=== PATIENT | male | born 1955 | race Two or more races ===

== ENCOUNTER → 2021-01-24 09:43 | Outpatient (BNVA) | payer MEDICARE, SELFPAY | PROVIDERS: PCP Internal Medicine; Visit Provider Internal Medicine Cardiovascular Disease | DX: I77.89 Other specified disorders of arteries and arterioles (principal); R42 Dizziness and giddiness; I10 Essential (primary) hypertension | CPT/HCPCS: 99212 ==

== ENCOUNTER → 2021-05-18 08:20 | Outpatient (REF) | payer MEDICARE, SELFPAY ==
--- NOTE | 2021-05-18 08:23 | CA_ITS ---
Transthoracic Echocardiogram Patient (Last, First, Middle): Mick Vela J Gender: Male Date of : 1955 Age: 65 Procedure Date: 05/18/2021 Procedure Type: Transthoracic Echocardiogram Location: OP Height: 193.04 cm Weight: 124.74 kg BSA: 2.54 m2 Heart Rate: bpm BP: 146 / 96 mmHg [employer] Telephone Clerk: YENNIFER Referring MD: Timmy Crabtree MD Sales Forecast Analyst: Timmy Crabtree MD Symptoms: R42 - Dizziness and giddiness Study Quality: Fair ECG Rhythm: Sinus Conclusions: - 1. Normal LV systolic function with impaired relaxation filling pattern 2. Mildly dilated left atrium 3. Normal cardiac valvular Doppler with mild calcified aortic valve changes 4. Mildly dilated ascending aorta at 4.1 cm 5. Normal RV systolic pressure 6. No pericardial effusion Findings Left Ventricle Normal left ventricular size, thickness, and systolic function. The visually estimated ejection fraction is between 60-65%. Spectral Doppler is indicative of an impaired relaxation filling pattern. E/E prime ratio is between 8 and 15 consistent with indeterminate filling pressures. Right Ventricle Normal right ventricular cavity size and systolic function. Atria The left atrium is mildly dilated. There is no evidence of interatrial shunt. The right atrium is normal in size. Aortic Valve There are fibrocalcifications on the aortic valve wall. There is no aortic valve stenosis. There is no aortic valve regurgitation. Mitral Valve Normal mitral valve structure and function. There is trace mitral valve regurgitation. There is no mitral valve stenosis. Pulmonic Valve The pulmonic valve was not well visualized. Tricuspid Valve Likely normal tricuspid valve structure and function. There is trace tricuspid valve regurgitation. The right ventricular systolic pressure is normal. The right ventricular systolic pressure is 22 mmHg. Normal right atrial pressure. There is no evidence of pulmonary hypertension. Great Vessels The pulmonary artery was not well visualized. There is mild dilatation of the ascending aorta measuring 4.10 cm. Venous The inferior vena cava is normal in size and collapses greater than 50% with inspiration. Pericardium/Pleural There is no evidence of pericardial effusion. Prior Study Comparison No significant change compared to prior study dated: 04/19/2020. Measurements 2D Linear Measurements IVSd: 1.02 0.6-0.9/0.6-1.0 cm LVIDd: 5.30 3.9-5.3/4.2-5.9 cm LVIDd Index: 2.09 2.4-3.2/2.2-3.1 cm/m2 LVIDs: 3.21 2.0-3.6 cm LVPWd: 1.03 0.7-1.1 cm Ao Root: 3.70 2.1-3.5 cm LA Diam: 4.60 2.7-3.8/3.0-4.0 cm LAIDs Index: 1.81 1.5-2.3 cm/m2 LV Mass: 258.12 67-162/88-224 g LV Mass Index: 101.62 43-95/49-115 g/m2 LVOT Diam: 2.00 3.0+(-)1.3 cm 2D Systolic Function EF 4C: 69.20 >55% EF 2C: 71.50 >55% EF BiP: 69.90 >55% Mitral Valve MV Pk E: 0.57 MV PK A: 0.53 MV Decel Time: 200.00 E/A: 1.10 E'Lateral: 10.80 E'Medial: 5.11 E/E' Med: 11.20 E/E' Lat: 5.30 PHT: 58.00 MVA PHT: 3.79 Decel [place]: 2.85 Aortic Valve AoV Pk Luis: 1.13 AoV Pk Grad: 5.00 LVOT LVOT Pk Luis: 1.08 LVOT Mn Luis: 0.74 LVOT VTI: 0.24 LVOT Pk Grad: 5.00 LVOT Mn Grad: 2.00 LVOT Diam: 2.00 LVOT Area: 3.14 Diastolic Function MV Pk E: 0.57 MV Pk A: 0.53 E/A: 1.10 E'Medial: 5.11 E/E' Med: 11.20 E' Laterial: 10.80 E/E' Lat: 5.30 Right Ventricle TAPSE (mm): 2.04 Tricuspid Valve TR Pk Luis: 2.17 TR Pk Grad: 19.00 RA Press: 3.00 RVSP: 22.00 Great Vessels Aorta Ao Root-2D: 3.70 2.0-3.7 cm Ao Asc: 4.10 2.1-3.4 cm Updated in Other Vendor System with Status of Final Timmy Crabtree MD electronically signed on 05/19/2021 3:32:06 PM with status of Final
== END ==
LOC: HO.CARD 08:20
PROVIDERS: PCP Internal Medicine; Visit Provider Internal Medicine
DX: R42 Dizziness and giddiness (principal)
CPT/HCPCS: 93306

== ENCOUNTER → 2021-06-15 08:22 | Outpatient (BNVA) | payer MEDICARE, SELFPAY | PROVIDERS: PCP Internal Medicine; Visit Provider Internal Medicine Cardiovascular Disease | DX: I77.89 Other specified disorders of arteries and arterioles (principal); I10 Essential (primary) hypertension | CPT/HCPCS: 99212 ==

== ENCOUNTER 2022-05-25 08:47 | Outpatient (REF) | payer MEDICARE, SELFPAY ==
--- NOTE | ~2022-05-25 | XR_ITS ---
EXAMINATION: XR CHEST CLINICAL INFORMATION: Acute respiratory infection COMPARISON: None TECHNIQUE: 2 views of the chest were obtained. FINDINGS: No significant abnormality is noted involving the heart, lungs, mediastinum, bony thorax or soft tissues. XR/XR chest 2V IMPRESSION: Unremarkable chest examination.
== END 2022-05-25 08:48 | disposition home or self-care (01) ==
LOC: HO.HMGCX 08:47
PROVIDERS: PCP Internal Medicine; Visit Provider Internal Medicine
DX: Z20.822 Contact with and (suspected) exposure to COVID-19 (principal); J06.9 Acute upper respiratory infection, unspecified
CPT/HCPCS: 71046

== ENCOUNTER → 2022-06-05 08:22 | Outpatient (REF) | payer MEDICARE, SELFPAY ==
--- NOTE | 2022-06-05 08:24 | CA_ITS ---
Transthoracic Echocardiogram Patient (Last, First, Middle): Mick Vela J Gender: Male Date of : 1955 Age: 66 Procedure Date: 06/05/2022 Procedure Type: Transthoracic Echocardiogram Location: OP Height: 190.5 cm Weight: 124.74 kg BSA: 2.51 m2 Heart Rate: bpm BP: 145 / 98 mmHg Autom[employer] Title Clerk: RENEE Referring MD: Timmy Crabtree MD Symptoms: I77.89 - Other specified disorders of arteries and arteri... Study Quality: Fair ECG Rhythm: Sinus Conclusions: - The left ventricular systolic function is normal. The calculated ejection fraction is 60% by biplane method. - There is mildly decreased right ventricular systolic function. - There is mild calcification of the aortic valve. - There is mild dilatation of the sinuses of Valsalva measuring 4.32 cm and mild dilatation of the ascending aorta measuring 4.10 cm. Findings Left Ventricle Normal left ventricular cavity size. The left ventricular systolic function is normal. The calculated ejection fraction is 60% by biplane method. There is no evidence of regional wall motion abnormalities. Diastolic function is normal for age. There is mild septal and mild basal asymmetric hypertrophy. Right Ventricle Normal right ventricular cavity size. There is mildly decreased right ventricular systolic function. (TAPSE 1.55cm). Atria Both atria are normal in size. Aortic Valve There is a normal trileaflet aortic valve. There is mild calcification of the aortic valve. There is no aortic valve stenosis. There is no aortic valve regurgitation. Mitral Valve There is mild anterior mitral leaflet thickening. There is no mitral valve regurgitation. There is no mitral valve stenosis. Pulmonic Valve The pulmonic valve is likely normal. Tricuspid Valve There is trace tricuspid valve regurgitation. There is no evidence of pulmonary hypertension. Great Vessels There is mild dilatation of the sinuses of Valsalva measuring 4.32 cm and mild dilatation of the ascending aorta measuring 4.10 cm. Venous The inferior vena cava is normal in size and collapses greater than 50% with inspiration. Pericardium/Pleural There is no evidence of pericardial effusion. Prior Study Comparison Changes noted compared to prior study dated: 05/18/2021. See comment on right ventricle. Measurements 2D Linear Measurements IVSd: 1.11 0.6-0.9/0.6-1.0 cm LVIDd: 3.96 3.9-5.3/4.2-5.9 cm LVIDd Index: 1.58 2.4-3.2/2.2-3.1 cm/m2 LVIDs: 2.49 2.0-3.6 cm LVPWd: 1.06 0.7-1.1 cm LA Diam: 4.10 2.7-3.8/3.0-4.0 cm LAIDs Index: 1.63 1.5-2.3 cm/m2 LV Mass: 174.98 67-162/88-224 g LV Mass Index: 69.71 43-95/49-115 g/m2 LVOT Diam: 2.00 3.0+(-)1.3 cm 2D Systolic Function EF 4C: 59.80 >55% EF 2C: 61.20 >55% EF BiP: 60.30 >55% Mitral Valve MV Pk E: 0.51 MV PK A: 0.79 MV Decel Time: 401.00 E/A: 0.60 E'Lateral: 7.51 E'Medial: 4.57 E/E' Med: 11.20 E/E' Lat: 6.80 PHT: 117.00 MVA PHT: 1.88 Decel [place]: 1.27 Aortic Valve AoV Pk Luis: 1.15 AoV Mn Luis: 0.80 AoV VTI: 0.27 AoV Pk Grad: 5.00 Aov Mn Grad: 3.00 ZENON Cont.VTI: 3.29 LVOT LVOT Pk Luis: 1.14 LVOT Mn Luis: 0.76 LVOT VTI: 0.28 LVOT Pk Grad: 5.00 LVOT Mn Grad: 3.00 LVOT Diam: 2.00 LVOT Area: 3.14 Diastolic Function MV Pk E: 0.51 MV Pk A: 0.79 E/A: 0.60 E'Medial: 4.57 E/E' Med: 11.20 E' Laterial: 7.51 E/E' Lat: 6.80 Right Ventricle TAPSE (mm): 15.50 TVS' Luis: 6.74 Tricuspid Valve RA Press: 3.00 Great Vessels Aorta Sinus of Valsalva: 4.32 2.0-3.[address] [place]: 3.17 1.7-3.4 cm Ao Asc: 4.10 2.1-3.4 cm Updated in Other Vendor System with Status of Final Aki Humphreys MD electronically signed on 06/05/2022 12:27:10 PM with status of Final
== END ==
LOC: HO.CARD 08:22
PROVIDERS: PCP Internal Medicine; Visit Provider Internal Medicine Cardiovascular Disease
DX: I77.89 Other specified disorders of arteries and arterioles (principal)
CPT/HCPCS: 93306

== ENCOUNTER → 2022-06-14 08:22 | Outpatient (BNVA) | payer MEDICARE, SELFPAY | PROVIDERS: PCP Internal Medicine; Referring Provider Internal Medicine; Visit Provider Internal Medicine Cardiovascular Disease | DX: I25.10 Atherosclerotic heart disease of native coronary artery without angina pectoris (principal); I77.89 Other specified disorders of arteries and arterioles; E78.5 Hyperlipidemia, unspecified | CPT/HCPCS: 36415; 80061; 86141; 93005; 99212 ==

== ENCOUNTER 2022-06-14 09:00 | Outpatient (REF) | payer MEDICARE, SELFPAY ==
[2022-06-14 10:46] LABS: Cholesterol 159 mg/dL; HDL Cholesterol 37 mg/dL; LDL Cholesterol Calculated 105 mg/dl; Triglycerides 89 mg/dL
[2022-06-16 14:21] LABS: CRP High Sensitivity 2.3 mg/L
== END 2022-06-14 09:01 | disposition home or self-care (01) ==
LOC: HO.LAB 09:00
PROVIDERS: PCP Internal Medicine; Visit Provider Internal Medicine Cardiovascular Disease
DX: Z13.89 Encounter for screening for other disorder (principal)
CPT/HCPCS: 36415; 80061; 86141

== ENCOUNTER 2022-07-18 09:21 | Outpatient (REF) | payer MEDICARE, SELFPAY ==
--- NOTE | ~2022-07-18 | XR_ITS ---
EXAMINATION: XR CHEST CLINICAL INFORMATION: Chest pain. COMPARISON: Chest radiographs dated 05/25/2022. TECHNIQUE: 2 views of the chest were obtained. FINDINGS: No significant abnormality is noted involving the heart, lungs, mediastinum, bony thorax or soft tissues. XR/XR chest 2V IMPRESSION: No acute cardiopulmonary process.
[2022-07-18 12:50] LABS: Influenza A PCR NEGATIVE (Negative); Influenza B PCR NEGATIVE (Negative); Resp Syncy Virus RNA Qual PCR NEGATIVE (Negative); SARS COV2 PCR INHOUSE POSITIVE (Negative)
== END 2022-07-18 09:22 | disposition home or self-care (01) ==
LOC: HO.XRAY 09:21
PROVIDERS: PCP Internal Medicine; Visit Provider Family Medicine
DX: R09.89 Other specified symptoms and signs involving the circulatory and respiratory systems (principal); R09.02 Hypoxemia; Z20.822 Contact with and (suspected) exposure to COVID-19
CPT/HCPCS: 0241U; 71046

== ENCOUNTER 2022-09-18 06:58 | Outpatient (REF) | payer MEDICARE, SELFPAY ==
[2022-09-18 07:53] LABS: Cholesterol 128 mg/dL; HDL Cholesterol 35 mg/dL; LDL Cholesterol Calculated 73 mg/dl; Triglycerides 103 mg/dL
== END 2022-09-18 06:59 | disposition home or self-care (01) ==
LOC: HO.LAB 06:58
PROVIDERS: PCP Internal Medicine; Visit Provider Internal Medicine Cardiovascular Disease
DX: I11.9 Hypertensive heart disease without heart failure (principal); I77.89 Other specified disorders of arteries and arterioles
CPT/HCPCS: 36415; 80061; 86141

== ENCOUNTER → 2022-10-03 14:47 | Outpatient (BNVA) | payer MEDICARE, SELFPAY | PROVIDERS: PCP Internal Medicine; Referring Provider Internal Medicine; Visit Provider Internal Medicine Cardiovascular Disease | DX: Z13.89 Encounter for screening for other disorder (principal) ==

== ENCOUNTER 2023-04-15 08:13 | Outpatient (REF) | payer MEDICARE, SELFPAY ==
[2023-04-15 08:22] LABS: MANUAL DIFF FLAG NO
[2023-04-15 08:58] LABS: Basophils Percent Auto 0.6 % (0-2); Eosinophils Absolute Auto 0.2 X10*3/uL (0.0-0.4); Eosinophils Percent Auto 2.9 % (0-4); Hematocrit 50.9 % (42.0-52.0); Hemoglobin 16.6 g/dl (14.0-18.0); Imm Gran Abs Auto 0.03 X10*3/uL (0.00-0.03); Imm Gran Pct Auto 0.5 % (0.0-0.4); Lymphocytes Absolute Auto 1.9 X10*3/uL (1.2-4.9); Mean Corpuscular HGB Conc 32.6 g/dl (31.0-36.0); Mean Corpuscular Hemoglobin 29.5 pg (27.0-33.0); Mean Corpuscular Volume 90.4 fL (80.0-98.0); Mean Platelet Volume 12.7 fL (9.4-12.4); Monocytes Absolute Auto 0.6 X10*3/uL (0.1-1.2); Monocytes Percent Auto 8.5 % (2-11); Neutrophils Absolute Auto 3.8 x10*3/uL (2.0-8.3); Neutrophils Percent Auto 58.5 % (45-73); Red Blood Count 5.63 X10*6/uL (4.60-5.80); Red Cell Distribution Width 12.6 % (11.0-16.0); White Blood Count 6.6 X10*3/uL (4.8-10.8)
[2023-04-15 09:23] LABS: B Type Natriuretic Peptide 136 pg/mL (<100)
[2023-04-15 09:29] LABS: Anion Gap 15 (12-20); Blood Urea Nitrogen 19 mg/dL (9-16); Calcium 9.5 mg/dL (8.4-10.2); Carbon Dioxide 21 mmol/L (22-29); Chloride 108 mmol/L (96-108); Estimated Glomerular Filt Rate > 60; Glucose Random 103 mg/dL (60-115); Potassium 4.1 mmol/L (3.3-5.1); Sodium 140 mmol/L (135-145)
[2023-04-15 09:39] LABS: Platelet Count 4 X10*3/uL (160-400)
[2023-04-15 09:49] LABS: Thyroid Stimulating Hormone 2.74 uIU/mL (0.32-4.0)
== END 2023-04-15 08:14 | disposition home or self-care (01) ==
LOC: HO.LAB 08:13
PROVIDERS: PCP Internal Medicine; Visit Provider Nurse Practitioner
DX: Z13.89 Encounter for screening for other disorder (principal)
CPT/HCPCS: 36415; 80048; 83880; 84443; 85025

== ENCOUNTER 2023-04-15 09:53 | Outpatient (AMB) | payer MEDICARE, SELFPAY ==
--- NOTE | 2023-04-15 09:56 | MHC.OFFVIS ---
Intake Vital Signs 04/15/23 09:57 Height 6 ft 3 in Weight 253 lb 8.505 oz BMI 31.7 BP 120/80 Blood Pressure Location Lt brachial Position Sitting Pulse 87 Intake Visit Reasons: A-fib Intake Note: Follow-up new afib Manager Decision Support Required: No Allergies amoxicillin Allergy (Unknown, Verified 07/18/22 08:50) GI upset penicillin V Allergy (Unknown, Verified 07/18/22 08:50) GI HPI HPI Comments History of Present Illness Details Mick comes for an urgent follow-up visit. Over the weekend he was having respiratory symptoms and he went to an urgent care. There he was noted to have irregular pulse an EKG confirm presence of atrial fibrillation. He was started on antibiotics. He has no new symptoms. Denies any symptoms of palpitations. Denies any symptoms of shortness of breath, fatigue. No orthopnea, PND. Today as a part of initiation for oral anticoagulation therapy and follow-up we did a CBC. This shows a platelet count of 4000 which is critically low. He has not noticed any spontaneous bruising. No other overt bleeding. [facility] Medical History Enlarged thoracic aorta HTN (hypertension) Hypertensive heart disease Family History Father No problems noted. Mother CVD (cardiovascular disease) Review of Systems Const Denies chills, Denies fatigue, Denies fever(s), Denies frequent falls, Denies weakness, Denies weight gain and Denies weight loss ENT Denies dizziness Card Denies chest pain, Denies leg edema, Denies lightheadedness, Denies palpitations, Denies dyspnea, Denies dyspnea on exertion, Denies orthopnea and Denies other (loss of consciousness) Resp Denies cough, Denies dyspnea and Denies dyspnea on exertion GI Denies hematochezia and Denies change in stool character Musc Denies abnormal gait, Denies muscle weakness, Denies numbness, Denies radiating pain into limb and Denies tingling Neuro Denies abnormal gait, Denies dizziness, Denies frequent falls, Denies numbness, Denies tingling and Denies weakness Endo Denies fatigue and Denies palpitations Physical Exam Vital Signs: Last Vital Signs Pulse 87 04/15/23 09:57 BP 120/80 04/15/23 09:57 BMI result Body Mass Index 31.7 Const General: cooperative, comfortable, no acute distress, alert, awake and well groomed Nutritional Appearance: obese Orientation/consciousness: patient oriented x3 Limitations: no limitations Neck Neck: Yes trachea midline, Yes supple and Yes no JVD Resp Effort & Inspection: normal respiratory effort Auscultation: clear to auscultation bilaterally Cardio Jugular venous distension: no JVD Palpation: normal PMI Rhythm: abnormal rhythm irregularly irregular Heart sounds: S1 normal heart sound present and S2 normal heart sound present GI Auscultation: normal bowel sounds Skin General skin exam: no rashes or lesions noted Neuro General: patient oriented x3 and no focal motor deficits Extrem General: Yes no clubbing, cyanosis or edema Psych Appearance: grossly normal Office Procedures EKG Details: EKG shows atrial fibrillation with controlled ventricular response with minimal voltage criteria for LVH [id number], Complete Assessment & Plan Assessment & Plan (1) Thrombocytopenia: Code(s): D69.6 - Thrombocytopenia, unspecified Plan: Critical thrombocytopenia noted as the routine blood work before initiation of oral anticoagulation therapy. Patient has no recent bleeding complications. Discussed case with Dr. Angela over the phone, advised patient to go to the emergency room for further work and treatment given critical thrombocytopenia and high risk for spontaneous hemorrhage. Discussed with the patient. He understands and agrees. ED triage was called and patient is being taken down to the ED. discontinue aspirin therapy. (2) Atrial fibrillation: Code(s): I48.91 - Unspecified atrial fibrillation Plan: Atrial fibrillation, new onset. Patient having no symptoms or signs of cardiac decompensation. Unknown duration of atrial fibrillation. Patient currently has control rate. No signs or symptoms of heart failure. Given his critical thrombocytopenia, will not start oral anticoagulation therapy till his platelet counts are about 100,000. (3) HTN (hypertension): Code(s): I10 - Essential (primary) hypertension Plan: Hypertension which is currently well optimized continue current therapy importance of good blood pressure control was discussed. Target goal blood pressure less than 130/84. Will follow with him in near future. Coding Level of Care Code Est Pt Level 4 (04536) Diagnoses Thrombocytopenia D69.6 Atrial fibrillation I48.91 HTN (hypertension) I10 CPT Codes EKG - CPT: 56278-[id number], Complete ([id number])
[2023-04-15 09:57] VITALS: BP 120/80; PULSE 87; BMI 31.7
== END 2023-04-15 10:32 | disposition home or self-care (01) ==
PROVIDERS: PCP Internal Medicine; Visit Provider Internal Medicine Cardiovascular Disease
DX: D69.6 Thrombocytopenia, unspecified (principal); I48.91 Unspecified atrial fibrillation; I10 Essential (primary) hypertension
CPT/HCPCS: 93010; 99214

== ENCOUNTER 2023-04-15 10:24 | Inpatient (IN) | payer MEDICARE, SELFPAY ==
[2023-04-15 10:34] VITALS: BP 126/94; PULSE 90; RESP 17; TEMP 35.6; O2SAT 95; BMI 31.9
--- NOTE | 2023-04-15 10:43 | ECG_ITS ---
Test Reason : ABNORMAL LAB/AFIB Blood Pressure : / mmHG Vent. Rate : 086 BPM Atrial Rate : 000 BPM P-R Int : 000 ms QRS Dur : 076 ms QT Int : 378 ms P-R-T Axes : 000 -28 000 degrees QTc Int : 452 ms Atrial fibrillation Possible Anterior infarct (cited on or before 11-JUL-2009) Abnormal ECG When compared with ECG of 11-JUL-2009 11:54, Atrial fibrillation has replaced Sinus rhythm Nonspecific T wave abnormality no longer evident in Anterolateral leads Referred By: Generic ED Physician Electronically Signed By:PARVEEN WILLARD
--- NOTE | 2023-04-15 11:11 | ED.GENADULT ---
HPI - General Adult General Chief complaint: Arrhythmia/Palpitations Stated complaint: Abnormal labs Time Seen by Provider: 04/15/23 10:51 Source: patient Mode of arrival: ambulatory Limitations: no limitations History of Present Illness HPI narrative: 67 y/o M with PMHx of HTN and HLD presents with referral for low platelet count. Patient went to walk in clinic for sinus pressure 2 days ago where they discovered new onset a-fib. Patient referred to Cyber Security Administrator, Dr. Crabtree, who luis labs this am and found platelet count to be 4,000. Patient has no chest pain, palpitations, abdominal pain, SOB, N/V/D, fevers or chills. Patient has noticed some unusual bruising to the lower abdomen and 2th L toe. Patient started taking Augmentin 2 days ago for sinus infection. complaint: abnormal labs Onset (ago): hour(s) Associated symptoms: denies other symptoms Treatments prior to arrival: none Related Data Home Medications Medication Instructions Recorded Confirmed fexofenadine 180 mg tablet 180 mg PO DAILY 04/16/22 04/15/23 (Ananya Allergy) amoxicillin 875 mg-potassium 1 tab PO BID 04/15/23 04/15/23 clavulanate 125 mg tablet omeprazole 20 mg capsule,delayed 20 mg PO DAILY 04/15/23 04/15/23 release Previous Rx's Medication Instructions Recorded albuterol sulfate 90 mcg/actuation 2 puff inhalation Q4-6H PRN 07/18/22 aerosol inhaler (ProAir HFA) shortness of breath or wheezing 30 days #8.5 grams atorvastatin 40 mg tablet 40 mg PO DAILY #90 tabs 10/24/22 lisinopril 5 mg tablet 5 mg PO BID 90 days #180 tabs 10/24/22 amlodipine 2.5 mg tablet 2.5 mg PO DAILY 30 days #90 tabs 11/21/22 Allergies Allergy/AdvReac Type Severity Reaction Status Date / Time amoxicillin Allergy Unknown GI upset Verified 07/18/22 08:50 penicillin V Allergy Unknown GI Verified 07/18/22 08:50 Review of Systems Review of Systems: Yes all other systems are reviewed and are negative [facility] Past Medical History Medical History Enlarged thoracic aorta HTN (hypertension) Hypertensive heart disease Family History Family History Father No problems noted. Mother CVD (cardiovascular disease) Social History Social History Advance Directives: No Advance Directives Information Provided: No Physical Exam ED Vital Signs: Vital Signs - 24 hr 04/15/23 10:34 04/15/23 12:31 Temperature 96.0 F L 98.1 F Pulse Rate 90 76 Respiratory Rate 17 19 Blood Pressure 126/94 H 121/82 Pulse Oximetry 95 95 Oxygen Delivery Method Room Air Room Air BMI result Body Mass Index 31.9 Appearance: Alert. Oriented X3. No acute distress. Head: normocephalic, atraumatic. Eyes: Pupils equal, round and reactive to light. ENT: Pharynx normal. No tonsillar swelling or exudate. Neck: Normal inspection. Neck supple. CVS: Irregularly irregular, regular rate, Pulses normal. Respiratory: No respiratory distress. Breath sounds normal. Abdomen: Soft and nontender. +BS x4 Skin: Skin warm and dry. Normal skin color. Normal skin turgor. No rashes. Moderately sized ecchymosis to LLQ, approximately 8cm x 4cm. Small ecchymosis to R 2nd toe, approximately 1cm x 1cm Extremities: No lower extremity edema. No joint swelling. Neuro/psych: Oriented X 3. No motor deficit. No sensory deficit. CN II-XII intact. Normal speech and cognition. Course Consultations Consultation #1: Dr. Angela - irrigation flume layer Medications Administered Discontinued Medications Generic Name Dose Route Start Last Admin Trade Name Kikoq PRN Reason Stop Dose Admin Dexamethasone Sodium Phosphate 40 mg 04/15/23 12:04 04/15/23 12:18 Dexamethasone Sod Phosphate 10 Mg/Ml Vial IVPUSH 04/15/23 12:05 40 mg ONCE ONE Administration Medical Decision Making Medical Decision Making MDM Narrative: 67 y/o M with PMHx of HTN and HLD presents with referral for low platelet count. Patient reports no symptoms, except for some unusual small bruising. Patient gets his labs drawn every year and reports that everything has been normal. Idiopathic thrombocytopenia likely due to insidious onset and lack of symptomology. Patient started taking Augmentin 2 days ago for which drug-induced ITP is possible, but timeline is unlikely. TTP unlikely due to non-toxic appearance and isolated thrombocytopenia. Possibly immune mediated thrombocytopenia from sinus infection Heme/onc referred and lab workup ordered. Isolated thrombocytopenia makes myelodysblastic syndromes and TTP unlikely. Holding off on platelet transfusion at this time, no active bleeding will admit for further treatment and monitoring Differential Diagnosis Differential Diagnoses: The differential diagnosis associated with the presentation includes Most likely idiopathic thrombocytopenia, possible drug-induced ITP, or immune mediated thrombocytopenia. Less likely Myelodysblastic syndromes or TTP. Admission/Observation Consideration of admission/observation: Escalation of care including admission/observation considered severe thrombocytopenia requiring admission Consult Healthcare Provider Management of the patient was discussed with: Hospitalist and Rn Registry Dr. Angela recommending dexamethasone 40 mg IV x1, transition to PO prednisone 1mg/kg with slow taper over 1 month once platelets 20K Dr. Power TT who will admit Lab Data MDM Lab Attestation statement: I reviewed the patient's lab results. severe thrombocytopenia, normal H/H and WBC 04/15/23 Unknown 04/15/23 Unknown Labs: Lab Results 04/15/23 04/15/23 Range/Units Unknown Unknown WBC 6.0 (4.8-10.8) X10*3/uL RBC 5.51 (4.60-5.80) X10*6/uL Hgb 16.3 (14.0-18.0) g/dl Hct 48.9 (42.0-52.0) % MCV 88.7 (80.0-98.0) fL MCH 29.6 (27.0-33.0) pg MCHC 33.3 (31.0-36.0) g/dl RDW 12.5 (11.0-16.0) % Plt Count 4 L* (160-400) X10*3/uL MPV 10.7 (9.4-12.4) fL Immature Gran % (Auto) 0.2 (0.0-0.4) % Neut % (Auto) 61.8 (45-73) % Lymph % (Auto) 26.3 (20-40) % [place] % (Auto) 9.0 (2-11) % Eos % (Auto) 2.2 (0-4) % Baso % (Auto) 0.5 (0-2) % Lymph # (Auto) 1.6 (1.2-4.9) X10*3/uL [place] # (Auto) 0.5 (0.1-1.2) X10*3/uL Eos # (Auto) 0.1 (0.0-0.4) X10*3/uL Baso # (Auto) 0.0 (0.0-0.2) X10*3/uL Abs Immat Gran (auto) 0.01 (0.00-0.03) X10*3/uL Absolute Neuts (auto) 3.7 (2.0-8.3) x10*3/uL Absolute Nucleated RBC 0.000 (0.0-0.012) X10*3/uL Nucleated RBC % (auto) 0.0 (0.0-0.2) /100WBC Sodium 141 (135-145) mmol/L Potassium 4.1 (3.3-5.1) mmol/L Chloride 111 H (96-108) mmol/L Carbon Dioxide 21 L (22-29) mmol/L Anion Gap 13 (12-20) BUN 18 H (9-16) mg/dL Creatinine 1.10 (0.5-1.4) mg/dL Estim Creat Clear Calc 89.3 Estimated GFR > 60 Random Glucose 103 (60-115) mg/dL Calcium 9.1 (8.4-10.2) mg/dL Total Bilirubin 0.7 (0.0-1.0) mg/dL AST 21 (5-37) U/L ALT 27 (0-40) U/L Alkaline Phosphatase 111 (39-117) U/L Total Protein 7.1 (6.5-8.0) g/dL Albumin 3.7 (3.5-5.0) g/dL Independent Interpretation I performed an independent interpretation of an: EKG Interpretation: atrial fibrillation, HR 86 bpm, no ST segment elevations or depressions Independent Historian Clinical information obtained from an independent historian. History obtained from or confirmed by: Spouse External Record Review External record reviewed: Office record, Outpatient record and Prior outpatient labs Tests considered The following testing was considered but not selected: considered CT head however asymptomatic Prescription Management I considered prescription management with: Other (steroids) Chronic Conditions Patient?s care impacted by: Other (afib) Critical Care Time Critical Care Time Critical Care Time: Yes Total Critical Care Time: 35 Attestation: I have personally provided critical care time exclusive of time spent on separately billable procedures. Time includes review of lab data, d/w consultants and monitoring for potential decompensation. Intervention performed as documented. Discharge Plan Discharge Clinical Impression: Severe thrombocytopenia Patient Disposition: Admitted As Inpatient Prescriptions: No Action atorvastatin 40 mg tablet 40 mg PO DAILY Qty: 90 3RF lisinopril 5 mg tablet 5 mg PO BID 90 Days Qty: 180 3RF amlodipine 2.5 mg tablet 2.5 mg PO DAILY 30 Days Qty: 90 3RF omeprazole 20 mg Capsule,Delayed Release(Dr/Ec) 20 mg PO DAILY albuterol sulfate [ProAir HFA] 90 mcg/actuation HFA aerosol inhaler 2 puff inhalation Q4-6H PRN (Reason: shortness of breath or wheezing) 30 Days Qty: 8.5 0RF fexofenadine [Ananya Allergy] 180 mg tablet 180 mg PO DAILY amoxicillin-pot clavulanate 875-125 mg tablet 1 tab PO BID
[2023-04-15 11:46] LABS: MANUAL DIFF FLAG NO
[2023-04-15 11:48] LABS: Basophils Percent Auto 0.5 % (0-2); Eosinophils Absolute Auto 0.1 X10*3/uL (0.0-0.4); Eosinophils Percent Auto 2.2 % (0-4); Hematocrit 48.9 % (42.0-52.0); Hemoglobin 16.3 g/dl (14.0-18.0); Imm Gran Abs Auto 0.01 X10*3/uL (0.00-0.03); Imm Gran Pct Auto 0.2 % (0.0-0.4); Lymphocytes Absolute Auto 1.6 X10*3/uL (1.2-4.9); Lymphocytes Percent Auto 26.3 % (20-40); Mean Corpuscular HGB Conc 33.3 g/dl (31.0-36.0); Mean Corpuscular Hemoglobin 29.6 pg (27.0-33.0); Mean Corpuscular Volume 88.7 fL (80.0-98.0); Mean Platelet Volume 10.7 fL (9.4-12.4); Monocytes Absolute Auto 0.5 X10*3/uL (0.1-1.2); Neutrophils Absolute Auto 3.7 x10*3/uL (2.0-8.3); Neutrophils Percent Auto 61.8 % (45-73); Red Blood Count 5.51 X10*6/uL (4.60-5.80); Red Cell Distribution Width 12.5 % (11.0-16.0)
--- NOTE | 2023-04-15 11:54 | PC.NURSE ---
patient is in rate controlled afib, bpm 82
[2023-04-15 12:01] LABS: Alanine Aminotransferase 27 U/L (0-40); Albumin Level 3.7 g/dL (3.5-5.0); Alkaline Phosphatase 111 U/L (39-117); Anion Gap 13 (12-20); Aspartate Amino Transferase 21 U/L (5-37); Bilirubin Total 0.7 mg/dL (0.0-1.0); Blood Urea Nitrogen 18 mg/dL (9-16); Calcium 9.1 mg/dL (8.4-10.2); Carbon Dioxide 21 mmol/L (22-29); Chloride 111 mmol/L (96-108); Creatinine Clr Calc Pharmacy 89.3; Estimated Glomerular Filt Rate > 60; Glucose Random 103 mg/dL (60-115); Potassium 4.1 mmol/L (3.3-5.1); Sodium 141 mmol/L (135-145); Total Protein 7.1 g/dL (6.5-8.0)
[2023-04-15 12:03] LABS: Platelet Count 4 X10*3/uL (160-400)
[2023-04-15] MEDS: dexAMETHasone sod phosphate 10 MG/ML VIAL 40 MG IVPUSH (12:18)
--- NOTE | 2023-04-15 12:27 | PHA.MEDREC ---
Pharmacy Consult ? Medication Reconciliation Pharmacy has completed the medication reconciliation. spoke with patient and to confirm medications. Patient reported taking only 2 doses of the antibiotic and is discontinuing the baby aspirin today.
[2023-04-15 12:31] VITALS: BP 121/82; PULSE 76; RESP 19; TEMP 36.7; O2SAT 95
--- NOTE | 2023-04-15 13:54 | PM.IMHP ---
History of Present Illness Date of Service: 04/15/23 Attending physician on admission: Margo Power Chief Complaint: thrombocytopenia 67 year old male with history htn, hld, aortic aneurysm, and newly diagnosed atrial fibrillation presented to the ED from Cardiology office for evaluation of thrombocytopenia. Per patient report, he developed a cough and wheezing while on vacation last week and was seen at a local urgent care in [place] for further evaluation. the patient was reportedly diagnosed with a sinus infection but denies any sinus pressure and was prescribed Augmentin which he currently continues on. While in the cardiology office where he was being evaluated for anticoagulation, he was noted to have platelet level of 4000 And advised to come to the ED. on arrival, vital stable. There is no leukocytosis/ leukopenia, anemia but did have thrombocytopenia 4000. Renal function and electrolyte levels unremarkable. EKG showed atrial fibrillation, rate [address] E or depressions. Denies any bleeding episodes or rash. Does have a bruise on the abdomen. In the ED, given 40mg iv dexamethsone. Review of Systems Review of Systems: General: No fevers, malaise, unintentional weight loss HEENT: No blurred vision, diplopia. No sore throat, nasal congestion, rhinorrhea, sinus pain, ear pain Cardiovascular: No chest pain, palpitations, or leg edema Respiratory: No shortness of breath, wheezing, cough GI: No abdominal pain, nausea, vomiting, diarrhea, constipation, melena, hematochezia : No dysuria, hematuria, increased urinary frequency, decreased urinary output MSK: No myalgia, back pain Neuro: No headaches, weakness, paresthesias Skin: No rashes or lesions [facility] Medical History (Updated 04/15/23 @ 14:17 by ROBERT Borden) Atrial fibrillation Enlarged thoracic aorta HTN (hypertension) Hypertensive heart disease Family History Father No problems noted. Mother CVD (cardiovascular disease) Social History Advance Directives: No Advance Directives Information Provided: No Meds Allergies Allergy/AdvReac Type Severity Reaction Status Date / Time amoxicillin Allergy Unknown GI upset Verified 07/18/22 08:50 penicillin V Allergy Unknown GI Verified 07/18/22 08:50 Active Medications: Current Medications Acetaminophen (Acetaminophen 325 Mg Tablet) 650 mg PO Q6H PRN PRN Reason: Pain, Mild (Pain Scale 1-3) Albuterol Sulfate (Albuterol Sulfate 90 Mcg 8 Gm Inhaler) 2 puff INHALE Q4-6H PRN PRN Reason: shortness of breath or wheezing Amlodipine Besylate (Amlodipine Besylate 2.5 Mg Tablet) 2.5 mg PO DAILY [facility]; Protocol Docusate Sodium (Docusate Sodium 100 Mg Capsule) 100 mg PO DAILY PRN PRN Reason: Constipation Lisinopril (Lisinopril 5 Mg Tablet) 5 mg PO BID [facility]; Protocol Methylprednisolone Sodium Succinate (Methylprednisolone Sod Succ 40 Mg/Ml Vial) 40 mg IVPUSH Q12H [facility] Non-Formulary Medication (Fexofenadine [Ananya Allergy]) 180 mg PO DAILY [facility] Omeprazole (Omeprazole 20 Mg Capsule.Dr) 20 mg PO DAILY [facility] Ondansetron HCl (Ondansetron Hcl 4 Mg/2 Ml Vial) 4 mg IVPUSH Q8H PRN PRN Reason: Nausea and Vomiting Pharmacy Consult (Consult Rx Perform Med Rec) 1 each MISCELLANE ONCE PRN PRN Reason: Consult order Sodium Chloride (0.9 % Sodium Chloride Flush 3 Ml Syringe) 3 ml IVFLUSH QSHIFT [facility] Home Medications Medication Instructions Recorded Confirmed Last Taken Type fexofenadine 180 mg tablet 180 mg PO DAILY 04/16/22 04/15/23 Unknown History (Ananya Allergy) amoxicillin 875 mg-potassium 1 tab PO BID 04/15/23 04/15/23 Unknown History clavulanate 125 mg tablet omeprazole 20 mg capsule,delayed 20 mg PO DAILY 04/15/23 04/15/23 Unknown History release Physical Exam Vital Signs and Narrative: Vital Signs: Last Vital Signs Temp 98.1 F 04/15/23 12:31 Pulse 76 04/15/23 12:31 Resp 19 04/15/23 12:31 BP 121/82 04/15/23 12:31 Pulse Ox 95 04/15/23 12:31 O2 Del Method Room Air 04/15/23 12:31 BMI result Body Mass Index 31.9 Constitutional - Awake and Alert, No apparent distress Eyes - PERRLA, EOMI Cardiovascular - S1S2, RRR, No edema Respiratory - Normal lung expansion, Normal respiratory effort, No respiratory distress, CTA bilaterally Gastrointestinal - NT / ND; +BS; No rebound or guarding Extremities - no calf tenderness bilaterally, no swelling Skin - Warm/Dry. scattered petechiae ble Neurological - Alert & oriented x3 Psychological - Appropriate affect Results Labs 04/15/23 Unknown 04/15/23 Unknown Labs: Laboratory Results - last 24 hr 04/15/23 04/15/23 Unknown Unknown MCV 88.7 MCH 29.6 MCHC 33.3 RDW 12.5 Plt Count 4 L* MPV 10.7 Immature Gran % (Auto) 0.2 Neut % (Auto) 61.8 Lymph % (Auto) 26.3 [place] % (Auto) 9.0 Eos % (Auto) 2.2 Baso % (Auto) 0.5 Lymph # (Auto) 1.6 [place] # (Auto) 0.5 Eos # (Auto) 0.1 Baso # (Auto) 0.0 Abs Immat Gran (auto) 0.01 Absolute Neuts (auto) 3.7 Absolute Nucleated RBC 0.000 Nucleated RBC % (auto) 0.0 Anion Gap 13 Estim Creat Clear Calc 89.3 Estimated GFR > 60 Random Glucose 103 Calcium 9.1 Total Bilirubin 0.7 AST 21 ALT 27 Alkaline Phosphatase 111 Total Protein 7.1 Albumin 3.7 Assessment and Plan (1) Acute ITP: Status: Acute Plan 67 year old male with history htn, hld, aortic aneurysm, and newly diagnosed atrial fibrillation admitted for severe acute ITP. #Acute ITP -likely 2/2 viral infection -IV dexamethasone 40mg given in ED. -Recheck cbc am, continue IV steroids if needed -Transition to PO steroids as appropriate -Goal inpt PLT >10k, dc on 4 week taper prednisone -Hold asa #Viral URI -symptomatic management #Newly diagnosed atrial fibrillation -Rate controlled -[id number] score 2. Hold asa for now -Outpt follow up with cardiology #HTN -continue home meds DVT prophylaxis- SCPs full code Time Spent With Patient Time: Total time managing care of this patient today ____ minutes. Quality Stroke Does the patient have a stroke diagnosis?: No VTE Prior VTE?: No VTE Risk Level:: Medical - moderate - high VTE Device Contraindication: N/A - Device Ordered VTE Drug Contraindication: Treatment Not Indicated
[2023-04-15 16:17] VITALS: BP 124/91; PULSE 92; RESP 20; TEMP 36.8; O2SAT 93
[2023-04-15] MEDS: 0.9 % Sodium Chloride Flush 3 ML SYRINGE IVFLUSH ×2 (17:03→21:23)
[2023-04-15 17:12] VITALS: BP 162/111; PULSE 92; RESP 18; TEMP 36.1; O2SAT 95
--- NOTE | 2023-04-15 17:20 | PC.NURSE ---
pt admitted to unit now. Awake and alert. Upbeat. BP high at 162/111.
--- NOTE | 2023-04-15 17:24 | PM.HEMONCCN ---
Subjective - Subjective Chief complaint: Low platelets Patient: new to practice Consult date: 04/16/23 Primary Care Provider: Josh Kelly MD HPI - Consult Narrative Reason for consult: Probable ITP Narrative: Mick Vela is a 67 year old male who was referred to emergency department because of extremely low platelets but was noted on routine blood work. Patient was diagnosed with atrial fibrillation over the weekend in [place] when he went to a local walk-in center for sinus symptoms. He was found to be in atrial fibrillation and he therefore was going to see his buttonhole marker today he about starting anticoagulation. Blood work showed platelet count of 4 K. Although patient did not had any overt symptoms of bruising or bleeding, they did notice a bruise on his left lower abdomen. He also is on baby aspirin. Patient took just 2 doses of Augmentin. He had some symptoms of wheezing and cough but no other complaints such as fever, chills, headache or dizziness. He denies any palpitations, chest pain or shortness of breath. He was never told of low platelets in the past. He has never had any other hematological problems. No history of smoking or excess alcohol use. Review of Systems - Constitutional Reports as per HPI, Denies anorexia, Denies fatigue, Denies fever(s), Denies lack of energy, Denies weakness - Cardiovascular Reports no additional cardiovascular complaints - Respiratory Reports no additional respiratory complaints - Gastrointestinal Reports no additional gastrointestinal complaints Oncology Screenings - ECOG Performance Status ECOG Performance Status: 0 [facility] Medical History: Medical History (Last Updated 04/15/23 @ 14:09 by ROBERT Borden) Atrial fibrillation Enlarged thoracic aorta HTN (hypertension) Hypertensive heart disease Family History: Family History (Last Reviewed 04/15/23 @ 10:21 by Timmy Crabtree MD) Father No problems noted. Mother CVD (cardiovascular disease) Social History: Social History (Last Reviewed 04/15/23 @ 10:21 by Timmy Crabtree MD) Living Situation History: Household Members: Spouse Household Members: Children Housing: House Do you presently have visiting nurse or other home services: No Tobacco History: Patient Tobacco Use Status: Never used Tobacco Home Medications and Allergies Current Medications: Current Medications Acetaminophen (Acetaminophen 325 Mg Tablet) 650 mg PO Q6H PRN PRN Reason: Pain, Mild (Pain Scale 1-3) Albuterol Sulfate (Albuterol Sulfate 90 Mcg 8 Gm Inhaler) 2 puff INHALE Q4H PRN PRN Reason: shortness of breath/wheezing Amlodipine Besylate (Amlodipine Besylate 2.5 Mg Tablet) 2.5 mg PO DAILY [facility]; Protocol Docusate Sodium (Docusate Sodium 100 Mg Capsule) 100 mg PO DAILY PRN PRN Reason: Constipation Lisinopril (Lisinopril 5 Mg Tablet) 5 mg PO BID [facility]; Protocol Loratadine (Loratadine 10 Mg Tablet) 10 mg PO DAILY [facility] Omeprazole (Omeprazole 20 Mg Capsule.Dr) 20 mg PO DAILY@0630 [facility] Ondansetron HCl (Ondansetron Hcl 4 Mg/2 Ml Vial) 4 mg IVPUSH Q8H PRN PRN Reason: Nausea and Vomiting Pharmacy Consult (Consult Rx Perform Med Rec) 1 each MISCELLANE ONCE PRN PRN Reason: Consult order Sodium Chloride (0.9 % Sodium Chloride Flush 3 Ml Syringe) [facility] Last Admin: 04/15/23 17:03 Dose: 3 ml Home Medications Medication Instructions Recorded Confirmed Type fexofenadine 180 mg tablet 180 mg PO DAILY 04/16/22 04/15/23 History (Ananya Allergy) amoxicillin 875 mg-potassium 1 tab PO BID 04/15/23 04/15/23 History clavulanate 125 mg tablet omeprazole 20 mg capsule,delayed 20 mg PO DAILY 04/15/23 04/15/23 History release Allergies Allergy/AdvReac Type Severity Reaction Status Date / Time amoxicillin Allergy Unknown GI upset Verified 07/18/22 08:50 penicillin V Allergy Unknown GI Verified 07/18/22 08:50 Physical Exam Vital signs: Vital Signs Temp 97.0 F 04/15/23 17:12 Pulse 92 04/15/23 17:12 Resp 18 04/15/23 17:12 BP 162/111 H 04/15/23 17:12 Pulse Ox 95 04/15/23 17:12 O2 Del Method Room Air 04/15/23 17:12 Intake & Output 04/14/23 04/15/23 04/15/23 18:59 06:59 18:59 Other: Weight 118.9 kg Weight 118.9 kg - Constitutional Present: no acute distress - Routine HEENT Exam Head: Present: normal inspection Eye: Present: EOMI - Routine Neck Exam Present: supple. Absent: lymphadenopathy - Routine Respiratory Exam Present: CTAB - Routine Cardiovascular Exam Cardiovascular: Present: RRR, S1, S2 - Routine Abdominal Exam Present: soft - Routine Extremities Exam Absent: calf tenderness - Routine Skin Exam Present: ecchymosis Hem/Onc Consult Result - Labs CBC & Chem 7: 04/16/23 05:42 04/16/23 05:42 Labs: Short CBC 04/15/23 Range/Units Unknown WBC 6.0 (4.8-10.8) X10*3/uL Hgb 16.3 (14.0-18.0) g/dl Hct 48.9 (42.0-52.0) % Plt Count 4 L* (160-400) X10*3/uL BMP 04/15/23 Unknown Sodium 141 Potassium 4.1 Chloride 111 H Carbon Dioxide 21 L BUN 18 H Creatinine 1.10 Calcium 9.1 Liver Function 04/15/23 Range/Units Unknown Total Bilirubin 0.7 (0.0-1.0) mg/dL AST 21 (5-37) U/L ALT 27 (0-40) U/L Alkaline Phosphatase 111 (39-117) U/L Albumin 3.7 (3.5-5.0) g/dL Assessment and Plan Patient Active problem list reviewed?: Yes (1) Severe thrombocytopenia Status: Acute Assessment and plan: 1. This is a pleasant 67-year-old male with recently diagnosed atrial fibrillation found to have severe thrombocytopenia of unknown duration. Rest of his blood counts are normal. He does not have any constitutional symptoms other than symptoms of upper respiratory infection that was diagnosed as sinusitis. There is no abnormal or immature appearing cells on peripheral smear. 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 He was given 1 dose of dexamethasone 40 mg IV. If his platelet counts, above 10,000, he can be switched to oral prednisone and discharged home. Prednisone 1 mg/kg starting dose and slowly taper over a month. He has been advised to stop aspirin. I will be happy to follow up with the patient upon discharge. Thank you for the consultation. - Time Spent With Patient Time Spent with Patient (in minutes): 20
[2023-04-15 17:38] VITALS: BMI 31.9
[2023-04-15 20:00] VITALS: BP 153/73; PULSE 100; RESP 16; TEMP 36.3; O2SAT 98
[2023-04-15] MEDS: lisinopriL 5 MG TABLET PO (21:23)
[2023-04-16 03:22] VITALS: BP 116/72; PULSE 76; RESP 18; TEMP 36; O2SAT 93
[2023-04-16] MEDS: Omeprazole 20 MG CAPSULE.DR PO ×2 (05:31→11:23)
[2023-04-16 06:05] LABS: MANUAL DIFF FLAG NO
[2023-04-16 06:29] LABS: Anion Gap 16 (12-20); Blood Urea Nitrogen 22 mg/dL (9-16); Calcium 9.5 mg/dL (8.4-10.2); Carbon Dioxide 16 mmol/L (22-29); Chloride 109 mmol/L (96-108); Creatinine Clr Calc Pharmacy 99.2; Estimated Glomerular Filt Rate > 60; Glucose Random 159 mg/dL (60-115); Potassium 4.2 mmol/L (3.3-5.1); Sodium 137 mmol/L (135-145)
[2023-04-16 06:37] LABS: Basophils Percent Auto 0.1 % (0-2); Hematocrit 47.7 % (42.0-52.0); Hemoglobin 15.9 g/dl (14.0-18.0); Imm Gran Abs Auto 0.06 X10*3/uL (0.00-0.03); Imm Gran Pct Auto 0.6 % (0.0-0.4); Lymphocytes Absolute Auto 0.9 X10*3/uL (1.2-4.9); Lymphocytes Percent Auto 8.9 % (20-40); Mean Corpuscular HGB Conc 33.3 g/dl (31.0-36.0); Mean Corpuscular Hemoglobin 29.1 pg (27.0-33.0); Mean Corpuscular Volume 87.4 fL (80.0-98.0); Mean Platelet Volume 11.5 fL (9.4-12.4); Monocytes Absolute Auto 0.2 X10*3/uL (0.1-1.2); Monocytes Percent Auto 2.3 % (2-11); Neutrophils Absolute Auto 8.6 x10*3/uL (2.0-8.3); Neutrophils Percent Auto 88.1 % (45-73); Red Blood Count 5.46 X10*6/uL (4.60-5.80); Red Cell Distribution Width 12.5 % (11.0-16.0); White Blood Count 9.8 X10*3/uL (4.8-10.8)
[2023-04-16 06:39] LABS: Platelet Count 17 X10*3/uL (160-400)
[2023-04-16 07:25] VITALS: BP 150/90; PULSE 79; RESP 18; TEMP 36.1; O2SAT 92
[2023-04-16] MEDS: 0.9 % Sodium Chloride Flush 3 ML SYRINGE IVFLUSH (08:23)
[2023-04-16] MEDS: amLODIPine Besylate 2.5 MG TABLET PO (08:23)
[2023-04-16] MEDS: lisinopriL 5 MG TABLET PO (08:23)
[2023-04-16] MEDS: Loratadine 10 MG TABLET PO (08:23)
[2023-04-16] MEDS: predniSONE 20 MG TABLET 60 MG PO (09:09)
--- NOTE | 2023-04-16 11:15 | P.DS_ITS ---
DS: Providers Provider Date of Service: 04/16/23 Date of admission: 04/15/23 13:49 Date of discharge: 04/16/23 Primary care physician: Josh Kelly MD Admitting clinician: Oralia Cintron Attending physician on admission: Margo Power Consults: 04/15/23 13:48 Consult to Hematology / Oncology Routine Consulting Provider: Ave Angela Reason for consultation: itp Attending physician on discharge: Elie King Discharging clinician: Oralia Cintron DS: Diagnosis Discharge Diagnosis (1) Severe thrombocytopenia: Status: Acute DS: Summary Hospital Course Hospital Course: HPI on admission 04/15 by this author: 67 year old male with history htn, hld, aortic aneurysm, and newly diagnosed atrial fibrillation presented to the? ED from Cardiology office for evaluation of thrombocytopenia.? Per patient report, he developed a cough and wheezing while on vacation last week and was seen at a local urgent care in [place] for further evaluation. the patient was reportedly diagnosed with a sinus infection but denies any sinus pressure and was prescribed Augmentin which he? currently continues on.? While in the cardiology office where he was being evaluated for anticoagulation, he was noted to have platelet level of 4000? And advised to come? to the ED. on arrival, vital stable.? There is no leukocytosis/ leukopenia, anemia but did have thrombocytopenia 4000.? Renal function and electrolyte? levels unremarkable.? EKG showed atrial fibrillation, rate [address] E or depressions. Denies any bleeding episodes or rash. Does have a bruise on the abdomen.? In the ED, given 40mg iv dexamethsone. Hospital course: Hospital course uneventful. PLT on arrival 4000. Peripheral smear without abnormality. Evluated by hematology recommending IV dexamethsone. Cause of ITP likely viral in origin. Pt treated with 40mg IV dexamethsone to manage severe acute ITP. PLT count improved to 17,000 on morning of discharge. Given 80mg prednisone this morning and per hematology should complete prednisone taper over 4 weeks starting with 80mg daily x 7 days, then 60mg daily x 7 days, then 40mg daily x 7 days, then 20mg daily x 7 days. Advised to increase omeprazole to 40mg daily for duration of treatment with steroids. He is advised to stop aspirin. He was recently newly diagnosed with atrial fibrillation with CHADS Vasc score 2. Monitored briefly on telemtry with stable HR. Follow up with cardiology outpt. Can follow up with hematology outpt and should also see his PCP. Recommend rechecking CBC in 3-5 days which is ordered. Status at Discharge Functional status at discharge: independent ambulation Overall status at discharge: patient is back to baseline Time Spent with Patient Time attestation: Total time managing care of this patient today ____ minutes. Discharge coordination time: Greater than 30 minutes Quality: Safe Use of Opioids Does Pt have an Active Cancer Diagnosis on the Problem List?: No Quality: Stroke Does the patient have a stroke diagnosis?: No Physical Exam Vital Signs: Vital Signs: Last Vital Signs Temp 97.0 F 04/16/23 07:25 Pulse 79 04/16/23 07:25 Resp 18 04/16/23 07:25 BP 150/90 H 04/16/23 07:25 Pulse Ox 92 04/16/23 07:25 O2 Del Method Room Air 04/16/23 07:25 BMI result Body Mass Index 31.9 Constitutional - Awake and Alert, No apparent distress Eyes - PERRLA, EOMI Cardiovascular - S1S2, RRR, No edema Respiratory - Normal lung expansion, Normal respiratory effort, No respiratory distress, CTA bilaterally Gastrointestinal - NT / ND; +BS; No rebound or guarding Extremities - no calf tenderness bilaterally, no swelling Skin - Warm/Dry. Scattered petechiae ble Neurological - Alert & oriented x3 Psychological - Appropriate affect DS: Data Data Completed and Pending Labs on day of discharge: Laboratory Results - last 24 hr 04/15/23 04/15/23 04/16/23 Unknown Unknown 05:42 WBC 6.0 9.8 RBC 5.51 5.46 Hgb 16.3 15.9 Hct 48.9 47.7 MCV 88.7 87.4 MCH 29.6 29.1 MCHC 33.3 33.3 RDW 12.5 12.5 Plt Count 4 L* 17 L* D MPV 10.7 11.5 Immature Gran % (Auto) 0.2 0.6 H Neut % (Auto) 61.8 88.1 H Lymph % (Auto) 26.3 8.9 L [place] % (Auto) 9.0 2.3 Eos % (Auto) 2.2 0.0 Baso % (Auto) 0.5 0.1 Lymph # (Auto) 1.6 0.9 L [place] # (Auto) 0.5 0.2 Eos # (Auto) 0.1 0.0 Baso # (Auto) 0.0 0.0 Abs Immat Gran (auto) 0.01 0.06 H Absolute Neuts (auto) 3.7 8.6 H Absolute Nucleated RBC 0.000 0.000 Nucleated RBC % (auto) 0.0 0.0 Sodium 141 Potassium 4.1 Chloride 111 H Carbon Dioxide 21 L Anion Gap 13 BUN 18 H Creatinine 1.10 Estim Creat Clear Calc 89.3 Estimated GFR > 60 Random Glucose 103 Calcium 9.1 Total Bilirubin 0.7 AST 21 ALT 27 Alkaline Phosphatase 111 Total Protein 7.1 Albumin 3.7 04/16/23 05:42 WBC RBC Hgb Hct MCV MCH MCHC RDW Plt Count MPV Immature Gran % (Auto) Neut % (Auto) Lymph % (Auto) [place] % (Auto) Eos % (Auto) Baso % (Auto) Lymph # (Auto) [place] # (Auto) Eos # (Auto) Baso # (Auto) Abs Immat Gran (auto) Absolute Neuts (auto) Absolute Nucleated RBC Nucleated RBC % (auto) Sodium 137 Potassium 4.2 Chloride 109 H Carbon Dioxide 16 L Anion Gap 16 BUN 22 H Creatinine 0.99 Estim Creat Clear Calc 99.2 Estimated GFR > 60 Random Glucose 159 H Calcium 9.5 Total Bilirubin AST ALT Alkaline Phosphatase Total Protein Albumin Discharge Plan Discharge Anticipated Discharge Date/Time: 04/16/23 10:24 Patient Disposition: Home, Self-Care Discharge Diagnosis: Severe ITP Referrals: Josh Kelly MD [Primary Care Provider] - 1 Week Discharge Medications: New prednisone 20 mg tablet See Taper PO DAILY Qty: 70 0RF Taper: Prednisone 80 mg daily for 7 Days and 0 Hour 60 mg daily for 7 Days and 0 Hour 40 mg daily for 3 Days and 0 Hour 20 mg daily for 7 Days and 0 Hour omeprazole 40 mg capsule,delayed release(DR/EC) 40 mg PO DAILY Qty: 30 0RF Rx Instructions: Take 40mg daily while taking steroid, then decrease to 20mg rx daily Continued atorvastatin 40 mg tablet 40 mg PO DAILY Qty: 90 3RF lisinopril 5 mg tablet 5 mg PO BID 90 Days Qty: 180 3RF amlodipine 2.5 mg tablet 2.5 mg PO DAILY 30 Days Qty: 90 3RF omeprazole 20 mg Capsule,Delayed Release(Dr/Ec) 20 mg PO DAILY albuterol sulfate [ProAir HFA] 90 mcg/actuation HFA aerosol inhaler 2 puff inhalation Q4-6H PRN (Reason: shortness of breath or wheezing) 30 Days Qty: 8.5 0RF fexofenadine [Ananya Allergy] 180 mg tablet 180 mg PO DAILY Discontinued amoxicillin-pot clavulanate 875-125 mg tablet 1 tab PO BID Discharge Orders: Discharge Order (Routine); Ordered 04/16/23 Ordered By: Oralia Cintron Diet: Advance to usual diet Activity on Discharge: As tolerated Stand Alone Forms: Patient Portal Discharge page Other Ambulatory Orders: Complete Blood Count Auto Diff (Routine) Timeframe: 3 Days Facility: [facility] - Location: Laboratory Ordered By: Oralia Cintron Care Plan Goals: Continue steroids as prescribed to improve platelet counts Health Concerns: Severe Immune thrombocytopenic purpora Plan of Treatment: Treated inpatient with 40mg IV dexamethasone with improvement in platelets to 17,000 Continue prednisone taper x 4 weeks without skipping doses- do not stop abruptly without completing taper: -80mg daily x 1 week, then 60mg daily x 1 week, then 40mg daily x 1 week, then 20mg daily x 1 week -take with breakfast Check CBC in 3-5 days. Follow up with PCP soon to recheck blood counts Avoid any blood thinners including aspirin for now. Resume after further discussion with PCP/cardiology You are still at risk for bleeding. Use caution when ambulating and monitor for signs of bleeding Assessment: As above
--- NOTE | 2023-04-16 11:15 | MHC.CM.PN ---
IMM DELIVERED PT HAS BEEN MEDICALLY CLEARED FOR DC HOME , NO SERVICES ORDERED. PT INDEPENDENT AT BASELINE. FAMILY WILL TRANSPORT
[2023-04-16] MEDS: predniSONE 20 MG TABLET PO (11:23)
== END 2023-04-16 12:01 | disposition home or self-care (01) | DRG 813 ==
LOC: HO.ED 12:44 → HO.EDOVER 14:05 → HO.S3 15:19
PROVIDERS: Physician Assistant; Admitting Provider Physician Assistant; Emergency Provider Emergency Medicine; PCP Internal Medicine; Visit Provider Physician Assistant
DX: D69.3 Immune thrombocytopenic purpura (principal); I10 Essential (primary) hypertension; E78.5 Hyperlipidemia, unspecified; J32.9 Chronic sinusitis, unspecified; I48.91 Unspecified atrial fibrillation; Z88.0 Allergy status to penicillin; Z79.899 Other long term (current) drug therapy
CPT/HCPCS: 36415; 80048; 80053; 83880; 84443; 85025; 93005; 99212; 99284; J1100

== ENCOUNTER → 2023-04-15 13:49 | Outpatient (BNV) | payer MEDICARE, SELFPAY | PROVIDERS: Admitting Provider Physician Assistant; Emergency Provider Emergency Medicine; PCP Internal Medicine; Visit Provider Physician Assistant | DX: D69.3 Immune thrombocytopenic purpura (principal) | CPT/HCPCS: 99223; 99239 ==

== ENCOUNTER → 2023-04-15 13:49 | Outpatient (BNV) | payer MEDICARE, SELFPAY | PROVIDERS: Admitting Provider Physician Assistant; Emergency Provider Emergency Medicine; PCP Internal Medicine; Visit Provider Internal Medicine | DX: D69.6 Thrombocytopenia, unspecified (principal) | CPT/HCPCS: 99222 ==

== ENCOUNTER 2023-04-19 07:58 | Outpatient (REF) | payer MEDICARE, SELFPAY ==
[2023-04-19 08:30] LABS: MANUAL DIFF FLAG NO
[2023-04-19 09:10] LABS: Basophils Percent Auto 0.1 % (0-2); Eosinophils Absolute Auto 0.1 X10*3/uL (0.0-0.4); Eosinophils Percent Auto 0.7 % (0-4); Hematocrit 51.4 % (42.0-52.0); Hemoglobin 16.9 g/dl (14.0-18.0); Imm Gran Abs Auto 0.06 X10*3/uL (0.00-0.03); Imm Gran Pct Auto 0.5 % (0.0-0.4); Lymphocytes Absolute Auto 3.2 X10*3/uL (1.2-4.9); Lymphocytes Percent Auto 26.9 % (20-40); Mean Corpuscular HGB Conc 32.9 g/dl (31.0-36.0); Mean Corpuscular Hemoglobin 29.5 pg (27.0-33.0); Mean Corpuscular Volume 89.9 fL (80.0-98.0); Mean Platelet Volume 9.7 fL (9.4-12.4); Monocytes Absolute Auto 0.9 X10*3/uL (0.1-1.2); Monocytes Percent Auto 7.9 % (2-11); Neutrophils Absolute Auto 7.6 x10*3/uL (2.0-8.3); Neutrophils Percent Auto 63.9 % (45-73); Platelet Count 101 X10*3/uL (160-400); Red Blood Count 5.72 X10*6/uL (4.60-5.80); Red Cell Distribution Width 12.8 % (11.0-16.0); White Blood Count 11.9 X10*3/uL (4.8-10.8)
== END 2023-04-19 07:59 | disposition home or self-care (01) ==
LOC: HO.LAB 07:58
PROVIDERS: PCP Internal Medicine; Visit Provider Physician Assistant
DX: D69.3 Immune thrombocytopenic purpura (principal)
CPT/HCPCS: 36415; 85025

== ENCOUNTER → 2023-04-19 09:55 | Outpatient (BNV) | payer MEDICARE, SELFPAY | PROVIDERS: PCP Internal Medicine; Visit Provider Internal Medicine | DX: D69.3 Immune thrombocytopenic purpura (principal) | CPT/HCPCS: 99212; 99213; 99214; G2211 ==

== ENCOUNTER 2023-05-13 07:47 | Outpatient (REF) | payer MEDICARE, SELFPAY ==
[2023-05-13 08:25] LABS: Hematocrit 52.2 % (42.0-52.0); Mean Corpuscular HGB Conc 32.6 g/dl (31.0-36.0); Mean Corpuscular Hemoglobin 30.1 pg (27.0-33.0); Mean Corpuscular Volume 92.6 fL (80.0-98.0); Mean Platelet Volume 9.7 fL (9.4-12.4); Red Blood Count 5.64 X10*6/uL (4.60-5.80); Red Cell Distribution Width 12.8 % (11.0-16.0); White Blood Count 7.7 X10*3/uL (4.8-10.8)
[2023-05-13 08:26] LABS: Platelet Count 26 X10*3/uL (160-400)
== END 2023-05-13 07:48 | disposition home or self-care (01) ==
LOC: HO.LAB 07:47
PROVIDERS: PCP Internal Medicine; Referring Provider Internal Medicine Cardiovascular Disease; Visit Provider Internal Medicine
DX: D69.6 Thrombocytopenia, unspecified (principal)
CPT/HCPCS: 36415; 85027

== ENCOUNTER 2023-05-28 11:18 | Outpatient (AMB) | payer MEDICARE, SELFPAY ==
[2023-05-28 11:23] VITALS: BP 106/70; PULSE 109; BMI 31.1
--- NOTE | 2023-05-28 11:23 | A.OFFVIS_ITS ---
Intake Vital Signs 05/28/23 11:23 Height 6 ft 4 in Weight 255 lb 11.779 oz BMI 31.1 BP 106/70 Blood Pressure Location Lt brachial Position Sitting Pulse 109 H Intake Visit Reasons: follow-up with ekg dx afib Intake Note: Follow-up with ekg dx afib feeling good Stock Drier Tender Required: No Allergies amoxicillin Allergy (Unknown, Verified 07/18/22 08:50) GI upset penicillin V Allergy (Unknown, Verified 07/18/22 08:50) GI Medication List - Last Reconciled 05/28/23 by Timmy Crabtree MD albuterol sulfate 90 mcg/actuation (ProAir HFA) 2 puffs inhalation Q4-6H PRN 30 days amlodipine 2.5 mg PO DAILY 30 days atorvastatin 40 mg PO DAILY cholecalciferol (vitamin D3) (Vitamin D3) 25 mcg PO DAILY fexofenadine (Ananya Allergy) 180 mg PO DAILY lisinopril 5 mg PO BID 90 days omeprazole 20 mg PO DAILY prednisone 60 mg PO DAILY rivaroxaban (Xarelto) 20 mg PO DAILY HPI HPI Comments History of Present Illness Details Mick comes for follow-up. He has been doing well. He denies any new symptoms from cardiac perspective. Denies any prolonged palpitation irregular heartbeat. Denies any changes exercise capacity with no shortness of breath or fatigue. His platelet counts have improved on steroid therapy. As you aware he was diagnosed with ITP recently and currently on high-intensity steroid therapy with improvement in his platelet count. notices lower blood pressure in the morning. Has been holding nighttime lisinopril therapy. No lightheadedness, syncope. Denies orthopnea, PND. No bleeding issues or neurologic events. [facility] Medical History Atrial fibrillation Enlarged thoracic aorta Hypertensive heart disease HTN (hypertension) Surgical History History of melanoma excision (~11/12/22) Family History Father No problems noted. Mother CVD (cardiovascular disease) Social History Household Members: Spouse and Children Housing: House Do you presently have visiting nurse or other home services: No Patient Tobacco Use Status: Never used Tobacco service: No Current occupational status: retired Review of Systems Const Denies chills, Denies fatigue, Denies fever(s), Denies frequent falls, Denies weakness, Denies weight gain and Denies weight loss ENT Denies dizziness Card Denies chest pain, Denies leg edema, Denies lightheadedness, Denies palpitations, Denies dyspnea, Denies dyspnea on exertion, Denies orthopnea and Denies other (loss of consciousness) Resp Denies cough, Denies dyspnea and Denies dyspnea on exertion GI Denies hematochezia and Denies change in stool character Musc Denies abnormal gait, Denies muscle weakness, Denies numbness, Denies radiating pain into limb and Denies tingling Neuro Denies abnormal gait, Denies dizziness, Denies frequent falls, Denies numbness, Denies tingling and Denies weakness Endo Denies fatigue and Denies palpitations Physical Exam Vital Signs: Last Vital Signs Pulse 109 H 05/28/23 11:23 BP 106/70 05/28/23 11:23 BMI result Body Mass Index 31.1 Const General: cooperative, comfortable, no acute distress, alert, awake and well groomed Nutritional Appearance: obese Orientation/consciousness: patient oriented x3 Limitations: no limitations Neck Neck: Yes trachea midline, Yes supple and Yes no JVD Resp Effort & Inspection: normal respiratory effort Auscultation: clear to auscultation bilaterally Cardio Jugular venous distension: no JVD Palpation: normal PMI Rhythm: abnormal rhythm irregularly irregular Heart sounds: S1 normal heart sound present and S2 normal heart sound present GI Auscultation: normal bowel sounds Skin General skin exam: no rashes or lesions noted Neuro General: patient oriented x3 and no focal motor deficits Extrem General: Yes no clubbing, cyanosis or edema Psych Appearance: grossly normal Assessment & Plan Assessment & Plan (1) Atrial fibrillation: Code(s): I48.91 - Unspecified atrial fibrillation Plan: Persistent atrial fibrillation which appears to be clinically asymptomatic for him with no signs or symptoms of heart failure. Heart rate is not adequately controlled at this point time. Would suggest to switch his amlodipine to Toprol-XL 50 mg daily. He has been tolerating oral anticoagulation therapy despite recent diagnosis of ITP. Platelet counts have improved. We discussed about scientific data and pursuing rhythm control approach to reduce long-term secondary problems with heart failure. Understands agrees. Will schedule him for synchronized cardioversion near future. The risks, benefits, alternatives of procedure were discussed with him. He understands and agrees. Will follow up in the clinic after synchronized cardioversion. Medications: Changed From prednisone Take as directed 80 mg (4 x 20 mg) PO DAILY 200 tabs 2RF To prednisone Take as directed 60 mg PO DAILY Coding Level of Care Code Est Pt Level 4 (69289) Diagnoses Atrial fibrillation I48.91
== END 2023-05-28 12:16 | disposition home or self-care (01) ==
PROVIDERS: PCP Internal Medicine; Referring Provider Internal Medicine; Visit Provider Internal Medicine Cardiovascular Disease
DX: I48.91 Unspecified atrial fibrillation (principal)
CPT/HCPCS: 93010; 99214

== ENCOUNTER → 2023-05-28 11:18 | Outpatient (BNVA) | payer MEDICARE, SELFPAY | PROVIDERS: PCP Internal Medicine; Referring Provider Internal Medicine; Visit Provider Internal Medicine Cardiovascular Disease | DX: I48.91 Unspecified atrial fibrillation (principal) | CPT/HCPCS: 93005; 99212 ==

== ENCOUNTER 2023-06-06 11:50 | Outpatient (REF) | payer MEDICARE, SELFPAY ==
[2023-06-07 10:01] LABS: Leukocytes Stool Qualitative NEGATIVE (NEGATIVE)
[2023-06-07 10:24] LABS: CDiff Gene PCR NEGATIVE (Negative)
[2023-06-07 15:57] LABS: Adenovirus F 40/41 Not Detected (Not Detect.); Astrovirus Not Detected (Not Detect.); Campylobacter Not Detected (Not Detect.); Cryptosporidium Not Detected (Not Detect.); Cyclospora cayetanensis Not Detected (Not Detect.); E. coli EAEC Not Detected (Not Detect.); E. coli EPEC Not Detected (Not Detect.); E. coli ETEC Not Detected (Not Detect.); E. coli STEC Not Detected (Not Detect.); Entamoeba histolytica Not Detected (Not Detect.); Giardia lamblia Not Detected (Not Detect.); Norovirus GI/GII Not Detected (Not Detect.); Plesiomonas shigelloides Not Detected (Not Detect.); Rotavirus A Not Detected (Not Detect.); Salmonella Not Detected (Not Detect.); Sapovirus Not Detected (Not Detect.); Shigella sp./EIEC Not Detected (Not Detect.); Vibrio Not Detected (Not Detect.); Vibrio Cholerae Not Detected (Not Detect.); Yersinia enterocolitica Not Detected (Not Detect.)
== END 2023-06-06 11:51 | disposition home or self-care (01) ==
LOC: HO.LAB 11:50
PROVIDERS: PCP Internal Medicine; Visit Provider Internal Medicine
DX: Z13.89 Encounter for screening for other disorder (principal)
CPT/HCPCS: 87177; 87209; 87329; 87493; 87507; 89055

== ENCOUNTER 2023-06-06 14:26 | Outpatient (AMB) | payer MEDICARE, SELFPAY ==
--- NOTE | 2023-06-06 14:27 | AM.OFFWIN_ITS ---
Intake Vital Signs 06/06/23 14:29 Height 6 ft 4 in Weight 254 lb BMI 30.9 BP 130/80 Blood Pressure Location Lt brachial Position Sitting Pulse 100 Pulse Source Pulse Oximeter Temp 97.8 F Temp Source Oral Pulse Oximetry (%) 96 Oxygen Delivery Method Room Air Intake Visit Reasons: EP, ccongestion (masked) Intake Note: Patient here for congestion, wheezing. pts tested positive for covid on 05/27/23. pt states he has history of issues with his heart. Patient Tobacco Use Status: Never used Tobacco Allergies amoxicillin Allergy (Unknown, Verified 06/06/23 14:31) GI upset penicillin V Allergy (Unknown, Verified 06/06/23 14:31) GI Do you need a note to return to daycare/school/sports/work: No HPI HPI Comments History of Present Illness Details The patient presents to urgent care for evaluation of shortness of breath. He reports shortness of breath with exertion that has been going on for about 2 weeks. About a month ago the patient was diagnosed with AFib, and thrombocytopenia. Given the severity of thrombocytopenia he was started on steroid therapy which is currently taking. He is on a rate controlling medicine for the AFib with plans for outpatient cardioversion next week. Last week his and him went on a cruise and with the returned to the tested positive for COVID. Although the patient's symptoms started after this time, he has recently tested for COVID and has been negative. He is questioning bronchitis today. [facility] Medical History Atrial fibrillation Enlarged thoracic aorta Hypertensive heart disease HTN (hypertension) Surgical History History of melanoma excision (~11/12/22) Family History Father No problems noted. Mother CVD (cardiovascular disease) Social History Household Members: Spouse and Children Housing: House Do you presently have visiting nurse or other home services: No Patient Tobacco Use Status: Never used Tobacco service: No Current occupational status: retired Review of Systems GI Denies dyspepsia and Denies heartburn Musc Denies arthralgias and Denies muscle cramps Neuro Denies focal weakness and Denies Other visual disturbances Physical Exam Vital Signs: Last Vital Signs Temp 97.8 F 06/06/23 14:29 Pulse 100 06/06/23 14:29 BP 130/80 06/06/23 14:29 Pulse Ox 96 06/06/23 14:29 Oxygen Delivery Method Room Air 06/06/23 14:29 BMI result Body Mass Index 30.9 Const General: healthy appearing and no acute distress HEENT Mouth: Normal oral and palatal mucosa present Resp Effort & Inspection: normal respiratory effort and able to speak in complete sentences Auscultation: wheezes (Faint bilateral expiratory wheezes) Cardio Other: Scant pitting edema noted of the bilateral lower extremities Rate: regular rate Rhythm: abnormal rhythm Assessment & Plan Assessment & Plan (1) SOB (shortness of breath): Code(s): R06.02 - Shortness of breath Plan Patient's care briefly discussed with Cardiology on-call. Differential includes a viral illness such as COVID , bronchitis , bacterial infection , CHF. Chest x-ray clear and reassuring does not indicate evidence of pneumonia nor vascular congestion. Patient currently on steroids for thrombocytopenia. Will hold off on treatment with either Z-Marcus or Lasix pending BNP and BMP. Patient will go tomorrow morning for stat labs as our lab is already closed. Patient is stable for outpatient follow-up. Orders: Orders XR chest 2V Today R07.81 - Pleurodynia B Type Natriuretic Peptide Today R60.0 - Localized edema BinaxNOW Covid-19 Ag Today J06.9 - Acute upper respiratory infection, unspecified Basic Metabolic Panel Today R53.83 - Other fatigue Coding Level of Care Code Est Pt Level 4 (27302) Diagnoses SOB (shortness of breath) R06.02
[2023-06-06 14:29] VITALS: BP 130/80; PULSE 100; TEMP 36.6; O2SAT 96; BMI 30.9
== END 2023-06-06 15:58 | disposition home or self-care (01) ==
PROVIDERS: PCP Internal Medicine; Visit Provider Emergency Medicine
DX: R06.02 Shortness of breath (principal)
CPT/HCPCS: 99214

== ENCOUNTER 2023-06-06 15:05 | Outpatient (REF) | payer MEDICARE, SELFPAY ==
--- NOTE | ~2023-06-06 | XR_ITS ---
EXAMINATION: XR CHEST CLINICAL INFORMATION: Pleurodynia. COMPARISON: Chest x-ray July 18, 2022 TECHNIQUE: 2 views of the chest were obtained. FINDINGS: No significant abnormality is noted involving the heart, lungs, mediastinum, bony thorax or soft tissues. XR/XR chest 2V IMPRESSION: Unremarkable examination.
== END 2023-06-06 15:06 | disposition home or self-care (01) ==
LOC: HO.HMGCX 15:05
PROVIDERS: PCP Internal Medicine; Visit Provider Emergency Medicine
DX: R07.81 Pleurodynia (principal); J06.9 Acute upper respiratory infection, unspecified; R53.83 Other fatigue; R60.0 Localized edema
CPT/HCPCS: 36415; 71046; 80048; 83880; 87177; 87209; 87329; 87493; 87507; 89055

== ENCOUNTER 2023-06-06 16:09 | Outpatient (REF) | payer MEDICARE, SELFPAY ==
[2023-06-06 17:40] LABS: B Type Natriuretic Peptide 78 pg/mL (<100)
[2023-06-06 17:45] LABS: Anion Gap 13 (12-20); Blood Urea Nitrogen 24 mg/dL (9-16); Calcium 9.6 mg/dL (8.4-10.2); Carbon Dioxide 21 mmol/L (22-29); Chloride 109 mmol/L (96-108); Estimated Glomerular Filt Rate > 60; Glucose Random 167 mg/dL (60-115); Potassium 4.1 mmol/L (3.3-5.1); Sodium 139 mmol/L (135-145)
== END 2023-06-06 16:10 | disposition home or self-care (01) ==
LOC: HO.LAB 16:09
PROVIDERS: Visit Provider Emergency Medicine
DX: Z13.89 Encounter for screening for other disorder (principal)
CPT/HCPCS: 36415; 80048; 83880

== ENCOUNTER 2023-06-12 09:45 | Day surgery (SDC) | payer MEDICARE, SELFPAY ==
[2023-06-10 14:42] VITALS: BMI 31.2
--- NOTE | 2023-06-11 08:23 | P.CONAN_ITS ---
Documented by User: Jacki Parikh NP 06/11/23 08:26 HPI - Anesthesia Eval Consult details Narrative: 67yo M for Cardioversion Xarelto for afib PMFSH Active Problems Active Problems: All Active Problems (Updated 04/19/23 @ 10:[address] MD) Acute ITP (Acute) Severe thrombocytopenia (Acute) Thrombocytopenia (Acute) Abnormal lung sounds (Acute) History of COVID-19 (Acute) Chest congestion (Acute) SOB (shortness of breath) (Acute) Upper respiratory tract infection (Acute) Dizziness (Acute) Atrial fibrillation (Acute) Enlarged thoracic aorta (Acute) Hypertensive heart disease (Acute) HTN (hypertension) (Acute) Past Medical History Medical History Sleep apnea Atrial fibrillation Enlarged thoracic aorta Hypertensive heart disease HTN (hypertension) Family History Family History Father No problems noted. Mother CVD (cardiovascular disease) Surgical History Surgical History H/O colonoscopy History of melanoma excision (~11/12/22) Social History Social History Household Members: Spouse and Children Housing: House Do you presently have visiting nurse or other home services: No Patient Tobacco Use Status: Never used Tobacco Are you DNR?: No Advance Directives: No Advance Directives Information Provided: Yes service: No Current occupational status: retired Meds Allergies Allergy/AdvReac Type Severity Reaction Status Date / Time amoxicillin Allergy Unknown GI upset Verified 06/06/23 14:31 penicillin V Allergy Unknown GI Verified 06/06/23 14:31 Home Medications Medication Instructions Recorded Confirmed Last Taken Type fexofenadine 180 mg tablet 180 mg PO DAILY 04/16/22 06/10/23 06/12/23 History (Ananya Allergy) cholecalciferol (vitamin D3) 25 25 mcg PO DAILY 04/19/23 06/10/23 06/11/23 History mcg (1,000 unit) tablet (Vitamin D3) rivaroxaban 20 mg tablet (Xarelto) 20 mg PO DAILY 05/28/23 06/10/23 06/11/23 17:00 History Exam Exam Date and Time: June 11, 2023822 Height,Weight and Vital Signs: Height 6 ft 4 in Weight 116.12 kg Pertinent Lab Results Pertinent Lab Results: Laboratory Tests 06/06/23 06/06/23 06/10/23 16:23 16: 08:02 WBC 14.5 H Hgb Hct Plt Count Sodium 139 Potassium 4.1 Chloride 109 H Carbon Dioxide 21 L BUN 24 H Creatinine 1.07 06/10/23 08:02 WBC Hgb 17.1 Hct 51.7 Plt Count 148 L D Sodium Potassium Chloride Carbon Dioxide BUN Creatinine Narrative Narrative: EKG 05/2023 atrial fibrillation rapid ventricular response at 109 beats per minute with no significant ST T wave changes ECHO 2021 Conclusions: - The left ventricular systolic function is normal. The calculated ejection fraction is 60% by biplane method. - There is mildly decreased right ventricular systolic function. - There is mild calcification of the aortic valve. - There is mild dilatation of the sinuses of Valsalva measuring 4.32 cm and mild dilatation of the ascending aorta measuring 4.10 cm. Assessment and Plan Assessment Anesthesia Assessment: Chart Reviewed Documented by User: Ross Evans MD 06/12/23 10:56 [facility] Past Medical History Medical History Sleep apnea Atrial fibrillation Enlarged thoracic aorta Hypertensive heart disease HTN (hypertension) Family History Family History Father No problems noted. Mother CVD (cardiovascular disease) Family history of problems with anesthesia: No Surgical History Surgical History H/O colonoscopy History of melanoma excision (~11/12/22) History of Problems with Anesthesia: No Social History Social History Household Members: Spouse and Children Housing: House Do you presently have visiting nurse or other home services: No Patient Tobacco Use Status: Never used Tobacco Are you DNR?: No Advance Directives: No Advance Directives Information Provided: Yes service: No Current occupational status: retired Meds Allergies Allergy/AdvReac Type Severity Reaction Status Date / Time amoxicillin Allergy Unknown GI upset Verified 06/06/23 14:31 penicillin V Allergy Unknown GI Verified 06/06/23 14:31 Home Medications Medication Instructions Recorded Confirmed Last Taken Type fexofenadine 180 mg tablet 180 mg PO DAILY 04/16/22 06/10/23 06/12/23 History (Ananya Allergy) cholecalciferol (vitamin D3) 25 25 mcg PO DAILY 04/19/23 06/10/23 06/11/23 History mcg (1,000 unit) tablet (Vitamin D3) rivaroxaban 20 mg tablet (Xarelto) 20 mg PO DAILY 05/28/23 06/10/23 06/11/23 17:00 History Exam Airway Mallampati Class: IV TM Dist: >3cm Neck ROM: Full Loose/Missing/Broken Teeth: No Heart: irreg irreg s1s2 Lungs: cta B/L Assessment and Plan Assessment Anesthesia Assessment: Anesthesia Plan Discussed Final Anesthetic Review Family History of Problems with Anesthesia: No History of Problems with Anesthesia: No NPO: Yes ASA Class: III Final Preanesthetic Review: No Changes in Pt Med Stat, Meds/Allgs Chart Reviewed, Consent Obtained/Reviewed and Anes Risks/Benef Reviewed Patient Risk: Intermediate Procedure Risk: Intermediate Assessment/Block/Sedation in SS: Assess/Block/Sedation-SS Anesthetic Plan Anesthetic Plan: GA and Agree w/ Assess. and Plan Disposition: Standard PACU
--- NOTE | 2023-06-12 08:55 | MHC.SHP ---
Pre-Procedural Eval Section A Date of Service: 06/12/23 The patient is an INPATIENT: No Changes since office visit: Yes Patient answered all questions; No Cold of Flu in the past 2 weeks, No New Medical Problems and No Changes in Medication The History & Physical has been completed within 30 days and I have reviewed it.: Yes Section B Chief Complaint: afib Allergies: Allergies Allergy/AdvReac Type Severity Reaction Status Date / Time amoxicillin Allergy Unknown GI upset Verified 06/06/23 14:31 penicillin V Allergy Unknown GI Verified 06/06/23 14:31 Plan I have reviewed the history and physical and performed a pertinent physical examination on my patient. No changes have occurred unless specified. Time Spent With Patient Time: Total time managing care of this patient today ____ minutes.
[2023-06-12 09:52] VITALS: BP 119/63; PULSE 90; RESP 20; TEMP 36.1; O2SAT 99
[2023-06-12] MEDS: Lactated Ringers 1,000 ML 50 ML IVCONT (10:10)
--- NOTE | 2023-06-12 11:20 | ECG_ITS ---
Test Reason : post cardioversion Blood Pressure : / mmHG Vent. Rate : 047 BPM Atrial Rate : 047 BPM P-R Int : 186 ms QRS Dur : 090 ms QT Int : 424 ms P-R-T Axes : 010 -32 -13 degrees QTc Int : 375 ms Sinus bradycardia with 2nd degree SA block (Mobitz II) Left axis deviation Minimal voltage criteria for LVH, may be normal variant ( R in aVL ) Cannot rule out Anterior infarct (cited on or before 11-JUL-2009) Abnormal ECG When compared with ECG of 15-APR-2023 10:50, Sinus rhythm with 2nd degree SA block (Mobitz II) has replaced Atrial fibrillation Vent. rate has decreased BY 39 BPM QT has shortened Referred By: Timmy Crabtree Electronically Signed By:ADITYA JOSUE
--- NOTE | 2023-06-12 11:20 | HO.CARDIVERS ---
Cardioversion Procedure Note Cardioversion Date of Procedure: Today Ordering Provider: Myself Performing Provider: Myself Indication for Procedure: New onset persistent atrial fibrillation Pre-Op Diagnosis: Same Post-Op Diagnosis: NSR Performed with Transesophageal Echo: No History: Please see my OV note Consent: Verbal and Written consent was obtained from the patient before starting the procedure and confirming OAC use.. The patient was made aware of the risk of synchronized cardioversion including benefits and alternatives Procedure: After consent obtained, cardioversion pads were attached in AP configuration and the patient was sedated by the anesthesia team. Once adequate sedation achieved, patient was delivered 200 J of biphasic energy in AP configuration. Complications: None Impression: Successful conversion Recommendations: 1. 12 lead EKG 2. Continue OAC and Metoprolol 3. Follow up in office after Holter and echo
[2023-06-12 11:29] VITALS: BP 111/77; PULSE 50; RESP 20; TEMP 36.4; O2SAT 97
[2023-06-12 11:34] VITALS: BP 110/77; PULSE 71; RESP 19; O2SAT 95
[2023-06-12 11:39] VITALS: BP 108/73; PULSE 52; RESP 19; O2SAT 95
[2023-06-12 11:44] VITALS: BP 117/64; PULSE 57; RESP 20; O2SAT 97
[2023-06-12 11:59] VITALS: BP 110/67; PULSE 52; RESP 18; TEMP 36.5; O2SAT 96
== END 2023-06-12 12:45 | disposition home or self-care (01) ==
PROVIDERS: PCP Internal Medicine; Visit Provider Internal Medicine Cardiovascular Disease
PROC: 5A2204Z Restoration of Cardiac Rhythm, Single (ICD-10-PCS; principal; 2023-06-12 11:00)
DX: I48.19 Other persistent atrial fibrillation (principal); I10 Essential (primary) hypertension; Z79.01 Long term (current) use of anticoagulants; Z79.899 Other long term (current) drug therapy; Z88.0 Allergy status to penicillin; Z88.1 Allergy status to other antibiotic agents
CPT/HCPCS: 92960; 93005

== ENCOUNTER → 2023-06-12 09:45 | Outpatient (BNV) | payer MEDICARE, SELFPAY | PROVIDERS: PCP Internal Medicine; Visit Provider Internal Medicine Cardiovascular Disease | DX: I48.19 Other persistent atrial fibrillation (principal) | CPT/HCPCS: 92960 ==

== ENCOUNTER → 2023-06-26 10:48 | Outpatient (REF) | payer MEDICARE, SELFPAY ==
--- NOTE | 2023-06-26 10:51 | HM_ITS ---
* Total monitoring time about 4 days. * Underlying rhythm is sinus. Average ventricular rate 58/Min. Range 42 to 103/Min. About 66% of the time, rate less than 60/Min. * Rare supraventricular ectopy with low burden. Very brief runs noted. Longest 19 beats. * Rare ventricular ectopy with low burden. Rare couplets. One triplet. * No significant pauses or AV blocks. * Lightheadedness in patient diary correlates with sinus bradycardia at 55/Min. MTDD
--- NOTE | 2023-06-26 10:51 | CA_ITS ---
Transthoracic Echocardiogram Patient (Last, First, Middle): Mick Vela J Gender: Male Date of : 1955 Age: 67 Procedure Date: 06/26/2023 Procedure Type: Transthoracic Echocardiogram Location: OP Height: 193.04 cm Weight: 117.94 kg BSA: 2.48 m2 Heart Rate: bpm BP: 122 / 80 mmHg Driver/Guide: TO Referring MD: Timmy Crabtree MD Symptoms: I48.91 - Unspecified atrial fibrillation Study Quality: Fair ECG Rhythm: Sinus Conclusions: - The left ventricular systolic function is normal. The calculated ejection fraction is 57% by biplane method. - There is mild calcification of the aortic valve. - No obvious valvular pathology seen on this study. Findings Procedure Information The patient declines contrast. Left Ventricle Normal left ventricular cavity size. The left ventricular systolic function is normal. The calculated ejection fraction is 57% by biplane method. There is no evidence of regional wall motion abnormalities. Diastolic function is normal for age. There is mild septal and mild basal asymmetric hypertrophy. Right Ventricle Normal right ventricular cavity size and systolic function. Atria The left atrium is mildly dilated. The right atrium is normal in size. Aortic Valve There is a normal trileaflet aortic valve. There is mild calcification of the aortic valve. There is no aortic valve stenosis. There is no aortic valve regurgitation. Mitral Valve The mitral valve appears normal. There is trace mitral valve regurgitation. There is no mitral valve stenosis. Pulmonic Valve The pulmonic valve is likely normal. Tricuspid Valve Normal tricuspid valve structure. There is trace tricuspid valve regurgitation. There is no evidence of pulmonary hypertension. Great Vessels The asc aorta is normal in size. Venous The inferior vena cava is normal in size and collapses greater than 50% with inspiration. Pericardium/Pleural There is no evidence of pericardial effusion. Prior Study Comparison No significant change compared to prior study dated: 06/05/2022. Recommendations, Care & Conclusions No obvious valvular pathology seen on this study. Measurements 2D Linear Measurements IVSd: 1.30 0.6-0.9/0.6-1.0 cm LVIDd: 4.60 3.9-5.3/4.2-5.9 cm LVIDd Index: 1.85 2.4-3.2/2.2-3.1 cm/m2 LVIDs: 2.60 2.0-3.6 cm LVPWd: 1.00 0.7-1.1 cm LA Diam: 4.70 2.7-3.8/3.0-4.0 cm LAIDs Index: 1.90 1.5-2.3 cm/m2 LV Mass: 240.42 67-162/88-224 g LV Mass Index: 96.94 43-95/49-115 g/m2 LVOT Diam: 2.20 3.0+(-)1.3 cm 2D Systolic Function EF 4C: 58.00 >55% EF 2C: 57.80 >55% EF BiP: 57.10 >55% Mitral Valve MV VTI: 0.34 MV Pk Luis: 0.82 MV Mn Luis: 0.43 MV Pk Grad: 3.00 MV Mn Grad: 1.00 MV Pk E: 0.72 MV PK A: 0.62 MV Decel Time: 296.00 E/A: 1.20 E'Lateral: 8.81 E'Medial: 4.68 E/E' Med: 15.50 E/E' Lat: 8.20 PHT: 87.00 MVA PHT: 2.53 MVA Continuity: 3.18 Decel Elbert: 2.45 Aortic Valve AoV Pk Luis: 1.29 AoV Mn Luis: 0.85 AoV VTI: 0.30 AoV Pk Grad: 7.00 Aov Mn Grad: 3.00 ZENON Cont.VTI: 3.65 LVOT LVOT Pk Luis: 1.01 LVOT Mn Luis: 0.69 LVOT VTI: 0.29 LVOT Pk Grad: 4.00 LVOT Mn Grad: 2.00 LVOT Diam: 2.20 LVOT Area: 3.80 Diastolic Function MV Pk E: 0.72 MV Pk A: 0.62 E/A: 1.20 E'Medial: 4.68 E/E' Med: 15.50 E' Laterial: 8.81 E/E' Lat: 8.20 Right Ventricle TAPSE (mm): 18.30 TVS' Luis: 11.10 Tricuspid Valve TR Pk Luis: 1.99 TR Pk Grad: 16.00 RA Press: 8.00 RVSP: 24.00 Great Vessels Aorta Sinus of Valsalva: 4.20 2.0-3.[address] Ridge: 3.20 1.7-3.4 cm Ao Asc: 3.90 2.1-3.4 cm Updated in Other Vendor System with Status of Final Aki Humphreys MD electronically signed on 06/26/2023 3:50:09 PM with status of Final
== END ==
LOC: HO.CARD 10:48
PROVIDERS: PCP Internal Medicine; Visit Provider Internal Medicine Cardiovascular Disease
DX: I48.91 Unspecified atrial fibrillation (principal)
CPT/HCPCS: 93242; 93306

== ENCOUNTER → 2023-06-26 10:51 | Outpatient (BNV) | payer MEDICARE, SELFPAY | PROVIDERS: PCP Internal Medicine; Visit Provider Internal Medicine | DX: I47.10 Supraventricular tachycardia, unspecified (principal) | CPT/HCPCS: 93244; 93306 ==

== ENCOUNTER 2023-07-16 11:12 | Outpatient (AMB) | payer MEDICARE, SELFPAY ==
--- NOTE | 2023-07-16 15:15 | AM.OFFVISNUR ---
Intake Intake Visit Reasons: EKG Intake Note: Approx. 4 week post CVR. Disk And Tape Machine Tender Required: No Accompanied by: Self / Same As Patient Allergies amoxicillin Allergy (Unknown, Verified 07/16/23 12:00) GI upset penicillin V Allergy (Unknown, Verified 07/16/23 12:00) GI Followed by:: Dr. Crabtree Do you need a note to return to daycare/school/sports/work: No Nursing Note Pt here for f/up EKG. H/O afib s/p CVR ~ 4weeks ago. Taking meds as directed. Feels good. No complaints. EKG completed, EKG auto-reading sinus rhythm. EKG reviewed and signed by Dr. Crabtree. Office Procedures EKG [id number], Complete Coding Level of Care Code Est Pt Level 1 (65818) CPT Codes EKG - CPT: 29124-[id number], Complete ([id number]) Time Spent (min) 20 Comment EKG, Medication Reconciliation, Documentation, Education
== END 2023-07-16 11:47 | disposition home or self-care (01) ==
PROVIDERS: PCP Internal Medicine; Visit Provider Internal Medicine Cardiovascular Disease
DX: R94.31 Abnormal electrocardiogram [ECG] [EKG] (principal)
CPT/HCPCS: 93010

== ENCOUNTER → 2023-07-16 11:12 | Outpatient (BNVA) | payer MEDICARE, SELFPAY | PROVIDERS: PCP Internal Medicine; Visit Provider Internal Medicine Cardiovascular Disease | DX: R94.31 Abnormal electrocardiogram [ECG] [EKG] (principal) | CPT/HCPCS: 93005 ==

== ENCOUNTER 2023-07-17 | Outpatient (REF) | payer MEDICARE, SELFPAY | END 2023-07-17 00:01 | disposition home or self-care (01) | LOC: HO.LNP | PROVIDERS: Visit Provider Internal Medicine | DX: D69.6 Thrombocytopenia, unspecified (principal) | CPT/HCPCS: 87338 ==

== ENCOUNTER 2023-08-28 07:42 | Outpatient (REF) | payer MEDICARE, SELFPAY ==
--- NOTE | ~2023-08-28 | US_ITS ---
EXAMINATION: US ABDOMEN COMPLETE CLINICAL INFORMATION: Abnormal LFTs. COMPARISON: Ultrasound abdomen complete 06/17/2017. CT abdomen and pelvis 05/29/2017. TECHNIQUE: Real-time imaging of the abdominal viscera. FINDINGS: PANCREAS: The pancreas is not well seen. ABDOMINAL AORTA: The proximal, mid, and distal segments are normal in caliber. Atherosclerotic plaque is seen within the distal abdominal aorta INFERIOR VENA CAVA: Visualized portions are normal. LIVER: The liver is normal in size. The liver contour is normal. There is diffuse increased liver parenchymal echogenicity, consistent with hepatic steatosis. 1.3 x 1.0 x 1.3 cm echogenic focus in the right lobe is consistent with an hemangioma. There is no intrahepatic biliary duct dilatation seen. GALLBLADDER: Normal. The gallbladder is physiologically distended without evidence of stones, sludge, polyps, wall thickening or pericholecystic fluid. COMMON BILE DUCT: Normal in caliber measuring 0.3 cm in diameter. RIGHT KIDNEY: 0.9 x 0.6 x 0.5 cm lower pole cyst with layering benign milk of calcium and 1.2 x 0.7 x 0.7 cm upper pole cyst with benign layering milk of calcium are seen. No imaging follow-up is recommended. No hydronephrosis or renal calculi. The kidney measures 11.3 cm in maximum dimension. LEFT KIDNEY: Normal. No hydronephrosis. No renal calculi or focal parenchymal lesions. The kidney measures 10.4 cm in maximum dimension. SPLEEN: The spleen is upper limits of normal in size. The spleen measures 13.2 cm in maximum dimension. FREE FLUID: None. US/US abdomen complete IMPRESSION: 1. Hepatic steatosis. 2. 1.3 cm echogenic focus in the right lobe of the liver is consistent with an hemangioma.
== END 2023-08-28 07:43 | disposition home or self-care (01) ==
LOC: HO.US 07:42
PROVIDERS: PCP Internal Medicine; Visit Provider Internal Medicine
DX: D69.6 Thrombocytopenia, unspecified (principal); R94.5 Abnormal results of liver function studies
CPT/HCPCS: 76700

== ENCOUNTER 2023-09-25 07:48 | Outpatient (REF) | payer MEDICARE, SELFPAY ==
[2023-09-25 09:55] LABS: B Type Natriuretic Peptide 57 pg/mL (<100)
== END 2023-09-25 07:49 | disposition home or self-care (01) ==
LOC: HO.LAB 07:48
PROVIDERS: Visit Provider Internal Medicine Cardiovascular Disease
DX: R06.02 Shortness of breath (principal); I48.91 Unspecified atrial fibrillation
CPT/HCPCS: 36415; 83880

== ENCOUNTER 2023-10-23 06:29 | Day surgery (SDC) | payer MEDICARE, SELFPAY ==
[2023-10-21 11:10] VITALS: BMI 31.5
--- NOTE | 2023-10-22 09:48 | P.CONAN_ITS ---
Documented by User: Jacki Parikh NP 10/22/23 10:05 HPI - Anesthesia Eval Consult details Narrative: 67yo M for Colonoscopy Acute ITP. Avotrombopag q3days with increase in platelets. Cleared to proceed with colo by heme afib s/p cardioversion 05/2023. On Xarelto. Follows [facility] cardiology. Last office visit 05/2023 [facility] Active Problems Active Problems: All Active Problems (Updated 10/21/23 @ 10:56 by Irene Flannery RN) Acute ITP (Chronic) Severe thrombocytopenia (Acute) Thrombocytopenia (Acute) Abnormal lung sounds (Acute) History of COVID-19 (Acute) Chest congestion (Acute) SOB (shortness of breath) (Acute) Upper respiratory tract infection (Acute) Dizziness (Acute) Atrial fibrillation (Acute) Enlarged thoracic aorta (Acute) Hypertensive heart disease (Acute) HTN (hypertension) (Acute) Past Medical History Medical History (Updated 10/23/23 @ 06:48 by Meli Snow RN) Thrombocytopenia Elevated cholesterol History of cardioversion (~06/12/23) Sleep apnea Atrial fibrillation Enlarged thoracic aorta Hypertensive heart disease HTN (hypertension) Family History Family History Father No problems noted. Mother CVD (cardiovascular disease) Family history of problems with anesthesia: No Surgical History Surgical History H/O colonoscopy History of melanoma excision (~11/12/22) History of Problems with Anesthesia: No Social History Social History Household Members: Spouse and Children Housing: House Do you presently have visiting nurse or other home services: No Patient Tobacco Use Status: Never used Tobacco Use of substances other than those prescribed or required for medical reasons: No Are you DNR?: No Advance Directives: No Advance Directives Information Provided: Yes service: No Current occupational status: retired Meds Allergies Allergy/AdvReac Type Severity Reaction Status Date / Time amoxicillin Allergy Intermediate Gastrointestinal Verified 10/23/23 06:48 Upset Penicillins Allergy Intermediate Gastrointestinal Verified 10/23/23 06:48 Upset Home Medications Medication Instructions Recorded Confirmed Last Taken Type fexofenadine 180 mg tablet 180 mg PO DAILY 04/16/22 10/23/23 06/12/23 History (Ananya Allergy) famotidine 40 mg tablet (Pepcid) 40 mg PO DAILY 06/25/23 10/23/23 10/23/23 06:00 History Exam Height,Weight and Vital Signs: Height 6 ft 4 in Weight 117.48 kg Pertinent Lab Results Pertinent Lab Results: Laboratory Tests 09/23/23 10/16/23 08:09 08:08 WBC 5.9 Hgb 15.2 Hct 46.0 Plt Count 145 L Sodium 142 Potassium 3.7 Chloride 110 H Carbon Dioxide 22 BUN 19 H Creatinine 1.09 Narrative Narrative: EKG 09/2023 NSR @ 66 ? [facility] ECHO 2022 Conclusions: - The left ventricular systolic function is normal. The calculated ejection fraction is 57% by biplane method. - There is mild calcification of the aortic valve. - No obvious valvular pathology seen on this study. Assessment and Plan Assessment Anesthesia Assessment: Chart Reviewed Final Anesthetic Review Family History of Problems with Anesthesia: No History of Problems with Anesthesia: No Documented by User: George Jara MD 10/23/23 07:35 [facility] Past Medical History Medical History (Updated 10/23/23 @ 06:48 by Meli Snow, CARLEEN) Thrombocytopenia Elevated cholesterol History of cardioversion (~06/12/23) Sleep apnea Atrial fibrillation Enlarged thoracic aorta Hypertensive heart disease HTN (hypertension) Family History Family History Father No problems noted. Mother CVD (cardiovascular disease) Surgical History Surgical History H/O colonoscopy History of melanoma excision (~11/12/22) Social History Social History Household Members: Spouse and Children Housing: House Do you presently have visiting nurse or other home services: No Patient Tobacco Use Status: Never used Tobacco Use of substances other than those prescribed or required for medical reasons: No Are you DNR?: No Advance Directives: No Advance Directives Information Provided: Yes service: No Current occupational status: retired Meds Allergies Allergy/AdvReac Type Severity Reaction Status Date / Time amoxicillin Allergy Intermediate Gastrointestinal Verified 10/23/23 06:48 Upset Penicillins Allergy Intermediate Gastrointestinal Verified 10/23/23 06:48 Upset Home Medications Medication Instructions Recorded Confirmed Last Taken Type fexofenadine 180 mg tablet 180 mg PO DAILY 04/16/22 10/23/23 06/12/23 History (Ananya Allergy) famotidine 40 mg tablet (Pepcid) 40 mg PO DAILY 06/25/23 10/23/23 10/23/23 06:00 History Exam Airway Mallampati Class: II TM Dist: <=3cm Neck ROM: Full Loose/Missing/Broken Teeth: No Heart: ok Lungs: ok Assessment and Plan Assessment Anesthesia Assessment: Anesthesia Plan Discussed Final Anesthetic Review NPO: Yes ASA Class: III Final Preanesthetic Review: No Changes in Pt Med Stat, Meds/Allgs Chart Reviewed, Consent Obtained/Reviewed and Anes Risks/Benef Reviewed Patient Risk: Intermediate Procedure Risk: Low Anesthetic Plan Anesthetic Plan: MAC: and Agree w/ Assess. and Plan Disposition: Standard PACU
[2023-10-23 07:03] VITALS: BMI 32.4
[2023-10-23 07:19] VITALS: BP 152/94; PULSE 64; RESP 17; TEMP 36.4; O2SAT 95
[2023-10-23] MEDS: Lactated Ringers 1,000 ML 100 ML IVCONT (07:20)
[2023-10-23 08:32] VITALS: BP 122/78; PULSE 65; RESP 18; TEMP 36.1; O2SAT 96
--- NOTE | 2023-10-23 08:36 | PM.OP ---
Brief Operative Note Date of Service: 10/23/23 Pre-op diagnosis: Screening Post-op diagnosis: other (Polyps) Procedure: Colonoscopy to the cecum and TI with bx/removal of polyp, and hot snare polypectomy of ascending colon polyp with placement of 1 Resolution clip Surgeon: Jules Fermin MD Anesthesia: MAC Was an [place] Worker used for this Procedure?: No Estimated blood loss (mL): 2.0 Pathology: other (A. Cecal polyp B. Ascending colon polyp) Condition: stable Disposition: PACU
[2023-10-23 08:47] VITALS: BP 127/80; PULSE 53; RESP 20; O2SAT 99
--- NOTE | 2023-10-23 08:55 | OP_ITS ---
DATE OF SERVICE: 10/23/2023 SURGEON: Jules Fermin MD INDICATIONS: The patient presents for evaluation of colorectal cancer screening and personal history of tubular adenoma of the colon. Full consent has been obtained from him for this, including risks of bleeding and perforation. PREOPERATIVE DIAGNOSIS: POSTOPERATIVE DIAGNOSIS: PROCEDURE PERFORMED: Colonoscopy to the cecum and terminal ileum with biopsy with removal of polyp, hot snare polypectomy of ascending colon polyp, and placement of 1 resolution clip on the ascending colon polypectomy site. ESTIMATED BLOOD LOSS: COMPLICATIONS: ANESTHESIA: Medication used: Monitored anesthesia care. ASSISTANTS: SPECIMENS: PREOPERATIVE DIAGNOSES: Colorectal cancer screening and personal history of tubular adenoma of the colon. POSTOPERATIVE DIAGNOSES: Colorectal cancer screening and personal history of tubular adenoma of the colon, colon polyps, diverticulosis, and internal hemorrhoids. DESCRIPTION OF PROCEDURE: The patient was placed in the left lateral decubitus position. The digital rectal exam revealed no abnormalities. The [employer] video pediatric colonoscope was entered into the rectum and advanced easily to the cecum. Once in the cecum, I did identify cecal pouch with appendiceal orifice and a normal-appearing ileocecal valve. The terminal ileum was cannulated and appeared normal. The scope was withdrawn back in the colon. The entire cecum and ileocecal valve appeared normal other than an approximately 3 or 4 mm polyp, which was biopsied and completely removed with a cold biopsy forceps. The remainder of the cecum appeared normal. The scope was then slowly withdrawn, assessing all mucosal surfaces carefully. Preparation was excellent. In the proximal ascending colon was a flat, but raised approximately 10 mm polyp, which was removed by hot snare polypectomy and recovered by suction. The polypectomy site appeared clean, without any sign of residual polyp nor bleeding. A single resolution clip was applied with good deployment and good hemostasis to the polypectomy site. I did not visualize any other polyps, colitis, nor angiodysplasia. There was a moderate amount of sigmoid diverticulosis. In the rectum, the scope was retroflexed, visualizing internal hemorrhoids, but no other pathology. The rectal mucosa appeared normal. The scope was straightened and withdrawn from the patient. He tolerated the procedure well and was returned to the recovery area in stable condition. IMPRESSION: 1. Colon polyps. 2. Diverticulosis. 3. Internal hemorrhoids. PLAN: The results of the pathology will be checked. I would recommend a repeat colonoscopy in 5 years. He was advised to resume his Xarelto in 48 hours. He will otherwise see me on a p.r.n. basis. MD CODEY Shipman/SARAH / [phone] MTDD
[2023-10-23 09:02] VITALS: BP 138/84; PULSE 51; RESP 16; TEMP 36.1; O2SAT 99
== END 2023-10-23 09:42 | disposition home or self-care (01) ==
PROVIDERS: PCP Internal Medicine; Visit Provider Internal Medicine
PROC: 0DJD8ZZ Inspection of Lower Intestinal Tract, Via Natural or Artificial Opening Endoscopic (ICD-10-PCS; CPT 45378; principal; 2023-10-23 07:30)
DX: Z12.11 Encounter for screening for malignant neoplasm of colon (principal); D12.0 Benign neoplasm of cecum; D12.2 Benign neoplasm of ascending colon; K57.30 Diverticulosis of large intestine without perforation or abscess without bleeding; K64.8 Other hemorrhoids; Z86.010 Personal history of colon polyps
CPT/HCPCS: 45385; 45380; 88305; J2704

== ENCOUNTER 2023-11-26 15:45 | Outpatient (AMB) | payer MEDICARE, SELFPAY ==
--- NOTE | 2023-11-26 15:55 | MHC.PC.OV ---
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[facility] Note: pt is here for new patient, [facility] care [place]arf Tally Clerk Required: No Allergies amoxicillin Allergy (Intermediate, Verified 11/26/23 15:57) Gastrointestinal Upset Penicillins Allergy (Intermediate, Verified 11/26/23 15:57) Gastrointestinal Upset Tobacco use date assessed: 11/26/23 Fall risk assessment: No Falls in past year Last assessed Fall Risk: 11/26/23 Dental Screening Dental Screen Date: 11/26/23 Did you have a dental visit in the last 12 months?: Yes Did you have a dental problem in the last 6 months where you did not have access to dental care?: No Was dental information given to patient?: Patient has dentist 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 HTN: Blood pressure is stable, managed with lisinopril 5mg and metoprolol 50mg. Will order labs. Denies chest pain, shortness of breath, headache, dizziness, and blurred vision. Due for PSA, will order. Denies dribbling with urination, weak stream, and frequent nocturia. Pt is following up with cardiology and hematology/oncology. colon screen is up to date. sees cardiology and hematology [facility] Medical History Thrombocytopenia Elevated cholesterol History of cardioversion (~06/12/23) Sleep apnea Atrial fibrillation Enlarged thoracic aorta Hypertensive heart disease HTN (hypertension) Surgical History H/O colonoscopy History of melanoma excision (~11/12/22) Family History Father No problems noted. Mother CVD (cardiovascular disease) Social History Household Members: Spouse and Children Housing: House Do you presently have visiting nurse or other home services: No Patient Tobacco Use Status: Never used Tobacco service: No Current occupational status: retired Cognitive needs: No Hearing needs: No Vision needs: Yes Questionnaire PHQ-9 Over the last 2 weeks, how often have you been bothered by any of the following problems? 1. Little interest or pleasure in doing things: not at all 2. Feeling down, depressed, or hopeless: not at all 3. Trouble falling or staying asleep, or sleeping too much: not at all 4. Feeling tired or having little energy: not at all 5. Poor appetite or overeating: not at all 6. Feeling bad about yourself - or that you are a failure or have let yourself or your family down: not at all 7. Trouble concentrating on things, such as reading the newspaper or watching television: not at all 8. Moving or speaking so slowly that other people could have noticed. Or the opposite - being so fidgety or restless that you have been moving around a lot more than usual: not at all 9. Thoughts that you would be better off or of hurting yourself in some way: not at all Total score: 0 Depression Screening Interpretation: Negative Depression Screening Done: Yes 48796 - PHQ-9 Billing: Yes Source: Developed by Drs. Jules Schulte, Jamaica Howe, Santiago Orellana and colleagues, with an educational tabitha from [employer]. Thrive Questionnaire Date Thrive assessed: 11/26/23 I am a: Patient What is your living situation today?: I have a steady place to live Within the past 12 months, did the food you bought not last and you didn't have the money to get more?: Never true Within the past 12 months, did you worry whether your food would run out before you got money to buy more?: Never true Do you have trouble paying for medicines?: No Do you have trouble getting transportation to medical appointments?: No Do you have trouble paying your heating and electricity bill?: No Do you have trouble taking care of your child, family member or friend?: No Do you have trouble with day-to-day activities such as bathing, preparing meals, shopping, managing finances, etc.?: No Are you currently unemployed and looking for a job?: No Are you interested in more education?: No Please select the resources that you would like help with: None Currently or been in a relationship where the following occur: no concerns reported THRIVE Score: 0 AUDIT C Alcohol Use Questionnaire (AUDIT-C) 1. How often do you have a drink containing alcohol?: Never 3. How often do you have six or more drinks on one occasion?: Never Total Score: 0 Score Reviewed/Action Taken: Yes LIZY-7 AMB Questionnaire LIZY-7 Date LIZY - 7 assessed: 11/26/23 Feeling nervous, anxious, or on edge: 0 = Not at all Not being able to stop or control worryin = Not at all Worrying too much about different things: 0 = Not at all Trouble relaxin = Not at all Being so restless that it is hard to sit still: 0 = Not at all Becoming easily annoyed or irritable: 0 = Not at all Feeling afraid as if something awful might happen: 0 = Not at all Total LIZY-7 score (0-4 normal; 5-9 mild; 10-14 moderate; 15-21 severe): 0 Source: Developed by Drs. Jules Schulte, Jamaica Howe, Santiago Orellana and colleagues, with an educational tabitha from [employer]. LIZY-7 Assessment Billing LIZY-7 Assessment Tool: LIZY-7 Assessment 58997 Review of Systems Const Reports as per HPI Physical exam (Primary Care) Vital Signs: Last Vital Signs Pulse 60 11/26/23 15:56 BP 138/80 11/26/23 15:56 Pulse Ox 96 11/26/23 15:56 Oxygen Delivery Method Room Air 11/26/23 15:56 BMI result Body Mass Index 33.0 Tobacco/Smoking Status: Tobacco use Status Tobacco use date assessed 11/26/23 11/26/23 16:00 Patient Tobacco Use Status Never used Tobacco 11/26/23 16:00 PHQ-9: PHQ-9 Score PHQ-9: Total score 0 11/26/23 16:27 Depression Screening Interpretation: Negative Thrive Assessment: Date of Thrive Assessment Date Thrive assessed 11/26/23 11/26/23 16:00 Currently or been in a relationship where the following occur: no concerns reported Const General: cooperative Nutritional Appearance: obese Orientation/consciousness: patient oriented x3 Resp Effort & Inspection: normal respiratory effort Auscultation: clear to auscultation bilaterally Cardio Rate: regular rate Rhythm: regular rhythm Heart sounds: S1 normal heart sound present, S2 normal heart sound present and no murmurs Neuro General: patient oriented x3 Extrem Right lower extremity: no edema Left lower extremity: no edema Psych Appearance: grossly normal Mental Status: mental status grossly normal Speech and movement: Normal speech and movement present Affect: normal affect Attitude: cooperative Thought process: Normal thought process present Thought content: Normal thought content present Insight: Good insight present (Psych) Judgement: Good judgement present (Psych) Assessment and Plan Assessment & Plan (1) HTN (hypertension): Code(s): I10 - Essential (primary) hypertension Plan: stable (2) Screening for prostate cancer: Code(s): Z12.5 - Encounter for screening for malignant neoplasm of prostate Plan: stable on current med regime Plan The patient agreed to the use of a medical cash poster for this encounter. Scribed for ZELDA Mckeon by Jessica Murillo medical cash poster, on 11/26/2023 at 16:25 EST. Orders: Orders Comprehensive [place]. Panel Fast Today I10 - Essential (primary) hypertension TSH reflex Free T4 Today I10 - Essential (primary) hypertension UA CC w/rflx Micro + Cult Today I10 - Essential (primary) hypertension Lipid Panel Today I10 - Essential (primary) hypertension Prostate Specific Antigen Scr Today Z12.5 - Encounter for screening for malignant neoplasm of prostate Coding Level of Care Code New Pt Level 3 (08244) Diagnoses HTN (hypertension) I10 Screening for prostate cancer Z12.5 Additional Codes LIZY-7 Assessment Billing - LIZY-7 Assessment Tool: LIZY-7 Assessment 13221 ([id number])
[2023-11-26 15:56] VITALS: BP 138/80; PULSE 60; O2SAT 96; BMI 33.0
== END 2023-11-26 16:51 | disposition home or self-care (01) ==
PROVIDERS: PCP Internal Medicine; Visit Provider Nurse Practitioner Family
DX: I10 Essential (primary) hypertension (principal); Z12.5 Encounter for screening for malignant neoplasm of prostate
CPT/HCPCS: 99203

== ENCOUNTER 2023-12-11 07:21 | Outpatient (REF) | payer MEDICARE, SELFPAY ==
[2023-12-11 08:18] LABS: Alanine Aminotransferase 40 U/L (0-40); Albumin Level 3.7 g/dL (3.5-5.0); Alkaline Phosphatase 115 U/L (39-117); Anion Gap 10 (12-20); Aspartate Amino Transferase 33 U/L (5-37); Bilirubin Total 0.4 mg/dL (0.0-1.0); Blood Urea Nitrogen 14 mg/dL (9-16); Calcium 9.3 mg/dL (8.4-10.2); Carbon Dioxide 26 mmol/L (22-29); Chloride 110 mmol/L (96-108); Cholesterol 124 mg/dL (<200); Estimated Glomerular Filt Rate > 60; Glucose Fasting 106 mg/dL (60-99); HDL Cholesterol 38 mg/dL (>40); LDL Cholesterol Calculated 66 mg/dL (<100); Potassium 3.9 mmol/L (3.3-5.1); Sodium 142 mmol/L (135-145); Triglycerides 101 mg/dL (<150)
[2023-12-11 08:33] LABS: TSH reflex Free T4 3.71 uIU/mL (0.32-4.0)
[2023-12-11 08:42] LABS: Appearance Urine Clear; Color Urine Yellow; Glucose Urine UA Negative (Negative); Leukocyte Esterase Urine Small (1+) (Negative); Nitrite Urine Negative (Negative); UMIC TRIGGER UACC YES; Urine Blood Trace (Negative); Urine Ketones Negative (Negative); Urine Protein Negative (Neg-Trace)
[2023-12-11 08:56] LABS: Bacteria Urine Trace (None Seen); Hyaline Casts Urine 0-2 /LPF (0-2); RBC Urine 0-2 /HPF (0-2); Squamous Epithelial Cell Urine 0-2 /HPF (0-2); UACC Culture Trigger YES; WBC Urine 0-5 /HPF (0-5)
== END 2023-12-11 07:22 | disposition home or self-care (01) ==
LOC: HO.LAB 07:21
PROVIDERS: PCP Nurse Practitioner Family; Visit Provider Nurse Practitioner Family
DX: I10 Essential (primary) hypertension (principal); R82.90 Unspecified abnormal findings in urine; Z12.5 Encounter for screening for malignant neoplasm of prostate
CPT/HCPCS: 36415; 80053; 80061; 81001; 84153; 84443; 87086

== ENCOUNTER 2024-03-10 08:08 | Outpatient (AMB) | payer MEDICARE, SELFPAY ==
[2024-03-10 08:20] VITALS: BP 122/70; PULSE 58; RESP 14; TEMP 36.4; O2SAT 96; BMI 33.2
--- NOTE | 2024-03-10 08:20 | MHC.OFFWIV ---
Intake Vital Signs 03/10/24 08:20 Height 6 ft 4 in Weight 273 lb BMI 33.2 BP 122/70 Blood Pressure Location Rt brachial Position Sitting Respiration 14 Pulse 58 Pulse Source Pulse Oximeter Temp 97.5 F Temp Source Temporal Artery Scan Pulse Oximetry (%) 96 Oxygen Delivery Method Room Air Intake Visit Reasons: Right shoulder pain and left thumb numbness Patient Tobacco Use Status: Never used Tobacco Manager Agency Required: No Accompanied by: Self / Same As Patient Allergies amoxicillin Allergy (Intermediate, Verified 03/10/24 08:24) Gastrointestinal Upset Penicillins Allergy (Intermediate, Verified 03/10/24 08:24) Gastrointestinal Upset Do you need a note to return to daycare/school/sports/work: No HPI HPI Comments History of Present Illness Details 68-year-old male presents with complaints of intermittent right shoulder pain and weeks for the past 2 months; worst with extension of the shoulder. He initially thought he slept the wrong way. However, his symptoms have have subsided. He describes the pain as sharp shooting. He also reports persistent numbness of his left thumb for the past 3 weeks; no tingling or complete loss of sensation. No fall, injury or trauma. He takes Tylenol occasionally. [facility] Medical History (Reviewed 11/26/23 @ 15:57 by Abraham Coates [facility]) Thrombocytopenia Elevated cholesterol History of cardioversion (~06/12/23) Sleep apnea Atrial fibrillation Enlarged thoracic aorta Hypertensive heart disease HTN (hypertension) Surgical History H/O colonoscopy History of melanoma excision (~11/12/22) Family History Father No problems noted. Mother CVD (cardiovascular disease) Social History Household Members: Spouse and Children Housing: House Do you presently have visiting nurse or other home services: No Patient Tobacco Use Status: Never used Tobacco service: No Current occupational status: retired Cognitive needs: No Hearing needs: No Vision needs: Yes Review of Systems Const Details: Const Denies chills, Denies fatigue, Denies fever(s), Denies headache(s) and Denies weakness ENT Denies change in vision, Denies dizziness, Denies headache(s), Denies hearing loss, Denies nasal congestion, Denies sinus pain, Denies sinus pressure and Denies sore throat Resp Denies cough, Denies dyspnea, Denies wheezing and Denies other (shortness of breath) Cardio Denies chest pain, Denies lightheadedness, Denies dyspnea and Denies other (palpitations) Musc Reports as per HPI Neuro Denies dizziness, Denies headache(s), Re[prts numbness, Denies tingling and Denies weakness Psych Denies anxiety, Denies depression, Denies memory?loss Endo Denies fatigue Aller/Immun Denies wheezing Physical Exam Vital Signs: Last Vital Signs Temp 97.5 F 03/10/24 08:20 Pulse 58 03/10/24 08:20 Resp 14 03/10/24 08:20 BP 122/70 03/10/24 08:20 Pulse Ox 96 03/10/24 08:20 Oxygen Delivery Method Room Air 03/10/24 08:20 BMI result Body Mass Index 33.2 Const Other: Const General: well developed; No acute distress Nutritional Appearance: well nourished Orientation/consciousness: patient oriented x3 HEENT Head: Yes normocephalic and Yes atraumatic Eyes General: appearance normal, both eyes and all related structures Pupils: Equal, round and reactive pupils present EOM: EOMs intact bilaterally Resp Effort & Inspection: normal respiratory effort Auscultation: clear to auscultation bilaterally Cardio Rate: regular rate Rhythm: regular rhythm Heart sounds: S1 normal heart sound present, S2 normal heart sound present, no gallops, no murmurs and no rubs Bruits: no abdominal aortic bruits and no carotid bruits Musc Normal ROM of the right shoulder. Right shoulder and left thumb non tender. No overt trauma or injury Neuro General: patient oriented x3 and gait normal, no focal neuro deficit Cranial nerves: Yes Equal, round and reactive pupils present Psych Affect: normal affect Assessment & Plan Assessment & Plan (1) Right shoulder pain: Code(s): M25.511 - Pain in right shoulder Plan: Normal ROM of the right shoulder. Right shoulder non tender. No overt trauma or injury Likely muscle strain although arthritis or tendinitis is possible Encouraged to take Tylenol 650 mg twice daily as needed Warm compresses encouraged Referred to physical therapy Follow-up with PCP with worsening or new symptoms Verbalized understanding and agreed with treatment plan (2) Numbness of left thumb: Code(s): R20.0 - Anesthesia of skin Plan: Normal ROM of the left thumb. Left thumb nontender. No overt trauma or injury Will check vitamin B12 and folate level and make changes as needed Recent CBC and BMP findings are benign, except for thrombocytopenia which is chronic Follow-up with PCP with worsening or new symptoms Verbalized understanding and agreed with the plan Orders: Orders PT Evaluation and Treatment Today M25.511 - Pain in right shoulder Vitamin B12 and Folate Today R20.0 - Anesthesia of skin Coding Level of Care Code Est Pt Level 4 (11477) Diagnoses Right shoulder pain M25.511 Numbness of left thumb R20.0
== END 2024-03-10 08:55 | disposition home or self-care (01) ==
PROVIDERS: PCP Nurse Practitioner Family; Visit Provider Nurse Practitioner Family
DX: M25.511 Pain in right shoulder (principal); R20.0 Anesthesia of skin
CPT/HCPCS: 99214

== ENCOUNTER 2024-03-10 08:51 | Outpatient (REF) | payer MEDICARE, SELFPAY ==
[2024-03-10 12:51] LABS: Folate 4.7 ng/mL (> or = 4.0); Vitamin B12 436 pg/mL (200-900)
== END 2024-03-10 08:52 | disposition home or self-care (01) ==
LOC: HO.WFDLDS 08:51
PROVIDERS: Visit Provider Nurse Practitioner Family
DX: R20.0 Anesthesia of skin (principal)
CPT/HCPCS: 36415; 82607; 82746

== ENCOUNTER 2024-04-13 08:00 | Outpatient (RCR) | payer MEDICARE, SELFPAY ==
[2024-03-27 06:58] VITALS: BP 144/86; PULSE 53; O2SAT 98
== END 2024-06-30 12:16 | disposition home or self-care (01) ==
LOC: HO.PTWFD 08:00
PROVIDERS: PCP Nurse Practitioner Family; Visit Provider Nurse Practitioner Family
DX: M25.511 Pain in right shoulder (principal)
CPT/HCPCS: 97110; 97140; 97162; 97535

== ENCOUNTER 2024-06-01 08:18 | Outpatient (AMB) | payer MEDICARE, SELFPAY ==
[2024-06-01 08:27] VITALS: BP 124/80; PULSE 76; O2SAT 97; BMI 33.1
--- NOTE | 2024-06-01 08:27 | A.OFFPC_ITS ---
Vital Signs 06/01/24 08:27 Height 6 ft 4 in Weight 272 lb BMI 33.1 BP 124/80 Blood Pressure Location Rt brachial Position Sitting Pulse 76 Pulse Source Pulse Oximeter Pulse Oximetry (%) 97 Intake Visit Reasons: 6 month follow up- see comments Intake Note: pt is here for 6 month follow up Chief Talent Officer Required: No Accompanied by: Self / Same As Patient Allergies amoxicillin Allergy (Intermediate, Verified 06/01/24 08:28) Gastrointestinal Upset Penicillins Allergy (Intermediate, Verified 06/01/24 08:28) Gastrointestinal Upset Medication List - Last Reconciled 06/01/24 by ZELDA Shin albuterol sulfate 90 mcg/actuation (ProAir HFA) 2 puffs inhalation Q4-6H PRN 30 days atorvastatin 40 mg PO DAILY famotidine (Pepcid) 40 mg PO DAILY fexofenadine (Ananya Allergy) 180 mg PO DAILY lisinopril 5 mg PO QPM 90 days metoprolol succinate ER (Toprol XL) 50 mg PO DAILY rivaroxaban (Xarelto) 20 mg PO DAILY Tobacco use date assessed: 11/26/23 Fall risk assessment: No Falls in past year Last assessed Fall Risk: 06/01/24 Dental Screening Dental Screen Date: 11/26/23 HPI 6 month follow up- see comments HPI Details Pt reports that for last week he has had wheezing with a cough. Pt thinks he has a viral illness. Denies any CP, SOB, N/V, fevers, chills. #2 elevated FBS, continue to work on diet. [facility] Medical History Malignant melanoma Thrombocytopenia Elevated cholesterol History of cardioversion (~06/12/23) Sleep apnea Atrial fibrillation Enlarged thoracic aorta Hypertensive heart disease HTN (hypertension) Surgical History H/O colonoscopy History of melanoma excision (~11/12/22) Family History Father No problems noted. Mother CVD (cardiovascular disease) Social History Household Members: Spouse and Children Housing: House Do you presently have visiting nurse or other home services: No Patient Tobacco Use Status: Never used Tobacco e-Cigarette/Vaping Use: Never Used service: No Current occupational status: retired Cognitive needs: No Hearing needs: No Vision needs: Yes Questionnaire Thrive Questionnaire Date Thrive assessed: 06/01/24 I am a: Patient What is your living situation today?: I have a steady place to live THRIVE Score: 0 LIZY-7 AMB Questionnaire LIZY-7 Date LIZY - 7 assessed: 11/26/23 Source: Developed by Drs. Jules Schulte, Jamaica Howe, Santiago Orellana and colleagues, with an educational tabitha from [employer]. Review of Systems Const Reports as per HPI Physical exam (Primary Care) Vital Signs: Last Vital Signs Pulse 76 06/01/24 08:27 BP 124/80 06/01/24 08:27 Pulse Ox 97 06/01/24 08:27 BMI result Body Mass Index 33.1 Tobacco/Smoking Status: Tobacco use Status Tobacco use date assessed 11/26/23 06/01/24 08:28 Patient Tobacco Use Status Never used Tobacco 06/01/24 08:28 e-Cigarette/Vaping Use Never Used 06/01/24 08:28 Thrive Assessment: Date of Thrive Assessment Date Thrive assessed 06/01/24 06/01/24 08:28 Const General: cooperative Nutritional Appearance: obese Orientation/consciousness: patient oriented x3 HENMT Ears: TM normal on the right and TM normal on the left Mouth: Normal oral and palatal mucosa present Neck Neck: No lymphadenopathy Resp Other: lungs fairly clear Effort & Inspection: normal respiratory effort Auscultation: clear to auscultation bilaterally Cardio Rate: regular rate Rhythm: regular rhythm Heart sounds: S1 normal heart sound present and S2 normal heart sound present Neuro General: patient oriented x3 Psych Appearance: grossly normal Mental Status: mental status grossly normal Speech and movement: Normal speech and movement present Affect: normal affect Attitude: cooperative Thought process: Normal thought process present Thought content: Normal thought content present Insight: Good insight present (Psych) Judgement: Good judgement present (Psych) Assessment and Plan Assessment & Plan (1) Viral illness: Code(s): B34.9 - Viral infection, unspecified Plan: cont supportive treatments, any changes (for the worse), he will contact me (2) Elevated fasting blood sugar: Code(s): R73.01 - Impaired fasting glucose Plan: cont to work on diet Plan The patient agreed to the use of a medical referral coordinator for this encounter. Scribed for ZELDA Mckeon by Jessica Murillo medical referral coordinator, on 06/01/2024 at 08:45 EST. Coding Level of Care Code Est Pt Level 3 (05076) Diagnoses Viral illness B34.9 Elevated fasting blood sugar R73.01
== END 2024-06-01 09:09 | disposition home or self-care (01) ==
PROVIDERS: PCP Nurse Practitioner Family; Visit Provider Nurse Practitioner Family
DX: B34.9 Viral infection, unspecified (principal); R73.01 Impaired fasting glucose

== ENCOUNTER → 2024-06-01 08:18 | Outpatient (BNVA) | payer MEDICARE, SELFPAY | PROVIDERS: PCP Nurse Practitioner Family; Visit Provider Nurse Practitioner Family | DX: B34.9 Viral infection, unspecified (principal); R73.01 Impaired fasting glucose | CPT/HCPCS: 99212 ==

== ENCOUNTER 2024-07-06 08:48 | Outpatient (AMB) | payer MEDICARE, SELFPAY ==
--- NOTE | 2024-07-06 09:19 | AM.OFFWIN_ITS ---
Intake Vital Signs 07/06/24 09:20 Height 6 ft 4 in Weight 268 lb BMI 32.6 BP 130/88 Blood Pressure Location Rt brachial Position Sitting Pulse 54 Pulse Source Pulse Oximeter Pulse Oximetry (%) 98 Oxygen Delivery Method Room Air Intake Visit Reasons: EP Cough Intake Note: Patient here for cough that has been present for about 1 month. Patient Tobacco Use Status: Never used Tobacco Allergies amoxicillin Allergy (Intermediate, Verified 07/06/24 09:21) Gastrointestinal Upset Penicillins Allergy (Intermediate, Verified 07/06/24 09:21) Gastrointestinal Upset Do you need a note to return to daycare/school/sports/work: No HPI HPI Comments History of Present Illness Details Patient is a 68-year-old male complaining of almost a month of a cough after having a cold. He states he had more of a upper respiratory infection earlier in the month and all of his symptoms have resolved except for a dry cough that is keeping him up at night. He denies any history of asthma or COPD. He denies any fevers, shortness of breath, wheezing, sinus pain, ear pain or headaches. [facility] Medical History Malignant melanoma Thrombocytopenia Elevated cholesterol History of cardioversion (~06/12/23) Sleep apnea Atrial fibrillation Enlarged thoracic aorta Hypertensive heart disease HTN (hypertension) Surgical History H/O colonoscopy History of melanoma excision (~11/12/22) Family History Father No problems noted. Mother CVD (cardiovascular disease) Social History Household Members: Spouse and Children Housing: House Do you presently have visiting nurse or other home services: No Patient Tobacco Use Status: Never used Tobacco e-Cigarette/Vaping Use: Never Used service: No Current occupational status: retired Cognitive needs: No Hearing needs: No Vision needs: Yes Review of Systems Const All systems reviewed & are unremarkable except as noted in HPI and below Physical Exam Vital Signs: Last Vital Signs Pulse 54 07/06/24 09:20 BP 130/88 07/06/24 09:20 Pulse Ox 98 07/06/24 09:20 Oxygen Delivery Method Room Air 07/06/24 09:20 BMI result Body Mass Index 32.6 Const General: cooperative, healthy appearing, comfortable and no acute distress Orientation/consciousness: patient oriented x3 Limitations: no limitations HEENT Head: Yes normal to inspection Ears: hearing grossly normal bilaterally, external ears normal and TM's normal bilaterally General nose exam: Normal external nose present, Normal nares present and No nasal discharge present Face and sinus: Yes normal facial exam and Yes sinuses nontender Mouth: Normal oral and palatal mucosa present and moist mucous membranes Throat: Yes tonsils normal, Yes uvula midline and Yes posterior oropharynx abnormal (Erythema) Eyes General: appearance normal, both eyes and all related structures Neck Neck: Yes normal visual inspection Resp Effort & Inspection: normal respiratory effort, able to speak in complete sentences, Actively coughing, no respiratory distress, not tachypneic, no tripod positioning and no use of accessory muscles Auscultation: clear to auscultation bilaterally Cardio Rate: regular rate Rhythm: regular rhythm Heart sounds: normal S1 and S2 Skin General skin exam: no rashes or lesions noted Neuro General: patient oriented x3 Extrem General: Yes normal to inspection and Yes no clubbing, cyanosis or edema Assessment & Plan Assessment & Plan (1) Atypical pneumonia: Code(s): J18.9 - Pneumonia, unspecified organism Plan: Vital signs are stable patient is well-appearing, as it has been almost a month of the cough that is just lingering after a cold, likely walking pneumonia. Sent Z-Marcus to pharmacy. Plan See above Medications: New azithromycin For 250 mg dose pack: take 500 mg today (day 1), then 250 mg for 4 days (days 2-5) PO 6 tabs 0RF Coding Level of Care Code Est Pt Level 3 (68701) Diagnoses Atypical pneumonia J18.9
[2024-07-06 09:20] VITALS: BP 130/88; PULSE 54; O2SAT 98; BMI 32.6
== END 2024-07-06 09:41 | disposition home or self-care (01) ==
PROVIDERS: PCP Nurse Practitioner Family; Visit Provider Physician Assistant
DX: J18.9 Pneumonia, unspecified organism (principal)

== ENCOUNTER → 2024-07-06 08:48 | Outpatient (BNVA) | payer MEDICARE, SELFPAY | PROVIDERS: PCP Nurse Practitioner Family; Visit Provider Physician Assistant | DX: J18.9 Pneumonia, unspecified organism (principal) | CPT/HCPCS: 99212 ==

== ENCOUNTER 2024-08-19 10:21 | Outpatient (AMB) | payer MEDICARE, SELFPAY ==
[2024-08-19 10:27] VITALS: BP 122/68; PULSE 62; BMI 32.5
--- NOTE | 2024-08-19 10:27 | A.OFFVIS_ITS ---
Vital Signs 08/19/24 10:27 Height 6 ft 4 in Weight 266 lb 12.149 oz BMI 32.5 BP 122/68 Blood Pressure Location Lt brachial Position Sitting Pulse 62 Pulse Source Monitor Intake Visit Reasons: overdue follow-up with ekg Allergies amoxicillin Allergy (Intermediate, Verified 07/06/24 09:21) Gastrointestinal Upset Penicillins Allergy (Intermediate, Verified 07/06/24 09:21) Gastrointestinal Upset Medication List - Last Reconciled 08/19/24 by Timmy Crabtree MD albuterol sulfate 90 mcg/actuation (ProAir HFA) 2 puffs inhalation Q4-6H PRN 30 days atorvastatin 40 mg PO DAILY benzonatate 200 mg PO TID PRN famotidine (Pepcid) 40 mg PO DAILY fexofenadine (Ananya Allergy) 180 mg PO DAILY lisinopril 5 mg PO QPM 90 days metoprolol succinate ER 50 mg PO DAILY rivaroxaban (Xarelto) 20 mg PO DAILY HPI Comments Details: Yandel comes for follow-up. Overall says that he has been feeling well. Not had any obvious episodes of atrial fibrillation. He said does not feel any different while in normal sinus rhythm versus when he was in atrial fibrillation. He says blood pressures been well controlled. His platelet counts have been adequate. He has not had any obvious bleeding issues or neurologic events. Denies any exertional chest pain or shortness of breath. Denies any heart failure symptoms. No lightheadedness, syncope. [facility] Medical History (Updated 08/19/24 @ 12:59 by Timmy Crabtree MD) Atrial fibrillation Malignant melanoma Thrombocytopenia Elevated cholesterol History of cardioversion (~06/12/23) Sleep apnea Enlarged thoracic aorta Hypertensive heart disease HTN (hypertension) Surgical History H/O colonoscopy History of melanoma excision (~11/12/22) Family History Father No problems noted. Mother CVD (cardiovascular disease) Social History Household Members: Spouse and Children Housing: House Do you presently have visiting nurse or other home services: No Patient Tobacco Use Status: Never used Tobacco e-Cigarette/Vaping Use: Never Used service: No Current occupational status: retired Cognitive needs: No Hearing needs: No Vision needs: Yes Review of Systems Const Denies weakness ENT Denies dizziness Card Denies chest pain, Denies chest pain with activity, Denies syncope, Denies rapid heart rate, Denies pedal edema, Denies edema, Denies leg edema, Denies lightheadedness, Denies palpitations, Denies dyspnea, Denies dyspnea on exertion and Denies orthopnea Resp Denies cough, Denies dyspnea and Denies dyspnea on exertion GI Denies hematochezia and Denies change in stool character Musc Denies abnormal gait, Denies muscle cramps, Denies muscle weakness, Denies numbness, Denies radiating pain into limb and Denies tingling Neuro Denies abnormal gait, Denies dizziness, Denies syncope, Denies numbness, Denies tingling and Denies weakness Endo Denies palpitations Physical Exam Vital Signs: Last Vital Signs Pulse 62 08/19/24 10:27 BP 122/68 08/19/24 10:27 BMI result Body Mass Index 32.5 Const General: cooperative, comfortable, no acute distress, alert, awake and well groomed Nutritional Appearance: obese Orientation/consciousness: patient oriented x3 Limitations: no limitations Neck Neck: Yes trachea midline, Yes supple and Yes no JVD Resp Effort & Inspection: normal respiratory effort Auscultation: clear to auscultation bilaterally Cardio Jugular venous distension: no JVD Palpation: normal PMI Rhythm: abnormal rhythm irregularly irregular Heart sounds: S1 normal heart sound present and S2 normal heart sound present GI Auscultation: normal bowel sounds Skin General skin exam: no rashes or lesions noted Neuro General: patient oriented x3 and no focal motor deficits Extrem General: Yes no clubbing, cyanosis or edema Psych Appearance: grossly normal Office Procedures EKG Details: EKG shows normal sinus rhythm with T-wave inversion in lead 3 and AVF, nonspecific. [id number], Complete Assessment & Plan Assessment & Plan (1) Paroxysmal atrial fibrillation: Code(s): I48.0 - Paroxysmal atrial fibrillation Category: Medical Plan: Paroxysmal atrial fibrillation in this elderly gentleman without any obvious symptoms. This could be difficult to monitor clinically. We discussed about possibly investing in a smart watch like device that would monitor for irregular heartbeat. He already has a EKG sensor at home which can perform EKGs. This will help with assessing burden of atrial fibrillation if present. However at this point time does not require any additional rhythm maintenance therapy such as antiarrhythmic drugs. Continue metoprolol therapy. Avoidance of stimulants was discussed. Continue full oral anticoagulation, currently on Xarelto 20 mg daily. Semi annual renal function test should be pursued. Continue monitor platelet counts through [facility]ology [facility]. (2) HTN (hypertension): Code(s): I10 - Essential (primary) hypertension Category: Medical Plan: Hypertension which is currently well optimized advised to monitor blood pressure at home and maintain a log. Target goal blood pressure less than 130/84. Currently well optimized. Low-salt diet was discussed. Encouraged to participate in weight loss program as well as regular physical activity. (3) Enlarged thoracic aorta: Comment: 3.99 cm by echocardiogram, May 2020 Code(s): I77.89 - Other specified disorders of arteries and arterioles Category: Medical Plan: Mildly enlarged thoracic aorta. Follow-up echocardiogram near future. Continue aggressive blood pressure control as above. No surgical interventions required. Will follow up in the clinic in 1 year's time, sooner p.r.n.. Thank you for allowing me to partake in his care Orders: Orders CA echo transthoracic complete Today I77.89 - Other specified disorders of arteries and arterioles Coding Level of Care Code Est Pt Level 4 (15459) Diagnoses Paroxysmal atrial fibrillation I48.0 HTN (hypertension) I10 Enlarged thoracic aorta I77.89 CPT Codes EKG - CPT: 79002-[id number], Complete ([id number])
--- OUTSIDE RECORDS SUMMARY | 2024-08-25 17:38 | XMS_ITS | Patient Health Record ---
Author Organization [facility] Address [address] [place] [address] Care Team Providers Care Kiln Charger Name Role Phone Josh Kelly MD Primary Care Provider Jules Kirk Unavailable [phone] ALLERGIES Allergen (clinical drug ingredient) Drug/Non Drug Allergy documented on EMR Reaction Allergy Type Onset Date Status Penicillin Unknown Drug Allergy Active hay fever (uncoded) Unknown Allergy Active RESULTS Component Value Reference Range Notes Pathology (Not yet reviewed by provider) Interpretation: Performing Lab:[facility], [address] [place] [id number] Notes/Report: REASON FOR REFERRAL No Information MEDICATIONS Medication SIG (Take, Route, Frequency, Duration) Notes Start Date End Date Status prednisoLONE 5 MG 1 tablet in the morning with food or milk Orally Once a day for 30 day(s) Active Atorvastatin Calcium 40 MG 1 tablet Oral ly Once a day for 30 day(s) Active Lisinopril 5 MG 1 tablet Orally Once a day Active Allergy adam Active Metoprolol Succinate 50 MG as directed Orally Active hydroCHLOROthiazide Not-Taking Vitamin D 1000 UNIT 1 tablet Orally Once a day for 30 day(s) Active Famotidine 40 MG TAKE ONE TABLET BY MOUTH EVERY EVENING for 30 Active ZyrTEC 10 MG 1 tablet Orally Once a day for 30 day(s) Active Xarelto 20 MG 1 tablet with food Orally Once a day for 30 day(s) Active IMMUNIZATIONS Vaccine Route Administration Date Status Comme nts Influenza Unknown 07/17/2023 Refused SOCIAL HISTORY Sex Assigned At : Social History Observation Description Sex Assigned At Unknown Alcohol Screen Question Answer Notes Did you have a drink containing alcohol in the p ast year? No Points 0 Interpretation Negative PROBLEMS Problem Type ICD Code Onset Dates Problem Status W/U Status Risk SNOMED Code Notes Problem Colon cancer screening (Z12.11) Active confirmed 198588794 Problem History of adenomatous polyp of colon (Z86.010) Active confirmed 741073762 Problem Weight loss (R63.4) Active confirmed 647954890 Problem Diverticulosis of large intestine without perforation or abscess without bleeding (K57.30) Active confirmed Diverticul ar disease of colon (939646409) Problem Anticoagulant long-term use (Z79.01) Active confirmed 152452707 Problem Liver cyst (K76.89) Active confirmed 60261974 Problem Diarrhea, unspecified type (R19.7) Active confirmed 59688835 Problem Renal cyst (N28.1) Active confirmed 722 434947 Problem Diarrhea of presumed infectious origin (R19.7) Active confirmed 72239829 Encounters Encounter Location Date Provider Diagnosis [facility] Outpatient [address] [place], [place] [id number] 10/23/2023 Jules Fermin Encounter for screen ing colonoscopy Z12.11 ; Colon polyps K63.5 ; Diverticulosis of large intestine without perforation or abscess without bleeding K57.30 and Other hemorrhoids K64.8 [facility] [address] [place] [address] 10/21/2023 Jules Fermin ASSESSMENTS Encounter Date Diagnosis Assessment Notes Treatment Notes Treatment Clinical Notes 10/23/2023 Encounter for screening colonoscopy (ICD-10 - Z12.11) 10/23/2023 Colon polyps (ICD-10 - K63.5) 10/23/2023 Diverticulosis of large intestine without perforation or abscess without bleeding (ICD-10 - K57.30) 10/23/2023 Other hemorrhoids (ICD-10 - K64.8) PLAN OF TREATMENT Pending Test Test Name Order Date BUN 05/08/2017 CREATININE 05/08/2017 GIARDIA AG, STOOL EIA 06/04/2023 STOOL WBC 06/04/2023 C DIFFICILE RFLX PCR 06/04/2023 Pathology 10/23/2023 Future Test Test Name Order Date COLONOSCOPY 03/05/2012 COLONOSCOPY 04/17/2017 COLONOSCOPY 07/17/2023 Insurance Providers Payer Name Payer Address Payer Phone Subscriber Number Group Number Insured Name Patient Relationship to Insured Coverage Start Date Coverage End Date MEDICARE OF [place] [address] [place] [address] [id number] DUONG MYLES Self - patient is the insured [employer] ATT[employer] CLAIMS [address] [place] [address] [phone] [id number] DUONG MYLES Self - patient is the insured MEDICAL (GENERAL) HISTORY Medical History History ICD Code Irritable bowel syndrome----lactose into lerance Hyperlipidemia HTN Denies ND,DM,CVA,Lung disease,renal dise ase Colonoscopy in 03/2012--1 sma ll tubular adenoma, diverticulosis, internal hemorrhoids Hx of sleep apnea--but not using CPAP Colonoscopy in April for the evaluation of diarrhea and weight loss was completely normal, including biopsies of the colon and terminal ileum--- celiac disease serologies were negative; CAT scan and ultrasound of the abdomen were nonrevealing----his diarrhea spontaneously resolved Small aortic aneurysm Afib-seetanika Crabtree-Cardioverted 05/2023 Melanoma [id number] by Dr. Yair sagastume Thrombocytopenia--ITP--erica Angela--treated with prednisone but will be going on a different med as of the 06/2023 OV Surgical History Surgery Date(Month/Year) Melanoma RUE-Dr. Queen--neg. lymph node s 11/2022
--- OUTSIDE RECORDS SUMMARY | 2024-08-25 17:38 | XMS_ITS ---
Author Organization [facility] Address [address] [place] [address] Care Team Providers Care Marketing Developer Name Role Phone Josh Kelly MD Primary Care Provider Jules Kirk [phone] Encounters Encounter Location Date Provider Diagnosis [facility] [address] [place] [address] 08/21/2023 Jules Fermin PLAN OF TREATMENT No Information
--- OUTSIDE RECORDS SUMMARY | 2024-08-25 17:38 | XMS_ITS ---
Author Organization [facility] Address [address] [place] [address] Care Team Providers Care Foreign Languages Department Chair Name Role Phone Josh Kelly MD Primary Care Provider Jules Kirk Unavailable [phone] REASON FOR VISIT screening, hx polyps PROBLEMS Problem Type ICD Code Onset Dates Problem Status W/U Status Risk SNOMED Code Notes Problem Diverticulosis of large intestine without perforation or abscess without bleeding (K57.30) Active confirmed Diverticul ar disease of colon (373627800) Encounters Encounter Location Date Provider Diagnosis [facility] Outpatient [address] [place] [id number] 10/23/2023 Jules Fermin Encounter for scre ening colonoscopy Z12.11 ; Colon polyps K63.5 ; Diverticulosis of large intestine without perforation or abscess without bleeding K57.30 and Other hemorrhoids K64.8 ASSESSMENTS Encounter Date Diagnosis Assessment Notes Treatment Notes Treatment Clinical Notes 10/23/2023 Encounter for screening colonoscopy (ICD-10 - Z12.11) 10/23/2023 Colon polyps (ICD-10 - K63.5) 10/23/2023 Diverticulosis of large intestine without perforation or abscess without bleeding (ICD-10 - K57.30) 10/23/2023 Other hemorrhoids (ICD-10 - K64.8) PLAN OF TREATMENT No Information
--- OUTSIDE RECORDS SUMMARY | 2024-08-25 17:38 | XMS_ITS ---
Author Organization [facility] Address [address] [place] [address] Care Team Providers Care Field Research Associate Name Role Phone Josh Kelly MD Primary Care Provider Jules Kirk [phone] REASON FOR VISIT NEED CLEARANCE FROM DR MONTAGUE'S OFFICE Encounters Encounter Location Date Provider Diagnosis [facility] [address] [place] [address] 10/21/2023 Jules Fermin PLAN OF TREATMENT No Information
== END 2024-08-19 10:50 | disposition home or self-care (01) ==
PROVIDERS: PCP Nurse Practitioner Family; Visit Provider Internal Medicine Cardiovascular Disease
DX: I48.0 Paroxysmal atrial fibrillation (principal); I10 Essential (primary) hypertension; I77.89 Other specified disorders of arteries and arterioles
CPT/HCPCS: 93010; 99214

== ENCOUNTER → 2024-08-19 10:21 | Outpatient (BNVA) | payer MEDICARE, SELFPAY | PROVIDERS: PCP Nurse Practitioner Family; Visit Provider Internal Medicine Cardiovascular Disease | DX: I48.0 Paroxysmal atrial fibrillation (principal); I10 Essential (primary) hypertension; I77.89 Other specified disorders of arteries and arterioles | CPT/HCPCS: 93005; 99212 ==

== ENCOUNTER → 2024-08-26 13:42 | Outpatient (REF) | payer MEDICARE, SELFPAY ==
--- NOTE | 2024-08-26 13:45 | CA_ITS ---
Transthoracic Echocardiogram Patient (Last, First, Middle): Mick Veal J Gender: Male Date of : 1955 Age: 68 Procedure Date: 08/26/2024 Procedure Type: Transthoracic Echocardiogram Location: OP Height: 193.04 cm Weight: 120.2 kg BSA: 2.50 m2 Heart Rate: 93 bpm BP: 122 / 68 mmHg Correspondent: TAVO Referring MD: Timmy Crabtree MD Rouge Mixer: Timmy Crabtree MD Symptoms: I77.89 - Other specified disorders of arteries and arterioles Study Quality: Fair ECG Rhythm: Sinus Conclusions: - 1. Normal LV ejection fraction 55-60% with grade 1 diastolic dysfunction 2. Mild calcific changes of aortic valve with normal cardiac valvular Dopplers 3. Normal RV systolic pressure 4. Mildly dilated ascending aorta at 4 cm Findings Procedure Information The quality of the study was technically difficult. The study quality is limited by patients body habitus. The patient declines contrast. Left Ventricle Normal left ventricular size, thickness, and systolic function. The visually estimated ejection fraction is between 55-60%. Regional wall motion abnormalities can not be excluded due to suboptimal endocardial definition. Spectral Doppler is indicative of an impaired relaxation filling pattern. E/E prime ratio is <8, consistent with normal filling pressures. Evidence suggests grade I (mild) diastolic dysfunction. Right Ventricle Normal right ventricular cavity size and systolic function. Atria The left atrium is likely dilated. Interatrial shunt cannot be excluded. The right atrium was not well visualized. Aortic Valve There is mild calcification of the aortic valve. There is no aortic valve stenosis. There is no aortic valve regurgitation. Mitral Valve Likely normal mitral valve structure and function. There is trace mitral valve regurgitation. There is no mitral valve stenosis. Pulmonic Valve The pulmonic valve was not well visualized. Tricuspid Valve The tricuspid valve was not well visualized. There is trace tricuspid valve regurgitation. The right ventricular systolic pressure is normal. The right ventricular systolic pressure is 27 mmHg. Normal right atrial pressure. There is no evidence of pulmonary hypertension. Great Vessels The aorta was not well visualized. The pulmonary artery was not well visualized. There is mild dilatation of the ascending aorta measuring 4.00 cm. Venous The inferior vena cava is normal in size and collapses greater than 50% with inspiration. Pericardium/Pleural There is no evidence of pericardial effusion. Prior Study Comparison No significant change compared to prior study dated: 06/26/2023. Recommendations, Care & Conclusions Recommend contrast in the future to improve endocardial definition. Measurements 2D Linear Measurements IVSd: 1.08 0.6-0.9/0.6-1.0 cm LVIDd: 4.40 3.9-5.3/4.2-5.9 cm LVIDd Index: 1.76 2.4-3.2/2.2-3.1 cm/m2 LVIDs: 2.72 2.0-3.6 cm LVPWd: 1.09 0.7-1.1 cm LA Diam: 4.80 2.7-3.8/3.0-4.0 cm LAIDs Index: 1.92 1.5-2.3 cm/m2 LV Mass: 206.35 67-162/88-224 g LV Mass Index: 82.54 43-95/49-115 g/m2 LVOT Diam: 2.40 3.0+(-)1.3 cm 2D Systolic Function EF 4C: 60.40 >55% EF 2C: 59.30 >55% EF BiP: 59.40 >55% Mitral Valve MV Pk E: 0.61 MV PK A: 0.78 MV Decel Time: 302.00 E/A: 0.80 E'Lateral: 10.70 E'Medial: 5.22 E/E' Med: 11.60 E/E' Lat: 5.70 PHT: 88.00 MVA PHT: 2.50 Decel Faulkner: 2.02 Aortic Valve AoV Pk Luis: 1.16 AoV Mn Luis: 0.83 AoV VTI: 0.31 AoV Pk Grad: 5.00 Aov Mn Grad: 3.00 ZENON Cont.VTI: 4.27 LVOT LVOT Pk Luis: 1.10 LVOT Mn Luis: 0.80 LVOT VTI: 0.29 LVOT Pk Grad: 5.00 LVOT Mn Grad: 3.00 LVOT Diam: 2.40 LVOT Area: 4.52 Diastolic Function MV Pk E: 0.61 MV Pk A: 0.78 E/A: 0.80 E'Medial: 5.22 E/E' Med: 11.60 E' Laterial: 10.70 E/E' Lat: 5.70 Right Ventricle TAPSE (mm): 22.90 TVS' Luis: 8.92 Tricuspid Valve TR Pk Luis: 2.43 TR Pk Grad: 24.00 RA Press: 3.00 RVSP: 27.00 Great Vessels Aorta Sinus of Valsalva: 4.20 2.0-3.5 cm Ao Asc: 4.00 2.1-3.4 cm Updated in Other Vendor System with Status of Final Timmy Crabtree MD electronically signed on 08/27/2024 1:13:44 PM with status of Final
--- OUTSIDE RECORDS SUMMARY | 2024-08-27 02:34 | XMS_ITS ---
Author Organization [facility] Address [address] [place] [address] Care Team Providers Care Yolk Spray Drier Name Role Phone Josh Kelly MD Primary Care Provider Jules Kirk [phone] Encounters Encounter Location Date Provider Diagnosis [facility] [address] [place] [address] 08/21/2023 Jules Fermin PLAN OF TREATMENT No Information
--- OUTSIDE RECORDS SUMMARY | 2024-08-27 02:34 | XMS_ITS ---
Author Organization [facility] Address [address] [place] [address] Care Team Providers Care Optical Engineering Technician Name Role Phone Josh Kelly MD Primary Care Provider Jules Kirk [phone] REASON FOR VISIT NEED CLEARANCE FROM DR MONTAGUE'S OFFICE Encounters Encounter Location Date Provider Diagnosis [facility] [address] [place] [address] 10/21/2023 Jules Fermin PLAN OF TREATMENT No Information
--- OUTSIDE RECORDS SUMMARY | 2024-08-27 02:34 | XMS_ITS | Patient Health Record ---
Author Organization [facility] Address [address] [place] [address] Care Team Providers Care Shank Carrier Name Role Phone Josh Kelly MD Primary Care Provider Jules Kirk Unavailable [phone] ALLERGIES Allergen (clinical drug ingredient) Drug/Non Drug Allergy documented on EMR Reaction Allergy Type Onset Date Status Penicillin Unknown Drug Allergy Active hay fever (uncoded) Unknown Allergy Active RESULTS Component Value Reference Range Notes Pathology (Not yet reviewed by provider) Interpretation: Performing Lab:[facility], [address] [place] [id number] Notes/Report: REASON FOR REFERRAL No Information MEDICATIONS [...] Problem Colon cancer screening (Z12.11) Active confirmed 280960376 Problem History of adenomatous polyp of colon (Z86.010) Active confirmed 023678207 Problem Weight loss (R63.4) Active confirmed 659124266 Problem Diverticulosis of large intestine without perforation or abscess without bleeding (K57.30) Active confirmed Diverticul ar disease of colon (050912105) Problem Anticoagulant long-term use (Z79.01) Active confirmed 295382264 Problem Liver cyst (K76.89) Active confirmed 16543932 Problem Diarrhea, unspecified type (R19.7) Active confirmed 19380831 Problem Renal cyst (N28.1) Active confirmed 722 166366 Problem Diarrhea of presumed infectious origin (R19.7) Active confirmed 03675650 Encounters Encounter Location Date Provider Diagnosis [facility] [place] [address] [place] [phone] 10/23/2023 Jules Fermin Encounter for screen ing colonoscopy Z12.11 ; Colon polyps K63.5 ; Diverticulosis of large intestine without perforation or abscess without bleeding K57.30 and Other hemorrhoids K64.8 [facility] [address] [place] [address] 10/21/2023 Jules Fermin ASSESSMENTS Encounter Date Diagnosis [...] End Date MEDICARE OF [place] [address] [place] [address] [id number] DUONG MYLES Self - patient is the insured [employer] ATTN CLAIMS [address] [place] [address] [id number] DUONG MYLES Self - patient is the insured MEDICAL (GENERAL) HISTORY Medical History History ICD Code Irritable bowel syndrome----lactose into lerance Hyperlipidemia HTN Denies NH,DM,CVA,Lung disease,renal dise ase Colonoscopy in 03/2012--1 sma [...] Small aortic aneurysm Afib-seetanika Crabtree-Cardioverted 05/2023 Melanoma [id number] by Dr. Yair sagastume Thrombocytopenia--ITP--erica Angela--treated with prednisone but will be going on a different med as of the 06/2023 OV Surgical History Surgery Date(Month/Year) Melanoma RUE-Dr. Queen--neg. lymph node s 11/2022
--- OUTSIDE RECORDS SUMMARY | 2024-08-27 02:34 | XMS_ITS ---
Author Organization [facility] Address [address] [place] [address] Care Team Providers Care Urban And Regional Planner Name Role Phone Josh Kelly MD Primary Care Provider Jules Kirk Unavailable [phone] REASON FOR VISIT screening, hx polyps PROBLEMS Problem Type ICD Code Onset Dates Problem Status W/U Status Risk SNOMED Code Notes Problem Diverticulosis of large intestine without perforation or abscess without bleeding (K57.30) Active confirmed Diverticul ar disease of colon (028868367) Encounters Encounter Location Date Provider Diagnosis [facility] [place] [address] [place] [phone] 10/23/2023 Jules Fermin Encounter for scre ening [...]
== END ==
LOC: HO.CARD 13:42
PROVIDERS: PCP Nurse Practitioner Family; Visit Provider Internal Medicine Cardiovascular Disease
DX: I77.89 Other specified disorders of arteries and arterioles (principal)
CPT/HCPCS: 93306

== ENCOUNTER → 2024-08-26 13:45 | Outpatient (BNV) | payer MEDICARE, SELFPAY | PROVIDERS: PCP Nurse Practitioner Family; Visit Provider Internal Medicine Cardiovascular Disease | DX: I35.8 Other nonrheumatic aortic valve disorders (principal); I42.8 Other cardiomyopathies | CPT/HCPCS: 93306 ==

== ENCOUNTER 2024-09-06 16:04 | Day surgery (SDC) | payer MEDICARE, SELFPAY ==
--- NOTE | ~2024-09-06 | XR_ITS ---
EXAMINATION: XR CHEST CLINICAL INFORMATION: unable to swallow COMPARISON: None available. TECHNIQUE: 2 views of the chest were obtained. FINDINGS: No focal consolidation, pulmonary edema, or pleural effusion. Stable cardiomediastinal silhouette. XR/XR chest 2V IMPRESSION: No acute cardiopulmonary findings. Electronically signed by: Asher Pablo MD 09/06/2024 04:56 PM [facility] [place]
--- OUTSIDE RECORDS SUMMARY | 2024-09-06 16:07 | XMS_ITS ---
Author Organization [facility] Address [address] [place] [address] Care Team Providers Care Regional Owner Operator Truck Driver Name Role Phone Josh Kelly MD Primary Care Provider Jules Kirk [phone] Encounters Encounter Location Date Provider Diagnosis [facility] [address] [place] [address] 08/21/2023 Jules Fermin PLAN OF TREATMENT No Information
--- OUTSIDE RECORDS SUMMARY | 2024-09-06 16:07 | XMS_ITS ---
Author Organization [facility] Address [address] [place] [address] Care Team Providers Care Gas Appliance Repairer Name Role Phone Josh Kelly MD Primary Care Provider Jules Kirk [phone] REASON FOR VISIT NEED CLEARANCE FROM DR MONTAGUE'S OFFICE Encounters Encounter Location Date Provider Diagnosis [facility] [address] [place] [address] 10/21/2023 Jules Fermin PLAN OF TREATMENT No Information
--- OUTSIDE RECORDS SUMMARY | 2024-09-06 16:08 | XMS_ITS | Patient Health Record ---
Author Organization [facility] Address [address] [place] [address] Care Team Providers Care Cosmetician Name Role Phone Josh Kelly MD Primary Care Provider Jules Kirk Unavailable [phone] ALLERGIES Allergen (clinical drug ingredient) Drug/Non Drug Allergy documented on EMR Reaction Allergy Type Onset Date Status Penicillin Unknown Drug Allergy Active hay fever (uncoded) Unknown Allergy Active RESULTS Component Value Reference Range Notes Pathology (Not yet reviewed by provider) Interpretation: Performing Lab:[facility], [address] [place] [id number] Notes/Report: REASON FOR REFERRAL No Information MEDICATIONS [...] Problem Colon cancer screening (Z12.11) Active confirmed 605343377 Problem History of adenomatous polyp of colon (Z86.010) Active confirmed 595382190 Problem Weight loss (R63.4) Active confirmed 190474415 Problem Diverticulosis of large intestine without perforation or abscess without bleeding (K57.30) Active confirmed Diverticul ar disease of colon (899897533) Problem Anticoagulant long-term use (Z79.01) Active confirmed 233097298 Problem Liver cyst (K76.89) Active confirmed 17468799 Problem Diarrhea, unspecified type (R19.7) Active confirmed 30315177 Problem Renal cyst (N28.1) Active confirmed 722 850368 Problem Diarrhea of presumed infectious origin (R19.7) Active confirmed 26414276 Encounters Encounter Location Date Provider Diagnosis [facility] [place] [address] [place], [place] [phone] 10/23/2023 Jules Fermin Encounter for screen ing colonoscopy Z12.11 ; Colon polyps K63.5 ; Diverticulosis of large intestine without perforation or abscess without bleeding K57.30 and Other hemorrhoids K64.8 [facility] [address] [place] [address] 10/21/2023 Jules Fermin ASSESSMENTS Encounter Date Diagnosis [...] End Date MED[place]ARE OF [place] [address] [place] [address] [id number] DUONG MYLES Self - patient is the insured MED[employer] ATTN CLAIMS [address] [place] [address] [phone] [id number] DUONG MYLES Self - patient is the insured MEDICAL (GENERAL) HISTORY Medical History History ICD Code Irritable bowel syndrome----lactose into lerance Hyperlipidemia HTN Denies MS,DM,CVA,Lung disease,renal dise ase Colonoscopy in 03/2012--1 sma [...] Small aortic aneurysm Afib-seetanika Crabtree-Cardioverted 05/2023 Melanoma [id number] by Dr. Yair sagastume Thrombocytopenia--ITP--erica Angela--treated with prednisone but will be going on a different med as of the 06/2023 OV Surgical History Surgery Date(Month/Year) Melanoma RUE-Dr. Queen--neg. lymph node s 11/2022
[2024-09-06 16:11] VITALS: BP 175/81; PULSE 53; RESP 19; TEMP 36.6; O2SAT 98; BMI 32.9
--- NOTE | 2024-09-06 16:11 | ED.GENADULT ---
HPI - General Adult General Chief complaint: General Medical Stated complaint: Vomiting, Difficulty swallowing and eating Time Seen by Provider: 09/06/24 17:19 Source: patient, RN notes reviewed and old records reviewed Mode of arrival: ambulatory Limitations: no limitations History of Present Illness ED Provider: Apple HPI narrative: 68-year-old male with past medical history significant for paroxysmal AFib on Xarelto, obesity, thrombocytopenia, hypertension, cardiomyopathy presents for evaluation of ?I think something is stuck in my throat. ? Patient reports that he was eating steak last night He states he was distracted because he was watching TV and trying to stop his dog from eating his food when he took a bite that was too large. He has not been able to eat or drink anything since last night, about 24 hours ago. He is able to manage his secretions for some time but ?it feels like they buildup and then I have to vomit everything up. ? He has no pain He tried to eat breakfast this morning as he was feeling better but ?I ate 3 bites and then everything came up immediately. He denies any history of similar symptoms He has seen GI in the past but has never had an endoscopy, he has had colonoscopies with Dr. Fermin Related Data Home Medications ?Medication ?Instructions ?Recorded ?Confirmed fexofenadine 180 mg tablet 180 mg PO DAILY 04/16/22 08/19/24 (Ananya Allergy) famotidine 40 mg tablet (Pepcid) 40 mg PO DAILY 06/25/23 08/19/24 Previous Rx's ?Medication ?Instructions ?Recorded albuterol sulfate 90 mcg/actuation 2 puff inhalation Q4-6H PRN 06/07/23 aerosol inhaler (ProAir HFA) shortness of breath or wheezing 30 days #8.5 grams atorvastatin 40 mg tablet 40 mg PO DAILY #90 tabs 01/06/24 lisinopril 5 mg tablet 5 mg PO QPM 90 days #90 tabs 02/24/24 benzonatate 200 mg capsule 200 mg PO TID PRN cough #20 caps 07/20/24 metoprolol succinate 50 mg 50 mg PO DAILY #90 tabs 08/17/24 tablet,extended release 24 hr rivaroxaban 20 mg tablet (Xarelto) 20 mg PO DAILY #90 tabs 08/17/24 Allergies Allergy/AdvReac Type Severity Reaction Status Date / Time amoxicillin Allergy Intermediate Gastrointestinal Verified 09/06/24 16:14 Upset Penicillins Allergy Intermediate Gastrointestinal Verified 09/06/24 16:14 Upset Review of Systems Constitutional: Constitutional: Denies body ache(s), Denies chills, Denies fever(s) and Denies headache(s) Eyes: Eyes: Denies blurry vision ENT: Denies vertigo, Denies dizziness, Denies headache(s) and Denies sore throat Comments: Esophageal food bolus Cardiovascular: Cardiovascular: Denies chest pain and Denies dyspnea Respiratory: Respiratory: Denies cough and Denies dyspnea Gastrointestinal: Gastrointestinal: Reports vomiting Musculoskeletal: Musculoskeletal: Denies back pain Integumentary/Breasts: Skin/Breast: Denies rash Neurologic: Denies vertigo, Denies dizziness and Denies headache(s) [facility] Past Medical History Medical History (Updated 09/06/24 @ 18:36 by Reece Chiu) Atrial fibrillation Malignant melanoma Thrombocytopenia Elevated cholesterol History of cardioversion (~06/12/23) Sleep apnea Enlarged thoracic aorta Hypertensive heart disease HTN (hypertension) Surgical History H/O colonoscopy History of melanoma excision (~11/12/22) Family History Family History Father No problems noted. Mother CVD (cardiovascular disease) Social History Social History Household Members: Spouse and Children Housing: House Do you presently have visiting nurse or other home services: No Patient Tobacco Use Status: Never used Tobacco e-Cigarette/Vaping Use: Never Used Advance Directives: Yes Advance Directives Information Provided: No Advance Directives on File: No Do you have a plan to hurt others: No Plan service: No Current occupational status: retired Cognitive needs: No Hearing needs: No Vision needs: Yes Physical Exam ED Vital Signs: Vital Signs - 24 hr 09/06/24 16:11 09/06/24 19:42 09/06/24 19:42 Temperature 98 F 98.3 F 98.3 F Pulse Rate 53 63 60 Respiratory Rate 19 18 18 Blood Pressure 175/81 H 147/77 H 147/77 H Pulse Oximetry 98 97 97 Oxygen Delivery Method Room Air Nasal Cannula Nasal Cannula Oxygen Flow Rate 4 4 09/06/24 19:47 09/06/24 19:52 Temperature Pulse Rate 63 68 Respiratory Rate 18 18 Blood Pressure 145/84 H 140/82 H Pulse Oximetry 92 93 Oxygen Delivery Method Room Air Room Air Oxygen Flow Rate BMI result Body Mass Index 32.9 Const General: healthy appearing, comfortable, no acute distress, alert and awake Nutritional Appearance: well nourished Orientation/consciousness: patient oriented x3 HENMT Head: Yes normocephalic and Yes atraumatic Eyes Eyelids: Yes eyelids normal Conjunctivae: conjunctivae normal Sclerae: sclerae normal Corneas: corneas normal Pupils: Equal, round and reactive pupils present EOM: EOMs intact bilaterally Neck Neck: Yes full ROM Resp Effort & Inspection: normal respiratory effort, able to speak in complete sentences and not labored Skin General skin exam: elasticity normal Neuro General: patient oriented x3 Cranial nerves: Yes Equal, round and reactive pupils present and Yes Bilaterally intact EOM present Cognition (Neuro): normal cognition Extrem Other: Moving all extremities well without any obvious deformities Course Course Course Narrative: This is a rapid medical exam performed by Andrea Hernandez NP: Additional HPI, ROS, PE not included below will be deferred to primary provider. Patient is a 68-year-old male with history of paroxysmal afib on xarelto, thrombocytopenia, HTN, enlarged thoracic aorta presenting to the ED stating he has been unable to swallow since eating burnt ends last night. Any food or drink he tries to swallow comes back up. Managing saliva in triage, in NAD. Plan: CXR Reevaluation(s) Reevaluation #1: Discussed with Dr. Hayes, cardiology who will come in to bring the patient for endoscopy. Time: 18:20 Medications Administered Discontinued Medications Generic Name Dose Route Start Last Admin Trade Name Freq PRN Reason Stop Dose Admin Glucagon 2 mg 09/06/24 17:33 09/06/24 17:56 Glucagon Hcl 1 Mg Vial IVPUSH 09/06/24 17:34 2 mg ONCE ONE Administration Sodium Chloride 1,000 mls @ 999 mls/hr 09/06/24 17:45 09/06/24 17:56 Ns IV 09/06/24 18:45 999 mls/hr .Q1H1M DEBBIE Administration Medical Decision Making Medical Decision Making MDM Narrative: 68-year-old male presents for evaluation of a food bolus, he is tried to drink liquids and has not had any success, he has vomited with anything he has tried to eat or drink. He does not appear to have any immediate airway compromise as he is able to swallow his saliva for some time before it builds up and then he vomited up. Plan to discuss with GI. I ordered basic labs and glucagon 2 mg IV Lab Data 09/06/24 17:48 09/06/24 17:48 Labs: Lab Results 09/06/24 Range/Units 17:48 WBC 7.3 (4.8-10.8) X10*3/uL RBC 5.47 (4.60-5.80) X10*6/uL Hgb 16.4 (14.0-18.0) g/dl Hct 48.9 (42.0-52.0) % MCV 89.4 (80.0-98.0) fL MCH 30.0 (27.0-33.0) pg MCHC 33.5 (31.0-36.0) g/dl RDW 12.7 (11.0-16.0) % Plt Count 142 L (160-400) X10*3/uL MPV 8.7 L (9.4-12.4) fL Immature Gran % (Auto) 0.3 (0.0-0.4) % Neut % (Auto) 69.6 (45-73) % Lymph % (Auto) 20.8 (20-40) % [place] % (Auto) 8.5 (2-11) % Eos % (Auto) 0.4 (0-4) % Baso % (Auto) 0.4 (0-2) % Lymph # (Auto) 1.5 (1.2-4.9) X10*3/uL [place] # (Auto) 0.6 (0.1-1.2) X10*3/uL Eos # (Auto) 0.0 (0.0-0.4) X10*3/uL Baso # (Auto) 0.0 (0.0-0.2) X10*3/uL Abs Immat Gran (auto) 0.02 (0.00-0.03) X10*3/uL Absolute Neuts (auto) 5.1 (2.0-8.3) x10*3/uL Absolute Nucleated RBC 0.000 (0.0-0.012) X10*3/uL Nucleated RBC % (auto) 0.0 (0.0-0.2) /100WBC Sodium 144 (135-145) mmol/L Potassium 4.5 (3.3-5.1) mmol/L Chloride 111 H (96-108) mmol/L Carbon Dioxide 20 L (22-29) mmol/L Anion Gap 18 (12-20) BUN 19 H (9-16) mg/dL Creatinine 0.97 (0.5-1.4) mg/dL Estim Creat Clear Calc 101.2 Estimated GFR > 60 Random Glucose 119 H (60-115) mg/dL Calcium 9.2 (8.4-10.2) mg/dL Total Bilirubin 0.8 (0.0-1.0) mg/dL AST 52 H (5-37) U/L ALT 68 H (0-40) U/L Alkaline Phosphatase 106 (39-117) U/L Total Protein 7.8 (6.5-8.0) g/dL Albumin 3.9 (3.5-5.0) g/dL Lipase 19 (8-78) U/L Discharge Plan Discharge Clinical Impression: Esophagus, foreign body Patient Disposition: Still a Patient Interventions: Admission Worksheet (ED) Last Done: 09/06/24 18:58 Discharge Date/Time: 09/06/24 18:59
--- NOTE | 2024-09-06 17:31 | ECG_ITS ---
Test Reason : WEAKNESS Blood Pressure : / mmHG Vent. Rate : 051 BPM Atrial Rate : 051 BPM P-R Int : 210 ms QRS Dur : 086 ms QT Int : 462 ms P-R-T Axes : 013 -29 -17 degrees QTc Int : 425 ms Sinus bradycardia with 1st degree A-V block Minimal voltage criteria for LVH, may be normal variant ( R in aVL ) Cannot rule out Anterior infarct (cited on or before 11-JUL-2009) Abnormal ECG When compared with ECG of 12-JUN-2023 11:25, Sinus rhythm is no longer with 2nd degree SA block (Mobitz II) Nonspecific T wave abnormality now evident in Anterior leads Referred By: Reece Chiu Electronically Signed By:aLz Estevez
[2024-09-06 17:52] LABS: MANUAL DIFF FLAG NO
[2024-09-06 17:54] LABS: Basophils Percent Auto 0.4 % (0-2); Eosinophils Percent Auto 0.4 % (0-4); Hematocrit 48.9 % (42.0-52.0); Hemoglobin 16.4 g/dl (14.0-18.0); Imm Gran Abs Auto 0.02 X10*3/uL (0.00-0.03); Imm Gran Pct Auto 0.3 % (0.0-0.4); Lymphocytes Absolute Auto 1.5 X10*3/uL (1.2-4.9); Lymphocytes Percent Auto 20.8 % (20-40); Mean Corpuscular HGB Conc 33.5 g/dl (31.0-36.0); Mean Corpuscular Volume 89.4 fL (80.0-98.0); Mean Platelet Volume 8.7 fL (9.4-12.4); Monocytes Absolute Auto 0.6 X10*3/uL (0.1-1.2); Monocytes Percent Auto 8.5 % (2-11); Neutrophils Absolute Auto 5.1 x10*3/uL (2.0-8.3); Neutrophils Percent Auto 69.6 % (45-73); Platelet Count 142 X10*3/uL (160-400); Red Blood Count 5.47 X10*6/uL (4.60-5.80); Red Cell Distribution Width 12.7 % (11.0-16.0); White Blood Count 7.3 X10*3/uL (4.8-10.8)
[2024-09-06] MEDS: glucagon HCL 1 MG VIAL 2 MG IVPUSH (17:56)
[2024-09-06] MEDS: 0.9 % Sodium Chloride 1,000 ML 999 ML IV (17:56)
[2024-09-06 18:14] LABS: Alanine Aminotransferase 68 U/L (0-40); Albumin Level 3.9 g/dL (3.5-5.0); Alkaline Phosphatase 106 U/L (39-117); Anion Gap 18 (12-20); Aspartate Amino Transferase 52 U/L (5-37); Bilirubin Total 0.8 mg/dL (0.0-1.0); Blood Urea Nitrogen 19 mg/dL (9-16); Calcium 9.2 mg/dL (8.4-10.2); Carbon Dioxide 20 mmol/L (22-29); Chloride 111 mmol/L (96-108); Creatinine Clr Calc Pharmacy 101.2; Estimated Glomerular Filt Rate > 60; Glucose Random 119 mg/dL (60-115); Lipase 19 U/L (8-78); Potassium 4.5 mmol/L (3.3-5.1); Sodium 144 mmol/L (135-145); Total Protein 7.8 g/dL (6.5-8.0)
--- NOTE | 2024-09-06 18:51 | P.CONAN_ITS ---
[facility] Active Problems Active Problems: All Active Problems Esophagus, foreign body (Acute) Paroxysmal atrial fibrillation (Acute) Atypical pneumonia (Acute) Elevated fasting blood sugar (Acute) Viral illness (Acute) Right shoulder pain (Acute) Numbness of left thumb (Acute) Fatty liver (Acute) Screening for prostate cancer (Acute) Acute ITP (Chronic) Severe thrombocytopenia (Acute) Thrombocytopenia (Acute) Abnormal lung sounds (Acute) History of COVID-19 (Acute) Chest congestion (Acute) SOB (shortness of breath) (Acute) Upper respiratory tract infection (Acute) Dizziness (Acute) Enlarged thoracic aorta (Acute) Hypertensive heart disease (Acute) HTN (hypertension) (Acute) Past Medical History Medical History (Updated 09/06/24 @ 18:36 by Reece Chiu) Atrial fibrillation Malignant melanoma Thrombocytopenia Elevated cholesterol History of cardioversion (~06/12/23) Sleep apnea Enlarged thoracic aorta Hypertensive heart disease HTN (hypertension) Family History Family History Father No problems noted. Mother CVD (cardiovascular disease) Family history of problems with anesthesia: No Surgical History Surgical History H/O colonoscopy History of melanoma excision (~11/12/22) History of Problems with Anesthesia: No Social History Social History Household Members: Spouse and Children Housing: House Do you presently have visiting nurse or other home services: No Patient Tobacco Use Status: Never used Tobacco e-Cigarette/Vaping Use: Never Used Advance Directives: Yes Advance Directives Information Provided: No Advance Directives on File: No Do you have a plan to hurt others: No Plan service: No Current occupational status: retired Cognitive needs: No Hearing needs: No Vision needs: Yes Meds Allergies Allergy/AdvReac Type Severity Reaction Status Date / Time amoxicillin Allergy Intermediate Gastrointestinal Verified 09/06/24 16:14 Upset Penicillins Allergy Intermediate Gastrointestinal Verified 09/06/24 16:14 Upset Home Medications ?Medication ?Instructions ?Recorded ?Confirmed ?Last Taken ?Type fexofenadine 180 mg tablet 180 mg PO DAILY 04/16/22 08/19/24 06/12/23 History (Ananya Allergy) famotidine 40 mg tablet (Pepcid) 40 mg PO DAILY 10/10/23 12/04/24 02/07/24 06:00 History Exam Height,Weight and Vital Signs: Height 6 ft 4 in Weight 122.47 kg Last Vital Signs Temp 98 F 09/06/24 16:11 Pulse 53 09/06/24 16:11 Resp 19 09/06/24 16:11 BP 175/81 H 09/06/24 16:11 Pulse Ox 98 09/06/24 16:11 O2 Del Method Room Air 09/06/24 16:11 Pertinent Lab Results Pertinent Lab Results: Laboratory Tests 09/06/24 17:48 WBC 7.3 RBC 5.47 Hgb 16.4 Hct 48.9 MCV 89.4 MCH 30.0 MCHC 33.5 RDW 12.7 Plt Count 142 L MPV 8.7 L Immature Gran % (Auto) 0.3 Neut % (Auto) 69.6 Lymph % (Auto) 20.8 Sebastian % (Auto) 8.5 Eos % (Auto) 0.4 Baso % (Auto) 0.4 Lymph # (Auto) 1.5 Sebastian # (Auto) 0.6 Eos # (Auto) 0.0 Baso # (Auto) 0.0 Abs Immat Gran (auto) 0.02 Absolute Neuts (auto) 5.1 Absolute Nucleated RBC 0.000 Nucleated RBC % (auto) 0.0 Sodium 144 Potassium 4.5 Chloride 111 H Carbon Dioxide 20 L Anion Gap 18 BUN 19 H Creatinine 0.97 Estim Creat Clear Calc 101.2 Estimated GFR > 60 Random Glucose 119 H Calcium 9.2 Total Bilirubin 0.8 AST 52 H ALT 68 H Alkaline Phosphatase 106 Total Protein 7.8 Albumin 3.9 Lipase 19 Airway Mallampati Class: III TM Dist: >3cm Neck ROM: Full Assessment and Plan Assessment Anesthesia Assessment: Anesthesia Plan Discussed and Chart Reviewed Final Anesthetic Review Family History of Problems with Anesthesia: No History of Problems with Anesthesia: No NPO: Yes ASA Class: III and Emergency Final Preanesthetic Review: No Changes in Pt Med Stat, Meds/Allgs Chart Reviewed, Consent Obtained/Reviewed and Anes Risks/Benef Reviewed Patient Risk: Intermediate Procedure Risk: Intermediate Anesthetic Plan Anesthetic Plan: GA Disposition: Standard PACU
--- NOTE | 2024-09-06 18:54 | PC.NURSE ---
report given to surgery
--- NOTE | 2024-09-06 19:07 | MHC.SHP ---
Pre-Procedural Eval Section A - 24 Hr Update-Section A only Date of Service: 09/06/24 Section B - Complete if H&P > 30 days Chief Complaint: Vomiting, Difficulty swallowing and eating Details of Present Illness: see consult Relevant Family History (Specify if Yes): No Relevant Social History: None Present Medications: see Short Stay Collaborative assessment Medical History: No relevant PMH History of Previous Operations: No relevant previous surgery Allergies: Allergies Allergy/AdvReac Type Severity Reaction Status Date / Time amoxicillin Allergy Intermediate Gastrointestinal Verified 09/06/24 16:14 Upset Penicillins Allergy Intermediate Gastrointestinal Verified 09/06/24 16:14 Upset Review of Systems Sugical H&P ROS: Negative: Constitution, Cardiovascular, Respiratory, Neurological, Psychiatric, Hem-Onc, Allergic/Immunologic, Gastrointestinal, Genitourinary, Musculoskeletal, Integumentary, Endocrine and Eyes/Ears/Nose/Throat Exam Surgical H&P Exam: Normal: HEENT, Normal: Heart, Normal: Lungs, Normal: Extremities, Normal: Abdomen, Normal: Skin and Normal: Neurological Plan Diagnosis/Plan: Unchanged I have reviewed the history and physical and performed a pertinent physical examination on my patient. No changes have occurred unless specified. Time Spent With Patient Time: Total time managing care of this patient today ____ minutes.
[2024-09-06 19:42] VITALS: BP 147/77; PULSE 60; PULSE 63; RESP 18; TEMP 36.8; O2SAT 97
[2024-09-06 19:47] VITALS: BP 145/84; PULSE 63; RESP 18; O2SAT 92
[2024-09-06 19:52] VITALS: BP 140/82; PULSE 68; RESP 18; O2SAT 93
--- NOTE | 2024-09-06 19:54 | P.BOP_ITS ---
Brief Operative Note Date of Service: 09/06/24 Pre-op diagnosis: fb esophagus Post-op diagnosis: same Procedure: egd Surgeon: Luke Hayes MD Anesthesia: MAC Was an Vice President Corporate Communications used for this Procedure?: No Estimated blood loss (mL): 0 Pathology: none sent Condition: stable Disposition: PACU
[2024-09-06 20:01] VITALS: BP 152/86; PULSE 63; RESP 18; TEMP 37
--- NOTE | 2024-09-06 20:44 | OP_ITS ---
DATE OF SERVICE: 09/06/2024 SURGEON: Luke Hayes MD PREOPERATIVE DIAGNOSIS: POSTOPERATIVE DIAGNOSIS: PROCEDURE PERFORMED: Upper endoscopy with removal of foreign body. Indication: Foreign body of the esophagus. ESTIMATED BLOOD LOSS: COMPLICATIONS: ANESTHESIA: General anesthesia. ASSISTANTS: SPECIMENS: DESCRIPTION OF PROCEDURE: A history and physical was performed. The risks and benefits of the procedure were explained to the patient. Informed consent was obtained. The patient was placed in the left lateral decubitus position. The Olympus video gastroscope was introduced into the esophagus, stomach, and duodenum. Examination was performed. The scope was removed. He tolerated the procedure well and was returned to the recovery area in stable condition. FINDINGS: Esophagus: The esophagus showed a large piece of meat impacted in the distal esophagus. This was gently pushed through into the stomach with no immediate complications. There was surrounding esophagitis. There was no active bleeding. Stomach: Showed no evidence of masses, ulcers, or polyps. Duodenum: The bulb and 2nd portion were normal. IMPRESSION: Foreign body of the esophagus. RECOMMENDATION: 1. Omeprazole 20 mg daily. 2. Repeat endoscopy in 8 to 12 weeks for followup of esophagitis and to ensure no evidence of underlying Bal esophagus. MD MARIALUISA Romo/SARAH / [id number] MTDD
--- NOTE | 2024-09-06 20:48 | CONS_ITS ---
DATE OF SERVICE: 09/06/2024 REFERRING PHYSICIAN: ROBERT Martinez REASON FOR CONSULTATION: Esophageal obstruction. HISTORY OF PRESENT ILLNESS: The patient is a pleasant 68-year-old man who presented to the emergency room today with a foreign body in the esophagus. This happened the night prior to admission, and he has been unable to swallow since that time. He denies a prior history of esophagitis. He has no history of dysphagia in the past, but does have chronic reflux symptoms treated with [id number] famotidine and occasionally with omeprazole. PAST MEDICAL HISTORY: Atrial fibrillation, malignant melanoma, thrombocytopenia, elevated cholesterol, sleep apnea, enlarged thoracic aorta, hypertension. CURRENT MEDICATIONS: Current medication list is reviewed in the chart. ALLERGIES: AMOXICILLIN. FAMILY HISTORY: This is reviewed with the patient and is noncontributory. SOCIAL HISTORY: There is no current tobacco, alcohol, or substance abuse. REVIEW OF SYSTEMS: SKIN: No pruritus. HEENT: Negative. CARDIOPULMONARY: No shortness of breath or chest pain. GASTROINTESTINAL: As above. GENITOURINARY: Negative. NEUROPSYCHIATRIC: Negative. PHYSICAL EXAMINATION: GENERAL: Shows a pleasant male, lying comfortably on a stretcher. VITAL SIGNS: Stable. SKIN: Anicteric. HEENT: Shows no scleral icterus. NECK: Without lymphadenopathy or thyromegaly. LUNGS: Clear. HEART: Shows a regular rate and rhythm. S1, S2. No murmur. ABDOMEN: Soft without focal masses or tenderness. Bowel sounds are present. No organomegaly is noted. EXTREMITIES: Without edema. LABORATORY DATA: Reviewed. IMPRESSION: Foreign body of the esophagus. RECOMMENDATION: Upper endoscopy. Risks and benefits of the procedure have been discussed with the patient and his significant other. They understand these and agreed to proceed. MD MARIALUISA Romo/SARAH / [id number]
== END 2024-09-06 20:10 | disposition home or self-care (01) ==
LOC: HO.ED 17:25 → HO.SSS 18:28
PROVIDERS: Physician Assistant; Emergency Provider Emergency Medicine Emergency Medical Services; PCP Nurse Practitioner Family; Visit Provider Internal Medicine Gastroenterology
PROC: 0DJ08ZZ Inspection of Upper Intestinal Tract, Via Natural or Artificial Opening Endoscopic (ICD-10-PCS; CPT 43235; principal; 2024-09-06 18:50)
DX: T18.128A Food in esophagus causing other injury, initial encounter (principal); W44.F3XA Food entering into or through a natural orifice, initial encounter; I10 Essential (primary) hypertension; I48.0 Paroxysmal atrial fibrillation; K76.0 Fatty (change of) liver, not elsewhere classified; Y93.89 Activity, other specified; Y92.9 Unspecified place or not applicable; Y99.9 Unspecified external cause status
CPT/HCPCS: 43235; 36415; 71046; 80053; 83690; 85025; 93005; 96374; 99285; J1100; J1610; J2003; J2405; J2704

== ENCOUNTER → 2024-09-06 17:31 | Outpatient (BNV) | payer MEDICARE, SELFPAY | PROVIDERS: Emergency Provider Emergency Medicine Emergency Medical Services; PCP Nurse Practitioner Family; Visit Provider Internal Medicine Cardiovascular Disease | DX: R53.1 Weakness (principal) | CPT/HCPCS: 93010 ==

== ENCOUNTER 2024-09-14 09:14 | Outpatient (AMB) | payer MEDICARE, SELFPAY ==
--- OUTSIDE RECORDS SUMMARY | 2024-09-14 09:16 | XMS_ITS ---
Author Organization [facility] Address [address] [place] [address] Care Team Providers Care Egg And Spice Mixer Name Role Phone Josh Kelly MD Primary Care Provider Jules Kirk Unavailable [phone] REASON FOR VISIT emergent egd MEDICATIONS Medication SIG (Take, Route, Fr equency, Duration) Notes Start Date End Date Status Omeprazole 40 MG 1 capsule 1/2 to 1 h our before morning meal Orally Once a day for 30 day(s) 09/10/2024 Active PROBLEMS Problem Type ICD Code Onset Dates Problem Status W/U Status Risk SNOMED Code Notes Problem Esophagism (K22.4) Active confirmed 748720598 Encounters Encounter Location Date Provider Diagnosis [facility] [address] [facility] [address] [place] [phone] 09/10/2024 Jules Fermin Esophagism K22.4 ASSESSMENTS Encounter Date Diagnosis Assessment Notes Treatment Notes Treatment Clinical Notes 09/10/2024 Esophagism (ICD-10 - K22.4) PLAN OF TREATMENT Medication Medication Name Sig Start Date Stop Date Notes Omeprazole 40 MG 1 capsule 1/2 to 1 h our before morning meal Orally Once a day for 30 day(s) 09/10/2024 Future Test Test Name Order Date UPPER GI ENDOSCOPY 09/10/2024 Next Appt Details Provider Name:Luke lawrence Jr, 10/30/2024 09:10:00 AM, [address] [place] [address] , [place], [place], [phone],
--- OUTSIDE RECORDS SUMMARY | 2024-09-14 09:17 | XMS_ITS ---
Author Organization [facility] Address [address] [place] [address] Care Team Providers Care Communications Representative Name Role Phone Josh Kelly MD Primary Care Provider Jules Kirk Unavailable [phone] REASON FOR VISIT screening, hx polyps PROBLEMS Problem Type ICD Code Onset Dates Problem Status W/U Status Risk SNOMED Code Notes Problem Diverticulosis of large intestine without perforation or abscess without bleeding (K57.30) Active confirmed Diverticul ar disease of colon (420069037) Encounters Encounter Location Date Provider Diagnosis [facility] [place] Outpatient [address] [place] [phone] 10/23/2023 Jules Fermin Encounter for scre ening [...] Provider Name:Luke lawrence Jr, 10/30/2024 09:10:00 AM, [address] [place] [address], [phone],
--- OUTSIDE RECORDS SUMMARY | 2024-09-14 09:17 | XMS_ITS | Patient Health Record ---
Author Organization [facility] Address [address] [place] [address] Care Team Providers Care Gi Technician Name Role Phone Josh Kelly MD Primary Care Provider Jules Kirk Unavailable [phone] ALLERGIES Allergen (clinical drug ingredient) Drug/Non Drug Allergy documented on EMR Reaction Allergy Type Onset Date Status Penicillin Unknown Drug Allergy Active hay fever (uncoded) Unknown Allergy Active RESULTS Component Value Reference Range Notes Pathology (Not yet reviewed by provider) Interpretation: Performing Lab:[facility], [address] [place] [phone] Notes/Report: REASON FOR REFERRAL No Information MEDICATIONS [...] Problem Colon cancer screening (Z12.11) Active confirmed 444027664 Problem History of adenomatous polyp of colon (Z86.010) Active confirmed 097759829 Problem Weight loss (R63.4) Active confirmed 366504031 Problem Diverticulosis of large intestine without perforation or abscess without bleeding (K57.30) Active confirmed Diverticul ar disease of colon (875968524) Problem Anticoagulant long-term use (Z79.01) Active confirmed 761662583 Problem Liver cyst (K76.89) Active confirmed 03682785 Problem Diarrhea, unspecified type (R19.7) Active confirmed 10927183 Problem Renal cyst (N28.1) Active confirmed 722 310594 Problem Diarrhea of presumed infectious origin (R19.7) Active confirmed 03652988 Problem Esophagism (K22.4) Active confirmed 266 680543 Encounters Encounter Location Date Provider Diagnosis [facility] [place] [address] [place] [phone] 10/23/2023 Jules Fermin Encounter for screen ing colonoscopy Z12.11 ; Colon polyps K63.5 ; Diverticulosis of large intestine without perforation or abscess without bleeding K57.30 and Other hemorrhoids K64.8 [facility] [address] [place] [phone] 10/21/2023 Jules Fermin [facility] [address] [place] [phone] 09/10/2024 Jules Fermin Esophagism K22.4 ASSESSMENTS Encounter [...] Provider Name:Luke lawrence , 10/30/2024 09:10:00 AM, [address] [place] [address] , [place], [place], [phone], Insurance Providers Payer Name Payer Address Payer Phone Subscriber Number Group Number Insured Name Patient Relationship to Insured Coverage Start Date Coverage End Date MEDICARE OF [place] [address] [place] [address] [id number] DUONG MYLES Self - patient is the insured MED[employer] ATTN CLAIMS [address] [place] [address] [id number] DUONG MYLES Self - patient is the insured MEDICAL (GENERAL) HISTORY Medical History History ICD Code Irritable bowel syndrome----lactose into lerance Hyperlipidemia HTN Denies [place],DM,CVA,Lung disease,renal dise ase Colonoscopy in 03/2012--1 sma [...] aortic aneurysm Afib-sees Dr. Crabtree-Cardioverted 05/2023 Melanoma [id number] by Dr. Yair sagastume Thrombocytopenia--ITP--erica Angela--treated with prednisone but will be going on a different med as of the 06/2023 OV Surgical History Surgery Date(Month/Year) Melanoma RUE-Dr. Queen--neg. lymph node s 11/2022
--- OUTSIDE RECORDS SUMMARY | 2024-09-14 09:17 | XMS_ITS ---
Author Organization [facility] Address [address] [place] [phone] Care Team Providers Care Tube Drawing Supervisor Name Role Phone Josh Kelly MD Primary Care Provider Jules Kirk [phone] REASON FOR VISIT NEED CLEARANCE FROM DR MONTAGUE'S OFFICE Encounters Encounter Location Date Provider Diagnosis [facility] [address] [place] [phone] 10/21/2023 Jules Fermin PLAN OF TREATMENT Next Appt Details Provider Name:Luke lawrence Jr, 10/30/2024 09:10:00 AM, [address] [place] [address] , [place], [place], [phone],
--- NOTE | 2024-09-14 09:38 | MHC.OFFVIS ---
Vital Signs 09/14/24 09:39 Height 6 ft 4 in BP 114/78 Pulse 88 Pulse Source Monitor Intake Visit Reasons: ekg confirm afib Material Control Specialist Required: No Allergies amoxicillin Allergy (Intermediate, Verified 09/06/24 16:14) Gastrointestinal Upset Penicillins Allergy (Intermediate, Verified 09/06/24 16:14) Gastrointestinal Upset Medication List - Last Reconciled 09/14/24 by SANTOS Rosas albuterol sulfate 90 mcg/actuation (ProAir HFA) 2 puffs inhalation Q4-6H PRN 30 days atorvastatin 40 mg PO DAILY benzonatate 200 mg PO TID PRN famotidine (Pepcid) 40 mg PO DAILY fexofenadine (Ananya Allergy) 180 mg PO DAILY lisinopril 5 mg PO QPM 90 days metoprolol succinate ER 50 mg PO DAILY rivaroxaban (Xarelto) 20 mg PO DAILY HPI HPI ekg confirm afib: Details: Mick is a 68-year-old male with past medical history of hypertension, hypertensive heart disease, thrombocytopenia, paroxysmal atrial fibrillation who came to the office today for an EKG due to irregular heart rates. He was noted to have atrial fibrillation and was set up for office visit. Today he reports that he notice his heart rate was irregular on his fit bit, 3 days ago. He does not feel any heart palpitations. He has no symptoms that he can attribute to his atrial fibrillation. No chest discomfort at rest or with activity. No shortness of breath, PND, orthopnea or edema. No lightheadedness, presyncope, syncope. He reports good activity tolerance but admits to being mostly sedentary. He is taking his meds as directed. He did have an upper endoscopy and removal of foreign body 8 days ago. He did hold his Xarelto that day. He has had no other missed doses. is present. [facility] Medical History Atrial fibrillation Malignant melanoma Thrombocytopenia Elevated cholesterol History of cardioversion (~06/12/23) Sleep apnea Enlarged thoracic aorta Hypertensive heart disease HTN (hypertension) Surgical History H/O colonoscopy History of melanoma excision (~11/12/22) Family History Father No problems noted. Mother CVD (cardiovascular disease) Social History Household Members: Spouse and Children Housing: House Do you presently have visiting nurse or other home services: No Patient Tobacco Use Status: Never used Tobacco e-Cigarette/Vaping Use: Never Used service: No Current occupational status: retired Cognitive needs: No Hearing needs: No Vision needs: Yes Review of Systems Const All systems reviewed & are unremarkable except as noted in HPI and below Denies chills, Denies fatigue, Denies fever(s), Denies frequent falls, Denies weakness, Denies weight gain and Denies weight loss ENT Denies dizziness Card Denies chest pain, Denies leg edema, Denies lightheadedness, Denies palpitations, Denies dyspnea and Denies dyspnea on exertion Resp Denies cough, Denies dyspnea and Denies dyspnea on exertion GI Denies hematochezia Musc Denies abnormal gait, Denies muscle weakness, Denies numbness, Denies radiating pain into limb and Denies tingling Neuro Denies abnormal gait, Denies dizziness, Denies frequent falls, Denies numbness, Denies tingling and Denies weakness Endo Denies fatigue and Denies palpitations Physical Exam Vital Signs: Last Vital Signs Pulse 88 09/14/24 09:39 BP 114/78 09/14/24 09:39 Const General: cooperative, healthy appearing, comfortable and no acute distress Orientation/consciousness: patient oriented x3 Neck Neck: Yes normal visual inspection and Yes no JVD Resp Effort & Inspection: normal respiratory effort Auscultation: clear to auscultation bilaterally, no crackles, no rales, no rhonchi and no wheezes Cardio Jugular venous distension: no JVD Rate: regular rate Rhythm: abnormal rhythm Heart sounds: S1 normal heart sound present, S2 normal heart sound present, no gallops, no murmurs and no rubs Neuro General: patient oriented x3 Extrem General: Yes normal to inspection, No no pedal edema and No calf tenderness Psych Appearance: grossly normal Mental Status: mental status grossly normal Speech and movement: Normal speech and movement present Office Procedures EKG Details: Today, read by me, atrial fibrillation, left axis, rate 88, QTc 471ms [id number], Complete Assessment & Plan Assessment & Plan (1) Paroxysmal atrial fibrillation: Code(s): I48.0 - Paroxysmal atrial fibrillation Category: Medical Plan: History of paroxysmal atrial fibrillation with prior cardioversion, which had been suppressed with metoprolol. He recently noted irregular heart rate as seen on his fit bit. EKG done today confirms atrial fibrillation, rate 88. He is completely asymptomatic with his AFib. Last echo done 08/26/2024 showed EF 55-60%, grade 1 diastolic dysfunction, can not exclude regional wall motion abnormality, left atrium is likely dilated, right atrium not well visualized. He was in sinus rhythm at the time of the echocardiogram. Our plan will be to maintain rhythm control. Since he missed a dose of Xarelto 8 days ago will need to wait another 3 weeks prior to cardioversion. Instructed to continue Xarelto without interruption. Will plan to start Multaq 2 days prior to his cardioversion procedure. The need for antiarrhythmic was reviewed with him. Continue metoprolol. Will plan for a Holter monitor 2 weeks post cardioversion. Cardiology follow-up 1 month post cardioversion. Emergency care if needed for any concerning symptoms. Agree with above management plan (2) HTN (hypertension): Code(s): I10 - Essential (primary) hypertension Category: Medical Plan: Controlled at this time. No med changes made. Continue metoprolol and lisinopril. (3) Thrombocytopenia: Code(s): D69.6 - Thrombocytopenia, unspecified Category: Medical Plan: History of thrombocytopenia, idiopathic. Most recent labs done 09/11/2024 showed platelets 173. Follows with hematology. (4) Enlarged thoracic aorta: Comment: 3.99 cm by echocardiogram, May 2020 Code(s): I77.89 - Other specified disorders of arteries and arterioles Category: Medical Plan: Last echocardiogram 08/26/2024 shows mild dilation of the ascending aorta measuring 4 cm Plan Time spent on chart review, documentation, interview and assessment Orders: Orders Cardioversion 3 Weeks I48.0 - Paroxysmal atrial fibrillation ECG 3 day holter monitor 5 Weeks I48.0 - Paroxysmal atrial fibrillation Medications: New dronedarone must administer with a meal/food Start 2 days prior to Cardioversion 400 mg PO BID 60 tabs 5RF Coding Level of Care Code Est Pt Level 4 (14050) Complex EM visit Add On G2211 Diagnoses Paroxysmal atrial fibrillation I48.0 HTN (hypertension) I10 Thrombocytopenia D69.6 Enlarged thoracic aorta I77.89 CPT Codes EKG - CPT: 63681-[id number], Complete ([id number]) Time Spent (min) 30
[2024-09-14 09:39] VITALS: BP 114/78; PULSE 88
== END 2024-09-14 10:04 | disposition home or self-care (01) ==
PROVIDERS: PCP Nurse Practitioner Family; Visit Provider Internal Medicine Cardiovascular Disease
DX: I48.0 Paroxysmal atrial fibrillation (principal); I10 Essential (primary) hypertension; D69.6 Thrombocytopenia, unspecified; I77.89 Other specified disorders of arteries and arterioles
CPT/HCPCS: 93010; 99214; G2211

== ENCOUNTER → 2024-09-14 09:14 | Outpatient (BNVA) | payer MEDICARE, SELFPAY | PROVIDERS: PCP Nurse Practitioner Family; Visit Provider Internal Medicine Cardiovascular Disease | DX: I48.0 Paroxysmal atrial fibrillation (principal); I10 Essential (primary) hypertension; I77.89 Other specified disorders of arteries and arterioles; D69.6 Thrombocytopenia, unspecified | CPT/HCPCS: 93005; 99212 ==

== ENCOUNTER 2024-10-07 10:50 | Day surgery (SDC) | payer MEDICARE, SELFPAY ==
--- OUTSIDE RECORDS SUMMARY | 2024-09-28 14:06 | XMS_ITS ---
Author Organization [facility] Address [address] [place] [phone] Care Team Providers Care Invoice Clerk Name Role Phone Josh Kelly MD Primary Care Provider Jules Kirk Unavailable [phone] REASON FOR VISIT emergent egd MEDICATIONS Medication SIG (Take, Route, Fr equency, Duration) Notes Start Date End Date Status Omeprazole 40 MG 1 capsule 1/2 to 1 h our before morning meal Orally Once a day for 30 day(s) 09/10/2024 Active PROBLEMS Problem Type ICD Code Onset Dates Problem Status W/U Status Risk SNOMED Code Notes Problem Esophagism (K22.4) Active confirmed 134800557 Encounters Encounter Location Date Provider Diagnosis [facility] [address] [facility] [address] [place] [phone] 09/10/2024 Jules Fermin Esophagism K22.4 ASSESSMENTS Encounter [...] Provider Name:Luke lawrence Jr, 10/30/2024 09:10:00 AM, [address] [place] [address] , [place], [place], [phone],
--- OUTSIDE RECORDS SUMMARY | 2024-09-28 14:06 | XMS_ITS ---
Author Organization [facility] Address [address] [place] [address] Care Team Providers Care Sewing Machine Operator Semiautomatic Name Role Phone Josh Kelly MD Primary Care Provider Jules Kirk Unavailable [phone] REASON FOR VISIT screening, hx polyps PROBLEMS Problem Type ICD Code Onset Dates Problem Status W/U Status Risk SNOMED Code Notes Problem Diverticulosis of large intestine without perforation or abscess without bleeding (K57.30) Active confirmed Diverticul ar disease of colon (581132129) Encounters Encounter Location Date Provider Diagnosis [facility] [address] [place] [phone] 10/23/2023 Jules Fermin Encounter for scre ening [...] Provider Name:Luke lawrence Jr, 10/30/2024 09:10:00 AM, [address] [place] [address], [phone],
--- OUTSIDE RECORDS SUMMARY | 2024-09-28 14:06 | XMS_ITS | Patient Health Record ---
Author Organization [facility] Address [address] [place] [address] Care Team Providers Care Line Patrolman Name Role Phone Josh Kelly MD Primary Care Provider Jules Kirk Unavailable [phone] ALLERGIES Allergen (clinical drug ingredient) Drug/Non Drug Allergy documented on EMR Reaction Allergy Type Onset Date Status Penicillin Unknown Drug Allergy Active hay fever (uncoded) Unknown Allergy Active RESULTS Component Value Reference Range Notes Pathology Reviewed date:09/23/2024 05:54:36 PM Interpretation: Performing Lab:[facility], [address] [place] [phone] Notes/Report: REASON FOR REFERRAL No Information MEDICATIONS Medication SIG (Take, Route, Frequency, Duration) Notes Start Date End Date Status ZyrTEC 10 MG 1 tablet Orally Once a day for 30 day(s) Unknown Atorvastatin Calcium 40 MG 1 tablet Oral ly Once a day for 30 day(s) Unknown Lisinopril 5 MG 1 tablet Orally Once a day Unknown Allergy adam Unknown Omeprazole 40 MG 1 capsule 1/2 to 1 h our before morning meal Orally Once a day for 30 day(s) 09/10/2024 Unknown hydroCHLOROthiazide Unknown Metoprolol Succinate 50 MG as directed Orally Unknown Xarelto 20 MG 1 tablet with food Orally Once a day for 30 day(s) Unknown IMMUNIZATIONS Vaccine Route Administration Date Status Comme [...] Problem Colon cancer screening (Z12.11) Active confirmed 848619835 Problem History of adenomatous polyp of colon (Z86.010) Active confirmed 332402894 Problem Weight loss (R63.4) Active confirmed 176029315 Problem Diverticulosis of large intestine without perforation or abscess without bleeding (K57.30) Active confirmed Diverticul ar disease of colon (560024173) Problem Anticoagulant long-term use (Z79.01) Active confirmed 467874814 Problem Liver cyst (K76.89) Active confirmed 42748506 Problem Diarrhea, unspecified type (R19.7) Active confirmed 63625885 Problem Renal cyst (N28.1) Active confirmed 722 224636 Problem Diarrhea of presumed infectious origin (R19.7) Active confirmed 92465496 Problem Esophagism (K22.4) Active confirmed 266 481828 Encounters Encounter Location Date Provider Diagnosis [facility] [place] [address] [place] [phone] 10/23/2023 Jules Fermin Encounter for screen ing colonoscopy Z12.11 ; Colon polyps K63.5 ; Diverticulosis of large intestine without perforation or abscess without bleeding K57.30 and Other hemorrhoids K64.8 [facility] [address] [place] [phone] 10/21/2023 Jules Fermin [facility] [address] [place] [phone] 09/10/2024 Jules Fermin Esophagism K22.4 [facility] [address] [place] [phone] 09/23/2024 Jules Fermin ASSESSMENTS Encounter Date Diagnosis Assessment [...] WBC 06/04/2023 C DIFFICILE RFLX PCR 06/04/2023 Future Test Test Name Order Date COLONOSCOPY 03/05/2012 COLONOSCOPY 04/17/2017 COLONOSCOPY 07/17/2023 UPPER GI ENDOSCOPY 09/10/2024 Next Appt Details Provider Name:Luke lawrence , 10/30/2024 09:10:00 AM, [address] [place] [address] , [place], [place], [phone], Insurance Providers Payer Name Payer Address Payer Phone Subscriber Number Group Number Insured Name Patient Relationship to Insured Coverage Start Date Coverage End Date MEDICARE OF [place] [address] [place] [address] [id number] DUONG MYLES Self - patient is the insured [employer] ATT[employer] CLAIMS [address] [place] [address] [id number] MYLES, DUONG Self - patient is the insured MEDICAL (GENERAL) HISTORY Medical History History ICD Code Irritable bowel syndrome----lactose into lerance Hyperlipidemia HTN Denies IN,DM,CVA,Lung disease,renal dise ase Colonoscopy in 03/2012--1 sma [...] Small aortic aneurysm Afib-seetanika Crabtree-Cardioverted 05/2023 Melanoma [id number] by Dr. Yair sagastume Thrombocytopenia--ITP--erica Angela--treated with prednisone but will be going on a different med as of the 06/2023 OV Surgical History Surgery Date(Month/Year) Melanoma RUE-Dr. Queen--neg. lymph node s 11/2022
--- NOTE | 2024-10-05 15:31 | HO.ANESPROP2 ---
Documented by User: Jacki Parikh NP 10/05/24 15:34 HPI - Anesthesia Eval Consult details Narrative: 68yo M for Cardioversion s/p food bolus 08/2024 with GA-ETT 7.5 Xarelto for afib PMFSH Active Problems Active Problems: All Active Problems Esophagus, foreign body (Acute) Paroxysmal atrial fibrillation (Acute) Atypical pneumonia (Acute) Elevated fasting blood sugar (Acute) Viral illness (Acute) Right shoulder pain (Acute) Numbness of left thumb (Acute) Fatty liver (Acute) Screening for prostate cancer (Acute) Acute ITP (Chronic) Severe thrombocytopenia (Acute) Thrombocytopenia (Acute) Abnormal lung sounds (Acute) History of COVID-19 (Acute) Chest congestion (Acute) SOB (shortness of breath) (Acute) Upper respiratory tract infection (Acute) Dizziness (Acute) Enlarged thoracic aorta (Acute) Hypertensive heart disease (Acute) HTN (hypertension) (Acute) Past Medical History Medical History Atrial fibrillation Malignant melanoma Thrombocytopenia Elevated cholesterol History of cardioversion (~06/12/23) Sleep apnea Enlarged thoracic aorta Hypertensive heart disease HTN (hypertension) Family History Family History Father No problems noted. Mother CVD (cardiovascular disease) Family history of problems with anesthesia: No Surgical History Surgical History H/O colonoscopy History of melanoma excision (~11/12/22) History of Problems with Anesthesia: No Social History Social History Household Members: Spouse and Children Housing: House Do you presently have visiting nurse or other home services: No Patient Tobacco Use Status: Never used Tobacco e-Cigarette/Vaping Use: Never Used Advance Directives: No Advance Directives Information Provided: Yes service: No Current occupational status: retired Cognitive needs: No Hearing needs: No Vision needs: Yes Meds Allergies Allergy/AdvReac Type Severity Reaction Status Date / Time amoxicillin Allergy Intermediate Gastrointestinal Verified 09/06/24 16:14 Upset Penicillins Allergy Intermediate Gastrointestinal Verified 09/06/24 16:14 Upset Home Medications ?Medication ?Instructions ?Recorded ?Confirmed ?Last Taken ?Type fexofenadine 180 mg tablet 180 mg PO DAILY 04/16/22 09/14/24 06/12/23 History (Ananya Allergy) famotidine 40 mg tablet (Pepcid) 40 mg PO DAILY 06/25/23 09/14/24 10/23/23 06:00 History Exam Pertinent Lab Results Pertinent Lab Results: Laboratory Tests 09/06/24 17:48 WBC 7.3 RBC 5.47 Hgb 16.4 Hct 48.9 MCV 89.4 MCH 30.0 MCHC 33.5 RDW 12.7 Plt Count 142 L MPV 8.7 L Immature Gran % (Auto) 0.3 Neut % (Auto) 69.6 Lymph % (Auto) 20.8 [place] % (Auto) 8.5 Eos % (Auto) 0.4 Baso % (Auto) 0.4 Lymph # (Auto) 1.5 [place] # (Auto) 0.6 Eos # (Auto) 0.0 Baso # (Auto) 0.0 Abs Immat Gran (auto) 0.02 Absolute Neuts (auto) 5.1 Absolute Nucleated RBC 0.000 Nucleated RBC % (auto) 0.0 Sodium 144 Potassium 4.5 Chloride 111 H Carbon Dioxide 20 L Anion Gap 18 BUN 19 H Creatinine 0.97 Estim Creat Clear Calc 101.2 Estimated GFR > 60 Random Glucose 119 H Calcium 9.2 Total Bilirubin 0.8 AST 52 H ALT 68 H Alkaline Phosphatase 106 Total Protein 7.8 Albumin 3.9 Lipase 19 Narrative Narrative: ECHO 08/2024 Conclusions: - 1. Normal LV ejection fraction 55-60% with grade 1 diastolic dysfunction 2. Mild calcific changes of aortic valve with normal cardiac valvular Dopplers 3. Normal RV systolic pressure 4. Mildly dilated ascending aorta at 4 cm Assessment and Plan Assessment Anesthesia Assessment: Chart Reviewed Final Anesthetic Review Family History of Problems with Anesthesia: No History of Problems with Anesthesia: No Documented by User: Sheela Ruth MD 10/07/24 11:52 PMFSH Past Medical History Medical History Atrial fibrillation Malignant melanoma Thrombocytopenia Elevated cholesterol History of cardioversion (~06/12/23) Sleep apnea Enlarged thoracic aorta Hypertensive heart disease HTN (hypertension) Family History Family History Father No problems noted. Mother CVD (cardiovascular disease) Surgical History Surgical History H/O colonoscopy History of melanoma excision (~11/12/22) Social History Social History Household Members: Spouse and Children Housing: House Do you presently have visiting nurse or other home services: No Patient Tobacco Use Status: Never used Tobacco e-Cigarette/Vaping Use: Never Used Advance Directives: No Advance Directives Information Provided: Yes service: No Current occupational status: retired Cognitive needs: No Hearing needs: No Vision needs: Yes Meds Allergies Allergy/AdvReac Type Severity Reaction Status Date / Time amoxicillin Allergy Intermediate Gastrointestinal Verified 09/06/24 16:14 Upset Penicillins Allergy Intermediate Gastrointestinal Verified 09/06/24 16:14 Upset Home Medications ?Medication ?Instructions ?Recorded ?Confirmed ?Last Taken ?Type fexofenadine 180 mg tablet 180 mg PO DAILY 04/16/22 09/14/24 06/12/23 History (Ananya Allergy) famotidine 40 mg tablet (Pepcid) 40 mg PO DAILY 06/25/23 09/14/24 10/23/23 06:00 History Exam Airway Mallampati Class: III TM Dist: >3cm Neck ROM: Limited Heart: rrr Lungs: cta Assessment and Plan Assessment Anesthesia Assessment: Anesthesia Plan Discussed Final Anesthetic Review NPO: Yes ASA Class: III Final Preanesthetic Review: No Changes in Pt Med Stat, Meds/Allgs Chart Reviewed, Consent Obtained/Reviewed and Anes Risks/Benef Reviewed Patient Risk: Intermediate Procedure Risk: Low Anesthetic Plan Anesthetic Plan: MAC: Disposition: Standard PACU
--- NOTE | 2024-10-07 08:48 | MHC.SHP ---
Pre-Procedural Eval Section A - 24 Hr Update-Section A only Date of Service: 10/07/24 The patient is an INPATIENT: No Changes since office visit: Yes Patient answered all questions; No Cold of Flu in the past 2 weeks, No New Medical Problems and No Changes in Medication Section B - Complete if H&P > 30 days Chief Complaint: Paroxysmal atrial fibrillation Allergies: Allergies Allergy/AdvReac Type Severity Reaction Status Date / Time amoxicillin Allergy Intermediate Gastrointestinal Verified 09/06/24 16:14 Upset Penicillins Allergy Intermediate Gastrointestinal Verified 09/06/24 16:14 Upset Plan I have reviewed the history and physical and performed a pertinent physical examination on my patient. No changes have occurred unless specified. Time Spent With Patient Time: Total time managing care of this patient today ____ minutes.
[2024-10-07 11:50] VITALS: BP 134/87; PULSE 76; RESP 16; TEMP 36.7; O2SAT 96; BMI 32.3
[2024-10-07] MEDS: Lactated Ringers 1,000 ML 100 ML IVCONT (11:56)
--- OUTSIDE RECORDS SUMMARY | 2024-10-07 12:14 | XMS_ITS ---
Author Organization [facility] Address [address] [place] [address] Care Team Providers Care Steamtable Attendant Railroad Name Role Phone Josh Kelly MD Primary Care Provider Jules Kirk Unavailable [phone] ALLERGIES Allergen (clinical drug ingredient) Drug/Non Drug Allergy documented on EMR Reaction Allergy Type Onset Date Status Penicillin Unknown Drug Allergy Active hay fever (uncoded) Unknown Allergy Active REASON FOR VISIT EGD in October MEDICATIONS Medication SIG (Take, Route, Frequency, Duration) Notes Start Date End Date Status ZyrTEC 10 MG 1 tablet Orally Once a day for 30 day(s) Unknown Metoprolol Succinate 50 MG as directed Orally Unknown Xarelto 20 MG 1 tablet with food Orally Once a day for 30 day(s) Unknown Lisinopril 5 MG 1 tablet Orally Once a day Unknown Allergy adam Unknown Omeprazole 40 MG 1 capsule 1/2 to 1 h our before morning meal Orally Once a day for 30 day(s) 09/10/2024 Unknown hydroCHLOROthiazide Unknown Atorvastatin Calcium 40 MG 1 tablet Oral ly Once a day for 30 day(s) Unknown Encounters Encounter Location Date Provider Diagnosis [facility] [address] [place] [phone] 09/23/2024 Jules Fermin PLAN OF TREATMENT Next Appt Details Provider Name:Luke lawrence Jr, 11/27/2024 10:00:00 AM, [address] [place] [address] , [place], [place], [phone],
--- OUTSIDE RECORDS SUMMARY | 2024-10-07 12:14 | XMS_ITS ---
Author Organization [facility] Address [address] [place] [address] Care Team Providers Care Stock Trader Name Role Phone Josh Kelly MD Primary Care Provider Jules Kirk Unavailable [phone] REASON FOR VISIT screening, hx polyps PROBLEMS Problem Type ICD Code Onset Dates Problem Status W/U Status Risk SNOMED Code Notes Problem Diverticulosis of large intestine without perforation or abscess without bleeding (K57.30) Active confirmed Diverticul ar disease of colon (851918844) Encounters Encounter Location Date Provider Diagnosis [facility] [place] [address] [place] [phone] 10/23/2023 Jules Fermin Encounter for scre ening [...] Provider Name:Luke lawrence Jr, 11/27/2024 10:00:00 AM, [address] [place] [address], [phone],
--- OUTSIDE RECORDS SUMMARY | 2024-10-07 12:14 | XMS_ITS ---
Author Organization [facility] Address [address] [place] [phone] Care Team Providers Care Mid Level Game Designer Name Role Phone Josh Kelly MD Primary Care Provider Jules Kirk Unavailable [phone] REASON FOR VISIT emergent egd MEDICATIONS Medication SIG (Take, Route, Fr equency, Duration) Notes Start Date End Date Status Omeprazole 40 MG 1 capsule 1/2 to 1 h our before morning meal Orally Once a day for 30 day(s) 09/10/2024 Active PROBLEMS Problem Type ICD Code Onset Dates Problem Status W/U Status Risk SNOMED Code Notes Problem Esophagism (K22.4) Active confirmed [id number] Encounters Encounter Location Date Provider Diagnosis [facility] [address] [place] [phone] 09/10/2024 Jules Fermin Esophagism K22.4 ASSESSMENTS Encounter [...] Provider Name:Luke lawrence Jr, 11/27/2024 10:00:00 AM, [address] [place] [address] , [place], [place], [phone],
--- OUTSIDE RECORDS SUMMARY | 2024-10-07 12:15 | XMS_ITS | Patient Health Record ---
Author Organization [facility] Address [address] [place] [address] Care Team Providers Care Credit Card Specialist Name Role Phone Josh Kelly MD Primary Care Provider Jules Kirk Unavailable [phone] ALLERGIES Allergen (clinical drug ingredient) Drug/Non Drug Allergy documented on EMR Reaction Allergy Type Onset Date Status Penicillin Unknown Drug Allergy Active hay fever (uncoded) Unknown Allergy Active RESULTS Component Value Reference Range Notes Pathology Reviewed date:09/23/2024 05:54:36 PM Interpretation: Performing Lab:[facility], [address] [place] [phone] Notes/Report: REASON FOR REFERRAL No Information MEDICATIONS [...] Problem Colon cancer screening (Z12.11) Active confirmed 903323740 Problem History of adenomatous polyp of colon (Z86.010) Active confirmed 843170976 Problem Weight loss (R63.4) Active confirmed 740482579 Problem Diverticulosis of large intestine without perforation or abscess without bleeding (K57.30) Active confirmed Diverticul ar disease of colon (910582861) Problem Anticoagulant long-term use (Z79.01) Active confirmed 889757246 Problem Liver cyst (K76.89) Active confirmed 99411973 Problem Diarrhea, unspecified type (R19.7) Active confirmed 55857964 Problem Renal cyst (N28.1) Active confirmed 722 305435 Problem Diarrhea of presumed infectious origin (R19.7) Active confirmed 04507217 Problem Esophagism (K22.4) Active confirmed 266 951555 Encounters Encounter Location Date Provider Diagnosis [facility] [address] [place] [phone] 10/23/2023 Jules Fermin Encounter for screen ing colonoscopy Z12.11 ; Colon polyps K63.5 ; Diverticulosis of large intestine without perforation or abscess without bleeding K57.30 and Other hemorrhoids K64.8 [facility] [address] [place] [phone] 10/21/2023 Jules Fermin [facility] [address] [place] [phone] 09/10/2024 Jules Fermin Esophagism K22.4 [facility] [address] [place] [phone] 09/23/2024 Jules Fermin ASSESSMENTS Encounter Date Diagnosis [...] Next Appt Details Provider Name:Luke lawrence , 11/27/2024 10:00:00 AM, [address] [place] [address] , [place], [place], [phone], Insurance Providers Payer Name Payer Address Payer Phone Subscriber Number Group Number Insured Name Patient Relationship to Insured Coverage Start Date Coverage End Date MEDICARE OF [place] [address] [place] [address] [id number] DUONG MYLES Self - patient is the insured MED[employer] ATTN CLAIMS [address] [place] [address] [id number] MYLES, DUONG Self - patient is the [...] Small aortic aneurysm Afib-seetanika Crabtree-Cardioverted 05/2023 Melanoma [id number] by Dr. Yair sagastume Thrombocytopenia--ITP--erica Angela--treated with prednisone but will be going on a different med as of the 06/2023 OV Surgical History Surgery Date(Month/Year) Melanoma RUE-Dr. Queen--neg. lymph node s 11/2022
[2024-10-07 12:16] VITALS: BP 111/77; PULSE 56; RESP 16; TEMP 36.3; O2SAT 96
--- NOTE | 2024-10-07 12:18 | ECG_ITS ---
Test Reason : PACU Blood Pressure : */* mmHG Vent. Rate : 56 BPM Atrial Rate : 56 BPM P-R Int : 214 ms QRS Dur : 80 ms QT Int : 468 ms P-R-T Axes : 13 -26 -11 degrees QTcB Int : 451 ms Sinus bradycardia with 1st degree A-V block Minimal voltage criteria for LVH, may be normal variant ( R in aVL ) Borderline ECG When compared with ECG of 06-Sep-2024 18:23, Nonspecific T wave abnormality no longer evident in Anterior leads Referred By: Timmy Crabtree Electronically Signed By: TIMMY CRABTREE MD
--- NOTE | 2024-10-07 12:19 | HO.CARDIVERS ---
Cardioversion Procedure Note Cardioversion Date of Procedure: 10/07/2024 Ordering Provider: Live Crabtree Performing Provider: Live Crabtree Indication for Procedure: Recurrent persistent atrial fibrillation Pre-Op Diagnosis: Same Post-Op Diagnosis: Normal sinus rhythm Performed with Transesophageal Echo: No History: See my office note Consent: Verbal and Written consent was obtained from the patient before starting and after confirming oral anticoagulation Multaq use. The patient was made aware of the risk of synchronized cardioversion including benefits and alternatives Procedure: After consent obtained, cardioversion pads were attached in anteroposterior configuration and the patient was sedated by the anesthesia team. Once adequate sedation achieved, patient was delivered 200 joules of biphasic synchronized energy in anteroposterior configuration Complications: None Impression: Successful conversion to sinus rhythm Recommendations: 1. 12 lead EKG 2. Continue Multaq and oral anticoagulation 3. Follow up in the office after Holter
[2024-10-07 12:31] VITALS: BP 97/62; PULSE 58; RESP 16; TEMP 36.3; O2SAT 95
[2024-10-07 12:46] VITALS: BP 97/56; PULSE 54; RESP 16; O2SAT 95
[2024-10-07 13:01] VITALS: BP 98/61; PULSE 56; RESP 16; O2SAT 95
[2024-10-07 13:16] VITALS: BP 102/66; PULSE 54; RESP 16; TEMP 36.3; O2SAT 95
== END 2024-10-07 13:34 | disposition home or self-care (01) ==
PROVIDERS: PCP Nurse Practitioner Family; Visit Provider Internal Medicine Cardiovascular Disease
PROC: 5A2204Z Restoration of Cardiac Rhythm, Single (ICD-10-PCS; principal; 2024-10-07 11:00)
DX: I48.19 Other persistent atrial fibrillation (principal); I48.0 Paroxysmal atrial fibrillation; Z79.01 Long term (current) use of anticoagulants; I11.9 Hypertensive heart disease without heart failure; E78.00 Pure hypercholesterolemia, unspecified; I77.810 Thoracic aortic ectasia; D69.6 Thrombocytopenia, unspecified; Z85.820 Personal history of malignant melanoma of skin; Z79.899 Other long term (current) drug therapy; Z88.0 Allergy status to penicillin; Z88.1 Allergy status to other antibiotic agents
CPT/HCPCS: 92960; 93005; J2704

== ENCOUNTER → 2024-10-07 10:50 | Outpatient (BNV) | payer MEDICARE, SELFPAY | PROVIDERS: PCP Nurse Practitioner Family; Visit Provider Internal Medicine Cardiovascular Disease | DX: I48.19 Other persistent atrial fibrillation (principal); I44.0 Atrioventricular block, first degree; I42.2 Other hypertrophic cardiomyopathy; R00.1 Bradycardia, unspecified | CPT/HCPCS: 92960; 93010 ==

== ENCOUNTER → 2024-11-03 07:04 | Outpatient (BNV) | payer MEDICARE, SELFPAY | PROVIDERS: PCP Nurse Practitioner Family; Visit Provider Internal Medicine | DX: I47.10 Supraventricular tachycardia, unspecified (principal) | CPT/HCPCS: 93244 ==

== ENCOUNTER → 2024-11-03 08:25 | Outpatient (REF) | payer MEDICARE, SELFPAY ==
--- OUTSIDE RECORDS SUMMARY | 2024-11-03 08:43 | XMS_ITS | Patient Health Record ---
Author Organization [facility] Address [address] [place] [address] Care Team Providers Care Branch Operation Evaluation Manager Name Role Phone Josh Kelly MD Primary Care Provider Jules Kirk Unavailable [phone] ALLERGIES Allergen (clinical drug ingredient) Drug/Non Drug Allergy documented on EMR Reaction Allergy Type Onset Date Status Penicillin Unknown Drug Allergy Active hay fever (uncoded) Unknown Allergy Active REASON FOR REFERRAL No Information MEDICATIONS Medication [...] Problem Colon cancer screening (Z12.11) Active confirmed 934053618 Problem History of adenomatous polyp of colon (Z86.010) Active confirmed 008372285 Problem Weight loss (R63.4) Active confirmed 639405762 Problem Diverticulosis of large intestine without perforation or abscess without bleeding (K57.30) Active confirmed Diverticul ar disease of colon (685459351) Problem Anticoagulant long-term use (Z79.01) Active confirmed 123846949 Problem Liver cyst (K76.89) Active confirmed 88218192 Problem Diarrhea, unspecified type (R19.7) Active confirmed 08949799 Problem Renal cyst (N28.1) Active confirmed 722 902279 Problem Diarrhea of presumed infectious origin (R19.7) Active confirmed 60699413 Problem Esophagism (K22.4) Active confirmed 266 259440 Encounters Encounter Location Date Provider Diagnosis [facility] [address] [place] [phone] 09/10/2024 Jules Fermin Esophagism K22.4 [facility] [address] [place] [phone] 09/23/2024 Jules Fermin ASSESSMENTS Encounter Date Diagnosis Assessment Notes Treatment Notes Treatment Clinical Notes 09/10/2024 Esophagism (ICD-10 - K22.4) PLAN OF TREATMENT Pending Test Test Name Order Date BUN 05/08/2017 CREATININE 05/08/2017 GIARDIA AG, STOOL EIA 06/04/2023 STOOL WBC 06/04/2023 C DIFFICILE RFLX PCR 06/04/2023 Future Test Test Name Order Date COLONOSCOPY 03/05/2012 COLONOSCOPY 04/17/2017 COLONOSCOPY 07/17/2023 UPPER GI ENDOSCOPY 09/10/2024 Next Appt Details Provider Name:Luke lawrence , 11/27/2024 10:00:00 AM, [address] [place] [address] , [place], [place], [phone], Insurance Providers Payer Name Payer Address Payer Phone Subscriber Number Group Number Insured Name Patient Relationship to Insured Coverage Start Date Coverage End Date [place]ARE OF [place] [address] [facility] [place] [id number] DUONG MYLES Self - patient is the insured MEDEX ATTN CLAIMS [address] [place] [address] [phone] [id number] DUONG MYLES Self - patient is the insured MEDICAL (GENERAL) HISTORY Medical History History ICD Code Irritable bowel syndrome----lactose into lerance Hyperlipidemia HTN Denies [place],DM,CVA,Lung disease,renal dise ase Colonoscopy in 03/2012--1 sma [...] Small aortic aneurysm Afib-seetanika Crabtree-Cardioverted 05/2023 Melanoma [id number] by Dr. Yair sagastume Thrombocytopenia--ITP--erica Angela--treated with prednisone but will be going on a different med as of the 06/2023 OV Surgical History Surgery Date(Month/Year) Melanoma RUE-Dr. Queen--neg. lymph node s 11/2022
--- OUTSIDE RECORDS SUMMARY | 2024-11-03 08:44 | XMS_ITS ---
Author Organization [facility] Address [address] [place] [address] Care Team Providers Care Monorail Car Operator Name Role Phone Josh Kelly MD Primary Care Provider Jules Kirk Unavailable [phone] ALLERGIES Allergen (clinical drug ingredient) Drug/Non Drug [...] Unknown Encounters Encounter Location Date Provider Diagnosis [facility] [address] [place] [phone] 09/23/2024 Jules Fermin PLAN OF TREATMENT Next Appt Details Provider Name:Luke lawrence Jr, 11/27/2024 10:00:00 AM, [address] [place] [address] , [place], [place], [phone],
--- OUTSIDE RECORDS SUMMARY | 2024-11-03 08:44 | XMS_ITS | Clinical Summary ---
Author Organization [facility] Address [address] [place] [address] Care Team Providers Care Database Support Name Role Phone Josh Kelly Primary Care Provider Josh Carr Unavailable Unavailable Allergies Active Allergy Reactions Severity Noted Date Comments Penicillins Hives/Urticaria 02/17/2019 Medications Medication Sig Dispensed Refills Start Date End Date Status simvastatin (ZOCOR) 20 MG tablet Take 20 mg by mouth at bedtime. 0 Active lisinopril (PRINIVIL,ZESTRIL) 5 MG tablet Take 5 mg by mouth daily. 0 Active Active Problems Problem Noted Date History of actinic keratoses 02/17/2019 Overview: Actinic keratoses Essential hypertension, benign 3 Overview: 11/25 normal LVSF with EF 60-65%, diastolic dysfunction, mild aortic valve sclerosis no stenosis Improved from one year prior which revealed moderate LVH Other and unspecified hyperlipidemia 03/2013 Obesity, unspecified 09/22/2012 Obstructive sleep apnea 09/22/2012 Chest pain, unspecified 09/22/2012 Overview: 06/24 nuclear stress test was negative for ischemia Sleep apnea, severe 07/31/2010 HTN (hypertension) 07/31/2010 Obesity 07/31/2010 Social History Tobacco Use Types Packs/Day Years Used Date Smoking Tobacco: Never Assessed Sex Assigned at Date Recorded Not on file Job Start Date Occupation Industry Not on file Not on file Not on file Last Filed Vital Signs Vital Sign Reading Time Taken Comments Blood Pressure 106/70 08/18/2020 8:09 AM EST Pulse 84 08/18/2020 8:09 AM EST Temperature - - Respiratory Rate 12 03/18/2015 10:14 AM EDT Oxygen Saturation 98% 07/31/2010 1:53 PM EST Inhaled Oxygen Concentration - - Weight 124.7 kg (275 lb) 08/18/2020 8:09 AM EST Height - - Body Mass Index - - Plan of Treatment Health Maintenance Due Date Last Done Comments Covid-19 Vaccine (#1) 06/04/1956 DEPRESSION SCREEN 1965 HEPATITIS C SCREENING 12/03/1971 TOBACCO CHECK/ADVISE 12/03/1971 DTAP/TDAP/TD (1 - Tdap) 1972 CHOLESTEROL SCREENING 1973 COLON CANCER SCREENING 12/03/2003 SHINGLES VACCINE (1 of 2) 12/03/2003 FALL RISK ASSESSMENT 2018 PNEUMOCOCCAL VACCINE (1 - PCV) 2018 INFLUENZA (#1) 2024 BMI CHECK/ADVISE 09/16/2024 Care Teams Database Support Relationship Specialty Start Date End Date Josh Kelly PCP - General Internal Medicine 11/28/11 Josh Kelly Internal Medicine 11/28/11
--- OUTSIDE RECORDS SUMMARY | 2024-11-03 08:44 | XMS_ITS ---
Author Organization [facility] Address [address] [place] [phone] Care Team Providers Care Residential Caregiver Name Role Phone Josh Kelly MD Primary Care Provider Jules Kirk Unavailable [phone] REASON FOR VISIT emergent egd MEDICATIONS Medication SIG (Take, Route, Fr equency, Duration) Notes Start Date End Date Status Omeprazole 40 MG 1 capsule 1/2 to 1 h our before morning meal Orally Once a day for 30 day(s) 09/10/2024 Active PROBLEMS Problem Type ICD Code Onset Dates Problem Status W/U Status Risk SNOMED Code Notes Problem Esophagism (K22.4) Active confirmed 526755939 Encounters Encounter Location Date Provider Diagnosis [facility] [address] [place] [phone] 09/10/2024 Jules Fermin Esophagism K22.4 ASSESSMENTS Encounter [...] Provider Name:Luke lawrence Jr, 11/27/2024 10:00:00 AM, [address] [place] [address] , [place], [place], [phone],
--- OUTSIDE RECORDS SUMMARY | 2024-11-03 08:44 | XMS_ITS ---
Author Organization [facility] Address [address] [place] [address] Care Team Providers Care Consulting Services Associate Name Role Phone Josh Kelly MD Primary Care Provider Jules Kirk Unavailable [phone] REASON FOR VISIT screening, hx polyps PROBLEMS Problem Type ICD Code Onset Dates Problem Status W/U Status Risk SNOMED Code Notes Problem Diverticulosis of large intestine without perforation or abscess without bleeding (K57.30) Active confirmed Diverticul ar disease of colon (046863069) Encounters Encounter Location Date Provider Diagnosis [facility] [facility] [address] [place] [phone] 10/23/2023 Jules Fermin Encounter for scre ening [...] Provider Name:Luke lawrence Jr, 11/27/2024 10:00:00 AM, [address] [place] [address] , [place], [place], [phone],
--- OUTSIDE RECORDS SUMMARY | 2024-11-03 08:44 | XMS_ITS | Encounter Summary ---
Author Organization [facility] Address [address] [place] [address] Care Team Providers Care Fish Warden Name Role Phone Josh Kelly Primary Care Provider Josh Carr Unavailable Unavailable Encounter Details Date Type Department Care Team Description 02/17/2019 Business Doc Medical Records [address] [place] [address] Abstract, Provider Social History Tobacco Use Types Packs/Day Years Used Date Smoking Tobacco: Never Assessed Sex Assigned at Date Recorded Not on file Job Start Date Occupation Industry Not on file Not on file Not on file documented as of this encounter Plan of Treatment Not on file documented as of this encounter Visit Diagnoses Not on filedocumented in this encounter Care Teams Fish Warden Relationship Specialty Start Date End Date Josh Kelly PCP - General Internal Medicine 11/28/11 Josh Kelly Internal Medicine 11/28/11 documented as of this encounter
--- OUTSIDE RECORDS SUMMARY | 2024-11-03 08:44 | XMS_ITS | Encounter Summary ---
Author Organization [facility] Address [address] [place] [address] Care Team Providers Care Community Engagement Manager Name Role Phone Josh Kelly Primary Care Provider Josh Carr Unavailable Unavailable Encounter Details Date Type Department Care Team Description 03/21/2015 Release of Information Medical Records [address] [place] [address] Abstract, Provider Social History Tobacco Use Types Packs/Day Years Used Date Smoking Tobacco: Never Assessed Sex Assigned at Date Recorded Not on file Job Start Date Occupation Industry Not on file Not on file Not on file documented as of this encounter Plan of Treatment Not on file documented as of this encounter Visit Diagnoses Not on filedocumented in this encounter Care Teams Community Engagement Manager Relationship Specialty Start Date End Date Josh Kelly PCP - General Internal Medicine 11/28/11 Josh Kelly Internal Medicine 11/28/11 documented as of this encounter
--- OUTSIDE RECORDS SUMMARY | 2024-11-03 08:44 | XMS_ITS | Encounter Summary ---
Author Organization [facility] Address [address] [place] [address] Care Team Providers Care Operations Plant Attendant Name Role Phone Josh Kelly Primary Care Provider Josh Carr Unavailable Unavailable Encounter Details Date Type Department Care Team Description 08/26/2020 Business Doc Medical Records [address] [place] [address] Abstract, Provider Social History Tobacco Use Types Packs/Day Years Used Date Smoking Tobacco: Never Assessed Sex Assigned at Date Recorded Not on file Job Start Date Occupation Industry Not on file Not on file Not on file COVID-19 Exposure Response Date Recorded In the last month, have you been in contact with someone who was confirmed or suspected to have Coronavirus / COVID-19? No / Unsure 08/18/2020 7:54 AM EST documented as of this encounter Plan of Treatment Not on file documented as of this encounter Visit Diagnoses Not on filedocumented in this encounter Care Teams Operations Plant Attendant Relationship Specialty Start Date End Date Josh Kelly PCP - General Internal Medicine 11/28/11 Josh Kelly Internal Medicine 11/28/11 documented as of this encounter
--- OUTSIDE RECORDS SUMMARY | 2024-11-03 08:45 | XMS_ITS | Encounter Summary ---
Author Organization [facility] Address [address] [place] [address] Care Team Providers Care Clinic Lpn Name Role Phone Josh Kelly Primary Care Provider Josh Carr Primary Care Provider Josh Carr Unavailable Unavailable Encounter Details Date Type Department Care Team Description 08/06/2010 Transfer Records Medical Records [address] [place] [address] Abstract, Provider Social History Tobacco Use Types Packs/Day Years Used Date Smoking Tobacco: Never Alcohol Use Standard Drinks/Week Comments Not Asked 0 (1 standard drink = 0.6 oz pur e alcohol) Sex Assigned at Date Recorded Not on file Job Start Date Occupation Industry Not on file Not on file Not on file documented as of this encounter Plan of Treatment Not on file documented as of this encounter Visit Diagnoses Not on filedocumented in this encounter Care Teams Clinic Lpn Relationship Specialty Start Date End Date Josh Kelly PCP - General Internal Medicine 07/25/10 11/27/11 Josh Kelly PCP - General Internal Medicine 11/28/11 Josh Kelly Internal Medicine 11/28/11 documented as of this encounter
== END ==
LOC: HO.CARD 08:25
PROVIDERS: PCP Nurse Practitioner Family; Visit Provider Nurse Practitioner Family
DX: I48.0 Paroxysmal atrial fibrillation (principal)
CPT/HCPCS: 93242

== ENCOUNTER 2024-11-10 08:34 | Outpatient (AMB) | payer MEDICARE, SELFPAY ==
--- NOTE | 2024-11-10 08:39 | A.OFFVIS_ITS ---
Vital Signs 11/10/24 08:40 Height 6 ft 4 in Weight 266 lb 12.149 oz BMI 32.5 BP 120/78 Blood Pressure Location Lt brachial Position Sitting Pulse 50 Intake Visit Reasons: Follow-up CVR / holter with ekg Intake Note: Follow-up post CVR after holter with ekg feeling good Catcher Filter Tip Required: No Outside Dealer Sales Representative: Outside Dealer Sales Representative Present Accompanied by: Spouse Allergies amoxicillin Allergy (Intermediate, Verified 11/09/24 08:14) Gastrointestinal Upset Penicillins Allergy (Intermediate, Verified 11/09/24 08:14) Gastrointestinal Upset HPI Comments Details: Yandel comes for follow-up. He has been doing well. He was not notice any new symptoms. Does not notice any difference well in sinus rhythm. Holter monitor results are pending. However notices that his heart rate is frequently in the 50s occasionally in the mid 40s. No symptoms of lightheadedness, tiredness, syncope. No symptoms of orthopnea, PND, leg edema. No bleeding issues or neurologic events. Plan to undergo GI procedure on November 27 for dysphagia. His platelet counts has been in 120. [facility] Medical History Atrial fibrillation Malignant melanoma Thrombocytopenia Elevated cholesterol History of cardioversion (~06/12/23) Sleep apnea Enlarged thoracic aorta Hypertensive heart disease HTN (hypertension) Surgical History H/O colonoscopy History of melanoma excision (~11/12/22) Family History Father No problems noted. Mother CVD (cardiovascular disease) Social History Household Members: Spouse and Children Housing: House Are you a primary childcare teacher to a significant other at home: No Do you presently have visiting nurse or other home services: No Patient Tobacco Use Status: Never used Tobacco e-Cigarette/Vaping Use: Never Used service: No Current occupational status: retired Cognitive needs: No Hearing needs: No Vision needs: Yes Review of Systems Const Denies chills, Denies fatigue, Denies fever(s), Denies frequent falls, Denies weakness, Denies weight gain and Denies weight loss ENT Denies dizziness Card Denies chest pain, Denies leg edema, Denies lightheadedness, Denies palpitations, Denies dyspnea, Denies dyspnea on exertion, Denies orthopnea and Denies other (loss of consciousness) Resp Denies cough, Denies dyspnea and Denies dyspnea on exertion GI Denies hematochezia and Denies change in stool character Musc Denies abnormal gait, Denies muscle weakness, Denies numbness, Denies radiating pain into limb and Denies tingling Neuro Denies abnormal gait, Denies dizziness, Denies frequent falls, Denies numbness, Denies tingling and Denies weakness Endo Denies fatigue and Denies palpitations Physical Exam Vital Signs: Last Vital Signs Pulse 50 11/10/24 08:40 BP 120/78 11/10/24 08:40 BMI result Body Mass Index 32.5 Const General: cooperative, healthy appearing, comfortable and no acute distress Orientation/consciousness: patient oriented x3 Neck Neck: Yes normal visual inspection and Yes no JVD Resp Effort & Inspection: normal respiratory effort Auscultation: clear to auscultation bilaterally, no crackles, no rales, no rhonchi and no wheezes Cardio Jugular venous distension: no JVD Rate: bradycardic Rhythm: regular rhythm Heart sounds: S1 normal heart sound present, S2 normal heart sound present, no gallops, no murmurs and no rubs Neuro General: patient oriented x3 Extrem General: Yes normal to inspection, No no pedal edema and No calf tenderness Psych Appearance: grossly normal Mental Status: mental status grossly normal Speech and movement: Normal speech and movement present Office Procedures EKG Details: EKG shows normal sinus rhythm at 50 beats per minute with first-degree AV block with poor R-wave progression most likely lead placement with minimal voltage criteria for LVH [id number], Complete Assessment & Plan Assessment & Plan (1) Paroxysmal atrial fibrillation: Code(s): I48.0 - Paroxysmal atrial fibrillation Category: Medical Plan: Paroxysmal atrial fibrillation maintaining rhythm on current therapy with Multaq. We discussed about rhythm control with rate control. Will pursue rhythm control approach given his age. Continue Multaq therapy. Noted sinus bradycardia. Will reduce his metoprolol to 25 mg daily. Advised to continue monitor pulse at home. Continue full oral anticoagulation, currently on Xarelto 20 mg daily. Semi annual renal function test should be pursued. Advised to call me with recurrent atrial fibrillation. Continue aggressive risk factor modification with continued participate in weight loss program and aggressive control blood pressure. (2) Enlarged thoracic aorta: Comment: 3.99 cm by echocardiogram, May 2020 Code(s): I77.89 - Other specified disorders of arteries and arterioles Category: Medical Plan: Mild thoracic aortic enlargement. Continue to monitor by echocardiogram on annual basis. Continue aggressive blood pressure control. No surgical intervention required at this point in time. (3) HTN (hypertension): Code(s): I10 - Essential (primary) hypertension Category: Medical Plan: Hypertension which is currently well optimized advised to monitor blood pressure at home and maintain a log. Goal blood pressure less than 130/84. Low-salt diet is recommended. Continue maintain activity level as tolerated. Continue to participate in aggressive weight loss program. Will follow up in the clinic in 3 months for EKG in 6 months with me. Thank you for allowing me to partake in his care Coding Level of Care Code Est Pt Level 4 (69181) Complex EM visit Add On G2211 Diagnoses Paroxysmal atrial fibrillation I48.0 Enlarged thoracic aorta I77.89 HTN (hypertension) I10 CPT Codes EKG - CPT: 21796-[id number], Complete ([id number])
[2024-11-10 08:40] VITALS: BP 120/78; PULSE 50; BMI 32.5
--- OUTSIDE RECORDS SUMMARY | 2024-11-10 09:06 | XMS_ITS ---
Author Organization [facility] Address [address] [place] [address] Care Team Providers Care Conference And Event Organiser Name Role Phone Josh Kelly MD Primary Care Provider Jules Kirk Unavailable [phone] ALLERGIES Allergen (clinical drug ingredient) Drug/Non Drug [...] Unknown Encounters Encounter Location Date Provider Diagnosis [facility] [address] [place] [phone] 09/23/2024 Jules Fermin PLAN OF TREATMENT Next Appt Details Provider Name:Luke lawrence Jr, 11/27/2024 10:00:00 AM, [address] [place] [address] , [place], [place], [phone],
--- OUTSIDE RECORDS SUMMARY | 2024-11-10 09:06 | XMS_ITS ---
Author Organization [facility] Address [address] [place] [address] Care Team Providers Care Senior Medical Billing Specialist Name Role Phone Josh Kelly MD Primary Care Provider Jules Kirk Unavailable [phone] REASON FOR VISIT screening, hx polyps PROBLEMS Problem Type ICD Code Onset Dates Problem Status W/U Status Risk SNOMED Code Notes Problem Diverticulosis of large intestine without perforation or abscess without bleeding (K57.30) Active confirmed Diverticul ar disease of colon (516725867) Encounters Encounter Location Date Provider Diagnosis [facility] [place] [address] [place] [phone] 10/23/2023 Jules Fermin Encounter for scre ening [...] Provider Name:Luke lawrence Jr, 11/27/2024 10:00:00 AM, [address] [place] [address] , [place], [place], [phone],
--- OUTSIDE RECORDS SUMMARY | 2024-11-10 09:06 | XMS_ITS | Patient Health Record ---
Author Organization [facility] Address [address] [place] [address] Care Team Providers Care Stage Builder Name Role Phone Josh Kelly MD Primary Care Provider Jules Kirk Unavailable [phone] ALLERGIES Allergen (clinical drug ingredient) Drug/Non Drug [...] Problem Colon cancer screening (Z12.11) Active confirmed 013258376 Problem History of adenomatous polyp of colon (Z86.010) Active confirmed 588760259 Problem Weight loss (R63.4) Active confirmed 812222715 Problem Diverticulosis of large intestine without perforation or abscess without bleeding (K57.30) Active confirmed Diverticul ar disease of colon (053929774) Problem Anticoagulant long-term use (Z79.01) Active confirmed 522130751 Problem Liver cyst (K76.89) Active confirmed 05151742 Problem Diarrhea, unspecified type (R19.7) Active confirmed 91905898 Problem Renal cyst (N28.1) Active confirmed 722 605228 Problem Diarrhea of presumed infectious origin (R19.7) Active confirmed 41013275 Problem Esophagism (K22.4) Active confirmed 266 521373 Encounters Encounter Location Date Provider Diagnosis [facility] [address] [place] [phone] 09/10/2024 Jules Fermin Esophagism K22.4 [facility] [address] [place] [phone] 09/23/2024 Jules Fermin ASSESSMENTS Encounter Date Diagnosis [...] Provider Name:Luke lawrence , 11/27/2024 10:00:00 AM, [address] [place] [address] , [place], [place], [phone], Insurance Providers Payer Name Payer Address Payer Phone Subscriber Number Group Number Insured Name Patient Relationship to Insured Coverage Start Date Coverage End Date MEDICARE OF [place] [address] [facility] [place] [id number] DUONG MYLES Self - patient is the insured MEDEX ATTN CLAIMS [address] [place] [address] [phone] [id number] DUONG MYLES Self - patient is the insured MEDICAL (GENERAL) HISTORY Medical History History ICD Code Irritable bowel syndrome----lactose into lerance Hyperlipidemia HTN Denies MD,DM,CVA,Lung disease,renal dise ase Colonoscopy in 03/2012--1 sma [...] Small aortic aneurysm Afib-seetanika Crabtree-Cardioverted 05/2023 Melanoma 11/20229421-YIL-wjotbuw by Dr. Yair sagastume Thrombocytopenia--ITP--erica Angela--treated with prednisone but will be going on a different med as of the 06/2023 OV Surgical History Surgery Date(Month/Year) Melanoma RUE-Dr. Queen--neg. lymph node s 11/2022
--- OUTSIDE RECORDS SUMMARY | 2024-11-10 09:06 | XMS_ITS | Data Portability ---
Author Organization [place] [facility] Address [address] [place] [phone] Assessment Encounter Date Assessment Date Assessment LastModified by Organization Details LastModified Time 02/05/2024 02/05/2024 Follow up in two to four weeks to discuss progress and address any concerns. The patient was also encouraged to utilize our drop-off servicing system in the unfortunate event that something happens to their device and/or to contact me through phone or email at their convenience. [email or web address] Not available 02/05/2024 09:13:39 Plan of Treatment Reminders Order Date Submit Date Provider Last Modified By Organization Details Last Modified Time Details Appointments None record ed. Lab None record ed. Referral None record ed. Procedures None record ed. Surgeries None record ed. Imaging None record ed. Medication Orders None record ed. Patient TargetsNo targets recorded. Patient InstructionsNo instructions recorded. Reason for Referral None Reported. Results Created Date Observation Date Name Description Value Unit Range Abnormal Flag Note LastModifiedBy Organization Detail LastModifiedTime 05/05/20 24 12/25/2023 cesarioi ng/oksana shayos tic resul t No observ ation record ed. [email or web address] Not Available 20:43:39 05/05/20 24 12/25/2023 audio gram No observ ation record ed. [email or web address] Not Available 20:44:10 05/05/20 24 07/11/2020 audio gram No observ ation record ed. [email or web address] Not Available 20:44:15 Result Notes None recorded. Problems Name Problem SNOMED Code Status Onset Date Resolution Date Notes Provider Name and Address Organization Details Recorded Time Sensorine ural hearing loss of bilateral ears 934932872 Active 2015 Sensorineu ral hearing loss, bilateral; Note: Date Diagnosed: 03/05/2016 11:40 AM (H90.3) Not Available [facility] 02:14:48 Problem Notes None recorded. Procedures Surgical History None recorded. Imaging Results Imaging Date Name Status [facility]Modified by [facility] Details LastModified Time 12/25/2023 imaging/diagno stic result completed [email or web address] Information not available 05/05/2024 20:43:39 12/25/2023 audiogram completed [email or web address] Information not available 05/05/2024 20:44:10 07/11/2020 audiogram completed [email or web address] Information not available 05/05/2024 20:44:15 Procedure Notes None recorded. Medical Equipment None Reported. Medications Name Sig Start Date Stop Date Status Note LastModified by Organization Details LastModified Time atorvastatin 40 mg tablet TAKE ONE TABLET BY MOUTH EVERY DAY active Not Available Not Available No t Available metoprolol succinate ER 50 mg tablet,extend ed release 24 hr TAKE ONE TABLET BY MOUTH EVERY DAY active Not Available Not Available No t Available famotidine 40 mg tablet TAKE ONE TABLET BY MOUTH EVERY DAY IN THE EVENING active Not Available Not Available No t Available prednisone 20 mg tablet TAKE FOUR TABLETS BY MOUTH EVERY DAY DIRECTED active Not Available Not Available No t Available prednisone 5 mg tablet TAKE ONE TABLET BY MOUTH EVERY DAY DIRECTED. SEE TAPER INSTRUCTIO NS. active Not Available Not Available No t Available amlodipine 2.5 mg tablet active Not Available Not Availabl e Not Available omeprazole 40 mg capsule,delay ed release TAKE ONE CAPSULE BY MOUTH EVERY DAY WHILE TAKING STEROID; THEN DECREASE TO THE 20MG RX DAILY active Not Available Not Available No t Available omeprazole 20 mg capsule,delay ed release active Not Available Not Available N ot Available lisinopril 5 mg tablet active Not Available Not Available No t Available albuterol sulfate HFA 90 mcg/actuation aerosol inhaler INHALE TWO PUFFS BY MOUTH EVERY 4 TO 6 HOURS NEEDED FOR SHORTNESS OF BREATH OR WHEEZING active Not Available Not Available No t Available amoxicillin 875 mg-potassium clavulanate 125 mg tablet TAKE 1 TABLET BY MOUTH TWICE DAILY active Not Available Not Available No t Available Xarelto 20 mg tablet TAKE ONE TABLET BY MOUTH EVERY DAY active Not Available Not Available No t Available Doptelet (15 tab pack) 20 mg tablet active Not Available Not Available No t Available Vitals None Recorded Social History None recorded. Functional Status None recorded. Mental Status None recorded. Family History Nothing Reported. Medical History No medical history recorded. Past Encounters Encounter ID Performer Location Encounter Start Date Encounter Closed Date Diagnosis/Indication Diagnosis SNOMED-CT Code Diagnosis ICD10 Code Diagnosis Note [id number] [facility] [place] [address] [facility],[place] [address] [place] [address] 02/05/2024 08:55:06 03/06/2024 08:41:17 Sensorineural hearing loss of bilateral ears 284486334 H90.3 [id number] [facility] [place] [address] [facility],[place] [address] [place] [address] 02/18/2024 14:31:41 03/06/2024 08:43:15 Sensorineural hearing loss of bilateral ears 343933435 H90.3 Health Concerns Section Related Observation LastModified by Organization Detai ls LastModified Time None Recorded Concern Status LastModified by Organization Details LastModified Time None Recorded Advance Directives Directive None Recorded Payers Encounter Date Sequence Insurance Name Policy Number Policy Arias Covered Member ID Arias Member ID Guarantor Name 02/05/2024 2 [place] [id number] Mick Vela [id number] Mick Vela 02/05/2024 1 [place] [employer] Mick Vela [id number] Mick Vela 02/18/2024 2 [place] [id number] Mick Vela [id number] Mick Vela 02/18/2024 1 [place] Mick Vela [id number] 1 Mick Vela Notes Date Note Type Note Provider Name and Address Organization Details Recorded Time 02/05/2024 text/html {{Patient return s for a fitting of amplification as a first time user. Today's visit will focus on educating the patient on how to use the devices. We will also be ensuring that the patient has adequate audibility and an improvement in clarity, while not raising the volume to an extent that the sound is uncomfortable. Patien t returns for a fitting of amplification as a previous user of amplification. Today's visit will focus on the differences between the patient's older model and their new one, as well as programming the hearing aid to ensure that it is providing the best outcome.*}} The devices were programmed wirelessly using the finishing room supervisor software in [employer]. {{We reviewed using real-ear verification and fine-tuning to best match the patient's hearing needs in order to obtain the best outcome. Given that the patient is a new user, we will perform this measurement at our next visit. Real-ear verification was performed and the devices were fine-tuned to maximize the patient's ability to hear speech.*}} The patient's old right device was under target below 2000 Hz but gain was raised until target was reached. Discussed acclimatization to new setting. The patient's concerns about using the devices were discussed. We reviewed the device options and what accessories are included. Changing the wax filter was demonstrated. At the end of the visit, the patient was able to put them on and remove them without pain or discomfort. MARGIE JUAREZ, [address], [address], [facility] 02/17/2024 11:01:12 02/18/2024 text/html Patient returns for a follow up fitting of amplification as a {{first time user. longstanding user of the same style devices.* longstandin g user of different devices.}} The focus of our follow up fitting is ensuring that the patient knows how to use the devices to the best of their ability and that the devices are programmed to maximize audibility and amplification of speech. The devices were programmed wirelessly using the finishing room supervisor software in [employer]. Real-ear verification {{was performed and gain was adjusted until the output of the hearing aid amplified speech frequencies adequately was previously performed.*}} Any remaining concerns about using the devices were discussed. Patient reports a louder, clearer startup sheyla in the left ear but this is due to the severity of hearing loss in the right ear and cannot be improved on. Follow up annually for cleaning and servicing of the devices, as well as monitoring patient's hearing. The patient was also encouraged to utilize our drop-off servicing system in the unfortunate event that something happens to their device and/or to contact me through phone or email at their convenience. MARGIE JUAREZ, [address],[place] [address], [place], [address], [place] [facility] 02/18/2024 14:37:11
--- OUTSIDE RECORDS SUMMARY | 2024-11-10 09:06 | XMS_ITS ---
Author Organization [facility] Address [address] [place] [address] Care Team Providers Care Clinical Documentation Clerk Name Role Phone Josh Kelly MD Primary Care Provider Jules Kirk Unavailable [phone] REASON FOR VISIT emergent egd MEDICATIONS Medication SIG (Take, Route, Fr equency, Duration) Notes Start Date End Date Status Omeprazole 40 MG 1 capsule 1/2 to 1 h our before morning meal Orally Once a day for 30 day(s) 09/10/2024 Active PROBLEMS Problem Type ICD Code Onset Dates Problem Status W/U Status Risk SNOMED Code Notes Problem Esophagism (K22.4) Active confirmed 494654402 Encounters Encounter Location Date Provider Diagnosis [facility] [address] [place] [phone] 09/10/2024 Jules Fermin Esophagism K22.4 ASSESSMENTS Encounter [...] Provider Name:Luke lawrence Jr, 11/27/2024 10:00:00 AM, [address] [place] [address] , [place], [place], [phone],
== END 2024-11-10 09:08 | disposition home or self-care (01) ==
PROVIDERS: PCP Nurse Practitioner Family; Visit Provider Internal Medicine Cardiovascular Disease
DX: I48.0 Paroxysmal atrial fibrillation (principal); I77.89 Other specified disorders of arteries and arterioles; I10 Essential (primary) hypertension
CPT/HCPCS: 93010; 99214; G2211

== ENCOUNTER → 2024-11-10 08:34 | Outpatient (BNVA) | payer MEDICARE, SELFPAY | PROVIDERS: PCP Nurse Practitioner Family; Visit Provider Internal Medicine Cardiovascular Disease | DX: I48.0 Paroxysmal atrial fibrillation (principal); I77.89 Other specified disorders of arteries and arterioles; I10 Essential (primary) hypertension | CPT/HCPCS: 93005; 99212 ==

== ENCOUNTER 2024-11-27 08:22 | Day surgery (SDC) | payer MEDICARE, SELFPAY ==
--- OUTSIDE RECORDS SUMMARY | 2024-09-11 06:15 | XMS_ITS | Patient Health Record ---
Author Organization [facility] Address [address] [place] [address] Care Team Providers Care Ice Skater Name Role Phone Josh Kelly MD Primary Care Provider Jules Kirk Unavailable [phone] ALLERGIES Allergen (clinical drug ingredient) Drug/Non Drug Allergy documented on EMR Reaction Allergy Type Onset Date Status Penicillin Unknown Drug Allergy Active hay fever (uncoded) Unknown Allergy Active RESULTS Component Value Reference Range Notes Pathology (Not yet reviewed by provider) Interpretation: Performing Lab:[facility], [address] [place] [id number] Notes/Report: REASON FOR REFERRAL No Information MEDICATIONS Medication SIG (Take, Route, Frequency, Duration) Notes Start Date End Date Status prednisoLONE 5 MG 1 tablet in the morning with food or milk Orally Once a day for 30 day(s) Active Omeprazole 40 MG 1 capsule 1/2 to 1 hour before morning meal Orally Once a day for 30 day(s) 09/10/2024 Active Famotidine 40 MG TAKE ONE TABLET BY MOUTH EVERY DAY IN THE EVENING for 30 Active Atorvastatin Calcium 40 MG 1 tablet Oral ly Once a day for 30 day(s) Active Lisinopril 5 MG 1 tablet Orally Once a day Active Allergy adam Active Metoprolol Succinate 50 MG as directed Orally Active hydroCHLOROthiazide Not-Taking Vitamin D 1000 UNIT 1 tablet Orally Once a day for 30 day(s) Active ZyrTEC 10 MG 1 tablet Orally [...] Problem Colon cancer screening (Z12.11) Active confirmed 776922731 Problem History of adenomatous polyp of colon (Z86.010) Active confirmed 172420079 Problem Weight loss (R63.4) Active confirmed 008581122 Problem Diverticulosis of large intestine without perforation or abscess without bleeding (K57.30) Active confirmed Diverticul ar disease of colon (858706004) Problem Anticoagulant long-term use (Z79.01) Active confirmed 761677755 Problem Liver cyst (K76.89) Active confirmed 69243688 Problem Diarrhea, unspecified type (R19.7) Active confirmed 39129196 Problem Renal cyst (N28.1) Active confirmed 722 195651 Problem Diarrhea of presumed infectious origin (R19.7) Active confirmed 09993968 Problem Esophagism (K22.4) Active confirmed 266 965193 Encounters Encounter Location Date Provider Diagnosis [facility] [place] Outpatient [address] [place] [phone] 10/23/2023 Jules Fermin Encounter for screen ing colonoscopy Z12.11 ; Colon polyps K63.5 ; Diverticulosis of large intestine without perforation or abscess without bleeding K57.30 and Other hemorrhoids K64.8 [facility] [address] [place] [phone] 10/21/2023 Jules Fermin [facility] [address] [place] [phone] 09/10/2024 Jules Fermin Esophagism K22.4 ASSESSMENTS Encounter Date Diagnosis Assessment Notes Treatment Notes Treatment Clinical Notes 10/23/2023 Encounter for screening colonoscopy (ICD-10 - Z12.11) 10/23/2023 Colon polyps (ICD-10 - K63.5) 09/10/2024 Esophagism (ICD-10 - K22.4) 10/23/2023 Diverticulosis of large intestine without perforation or abscess without bleeding (ICD-10 - K57.30) 10/23/2023 Other hemorrhoids (ICD-10 - K64.8) PLAN OF TREATMENT Pending Test Test Name Order Date BUN 05/08/2017 CREATININE 05/08/2017 GIARDIA AG, STOOL EIA 06/04/2023 STOOL WBC 06/04/2023 C DIFFICILE RFLX PCR 06/04/2023 Pathology 10/23/2023 Future Test Test Name Order Date COLONOSCOPY 03/05/2012 COLONOSCOPY 04/17/2017 COLONOSCOPY 07/17/2023 UPPER GI ENDOSCOPY 09/10/2024 Next Appt Details Provider Name:Luke lawrence , 10/30/2024 09:10:00 AM, [address] [place] [address] , [place], [place], [phone], Insurance Providers Payer Name Payer Address Payer Phone Subscriber Number Group Number Insured Name Patient Relationship to Insured Coverage Start Date Coverage End Date MEDICARE OF [place] [address] [place] [address] [phone] [id number] DUONG MYLES Self - patient is the insured MEDEX ATTN CLAIMS [address] [place] [address] [id number] DUONG MYLES Self - patient is the insured MEDICAL (GENERAL) HISTORY Medical History History ICD Code Irritable bowel syndrome----lactose into lerance Hyperlipidemia HTN Denies [place],DM,CVA,Lung disease,renal dise ase Colonoscopy in 03/2012--1 sma ll tubular adenoma, diverticulosis, internal hemorrhoids Hx of sleep apnea--but not using CPAP Colonoscopy in April for the evaluation of diarrhea and weight loss was completely normal, including biopsies of the colon and terminal ileum--- celiac disease serologies were negative; CAT scan and ultrasound of the abdomen were nonrevealing----his diarrhea spontaneously resolved Small aortic aneurysm Afib-sees Dr. Crabtree-Cardioverted 05/2023 Melanoma [id number] by Dr. Yair sagastume Thrombocytopenia--ITP--erica Angela--treated with prednisone but will be going on a different med as of the 06/2023 OV Surgical History Surgery Date(Month/Year) Melanoma RUE-Dr. Queen--neg. lymph node s 11/2022
--- OUTSIDE RECORDS SUMMARY | 2024-09-11 06:15 | XMS_ITS ---
Author Organization [facility] Address [address] [place] [address] Care Team Providers Care Lens Assistant Name Role Phone Josh Kelly MD Primary Care Provider Jules Kirk Unavailable [phone] REASON FOR VISIT screening, hx polyps PROBLEMS Problem Type ICD Code Onset Dates Problem Status W/U Status Risk SNOMED Code Notes Problem Diverticulosis of large intestine without perforation or abscess without bleeding (K57.30) Active confirmed Diverticul ar disease of colon (001712494) Encounters Encounter Location Date Provider Diagnosis [facility] [place] [place] Outpatient [address] [place] [phone] 10/23/2023 Jules Fermin Encounter for scre ening [...] hemorrhoids (ICD-10 - K64.8) PLAN OF TREATMENT Next Appt Details Provider Name:Luke lawrence Jr, 10/30/2024 09:10:00 AM, [address] [place] [address], [phone],
--- OUTSIDE RECORDS SUMMARY | 2024-09-11 06:15 | XMS_ITS ---
Author Organization [facility] Address [address] [place] [phone] Care Team Providers Care Gang Supervisor Name Role Phone Josh Kelly MD Primary Care Provider Jules Kirk [phone] REASON FOR VISIT NEED CLEARANCE FROM DR MONTAGUE'S OFFICE Encounters Encounter Location Date Provider Diagnosis [facility] [address] [place] [phone] 10/21/2023 Jules Fermin PLAN OF TREATMENT Next Appt Details Provider Name:Luke lawrence Jr, 10/30/2024 09:10:00 AM, [address] [place] [address] , [place], [place], [phone],
--- NOTE | 2024-11-25 13:57 | HO.ANESPROP2 ---
Documented by User: Jacki Parikh NP 11/25/24 13:58 HPI - Anesthesia Eval Consult details Narrative: 68yo M for Upper Endoscopy Follows [facility] Cardiology for afib (xarelto), TAA. Stable at 10/2024 office visit [facility] Active Problems Active Problems: All Active Problems Esophagus, foreign body (Acute) Paroxysmal atrial fibrillation (Acute) Atypical pneumonia (Acute) Elevated fasting blood sugar (Acute) Viral illness (Acute) Right shoulder pain (Acute) Numbness of left thumb (Acute) Fatty liver (Acute) Screening for prostate cancer (Acute) Acute ITP (Chronic) Severe thrombocytopenia (Acute) Thrombocytopenia (Acute) Abnormal lung sounds (Acute) History of COVID-19 (Acute) Chest congestion (Acute) SOB (shortness of breath) (Acute) Upper respiratory tract infection (Acute) Dizziness (Acute) Enlarged thoracic aorta (Acute) Hypertensive heart disease (Acute) HTN (hypertension) (Acute) Past Medical History Medical History History of cardioversion (10/07/24) Malignant melanoma Thrombocytopenia Elevated cholesterol History of cardioversion (~06/12/23) Sleep apnea Atrial fibrillation Enlarged thoracic aorta Hypertensive heart disease HTN (hypertension) Family History Family History Father No problems noted. Mother CVD (cardiovascular disease) Family history of problems with anesthesia: No Surgical History Surgical History History of esophagogastroduodenoscopy (EGD) (08/07/24) H/O colonoscopy History of melanoma excision (~11/12/22) History of Problems with Anesthesia: No Social History Social History Household Members: Spouse and Children Housing: House Are you a primary healthcare economics consultant to a significant other at home: No Do you presently have visiting nurse or other home services: No Patient Tobacco Use Status: Never used Tobacco e-Cigarette/Vaping Use: Never Used service: No Current occupational status: retired Cognitive needs: No Hearing needs: No Vision needs: Yes Meds Allergies Allergy/AdvReac Type Severity Reaction Status Date / Time amoxicillin Allergy Intermediate Gastrointestinal Verified 11/27/24 08:49 Upset Penicillins Allergy Intermediate Gastrointestinal Verified 11/27/24 08:49 Upset Home Medications ?Medication ?Instructions ?Recorded ?Confirmed ?Last Taken ?Type fexofenadine 180 mg tablet 180 mg PO DAILY 04/16/22 11/27/24 06/12/23 History (Ananya Allergy) omeprazole 40 mg capsule,delayed 40 mg PO DAILY 11/25/24 11/27/24 Unknown History release Exam Pertinent Lab Results Pertinent Lab Results: Laboratory Tests 11/09/24 08:12 WBC 5.9 Hgb 15.3 Hct 45.3 Plt Count 120 L D Sodium 140 Potassium 4.4 Chloride 111 H Carbon Dioxide 23 BUN 16 Creatinine 1.20 Narrative Narrative: EKG 10/2024 Details: EKG shows normal sinus rhythm at 50 beats per minute with first-degree AV block with poor R-wave progression most likely lead placement with minimal voltage criteria for LVH Assessment and Plan Assessment Anesthesia Assessment: Chart Reviewed Final Anesthetic Review Family History of Problems with Anesthesia: No History of Problems with Anesthesia: No Documented by User: George Jara MD 11/27/24 09:44 PMFSH Past Medical History Medical History History of cardioversion (10/07/24) Malignant melanoma Thrombocytopenia Elevated cholesterol History of cardioversion (~06/12/23) Sleep apnea Atrial fibrillation Enlarged thoracic aorta Hypertensive heart disease HTN (hypertension) Family History Family History Father No problems noted. Mother CVD (cardiovascular disease) Surgical History Surgical History History of esophagogastroduodenoscopy (EGD) (08/07/24) H/O colonoscopy History of melanoma excision (~11/12/22) Social History Social History Household Members: Spouse and Children Housing: House Are you a primary healthcare economics consultant to a significant other at home: No Do you presently have visiting nurse or other home services: No Patient Tobacco Use Status: Never used Tobacco e-Cigarette/Vaping Use: Never Used service: No Current occupational status: retired Cognitive needs: No Hearing needs: No Vision needs: Yes Meds Allergies Allergy/AdvReac Type Severity Reaction Status Date / Time amoxicillin Allergy Intermediate Gastrointestinal Verified 11/27/24 08:49 Upset Penicillins Allergy Intermediate Gastrointestinal Verified 11/27/24 08:49 Upset Home Medications ?Medication ?Instructions ?Recorded ?Confirmed ?Last Taken ?Type fexofenadine 180 mg tablet 180 mg PO DAILY 04/16/22 11/27/24 06/12/23 History (Ananya Allergy) omeprazole 40 mg capsule,delayed 40 mg PO DAILY 11/25/24 11/27/24 Unknown History release Exam Airway Mallampati Class: II TM Dist: <=3cm Loose/Missing/Broken Teeth: No Heart: ok Lungs: ok Assessment and Plan Assessment Anesthesia Assessment: Anesthesia Plan Discussed Final Anesthetic Review NPO: Yes ASA Class: III Final Preanesthetic Review: No Changes in Pt Med Stat, Meds/Allgs Chart Reviewed, Consent Obtained/Reviewed and Anes Risks/Benef Reviewed Patient Risk: Intermediate Procedure Risk: Intermediate Anesthetic Plan Anesthetic Plan: Agree w/ Assess. and Plan and TIVA Disposition: Standard PACU
[2024-11-25 16:44] VITALS: BMI 33.0
[2024-11-27 08:52] VITALS: BP 138/88; PULSE 59; RESP 18; TEMP 36.6; O2SAT 96; BMI 33.0
--- NOTE | 2024-11-27 09:37 | MHC.SHP ---
Pre-Procedural Eval Section A - 24 Hr Update-Section A only Date of Service: 11/27/24 Section B - Complete if H&P > 30 days Chief Complaint: Dyskinesia of esophagus,food bolus Details of Present Illness: see H&P no changes Relevant Family History (Specify if Yes): No Relevant Social History: None Present Medications: see Short Stay Collaborative assessment Medical History: No relevant PMH History of Previous Operations: No relevant previous surgery Allergies: Allergies Allergy/AdvReac Type Severity Reaction Status Date / Time amoxicillin Allergy Intermediate Gastrointestinal Verified 11/27/24 08:49 Upset Penicillins Allergy Intermediate Gastrointestinal Verified 11/27/24 08:49 Upset Review of Systems Sugical H&P ROS: Negative: Constitution, Cardiovascular, Respiratory, Neurological, Psychiatric, Hem-Onc, Allergic/Immunologic, Gastrointestinal, Genitourinary, Musculoskeletal, Integumentary, Endocrine and Eyes/Ears/Nose/Throat Exam Surgical H&P Exam: Normal: HEENT, Normal: Heart, Normal: Lungs, Normal: Extremities, Normal: Abdomen, Normal: Skin and Normal: Neurological Plan Diagnosis/Plan: Unchanged I have reviewed the history and physical and performed a pertinent physical examination on my patient. No changes have occurred unless specified. Time Spent With Patient Time: Total time managing care of this patient today ____ minutes.
[2024-11-27 10:14] VITALS: BP 93/61; PULSE 65; RESP 18; TEMP 36.3; O2SAT 94
[2024-11-27 10:29] VITALS: BP 106/68; PULSE 56; RESP 16; TEMP 36.3; O2SAT 95
--- NOTE | 2024-11-27 10:31 | OP_ITS ---
DATE OF SERVICE: 11/27/2024 SURGEON: Luke Hayes MD INDICATIONS: Dysphagia and history of food impaction. PREOPERATIVE DIAGNOSIS: POSTOPERATIVE DIAGNOSIS: PROCEDURE PERFORMED: Upper endoscopy with balloon dilation and biopsy. ESTIMATED BLOOD LOSS: COMPLICATIONS: ANESTHESIA: Monitored anesthesia care. ASSISTANTS: SPECIMENS: DESCRIPTION OF PROCEDURE: A history and physical performed. The risks and benefits of the procedure were explained to the patient. Informed consent was obtained. The patient was placed in the left lateral decubitus position. The Olympus videogastroscope was introduced into the esophagus, stomach, and duodenum. Examination was performed. The scope was removed. He tolerated the procedure well and was returned to recovery area in stable condition. FINDINGS: Esophagus: The esophagus showed a nonobstructive distal esophageal stricture just above the EG junction. There was no esophagitis. The scope passed through this. Stomach: The stomach showed no evidence of masses, ulcers, or polyps. Duodenum: The bulb and 2nd portion were normal. Balloon dilation of the esophageal stricture was performed for 60 seconds at a diameter of 20 mm with good mucosal disruption. The stricture was widely patent at the termination of the procedure. Biopsies were obtained from the antrum and from the distal esophagus. IMPRESSION: Esophageal stricture. RECOMMENDATIONS: Follow up with the biopsy results. MD MARIALUISA Romo/SARAH / [id number]
== END 2024-11-27 10:48 | disposition home or self-care (01) ==
PROVIDERS: PCP Nurse Practitioner Family; Visit Provider Internal Medicine Gastroenterology
PROC: 0DJ08ZZ Inspection of Upper Intestinal Tract, Via Natural or Artificial Opening Endoscopic (ICD-10-PCS; CPT 43235; principal; 2024-11-27 10:00)
DX: R13.10 Dysphagia, unspecified (principal); Z87.19 Personal history of other diseases of the digestive system; K22.2 Esophageal obstruction; K29.50 Unspecified chronic gastritis without bleeding; K21.9 Gastro-esophageal reflux disease without esophagitis; D69.6 Thrombocytopenia, unspecified; I10 Essential (primary) hypertension; I77.810 Thoracic aortic ectasia; E78.00 Pure hypercholesterolemia, unspecified; I48.91 Unspecified atrial fibrillation; G47.33 Obstructive sleep apnea (adult) (pediatric); Z85.820 Personal history of malignant melanoma of skin; Z79.899 Other long term (current) drug therapy; Z88.1 Allergy status to other antibiotic agents; Z98.890 Other specified postprocedural states
CPT/HCPCS: 43249; 43239; 88305; 88313; 88342; C1726; J2003; J2704; J3010

== ENCOUNTER 2024-11-30 07:45 | Outpatient (AMB) | payer MEDICARE, SELFPAY ==
[2024-11-30 07:48] VITALS: BP 126/74; PULSE 61; O2SAT 97; BMI 33.7
--- NOTE | 2024-11-30 07:48 | A.OFFPC_ITS ---
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 Required: No Accompanied by: Self / Same As Patient Allergies amoxicillin Allergy (Intermediate, Verified 11/30/24 08:45) Gastrointestinal Upset Penicillins Allergy (Intermediate, Verified 11/30/24 08:45) Gastrointestinal Upset Medication List - Last Reconciled 11/30/24 by Sukumar Camacho [facility] albuterol sulfate 90 mcg/actuation (ProAir HFA) 2 puffs inhalation Q4-6H PRN 30 days atorvastatin 40 mg PO DAILY dronedarone 400 mg PO BID fexofenadine (Ananya Allergy) 180 mg PO DAILY lisinopril 5 mg PO QPM 90 days omeprazole 40 mg PO DAILY rivaroxaban (Xarelto) 20 mg PO DAILY Tobacco use date assessed: 11/30/24 Fall risk assessment: No Falls in past year Last assessed Fall Risk: 11/30/24 Dental Screening Dental Screen Date: 11/30/24 Did you have a dental visit in the last 12 months?: Yes Did you have a dental problem in the last 6 months where you did not have access to dental care?: No Was dental information given to patient?: Patient has dentist HPI 6m follow up HPI Details Chief Complaint The patient presents for a follow-up regarding hypertension. History of Present Illness The patient is a 68-year-old male presenting with a follow-up for essential hypertension. He denies any symptomatology such as dizziness, blurred vision, headache, chest pain, or shortness of breath. The patient has undergone cardioversion multiple times, most recently by Dr. Leach, and reports feeling great post-procedure. He actively monitors his blood pressure at home and receives affirmations from his regarding its stability. In today's encounter, his vitals confirm stable blood pressure management. He remains in positive spirits, and future lab tests are anticipated to ensure ongoing control of his condition. Social History - The patient monitors his blood pressur e at home, indicating engagement with his health management. - His assists in corroborating the stability of his blood pressure. Health Maintenance Review of Systems - Cardiovascular: Denies dizziness, ches t pain, shortness of breath. - Neurological: Denies blurred vision, h eadache. Physical Exam General: Cooperative, healthy appearing, comfortable, no acute distress and well developed, obese Orientation: Patient oriented x3 Limitations: No limitations Head: Normal to inspection Ears: Hearing grossly normal bilaterally Nose: Normal external nose present Face and sinus: Normal facial exam Eyes: Appearance normal, both eyes and all related structures Neck: Normal visual inspection and Yes full ROM Respiratory: Normal respiratory effort and able to speak in complete sentences. Clear to auscultation bilaterally Cardiovascular: Regular rate and rhythm. Normal S1 and S2, GI: Normal to inspection. Soft to palpation and nontender Skin: No rashes or lesions noted Neuro: Patient oriented x3 Extremities: Normal to inspection, trace edema Results Plan The patient reports stable blood pressure management at home, confirmed by his . Post-cardioversion, the patient feels well with no significant symptoms. Continued home monitoring of blood pressure is advised, and future laboratory te sts will be performed to ensure the ongoing effective management of his essential hypertension. There were no alterations to the current treatment regimen. Discussion Notes I discussed with the patient the importance of continuing home monitoring of his blood pressure, given his stable condition. We reviewed his history of cardioversion and the significant improvement post-procedure. I emphasized the need for future laboratory evaluations to support his hypertension management and reassured him of his progress so far. Consent for future labs was obtained. Follow-up instructions and the significance of continuing his current health regimen were also discussed. Patient Instructions - Continue monitoring blood pressure at home. - Your can continue to confirm and record stability in readings. - Plan to have lab work done in the [facility] as discussed. - Report any new symptoms or changes in your condition promptly. [facility] Medical History History of cardioversion (10/07/24) Malignant melanoma Thrombocytopenia Elevated cholesterol History of cardioversion (~06/12/23) Sleep apnea Atrial fibrillation Enlarged thoracic aorta Hypertensive heart disease HTN (hypertension) Surgical History (Reviewed 11/30/24 @ 08:36 by Sukumar Camacho [facility]) History of esophagogastroduodenoscopy (EGD) (08/07/24) H/O colonoscopy History of melanoma excision (~11/12/22) Family History Father No problems noted. Mother CVD (cardiovascular disease) Social History Household Members: Spouse and Children Housing: House Are you a primary long term care social worker to a significant other at home: No Do you presently have visiting nurse or other home services: No Patient Tobacco Use Status: Never used Tobacco e-Cigarette/Vaping Use: Never Used service: No Current occupational status: retired Cognitive needs: No Hearing needs: No Vision needs: Yes Questionnaire PHQ-9 Over the last 2 weeks, how often have you been bothered by any of the following problems? 1. Little interest or pleasure in doing things: not at all 2. Feeling down, depressed, or hopeless: not at all 3. Trouble falling or staying asleep, or sleeping too much: not at all 4. Feeling tired or having little energy: not at all 5. Poor appetite or overeating: not at all 6. Feeling bad about yourself - or that you are a failure or have let yourself or your family down: not at all 7. Trouble concentrating on things, such as reading the newspaper or watching television: not at all 8. Moving or speaking so slowly that other people could have noticed. Or the opposite - being so fidgety or restless that you have been moving around a lot more than usual: not at all 9. Thoughts that you would be better off or of hurting yourself in some way: not at all Total score: 0 Depression Screening Interpretation: Negative Depression Screening Done: Yes 92356 - PHQ-9 Billing: Yes Source: Developed by Drs. Jules Schulte, Jamaica Howe, Santiago Orellana and colleagues, with an educational tabitha from [employer]. Thrive Questionnaire Date Thrive assessed: 11/30/24 I am a: Patient What is your living situation today?: I have a steady place to live Within the past 12 months, did the food you bought not last and you didn't have the money to get more?: Never true Within the past 12 months, did you worry whether your food would run out before you got money to buy more?: I choose not to answer this question Do you have trouble paying for medicines?: I choose not to answer this question Do you have trouble getting transportation to medical appointments?: I choose not to answer this question Do you have trouble paying your heating and electricity bill?: I choose not to answer this question Do you have trouble taking care of your child, family member or friend?: I choose not to answer this question Do you have trouble with day-to-day activities such as bathing, preparing meals, shopping, managing finances, etc.?: I choose not to answer this question Are you currently unemployed and looking for a job?: I choose not to answer this question Are you interested in more education?: I choose not to answer this question Please select the resources that you would like help with: None Currently or been in a relationship where the following occur: I choose not to answer THRIVE Score: 0 AUDIT C Alcohol Use Questionnaire (AUDIT-C) 1. How often do you have a drink containing alcohol?: Never 3. How often do you have six or more drinks on one occasion?: Never Total Score: 0 Score Reviewed/Action Taken: Yes LIZY-7 AMB Questionnaire LIZY-7 Date LIZY - 7 assessed: 11/30/24 Feeling nervous, anxious, or on edge: 0 = Not at all Not being able to stop or control worryin = Not at all Worrying too much about different things: 0 = Not at all Trouble relaxin = Not at all Being so restless that it is hard to sit still: 0 = Not at all Becoming easily annoyed or irritable: 0 = Not at all Feeling afraid as if something awful might happen: 0 = Not at all Total LIZY-7 score (0-4 normal; 5-9 mild; 10-14 moderate; 15-21 severe): 0 Source: Developed by Drs. Jules Schulte, Jamaica Howe, Santiago Orellana and colleagues, with an educational tabitha from [employer]. LIZY-7 Assessment Billing LIZY-7 Assessment Tool: LIZY-7 Assessment 47289 Physical exam (Primary Care) Vital Signs: Last Vital Signs Pulse 61 11/30/24 07:48 BP 126/74 11/30/24 07:48 Pulse Ox 97 11/30/24 07:48 BMI result Body Mass Index 33.7 Tobacco/Smoking Status: Tobacco use Status Tobacco use date assessed 11/30/24 11/30/24 07:49 Patient Tobacco Use Status Never used Tobacco 11/30/24 07:48 e-Cigarette/Vaping Use Never Used 11/30/24 07:48 PHQ-9: PHQ-9 Score PHQ-9: Total score 0 11/30/24 07:49 Depression Screening Interpretation: Negative Thrive Assessment: Date of Thrive Assessment Date Thrive assessed 11/30/24 11/30/24 07:49 Currently or been in a relationship where the following occur: I choose not to answer Coding Level of Care Code Est Pt Level 3 (25686) Diagnoses HTN (hypertension) I10 Screening for prostate cancer Z12.5 Additional Codes LIZY-7 Assessment Billing - LIZY-7 Assessment Tool: LIZY-7 Assessment 38218 ([id number]) PHQ-9 - 57395 - PHQ-9 Billing: Yes ([id number]) Assessment & Plan Assessment & Plan (1) HTN (hypertension): Code(s): I10 - Essential (primary) hypertension Category: Medical (2) Screening for prostate cancer: Code(s): Z12.5 - Encounter for screening for malignant neoplasm of prostate Category: Medical Plan . Orders: Orders Complete Blood Count Auto Diff Today I10 - Essential (primary) hypertension UA CC w/rflx Micro + Cult Today I10 - Essential (primary) hypertension Comprehensive Story. Panel Fast Today I10 - Essential (primary) hypertension TSH reflex Free T4 Today I10 - Essential (primary) hypertension Lipid Panel Today I10 - Essential (primary) hypertension Prostate Specific Antigen Scr Today Z12.5 - Encounter for screening for malignant neoplasm of prostate
--- OUTSIDE RECORDS SUMMARY | 2024-11-30 07:49 | XMS_ITS ---
Author Organization [facility] Address [address] [place] [phone] Care Team Providers Care Powder Compounder Name Role Phone Josh Kelly MD Primary Care Provider Jules Kirk Unavailable [phone] REASON FOR VISIT emergent egd Medications Medication SIG (Take, Route, Fr equency, Duration) Notes Start Date End Date Status Omeprazole 40 MG 1 capsule 1/2 to 1 h our before morning meal Orally Once a day for 30 day(s) 09/10/2024 Active Problems Problem Type SNOMED Code ICD Code Onset Dates Problem Status W/U Status Risk Notes Problem [id number] Esophagism (K22.4) Active confirmed Encounters Encounter Location Date Provider Diagnosis [facility] [address] [place] [phone] 09/10/2024 Jules Fermin Esophagism K22.4 Assessments Encounter Date Diagnosis (ICD Code) Assessment Notes Treatment Notes Treatment Clinical Notes Section Notes 09/10/2024 Esophagism (ICD-10 - K22.4) Plan Of Treatment Medication Medication Name Sig Start Date Stop Date Notes Omeprazole 40 MG 1 capsule 1/2 to 1 h our before morning meal Orally Once a day for 30 day(s) 09/10/2024 Future Test Test Name Order Date UPPER GI ENDOSCOPY 09/10/2024 Progress Notes * DUONG MYLESDOB:[birth year] (68 yo M)Acc No.[id number]:09/10/2024 Patient:?DUONG MYLES :1955???Age:68 Y???Sex:Male [place] [address] * Refills? Start Omeprazole Capsule Delayed Release, 40 MG, Orally, 30, 1 capsule 1/2 to 1 hour before morning meal, Once a day, 30 day(s), Refills=6 Subjective: * Chief Complaints: * ???Emergent egd * Medical History:? * Surgical History:? * Hospitalization/Major Diagno stic Procedure:? * Medications:? Objective: Assessment: * Assessment: 1.?Esophagism - K22.4 (Prima ry)? Plan: * Treatment: 2.?Others? Start Omeprazole Capsule Delayed Release, 40 MG, 1 capsule 1/2 to 1 hour before morning meal, Orally, Once a day, 30 day(s), 30, Refills 6.?? * Procedure Codes:? * true * Date:? Generated for Momo ingram/Omid/eTransmitting on:?11/30/2024 07:49 AM EDT
--- OUTSIDE RECORDS SUMMARY | 2024-11-30 07:49 | XMS_ITS ---
Author Organization [facility] Address [address] [place] [phone] Care Team Providers Care Dentistry Professor Name Role Phone Josh Kelly MD Primary Care Provider Jules Kirk [phone] Allergies Allergen (clinical drug ingredient) Drug/Non Drug Allergy documented on EMR Reaction Allergy Type Onset Date Status Penicillin Unknown Drug Allergy Active hay fever (uncoded) Unknown Allergy Active REASON FOR VISIT EGD in October Medications Medication SIG (Take, Route, Frequency, Duration) Notes [...] Unknown Encounters Encounter Location Date Provider Diagnosis [facility] [address] [place] [phone] 09/23/2024 Jules Fermin Plan Of Treatment No Information Progress Notes * DUONG MYLESDOB:[birth year] (68 yo M)Acc No.[id number]:09/23/2024 Patient:?DUONG MYLES :1955???Age:68 Y???Sex:Male Address: [place] [address] Subjective: * Chief Complaints: * ???EGD in October * Medical History:? * Surgical History:? * Hospitalization/Major Diagno stic Procedure:? * Medications:?DiscontinuedVit hammond D 1000 UNIT Tablet 1 tablet Orally Once a dayprednisoLONE 5 MG Tablet 1 tablet in the morning with food or milk Orally Once a dayFamotidine 40 MG Tablet TAKE ONE TABLET BY MOUTH EVERY DAY IN THE EVENING Discontinued Vitamin D 1000 UNIT Tablet 1 tablet Orally Once a dayDiscontinued prednisoLONE 5 MG Tablet 1 tablet in the morning with food or milk Orally Once a dayDiscontinued Famotidine 40 MG Tablet TAKE ONE TABLET BY MOUTH EVERY DAY IN THE EVENING UnknownMetoprolol Succinate 50 MG Tablet Extended Release as directed Orally Xarelto 20 MG Tablet 1 tablet with food Orally Once a dayZyrTEC 10 MG Tablet 1 tablet Orally Once a dayAtorvastatin Calcium 40 MG Tablet 1 tablet Orally Once a dayLisinopril 5 MG Tablet 1 tablet Orally Once a dayAllergy adam Omeprazole 40 MG Capsule Delayed Release 1 capsule 1/2 to 1 hour before morning meal Orally Once a dayhydroCHLOROthiazide Medication List reviewed and reconciled with the patientUnknown Metoprolol Succinate 50 MG Tablet Extended Release as directed Orally Unknown Xarelto 20 MG Tablet 1 tablet with food Orally Once a dayUnknown ZyrTEC 10 MG Tablet 1 tablet Orally Once a dayUnknown Atorvastatin Calcium 40 MG Tablet 1 tablet Orally Once a dayUnknown Lisinopril 5 MG Tablet 1 tablet Orally Once a dayUnknown Allergy adam Unknown Omeprazole 40 MG Capsule Delayed Release 1 capsule 1/2 to 1 hour before morning meal Orally Once a dayUnknown hydroCHLOROthiazide Medication List reviewed and reconciled with the patient * Allergies:?hay feverPenicill in Objective: Assessment: Plan: * Treatment: * Procedure Codes:? * true * Date:? Generated for Momo ingram/Omid/Julius on:?11/30/2024 07:49 AM EDT
--- OUTSIDE RECORDS SUMMARY | 2024-11-30 07:49 | XMS_ITS | Patient Health Record ---
Author Organization [facility] Address [address] [place] [address] Care Team Providers Care Livestock Trader Name Role Phone Leticia OCHOA, Josh Primary Care Provider Jules Kirk Unavailable [phone] Luke Hayes Jr Unavailable [phone] Allergies Allergen (clinical drug ingredient) Drug/Non Drug Allergy documented on EMR Reaction Allergy Type Onset Date Status Penicillin Unknown Drug Allergy Active hay fever (uncoded) Unknown Allergy Active Reason For Referral No Information Medications Medication SIG (Take, Route, Frequency, Duration) [...] Once a day for 30 day(s) Unknown Immunizations Vaccine Route Administration Date Status Comme nts Influenza Unknown 07/17/2023 Refused Social History Alcohol Screen Question Answer Notes Did you have a drink containing alcohol in the p ast year? No Points 0 Interpretation Negative Section Notes: Nonsmoker; occ. alcohol Nonsmoker; occ. alcohol Nonsmoker; occ. alcohol Nonsmoker; occ. alcohol Problems Problem Type SNOMED Code ICD Code Onset Dates Problem Status W/U Status Risk Notes Problem 834566015 Colon cancer screening (Z12.11) Active confirmed Problem 401026817 History of adenomatous polyp of colon (Z86.010) Active confirmed Problem 883390861 Weight loss (R63.4) Active confirmed Problem Diverticular disease of colon (671419276) Diverticulosis of large intestine without perforation or abscess without bleeding (K57.30) Active confirmed Problem 439182703 Anticoagulant long-term use (Z79.01) Active confirmed Problem 91566954 Liver cyst (K76.89) Active confirmed Problem 81794094 Diarrhea, unspecified type (R19.7) Active confirmed Problem 528500072 Renal cyst (N28.1) Active confirmed Problem 20590515 Diarrhea of presumed infectious origin (R19.7) Active confirmed Problem 699149860 Esophagism (K22.4) Active confirmed Encounters Encounter Location Date Provider Diagnosis [facility] [place] [facility] Outpatient [address] [place] [phone] 11/27/2024 Luke Hayes Jr [facility] [address] [place] [phone] 09/10/2024 Jules Fermin Esophagism K22.4 [facility] [address] [place] [phone] 09/23/2024 Jules Fermin Assessments Encounter Date Diagnosis (ICD Code) Assessment Notes Treatment Notes Treatment Clinical Notes Section Notes 09/10/2024 Esophagism (ICD-10 - K22.4) Plan Of Treatment Pending Test Test Name Order Date BUN 05/08/2017 CREATININE 05/08/2017 GIARDIA AG, STOOL EIA 06/04/2023 STOOL WBC 06/04/2023 C DIFFICILE RFLX PCR 06/04/2023 Future Test Test Name Order Date COLONOSCOPY 03/05/2012 COLONOSCOPY 04/17/2017 COLONOSCOPY 07/17/2023 UPPER GI ENDOSCOPY 09/10/2024 Insurance Providers Payer Name Payer Address Payer Phone Subscriber Number Group Number Insured Name Patient Relationship to Insured Coverage Start Date Coverage End Date MEDICARE OF [place] [address] [place] [id number] [phone] [id number] DUONG MYLES Self - patient is the insured MEDEX ATTN CLAIMS [address] [place] [phone] [id number] DUONG MYLES Self - patient is the insured Medical (General) History Medical History History ICD Code Irritable bowel syndrome----lactose into lerance Hyperlipidemia HTN Denies MO,DM,CVA,Lung disease,renal dise ase Colonoscopy in 03/2012--1 sma [...] Small aortic aneurysm Afib-seetanika Crabtree-Cardioverted 05/2023 Melanoma 11/20220246-[id number] by Dr. Yair sagastume Thrombocytopenia--ITP--erica Angela--treated with prednisone but will be going on a different med as of the 06/2023 OV Surgical History Surgery Date(Month/Year) Melanoma RUE-Dr. Queen--neg. lymph node s 11/2022
--- OUTSIDE RECORDS SUMMARY | 2024-11-30 07:50 | XMS_ITS | Encounter Summary ---
Author Organization [facility] Address [address] [place] [address] Care Team Providers Care Deli Cutter Slicer Name Role Phone Josh Kelly Primary Care Provider Josh Carr Primary Care Provider Josh Carr Unavailable Unavailable Encounter Details Date Type Department Care Team Description 08/06/2010 Transfer Records Medical Records [address] [place] [address] Abstract, Provider Social History Tobacco Use Types [...] on filedocumented in this encounter Care Teams Deli Cutter Slicer Relationship Specialty Start Date End Date Josh Kelly PCP - General Internal Medicine 07/25/10 11/27/11 Josh Kelly PCP - General Internal Medicine 11/28/11 Josh Kelly Internal Medicine 11/28/11 documented as of this encounter
--- OUTSIDE RECORDS SUMMARY | 2024-11-30 07:50 | XMS_ITS | Encounter Summary ---
Author Organization [facility] Address [address] [place] [address] Care Team Providers Care Host Name Role Phone Josh Kelly Primary Care Provider Josh Carr Unavailable Unavailable Encounter Details Date Type Department Care Team Description 02/17/2019 Business Doc Medical Records [address] [place] [address] Abstract, Provider Social History Tobacco Use Types Packs/Day Years Used Date Smoking Tobacco: Never Assessed Sex Assigned at Date Recorded Not on file Job Start Date Occupation Industry Not on file Not on file Not on file documented as of this encounter Plan of Treatment Not on file documented as of this encounter Visit Diagnoses Not on filedocumented in this encounter Care Teams Host Relationship Specialty Start Date End Date Josh Kelly PCP - General Internal Medicine 11/28/11 Josh Kelly Internal Medicine 11/28/11 documented as of this encounter
--- OUTSIDE RECORDS SUMMARY | 2024-11-30 07:50 | XMS_ITS ---
Author Organization [facility] Address [address] [place] [address] Care Team Providers Care Environmental Control Administrator Name Role Phone Josh Kelly MD Primary Care Provider Jules Kirk Unavailable [phone] Luke Hayes Jr Unavailable REASON FOR VISIT FOOD BOLUS Encounters Encounter Location Date Provider Diagnosis [facility] [place] [address] [place] [phone] 11/27/2024 Luke Hayes Jr Plan Of Treatment No Information Progress Notes * DUONG MYLESDOB:[birth year] (68 yo M)Acc No.[id number]:11/27/2024 EGD/MAC Patient:?MYLESDUONG Provider:?Luke Hayes MD :1955???Age:68 Y???Sex:Male Yaakov e:11/27/2024 [facility] [place] Pcp:Josh Kelly MD Subjective: * Chief Complaints: * ???1. FOOD BOLUS. * Medical History:? Objective: * Vitals:? Assessment: Plan: * Treatment: * * The named appointment provid er may or may not be the originator of this progress note, and it is not deemed complete until electronically signed by the appointment provider. Sign off status: Pending * Provider:?Luke Hayes MD Date:?0 11/27/2024 Generated for Zacheryi nataly/Omid/eTransmitting on:?11/30/2024 07:49 AM EDT
== END 2024-11-30 08:42 | disposition home or self-care (01) ==
LOC: HO.HMCC 07:46
PROVIDERS: PCP Nurse Practitioner Family; Visit Provider Nurse Practitioner Family
DX: I10 Essential (primary) hypertension (principal); Z12.5 Encounter for screening for malignant neoplasm of prostate

== ENCOUNTER → 2024-11-30 07:45 | Outpatient (BNVA) | payer MEDICARE, SELFPAY | PROVIDERS: PCP Nurse Practitioner Family; Visit Provider Nurse Practitioner Family | DX: I10 Essential (primary) hypertension (principal) | CPT/HCPCS: 96127; 99212 ==

== ENCOUNTER → 2025-01-13 09:07 | Outpatient (BNVA) | payer MEDICARE, SELFPAY | PROVIDERS: PCP Nurse Practitioner Family; Visit Provider Internal Medicine Cardiovascular Disease | DX: Z13.89 Encounter for screening for other disorder (principal) ==

== ENCOUNTER 2025-02-01 08:13 | Outpatient (AMB) | payer MEDICARE, SELFPAY ==
--- OUTSIDE RECORDS SUMMARY | 2025-02-01 08:17 | XMS_ITS ---
Author Organization [facility] Address [address] [place] [address] Care Team Providers Care Landing Signal Officer Name Role Phone Josh Kelly MD Primary Care Provider Jules Kirk Unavailable [phone] Luke Hayes Jr REASON FOR VISIT FOOD BOLUS Encounters Encounter Location Date Provider Diagnosis [facility] [place] Out[place] [address] [place] [phone] 11/27/2024 Luke Hayes Jr Esophageal stricture K22.2 Assessments Encounter Date Diagnosis (ICD Code) Assessment Notes Treatment Notes Treatment Clinical Notes Section Notes 11/27/2024 Esophageal stricture (ICD-10 - K22.2) Plan Of Treatment No Information Progress Notes * DUONG MYLESDOB:[birth year] (69 yo M)Acc No.[id number]:11/27/2024 EGD/MAC Patient:?DUONG MYLES Provider:?Luke Hayes MD :1955???Age:68 Y???Sex:Male Yaakov e:11/27/2024 Address: [id number] Pcp:Josh Kelly MD Subjective: * Chief Complaints: * ???1. FOOD BOLUS. * Medical History:? Objective: * Vitals:? Assessment: * Assessment: 1.?Esophageal stricture - K2 2.2 (Primary)??? Plan: * Treatment: * Procedure Codes:?00760 ESOPH ENDOSCOPY, DILATION, 29981 UPPER GI ENDOSCOPY, BIOPSY, Modifiers: 59 * * The named appointment provid er may or may not be the originator of this progress note, and it is not deemed complete until electronically signed by the appointment provider. Sign off status: Pending * Provider:?Lkue Hayes MD Date:?0 11/27/2024 Generated for Momo ingram/Omid/Julius on:?02/01/2025 08:17 AM EDT
--- OUTSIDE RECORDS SUMMARY | 2025-02-01 08:17 | XMS_ITS | Data Portability ---
Author Organization [facility] Address [address] [place] [phone] Assessment Encounter Date Assessment Date Assessment LastModified by Organization Details LastModified Time 02/05/2024 02/05/2024 Follow up in two to four weeks to discuss progress and address any concerns. The patient was also encouraged to utilize our drop-off servicing system in the unfortunate event that something happens to their device and/or to contact me through phone or email at their convenience. [email or web address] Not available 02/05/2024 09:13:39 Plan of Treatment [...] Sensorine ural hearing loss of bilateral ears 655059527 Active 2015 Sensorineu ral hearing loss, bilateral; Note: Date Diagnosed: 03/05/2016 11:40 AM (H90.3) Not Available [facility] 02:14:48 Problem Notes None recorded. Procedures Surgical History None recorded. Imaging Results Imaging Date Name Status LastModified by Organiz [facility] Details LastModified Time 12/25/2023 imaging/diagno stic result completed [email or web address] Information not available 05/05/2024 20:43:39 12/25/2023 audiogram completed [email or web address] Information not available 05/05/2024 20:44:10 07/11/2020 audiogram completed [email or web address] Information not available 05/05/2024 20:44:15 Procedure Notes [...] [address] [facility] [place] [address] [facility],[place] [address] [facility] [place] [address] 02/05/2024 08:55:06 03/06/2024 08:41:17 Sensorineural hearing loss of bilateral ears 116309058 H90.3 [address] [facility] [place] [facility] [place] [address] [facility] [address] 02/18/2024 14:31:41 03/06/2024 08:43:15 Sensorineural hearing loss of bilateral ears 404884072 H90.3 Health Concerns Section Related Observation LastModified by Organization Detai ls LastModified Time None Recorded Concern Status LastModified by Organization Details LastModified Time None Recorded Advance Directives Directive None Recorded Payers Insurance Date Sequence Insurance Name Policy Number Policy Arias Covered Member ID Arias Member ID Guarantor Name 02/19/2024 2 [place]) [id number] Mick Vela [id number] Mick Vela 02/15/2024 1 [place] [employer] Mick Vela [id number] Mick Vela Notes Date Note Type Note [...] an extent that the sound is uncomfortable. Fabi mendez returns for a fitting of amplification as a previous user of amplification. Today's visit will focus on the differences between the patient's older model and their new one, as well as programming the hearing aid to ensure that it is providing the best outcome.*}} The devices were programmed wirelessly using the database marketing analyst software in [employer]. {{We reviewed using real-ear verification and fine-tuning [...] them without pain or discomfort. MARGIE JUAREZ, [facility] [address] [facility],[address], [address], [facility] 02/17/2024 11:01:12 02/18/2024 text/html Patient returns for [...] The devices were programmed wirelessly using the database marketing analyst software in [employer]. Real-ear verification {{was performed and gain was [...] or email at their convenience. MARGIE JUAREZ, [place] [address] [facility],[place] [address], [place], [address], [facility] 02/18/2024 14:37:11
--- OUTSIDE RECORDS SUMMARY | 2025-02-01 08:17 | XMS_ITS ---
Author Organization [facility] Address [address] [facility] [place] [address] Care Team Providers Care Software Solutions Architect Name Role Phone Josh Kelly MD Primary Care Provider Jules Kirk [phone] REASON FOR VISIT path/ one year office visit recall Encounters Encounter Location Date Provider Diagnosis [facility] [address] [place] [address] 12/01/2024 Jules Fermin Plan Of Treatment No Information Progress Notes * DUONG MYLESDOB:[birth year] (68 yo M)Acc No.[id number]:12/01/2024 Patient:?DUONG MYLES :1955???Age:68 Y???Sex:Male Address: [place] [address] * true * Date:? Generated for Momo ingram/Omid/eTransmitting on:?02/01/2025 08:17 AM EDT
--- OUTSIDE RECORDS SUMMARY | 2025-02-01 08:18 | XMS_ITS ---
Author Organization [facility] Address [address] [place] [address] Care Team Providers Care Licensed Midwife Name Role Phone Josh Kelly MD Primary Care Provider Jules Kirk [phone] Allergies Allergen (clinical drug ingredient) Drug/Non Drug [...] Unknown Encounters Encounter Location Date Provider Diagnosis [facility] [address] [place] [phone] 09/23/2024 Jules Fermin Plan Of Treatment No Information Progress Notes * DUONG MYLESDOB:[birth year] (68 yo M)Acc No.[id number]:09/23/2024 Patient:?DUONG MYLES :1955???Age:68 Y???Sex:Male Address: [place] [address] Subjective: * Chief Complaints: * ???EGD in [...] true * Date:? Generated for Momo ingram/Omid/Julius on:?02/01/2025 08:17 AM EDT
--- OUTSIDE RECORDS SUMMARY | 2025-02-01 08:18 | XMS_ITS | Patient Health Record ---
Author Organization [facility] Address [address] [place] [address] Care Team Providers Care Line Service Attendant Name Role Phone Leticia OCHOA, Josh Primary Care Provider Jules Kirk Unavailable [phone] Luke Hayes Jr Unavailable Allergies Allergen (clinical drug ingredient) Drug/Non Drug Allergy documented on EMR Reaction Allergy Type Onset Date Status Penicillin Unknown Drug Allergy Active hay fever (uncoded) Unknown Allergy Active Results Component Value Reference Range Notes Pathology Reviewed date:12/01/2024 02:46:29 PM Interpretation: Performing Lab:[facility], [address] [place] [phone] Notes/Report: Name: Kourtney Vela Age/Sex: 68/M : 1955 Unit#: [id number] Attend Dr: Luke Hayes MD Re11/27/24 Status : [facility] Location: [facility] Disch: SPEC : [id number] [facility] STATUS: TRISTA CANDELARIO NUM: [id number] ORLY: 11/27/24-1006 [facility] DR: Luke Hayes MD ENTERED: 11/27/24 SP TYPE: Surgical OTHR DR: Sukumar Camacho [facility]- ORDERED: HE Stain/6, Gross Micro L4/2, IHC, Special st. 2, H. pylori, AB/PAS Diagnosis A. Gastric antrum, b iopsy: Gastric antral mucosa with reactive changes and chronic gastritis with focal mild activity; negative for H. pylori, intestinal metaplasia and dysplasia. B. Esophagus, distal , biopsy: Squamocolumnar mucosa with minimal inflammation; negative for intestinal metap lasia and dysplasia. Clinical History Pre-Op Dx: Dysphagia Post-Op Dx: Esophageal stricture Microscopic Description Microscopic sections reviewed. Immunostain for H. pylori on A is negative. AB/PAS on B is negative for intesti nal metaplasia. Controls stain appropriately. Material Received A. Antral bx's B. Bx's distal esophagus Gross Description Received in 2 parts. A. Received in forma surya labeled ?antral biopsies? are 2 fragments of pink white soft tissue measuring 0.3 and 0. 4 cm in greatest dimension which are wrapped in lens paper and entirely submitted for micros copic examination, 2 pieces in cassette A. B. Received in forma surya labeled ?biopsies distal esophagus? are 3 fragments of translucent, white soft tissue me asuring 0.1-0.2 cm in greatest dimension which are wrapped in lens paper and entirely submitt ed for microscopic examination, 3 pieces in cassette B. ([facility]) Special studies orde red and performed: Immunostain for H. pylori on A1; AB/PAS stains on B1. Copies To: Luke Hayes MD [facility] [address] [place] [address] [address] [place] [address] CONTINUED ON NEXT PAGE Name: Kourtney Vela Age/Sex: 68/M : 1955 Unit#: [id number] Attend Dr: Luke Hayes MD Re11/27/24 [place] [facility] [place] [facility] Disch: SPEC : [id number] RECD : 11/27/24 STATUS: TRISTA CANDELARIO NUM: [id number] ORLY: 11/27/24-6 [facility] DR: Luke Hayes MD ENTERED: 11/27/24 SP TYPE: Surgical OTHR DR: Sukumar Camacho ORDERED: HE Stain/6, Gross Micro L4/2, IHC, Special st. 2, H. pylori, AB/PAS Copies To: (Continued) Sukumar Camacho [address] [address] Signed (si gnature on file) Lavern Tita 12/01/24 0906 END OF REPORT Reason For Referral No Information Medications Medication [...] Problem Status W/U Status Risk Notes Problem 869442597 Colon cancer screening (Z12.11) Active confirmed Problem 483911113 History of adenomatous polyp of colon (Z86.010) Active confirmed Problem 578456083 Weight loss (R63.4) Active confirmed Problem Diverticulosis o f large intestine without perforation or abscess without bleeding (K57.30) Active confirmed Problem 346180425 Anticoagulant long-term use (Z79.01) Active confirmed Problem 67119078 Liver cyst (K76.89) Active confirmed Problem 38114685 Diarrhea, unspecified type (R19.7) Active confirmed Problem 837522648 Renal cyst (N28.1) Active confirmed Problem 92560906 Diarrhea of presumed infectious origin (R19.7) Active confirmed Problem 570382427 Esophagism (K22.4) Active confirmed Encounters Encounter Location Date Provider Diagnosis [facility] Outpatient [address] [place], [place] [phone] 11/27/2024 Luke Hayes Jr Esophageal stricture K22.2 [facility] [address] [place] [phone] 09/10/2024 Jules Fermin Esophagism K22.4 [facility] [address] [place] [phone] 09/23/2024 Jules Fermin [facility] [address] [place] [phone] 12/01/2024 Jules Fermin Assessments Encounter Date Diagnosis (ICD Code) Assessment Notes Treatment Notes Treatment Clinical Notes Section Notes 11/27/2024 Esophageal stricture (ICD-10 - K22.2) 09/10/2024 Esophagism (ICD-10 - K22.4) Plan Of [...] Date MEDICARE OF [place] [address] [place] [address] [id number] DUONG VELA Self - patient is the insured MED[employer] ATTN CLAIMS [address] [place] [address] [id number] DUONG VELA Self - patient is the insured Medical [...] Small aortic aneurysm Afib-seetanika Crabtree-Cardioverted 05/2023 Melanoma 11/[id number] by Dr. Yair sagastume Thrombocytopenia--ITP--seeserenity Angela--treated with prednisone but will be going on a different med as of the 06/2023 OV Surgical History Surgery Date(Month/Year) Melanoma RUE-Dr. Queen--neg. lymph node s 11/2022
--- NOTE | 2025-02-01 08:31 | AM.OFFWIN_ITS ---
Intake Vital Signs 02/01/25 08:32 Height 6 ft 4 in Weight 266 lb BMI 32.4 BP 118/74 Blood Pressure Location Rt brachial Position Sitting Pulse 65 Pulse Source Pulse Oximeter Temp 98.1 F Temp Source Oral Pulse Oximetry (%) 98 Oxygen Delivery Method Room Air Intake Visit Reasons: EP-chest tight, cough, wheezing Intake Note: Patient here for chest tightness, cough and wheezing that has been present for about 3 days. Patient Tobacco Use Status: Never used Tobacco Allergies amoxicillin Allergy (Intermediate, Verified 02/01/25 08:33) Gastrointestinal Upset Penicillins Allergy (Intermediate, Verified 02/01/25 08:33) Gastrointestinal Upset Do you need a note to return to daycare/school/sports/work: No HPI HPI Comments History of Present Illness Details 69 y/o Male patient who presents to the walk in clinic with c/o Chest tightness, cough and wheezing that has been present for about 3 days. PFSH Medical History History of cardioversion (10/07/24) Malignant melanoma Thrombocytopenia Elevated cholesterol History of cardioversion (~06/12/23) Sleep apnea Atrial fibrillation Enlarged thoracic aorta Hypertensive heart disease HTN (hypertension) Surgical History History of esophagogastroduodenoscopy (EGD) (08/07/24) H/O colonoscopy History of melanoma excision (~11/12/22) Family History Father No problems noted. Mother CVD (cardiovascular disease) Social History Household Members: Spouse and Children Housing: House Are you a primary healthcare business analyst to a significant other at home: No Do you presently have visiting nurse or other home services: No Patient Tobacco Use Status: Never used Tobacco e-Cigarette/Vaping Use: Never Used service: No Current occupational status: retired Cognitive needs: No Hearing needs: No Vision needs: Yes Review of Systems Const All systems reviewed & are unremarkable except as noted in HPI and below Physical Exam Vital Signs: Last Vital Signs Temp 98.1 F 02/01/25 08:32 Pulse 65 02/01/25 08:32 BP 118/74 02/01/25 08:32 Pulse Ox 98 02/01/25 08:32 Oxygen Delivery Method Room Air 02/01/25 08:32 BMI result Body Mass Index 32.4 Const General: no acute distress Nutritional Appearance: obese Orientation/consciousness: patient oriented x3 HEENT Head: Yes normocephalic Ears: external ears normal and TM abnormal with fluid behind the TM bilateral General nose exam: Abnormal mucous membranes and turbinates present erythematous Face and sinus: Yes sinuses nontender Mouth: moist mucous membranes Throat: Yes uvula midline Resp Effort & Inspection: normal respiratory effort and able to speak in complete sentences Auscultation: clear to auscultation bilaterally, no crackles, no rales, no rhonchi and no wheezes Cardio Rhythm: regular rhythm Heart sounds: S1 normal heart sound present and S2 normal heart sound present Neuro General: patient oriented x3 Assessment & Plan Assessment & Plan (1) Upper respiratory tract infection: Code(s): J06.9 - Acute upper respiratory infection, unspecified Qualifiers: URI type: unspecified URI Qualified Code(s): J06.9 - Acute upper respiratory infection, unspecified Plan: Ordered Cough medicine Medications: New dextromethorphan-guaifenesin 5-100 mg/5 mL (Robitussin Cough-Chest Congestion DM) 10 mL PO Q4-8H PRN 1,000 mL 0RF cough J06.9 - Acute upper respiratory infection, unspecified benzonatate 200 mg (2 x 100 mg) PO BID 60 caps 0RF J06.9 - Acute upper respiratory infection, unspecified Coding Level of Care Code Est Pt Level 4 (64672) Diagnoses Upper respiratory tract infection, unspecified type J06.9 URI type: unspecified URI Time Spent (min) 20
[2025-02-01 08:32] VITALS: BP 118/74; PULSE 65; TEMP 36.7; O2SAT 98; BMI 32.4
== END 2025-02-01 09:11 | disposition home or self-care (01) ==
PROVIDERS: PCP Nurse Practitioner Family; Visit Provider Nurse Practitioner Family
DX: J06.9 Acute upper respiratory infection, unspecified (principal)

== ENCOUNTER → 2025-02-01 08:13 | Outpatient (BNVA) | payer MEDICARE, SELFPAY | PROVIDERS: PCP Nurse Practitioner Family; Visit Provider Nurse Practitioner Family | DX: J06.9 Acute upper respiratory infection, unspecified (principal) | CPT/HCPCS: 99212 ==

== ENCOUNTER → 2025-02-09 08:22 | Outpatient (BNVA) | payer MEDICARE, SELFPAY | PROVIDERS: PCP Nurse Practitioner Family; Visit Provider Internal Medicine Cardiovascular Disease ==

== ENCOUNTER → 2025-03-11 07:48 | Outpatient (REF) | payer MEDICARE, SELFPAY ==
--- OUTSIDE RECORDS SUMMARY | 2025-03-11 07:52 | XMS_ITS | Data Portability ---
Author Organization [place] - [facility], Allergy Address [address] [address] Assessment Encounter Date Assessment Date Assessment LastModified by Organization Details LastModified Time 02/05/2024 02/05/2024 Follow up in two to four weeks to discuss progress and address any concerns. The patient was also encouraged to utilize our drop-off servicing system in the unfortunate event that something happens to their device and/or to contact me through phone or email at their convenience. Not available 02/05/2024 09:13:39 Plan of Treatment [...] Detail LastModifiedTime 05/05/20 24 12/25/2023 cesarioi ng/oksana mota tic resul t No observ ation record [...] Sensorine ural hearing loss of bilateral ears [id number] Active 2015 Sensorineu ral hearing loss, bilateral; Note: Date Diagnosed: 03/05/2016 11:40 AM (H90.3) Not Available [facility] 02:14:48 Problem Notes None recorded. Medical Equipment None Reported. [...] [address] [place] 100 [facility], [address] [place] [address] 02/05/2024 08:55:06 03/06/2024 08:41:17 Sensorineural hearing loss of bilateral ears [id number] H90.3 [address] [place] [place] 100 [facility], [address] [place] [address] 02/18/2024 14:31:41 03/06/2024 08:43:15 Sensorineural hearing loss of bilateral ears [id number] H90.3 Health Concerns Section Related Observation LastModified by Organization Detai ls LastModified Time None Recorded Concern Status LastModified by Organization Details LastModified Time None Recorded Advance Directives Directive None Recorded Payers Insurance Date Sequence Insurance Name Policy Number Policy Arias Covered Member ID Arias Member ID Guarantor Name 02/19/2024 2 [place] [id number] Mick Vela [id number] Mick Vela 02/15/2024 1 [place] [employer] [place] Mick Vela [id number] Mick Vela Notes Date Note Type Note Provider Name and Address Organization Details Recorded Time 02/05/2024 text/html Patient returns for a fitting of amplification as a previous user of amplification. Today's visit will focus on the differences between the patient's older model and their new one, as well as programming the hearing aid to ensure that it is providing the best outcome. The devices were programmed wirelessly using the hand decorator software in [facility]. Real-ear verification was performed and the devices were fine-tuned to maximize the patient's ability to hear speech. The patient's old right device was under [...] and remove them without pain or discomfort. Isrrael BROD[address]ICK 100 [facility] [address], [place], [address], [facility] - [facility] 02/17/2024 11:01:12 02/18/2024 text/html Patient returns for a follow up fitting of amplification as a longstanding user of the same style devices. The focus of our follow up fitting is ensuring that the patient knows how to use the devices to the best of their ability and that the devices are programmed to maximize audibility and amplification of speech. The devices were programmed wirelessly using the hand decorator software in [facility]. Real-ear verification was previously performed. Any remaining concerns about using the devices [...] or email at their convenience. MARGIE JUAREZ, [address] [address], [place], [address], [facility] - [facility] 02/18/2024 14:37:11
== END ==
LOC: HO.CARD 07:48
PROVIDERS: PCP Nurse Practitioner Family; Visit Provider Internal Medicine Cardiovascular Disease
DX: R00.1 Bradycardia, unspecified (principal); I48.0 Paroxysmal atrial fibrillation
CPT/HCPCS: 93225

== ENCOUNTER → 2025-03-11 07:50 | Outpatient (BNV) | payer MEDICARE, SELFPAY | PROVIDERS: PCP Nurse Practitioner Family; Visit Provider Internal Medicine | DX: I47.10 Supraventricular tachycardia, unspecified (principal); I49.3 Ventricular premature depolarization | CPT/HCPCS: 93227 ==

== ENCOUNTER 2025-03-23 08:34 | Outpatient (AMB) | payer MEDICARE, SELFPAY ==
--- OUTSIDE RECORDS SUMMARY | 2025-03-23 08:46 | XMS_ITS | Encounter Summary ---
Author Organization [facility] Address [address] [place] [address] Care Team Providers Care Cooky Machine Operator Name Role Phone Josh Kelly Primary Care Provider Josh Carr Unavailable Unavailable Encounter Details Date Type Department Care Team Description 03/21/2015 Release of Information Medical Records [address] [place] [id number] Abstract, Provider Social History Tobacco Use Types Packs/Day Years Used Date Smoking Tobacco: Never Assessed Sex Assigned at Date Recorded Not on file Job Start Date Occupation Industry Not on file Not on file Not on file documented as of this encounter Plan of Treatment Not on file documented as of this encounter Visit Diagnoses Not on filedocumented in this encounter Care Teams Cooky Machine Operator Relationship Specialty Start Date End Date Josh Kelly PCP - General Internal Medicine 11/28/11 Josh Kelly Internal Medicine 11/28/11 documented as of this encounter
--- OUTSIDE RECORDS SUMMARY | 2025-03-23 08:46 | XMS_ITS | Data Portability ---
Author Organization [place] - [facility], Allergy Address [address] [address] Assessment Encounter Date Assessment Date Assessment LastModified by Organization Details LastModified Time 02/05/2024 02/05/2024 Follow up in two to four weeks to discuss progress and address any concerns. The patient was also encouraged to utilize our drop-off servicing system in the unfortunate event that something happens to their device and/or to contact me through phone or email at their convenience. [email or web address] Not available 02/05/2024 09:13:39 Plan of Treatment [...] Sensorine ural hearing loss of bilateral ears [id number] Active 2015 Sensorineu ral hearing loss, bilateral; Note: Date Diagnosed: 03/05/2016 11:40 AM (H90.3) Not Available [facility] 02:14:48 Problem Notes None recorded. Medical Equipment [...] [address] [address] [facility], [address] [place] [address] 02/05/2024 08:55:06 03/06/2024 08:41:17 Sensorineural hearing loss of bilateral ears [id number] H90.3 [address] [place] [address] [facility], [address] [place] [address] 02/18/2024 14:31:41 03/06/2024 08:43:15 Sensorineural hearing loss of bilateral ears 877683227 H90.3 Health Concerns Section Related Observation LastModified by Organization Detai ls LastModified Time None Recorded Concern Status LastModified by Organization Details LastModified Time None Recorded Advance Directives Directive None Recorded Payers Insurance Date Sequence Insurance Name Policy Number Policy Arias Covered Member ID Arias Member ID Guarantor Name 02/19/2024 2 [place] [id number] Mick Vela [id number] Mick Vela 02/15/2024 1 [place] [employer] Mick Vela [id number] Mick Vela Notes Date Note Type [...] The devices were programmed wirelessly using the lumber press operator software in [facility]. Real-ear verification was performed and the devices [...] without pain or discomfort. [address]rael BROD[address] [facility] [address], [address], [facility] - [facility] 02/17/2024 11:01:12 02/18/2024 text/html Patient returns for [...] The devices were programmed wirelessly using the lumber press operator software in [facility]. Real-ear verification was previously performed. Any remaining [...] or email at their convenience. MARGIE JUAREZ, [address] [address], [place], [address], [facility] - [facility] 02/18/2024 14:37:11
--- OUTSIDE RECORDS SUMMARY | 2025-03-23 08:46 | XMS_ITS | Patient Health Record ---
Author Organization [facility] Address [address] [place] [address] Care Team Providers Care Plant Floor Automation Manager Name Role Phone Leticia OCHOA, Josh Primary Care Provider Jules Kirk Unavailable [phone] Luke Hayes Jr Unavailable [phone] Allergies Allergen (clinical drug ingredient) Drug/Non Drug Allergy documented on EMR Reaction Allergy Type Onset Date Status Penicillin Unknown Drug Allergy Active hay fever (uncoded) Unknown Allergy Active Results Component Value Reference Range Notes Pathology Reviewed date:12/01/2024 02:46:29 PM Interpretation: Performing Lab:[facility], [address] [place] [phone] Notes/Report: Reason For Referral No Information Medications Medication [...] Problem Status W/U Status Risk Notes Problem [id number] Colon cancer screening (Z12.11) Active confirmed Problem 734521313 History of adenomatous polyp of colon (Z86.010) Active confirmed Problem 191356247 Weight loss (R63.4) Active confirmed Problem Diverticular disease of colon (829453772) Diverticulosis of large intestine without perforation or abscess without bleeding (K57.30) Active confirmed Problem 006497464 Anticoagulant long-term use (Z79.01) Active confirmed Problem 82854964 Liver cyst (K76.89) Active confirmed Problem 74560429 Diarrhea, unspecified type (R19.7) Active confirmed Problem 184528814 Renal cyst (N28.1) Active confirmed Problem 19661966 Diarrhea of presumed infectious origin (R19.7) Active confirmed Problem 106926911 Esophagism (K22.4) Active confirmed Encounters Encounter Location Date Provider Diagnosis [facility] Outpatient [address] [place] [id number] 11/27/2024 Luke Hayes Jr Esophageal stricture K22.2 [facility] [address] [place] [phone] 09/10/2024 Jules Fermin Esophagism K22.4 [facility] [address] [place] [phone] 09/23/2024 Jules Fermin [facility] [address] [place] [address] Drive [address] [place] [phone] 12/01/2024 Jules Fermin [facility] [address] [place] [address] Drive [address] [place] [phone] 03/04/2025 Jules Fermin Assessments Encounter Date Diagnosis (ICD [...] [place] [address] [place] [address] [id number] DUONG MYLES Self - patient is the insured MED[employer] ATTN CLAIMS [address] [place] [address] [id number] DUONG MYLES Self - patient is the insured Medical (General) History Medical History History ICD Code Irritable bowel syndrome----lactose into lerance Hyperlipidemia HTN Denies DC,DM,CVA,Lung disease,renal dise ase Colonoscopy in 03/2012--1 sma [...] Small aortic aneurysm Afib-seetanika Crabtree-Cardioverted 05/2023 Melanoma [id number]-[id number] by Dr. Yair sagastume Thrombocytopenia--ITP--erica Angela--treated with prednisone but will be going on a different med as of the 06/2023 OV Surgical History Surgery Date(Month/Year) Melanoma RUE-Dr. Queen--neg. lymph node s 11/2022
--- NOTE | 2025-03-23 09:05 | MHC.OFFVIS ---
Vital Signs 03/23/25 09:06 Height 6 ft 4 in Weight 264 lb 8.875 oz BMI 32.2 BP 120/76 Blood Pressure Location Lt brachial Position Sitting Pulse 75 Intake Visit Reasons: EKG ? 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: No Allergies amoxicillin Allergy (Intermediate, Verified 02/01/25 08:33) Gastrointestinal Upset Penicillins Allergy (Intermediate, Verified 02/01/25 08:33) Gastrointestinal Upset Medication List - Last Reconciled 03/23/25 by Timmy Crabtree MD albuterol sulfate 90 mcg/actuation (ProAir HFA) 2 puffs inhalation Q4-6H PRN 30 days atorvastatin 40 mg PO DAILY dronedarone (Multaq) 400 mg PO BID famotidine (Pepcid) 20 mg PO BID fexofenadine (Ananya Allergy) 180 mg PO DAILY lisinopril 5 mg PO QPM omeprazole 40 mg PO DAILY rivaroxaban (Xarelto) 20 mg PO DAILY HPI Comments Details: Mick comes for an urgent follow-up visit as his smart watch indicated atrial fibrillation. He then performed a EKGs which showed atrial fibrillation as well at home. He came for follow-up. His EKGs shows atrial fibrillation which is recurrent. He completely denies any new symptoms. He has had in the past no symptoms associated with atrial fibrillation but has done overall as rhythm control approach on Multaq therapy. He denies any orthopnea, PND, leg edema. He has some increased stress related to planned move to [place] permanently. Otherwise no new symptoms. [facility] Medical History Osteoarthritis History of cardioversion (10/07/24) Malignant melanoma Thrombocytopenia Elevated cholesterol History of cardioversion (~06/12/23) Sleep apnea Atrial fibrillation Enlarged thoracic aorta Hypertensive heart disease HTN (hypertension) Surgical History History of esophagogastroduodenoscopy (EGD) (08/07/24) H/O colonoscopy History of melanoma excision (~11/12/22) Family History Father No problems noted. Mother CVD (cardiovascular disease) Social History Household Members: Spouse and Children Housing: House Are you a primary wild animal caretaker to a significant other at home: No Do you presently have visiting nurse or other home services: No Patient Tobacco Use Status: Never used Tobacco e-Cigarette/Vaping Use: Never Used service: No Current occupational status: retired Cognitive needs: No Hearing needs: No Vision needs: Yes Review of Systems Const Denies chills, Denies fatigue, Denies fever(s), Denies frequent falls, Denies weakness, Denies weight gain and Denies weight loss ENT Denies dizziness Card Denies chest pain, Denies leg edema, Denies lightheadedness, Denies palpitations, Denies dyspnea, Denies dyspnea on exertion, Denies orthopnea and Denies other (loss of consciousness) Resp Denies cough, Denies dyspnea and Denies dyspnea on exertion GI Denies hematochezia and Denies change in stool character Musc Denies abnormal gait, Denies muscle weakness, Denies numbness, Denies radiating pain into limb and Denies tingling Neuro Denies abnormal gait, Denies dizziness, Denies frequent falls, Denies numbness, Denies tingling and Denies weakness Endo Denies fatigue and Denies palpitations Physical Exam Vital Signs: Last Vital Signs Pulse 75 03/23/25 09:06 BP 120/76 03/23/25 09:06 BMI result Body Mass Index 32.2 Const General: cooperative, healthy appearing, comfortable and no acute distress Orientation/consciousness: patient oriented x3 Neck Neck: Yes normal visual inspection and Yes no JVD Resp Effort & Inspection: normal respiratory effort Auscultation: clear to auscultation bilaterally, no crackles, no rales, no rhonchi and no wheezes Cardio Jugular venous distension: no JVD Rate: bradycardic Rhythm: regular rhythm Heart sounds: S1 normal heart sound present, S2 normal heart sound present, no gallops, no murmurs and no rubs Neuro General: patient oriented x3 Extrem General: Yes normal to inspection, No no pedal edema and No calf tenderness Psych Appearance: grossly normal Mental Status: mental status grossly normal Speech and movement: Normal speech and movement present Office Procedures EKG Details: EKG shows atrial fibrillation with left axis deviation [id number], Complete Assessment & Plan Assessment & Plan (1) Atrial fibrillation: Code(s): I48.91 - Unspecified atrial fibrillation Plan: Patient has developed recurrent atrial fibrillation despite on Multaq therapy. Remains completely asymptomatic. Challenge in managing atrial fibrillation was discussed with him. Given that this is his 1st recurrence currently on Multaq therapy will pursue rhythm control approach and given his age even asymptomatic I think rhythm control in the long run will help him. For now will pursue synchronized cardioversion next week as long as he has continued his oral anticoagulation therapy which she has. Will refer him to electrophysiology for consideration of ablation. Procedure with the ablation and indication for ablation and type of procedure was discussed with him. He is showing willingness to pursue with that. Will refer him to at [facility]. Continue full oral anticoagulation. Risks, benefits, alternatives to synchronized cardioversion also discussed with him. He understands and agrees. Will follow up in the clinic in 3 months time, sooner p.r.n.. Thank you for allowing me to partake in his care Coding Level of Care Code Est Pt Level 4 (33701) Complex EM visit Add On G2211 Diagnoses Atrial fibrillation I48.91 CPT Codes EKG - CPT: 60654-Pwityphkidqipuxcv, Complete ([id number])
[2025-03-23 09:06] VITALS: BP 120/76; PULSE 75; BMI 32.2
== END 2025-03-23 09:43 | disposition home or self-care (01) ==
PROVIDERS: PCP Nurse Practitioner Family; Visit Provider Internal Medicine Cardiovascular Disease
DX: I48.91 Unspecified atrial fibrillation (principal)
CPT/HCPCS: 93010; 99214; G2211

== ENCOUNTER → 2025-03-23 08:34 | Outpatient (BNVA) | payer MEDICARE, SELFPAY | PROVIDERS: PCP Nurse Practitioner Family; Visit Provider Internal Medicine Cardiovascular Disease | DX: I48.91 Unspecified atrial fibrillation (principal); Z79.899 Other long term (current) drug therapy | CPT/HCPCS: 93005; 99212 ==

== ENCOUNTER 2025-03-31 10:54 | Day surgery (SDC) | payer MEDICARE, SELFPAY ==
[2025-03-29 10:39] VITALS: BMI 32.1
--- NOTE | 2025-03-30 08:21 | HO.ANESPROP2 ---
Documented by User: Jacki Parikh NP 03/30/25 08:30 HPI - Anesthesia Eval Consult details Narrative: 69yo M for Cardioversion Xarelto s/p same 09/2024 with TIVA PMFSH Active Problems Active Problems: All Active Problems Esophagus, foreign body (Acute) Paroxysmal atrial fibrillation (Acute) Atypical pneumonia (Acute) Elevated fasting blood sugar (Acute) Viral illness (Acute) Right shoulder pain (Acute) Numbness of left thumb (Acute) Fatty liver (Acute) Screening for prostate cancer (Acute) Acute ITP (Chronic) Severe thrombocytopenia (Acute) Thrombocytopenia (Acute) Abnormal lung sounds (Acute) History of COVID-19 (Acute) Chest congestion (Acute) SOB (shortness of breath) (Acute) Upper respiratory tract infection (Acute) Dizziness (Acute) Enlarged thoracic aorta (Acute) Hypertensive heart disease (Acute) HTN (hypertension) (Acute) Past Medical History Medical History (Updated 03/29/25 @ 10:35 by Irene Flannery RN) Osteoarthritis History of cardioversion (10/07/24) Malignant melanoma Thrombocytopenia Elevated cholesterol History of cardioversion (~06/12/23) Sleep apnea Atrial fibrillation Enlarged thoracic aorta Hypertensive heart disease HTN (hypertension) Family History Family History Father No problems noted. Mother CVD (cardiovascular disease) Family history of problems with anesthesia: No Surgical History Surgical History History of esophagogastroduodenoscopy (EGD) (08/07/24) H/O colonoscopy History of melanoma excision (~11/12/22) History of Problems with Anesthesia: No Social History Social History Household Members: Spouse and Children Housing: House Are you a primary care management assistant to a significant other at home: No Do you presently have visiting nurse or other home services: No Patient Tobacco Use Status: Never used Tobacco e-Cigarette/Vaping Use: Never Used Use of substances other than those prescribed or required for medical reasons: No Advance Directives: No Advance Directives Information Provided: Yes service: No Current occupational status: retired Cognitive needs: No Hearing needs: No Vision needs: Yes Meds Allergies Allergy/AdvReac Type Severity Reaction Status Date / Time amoxicillin Allergy Intermediate Gastrointestinal Verified 02/01/25 08:33 Upset Penicillins Allergy Intermediate Gastrointestinal Verified 02/01/25 08:33 Upset Home Medications ?Medication ?Instructions ?Recorded ?Confirmed ?Last Taken ?Type fexofenadine 180 mg tablet 180 mg PO DAILY 04/16/22 03/29/25 06/12/23 History (Ananya Allergy) omeprazole 40 mg capsule,delayed 40 mg PO DAILY 11/25/24 03/29/25 Unknown History release famotidine 20 mg tablet (Pepcid) 20 mg PO BID 03/23/25 03/29/25 Unknown History albuterol sulfate 90 mcg/actuation 2 puff inhalation Q4-6H PRN 03/29/25 03/29/25 Unknown History aerosol inhaler Shortness Of Breath Or Wheezing Exam Height,Weight and Vital Signs: Height 6 ft 4 in Weight 119.748 kg Pertinent Lab Results Pertinent Lab Results: Laboratory Tests 11/09/24 03/15/25 08:12 08:06 WBC 5.7 Hgb 15.0 Hct 46.0 Plt Count 124 L Sodium 140 Potassium 4.4 Chloride 111 H Carbon Dioxide 23 BUN 16 Creatinine 1.20 Narrative Narrative: ECHO 08/2024 Conclusions: - 1. Normal LV ejection fraction 55-60% with grade 1 diastolic dysfunction 2. Mild calcific changes of aortic valve with normal cardiac valvular Dopplers 3. Normal RV systolic pressure 4. Mildly dilated ascending aorta at 4 cm Assessment and Plan Assessment Anesthesia Assessment: Chart Reviewed Final Anesthetic Review Family History of Problems with Anesthesia: No History of Problems with Anesthesia: No Documented by User: Faiza Mathew MD 03/31/25 13:01 [facility] Past Medical History Medical History (Updated 03/29/25 @ 10:35 by Irene Flannery RN) Osteoarthritis History of cardioversion (10/07/24) Malignant melanoma Thrombocytopenia Elevated cholesterol History of cardioversion (~06/12/23) Sleep apnea Atrial fibrillation Enlarged thoracic aorta Hypertensive heart disease HTN (hypertension) Family History Family History Father No problems noted. Mother CVD (cardiovascular disease) Surgical History Surgical History History of esophagogastroduodenoscopy (EGD) (08/07/24) H/O colonoscopy History of melanoma excision (~11/12/22) Social History Social History Household Members: Spouse and Children Housing: House Are you a primary care management assistant to a significant other at home: No Do you presently have visiting nurse or other home services: No Patient Tobacco Use Status: Never used Tobacco e-Cigarette/Vaping Use: Never Used Use of substances other than those prescribed or required for medical reasons: No Advance Directives: No Advance Directives Information Provided: Yes service: No Current occupational status: retired Cognitive needs: No Hearing needs: No Vision needs: Yes Meds Allergies Allergy/AdvReac Type Severity Reaction Status Date / Time amoxicillin Allergy Intermediate Gastrointestinal Verified 02/01/25 08:33 Upset Penicillins Allergy Intermediate Gastrointestinal Verified 02/01/25 08:33 Upset Home Medications ?Medication ?Instructions ?Recorded ?Confirmed ?Last Taken ?Type fexofenadine 180 mg tablet 180 mg PO DAILY 04/16/22 03/29/25 06/12/23 History (Ananya Allergy) omeprazole 40 mg capsule,delayed 40 mg PO DAILY 11/25/24 03/29/25 Unknown History release famotidine 20 mg tablet (Pepcid) 20 mg PO BID 03/23/25 03/29/25 Unknown History albuterol sulfate 90 mcg/actuation 2 puff inhalation Q4-6H PRN 03/29/25 03/29/25 Unknown History aerosol inhaler Shortness Of Breath Or Wheezing Exam Airway Mallampati Class: III TM Dist: >3cm Neck ROM: Full Heart: irreg Lungs: cta Assessment and Plan Assessment Anesthesia Assessment: Anesthesia Plan Discussed Final Anesthetic Review NPO: Yes ASA Class: III Final Preanesthetic Review: No Changes in Pt Med Stat, Meds/Allgs Chart Reviewed and Consent Obtained/Reviewed Patient Risk: Intermediate Procedure Risk: Intermediate Anesthetic Plan Anesthetic Plan: MAC: Disposition: Standard PACU
[2025-03-31 11:10] VITALS: BMI 31.8
[2025-03-31 11:24] VITALS: BP 122/76; PULSE 73; RESP 16; TEMP 36.3; O2SAT 96
[2025-03-31] MEDS: Lactated Ringers 1,000 ML 100 ML IVCONT (11:26)
--- NOTE | 2025-03-31 11:32 | MHC.SHP ---
Pre-Procedural Eval Section A - 24 Hr Update-Section A only Date of Service: 03/31/25 The patient is an INPATIENT: No Changes since office visit: Yes Patient answered all questions; No Cold of Flu in the past 2 weeks, No New Medical Problems and No Changes in Medication The patient has been examined within 24 hours of the surgical procedure. The History & Physical has been completed within 30 days and I have reviewed it.: Yes Section B - Complete if H&P > 30 days Chief Complaint: Other persistent atrial fibrillation Allergies: Allergies Allergy/AdvReac Type Severity Reaction Status Date / Time amoxicillin Allergy Intermediate Gastrointestinal Verified 02/01/25 08:33 Upset Penicillins Allergy Intermediate Gastrointestinal Verified 02/01/25 08:33 Upset Plan I have reviewed the history and physical and performed a pertinent physical examination on my patient. No changes have occurred unless specified. Time Spent With Patient Time: Total time managing care of this patient today ____ minutes.
[2025-03-31 13:25] VITALS: BP 124/84; PULSE 61; RESP 18; TEMP 36.1; O2SAT 97
--- NOTE | 2025-03-31 13:28 | ECG_ITS ---
Test Reason : postop Blood Pressure : */* mmHG Vent. Rate : 57 BPM Atrial Rate : 57 BPM P-R Int : 210 ms QRS Dur : 80 ms QT Int : 460 ms P-R-T Axes : 10 -34 -4 degrees QTcB Int : 447 ms Sinus bradycardia with 1st degree A-V block Left axis deviation Cannot rule out Anterior infarct , age undetermined Abnormal ECG When compared with ECG of 07-Oct-2024 12:20, No significant change was found Referred By: Timmy Crabtree Electronically Signed By: PARVEEN WILLARD
--- NOTE | 2025-03-31 13:29 | HO.CARDIVERS ---
Cardioversion Procedure Note Cardioversion Date of Procedure: 03/31/2025 Ordering Provider: Live Crabtree Performing Provider: Live Crabtree Indication for Procedure: Recurrent persistent atrial fibrillation Pre-Op Diagnosis: Same Performed with Transesophageal Echo: No Consent: Verbal and Written consent was obtained from the patient before starting and after confirming oral anticoagulation use. The patient was made aware of the risk of synchronized cardioversion including benefits and alternatives Procedure: After consent obtained, cardioversion pads were attached in anteroposterior configuration and the patient was sedated by the anesthesia team. Once adequate sedation achieved, patient was delivered 200 joules of biphasic synchronized energy in anteroposterior configuration Complications: None Impression: Successful conversion to sinus rhythm Recommendations: 1. Continue Multaq and oral anticoagulation therapy 2. Referral to electrophysiology for ablation 3. Twelve lead EKGs
[2025-03-31 13:30] VITALS: BP 122/80; PULSE 61; RESP 18; O2SAT 95
[2025-03-31 13:35] VITALS: BP 119/79; PULSE 60; RESP 18; O2SAT 95
[2025-03-31 13:40] VITALS: BP 112/77; PULSE 60; RESP 19; O2SAT 97
[2025-03-31 13:55] VITALS: BP 113/78; PULSE 57; RESP 20; TEMP 36.2; O2SAT 96
== END 2025-03-31 14:32 | disposition home or self-care (01) ==
PROVIDERS: PCP Nurse Practitioner Family; Visit Provider Internal Medicine Cardiovascular Disease
PROC: 5A2204Z Restoration of Cardiac Rhythm, Single (ICD-10-PCS; principal; 2025-03-31 12:40)
DX: I48.19 Other persistent atrial fibrillation (principal); Z79.01 Long term (current) use of anticoagulants; I10 Essential (primary) hypertension; E78.00 Pure hypercholesterolemia, unspecified; G47.33 Obstructive sleep apnea (adult) (pediatric); Z79.899 Other long term (current) drug therapy; Z88.0 Allergy status to penicillin
CPT/HCPCS: 92960; 93005; J2704

== ENCOUNTER → 2025-03-31 10:54 | Outpatient (BNV) | payer MEDICARE, SELFPAY | PROVIDERS: PCP Nurse Practitioner Family; Visit Provider Internal Medicine Cardiovascular Disease | DX: I48.91 Unspecified atrial fibrillation (principal); I44.0 Atrioventricular block, first degree | CPT/HCPCS: 92960; 93010 ==

== ENCOUNTER 2025-04-07 08:33 | Outpatient (AMB) | payer MEDICARE, SELFPAY ==
--- NOTE | 2025-04-07 08:45 | A.OFFVIS_ITS ---
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 The patient describes his pain as achy in nature. He did aggravate his knee while going up and down stairs last month. He did have a cortisone injection given into his right knee by another provider which gave him fairly good relief. He denies any locking or giving way. He has tried Tylenol which gives him minimal relief. He is not able to take anti-inflammatory medicines because he is on Xarelto. Allergies amoxicillin Allergy (Intermediate, Verified 04/07/25 08:48) Gastrointestinal Upset Penicillins Allergy (Intermediate, Verified 04/07/25 08:48) Gastrointestinal Upset Medication List - Last Reviewed 04/07/25 by Ellen Clark albuterol sulfate 90 mcg/actuation 2 puffs inhalation Q4-6H PRN atorvastatin 40 mg PO DAILY dronedarone (Multaq) 400 mg PO BID famotidine (Pepcid) 20 mg PO BID fexofenadine (Ananya Allergy) 180 mg PO DAILY lisinopril 5 mg PO QPM omeprazole 40 mg PO DAILY rivaroxaban (Xarelto) 20 mg PO DAILY [facility] Medical History (Updated 04/05/25 @ 07:33 by Wai Hand MD) Osteoarthritis History of cardioversion (10/07/24) Malignant melanoma Thrombocytopenia Elevated cholesterol History of cardioversion (~06/12/23) Sleep apnea Atrial fibrillation Enlarged thoracic aorta Hypertensive heart disease HTN (hypertension) Surgical History History of esophagogastroduodenoscopy (EGD) (08/07/24) H/O colonoscopy History of melanoma excision (~11/12/22) Family History Father No problems noted. Mother CVD (cardiovascular disease) Social History Household Members: Spouse and Children Housing: House Are you a primary palliative care physician to a significant other at home: No Do you presently have visiting nurse or other home services: No Patient Tobacco Use Status: Never used Tobacco e-Cigarette/Vaping Use: Never Used service: No Current occupational status: retired Cognitive needs: No Hearing needs: No Vision needs: Yes Physical Exam Const Other: Well-nourished well-developed very friendly male awake alert and oriented x3 in no acute distress Extrem Other: Bilateral lower extremity examination shows good capillary refill, no skin lesions noted, normal sensation light touch Right knee examination shows a minimal effusion, mild crepitus with range of motion, no instability Results Reviewed Results Reviewed: X-rays of the patient's right knee show mild diffuse joint space narrowing, no acute bony abnormalities Assessment & Plan Assessment & Plan (1) Right knee pain: Code(s): M25.561 - Pain in right knee Category: Medical Plan Mr. Vela presents with right knee pain due to degenerative joint disease. I had a lengthy discussion with the patient regarding the treatment options. We will hold off on another injection for now. I did give him a prescription for tramadol to help with his discomfort. He will follow up with me on an as-needed basis should his symptoms not plateau at an unacceptable level. Feel free to call me at any time should questions regarding his orthopedic management arise. Thank you very much for asking me to see this very friendly gentleman. I spent 22 minutes in reviewing the patient's records and imaging studies, seeing the patient and documenting in the medical record. Orders: Orders XR knee RT 3V Today M25.561 - Pain in right knee Medications: New tramadol 50 mg PO Q12H PRN 30 tabs 0RF pain Coding Level of Care Code New Pt Level 3 (34524) Complex EM visit Add On G2211 Diagnoses Right knee pain M25.561
--- OUTSIDE RECORDS SUMMARY | 2025-04-07 08:49 | XMS_ITS | Data Portability ---
Author Organization [place] - [facility], Allergy Address [address] [address] Assessment Encounter Date Assessment Date Assessment LastModified by Organization Details LastModified Time 02/05/2024 02/05/2024 Follow up in two to four weeks to discuss progress and address any concerns. The patient was also encouraged to utilize our drop-off servicing system in the unfortunate event that something happens to their device and/or to contact me through phone or email at their convenience. [email or web address] Not available 02/05/2024 09:13:39 Plan of Treatment [...] Sensorine ural hearing loss of bilateral ears [id number] Active 2015 Sensorineu ral hearing loss, bilateral; Note: Date Diagnosed: 03/05/2016 11:40 AM (H90.3) Not Available [facility] 02:14:48 Problem Notes None recorded. [...] [address] [address] [facility], [address] [place] [address] 02/05/2024 08:55:06 03/06/2024 08:41:17 Sensorineural hearing loss of bilateral ears 208211552 H90.3 [address] [place] [address] [facility], [address] [place] [address] 02/18/2024 14:31:41 03/06/2024 08:43:15 Sensorineural hearing loss of bilateral ears 413510459 H90.3 Health Concerns Section Related Observation LastModified by Organization Detai ls LastModified Time None Recorded Concern Status LastModified by Organization Details LastModified Time None Recorded Advance Directives Directive None Recorded Payers Insurance Date Sequence Insurance Name Policy Number Policy Arias Covered Member ID Arias Member ID Guarantor Name 02/19/2024 2 [place] [id number] Mick Vela [id number] Mick Vela 02/15/2024 1 [place] [employer] Mick Vela [id number] Mick Vela Notes Date Note Type [...] The devices were programmed wirelessly using the deputy county attorney software in [facility]. Real-ear verification was performed and [...] without pain or discomfort. [address] [place] [address] [facility] [address], [address], [facility] - [facility] 02/17/2024 11:01:12 02/18/2024 text/html Patient returns [...] The devices were programmed wirelessly using the deputy county attorney software in [facility]. Real-ear verification was previously performed. [...] or email at their convenience. MARGIE JUAREZ, [address] [address], [place], [address], [facility] - [facility] 02/18/2024 14:37:11
--- OUTSIDE RECORDS SUMMARY | 2025-04-07 08:49 | XMS_ITS | Patient Health Record ---
Author Organization [facility] Address [address] [place] [address] Care Team Providers Care Tipple Operator Name Role Phone Leticia OCHOA, Josh Primary Care Provider Jules Kirk Unavailable [phone] Luke Hayes Jr Unavailable Allergies Allergen (clinical drug ingredient) Drug/Non Drug Allergy documented on EMR Reaction Allergy Type Onset Date Status Penicillin Unknown Drug Allergy Active hay fever (uncoded) Unknown Allergy Active Results Component Value Reference Range Notes Pathology Reviewed date:12/01/2024 02:46:29 PM Interpretation: Performing Lab:[facility], [address] [place] [id number] Notes/Report: Reason For Referral No Information Medications [...] Problem Status W/U Status Risk Notes Problem [id number] Colon cancer screening (Z12.11) Active confirmed Problem 407344608 History of adenomatous polyp of colon (Z86.010) Active confirmed Problem 852513291 Weight loss (R63.4) Active confirmed Problem Diverticulosis o f large intestine without perforation or abscess without bleeding (K57.30) Active confirmed Problem 973792599 Anticoagulant long-term use (Z79.01) Active confirmed Problem 36578972 Liver cyst (K76.89) Active confirmed Problem 46011468 Diarrhea, unspecified type (R19.7) Active confirmed Problem 355208682 Renal cyst (N28.1) Active confirmed Problem 46930039 Diarrhea of presumed infectious origin (R19.7) Active confirmed Problem 783150475 Esophagism (K22.4) Active confirmed Encounters Encounter Location Date Provider Diagnosis [facility] Outpatient [address] [place] [id number] 11/27/2024 Luke Hayes Jr Esophageal stricture K22.2 [facility] [address] [place] [phone] 09/10/2024 Jules Fermin Esophagism K22.4 [facility] [address] [place] [phone] 09/23/2024 Jules Fermin [facility] [address] [place] [phone] 12/01/2024 Jules Fermin [facility] [address] [place] [phone] 03/04/2025 Jules Fermin Assessments Encounter Date Diagnosis [...] [place] [address] [place] [address] [phone] [id number] DUONG MYLES Self - patient is the insured [employer] ATTN CLAIMS [address] [place] [address] [phone] [id number] DUONG MYLES Self - patient is the insured Medical (General) History Medical History History ICD Code Irritable bowel syndrome----lactose into lerance Hyperlipidemia HTN Denies ME,DM,CVA,Lung disease,renal dise ase Colonoscopy in 03/2012--1 sma [...] aortic aneurysm Afib-sees Dr. Crabtree-Cardioverted 05/2023 Melanoma [id number] by Dr. Yair sagastume Thrombocytopenia--ITP--erica Angela--treated with prednisone but will be going on a different med as of the 06/2023 OV Surgical History Surgery Date(Month/Year) Melanoma RUE-Dr. Queen--neg. lymph node s 11/2022
== END 2025-04-07 08:59 | disposition home or self-care (01) ==
LOC: HO.HOS 08:34
PROVIDERS: PCP Nurse Practitioner Family; Visit Provider Orthopaedic Surgery
DX: M25.561 Pain in right knee (principal)
CPT/HCPCS: 99203; G2211

== ENCOUNTER → 2025-04-07 08:36 | Outpatient (BNV) | payer MEDICARE, SELFPAY | PROVIDERS: Visit Provider Radiology Diagnostic Radiology | DX: M25.561 Pain in right knee (principal) | CPT/HCPCS: 73562 ==

== ENCOUNTER 2025-04-07 10:17 | Outpatient (REF) | payer MEDICARE, SELFPAY ==
--- OUTSIDE RECORDS SUMMARY | 2024-11-27 06:00 | XMS_ITS ---
Author Organization [facility] Address [address] [place] [address] Care Team Providers Care Vice President Of Instruction Name Role Phone Josh Kelly MD Primary Care Provider Jules Kirk Unavailable [phone] Luke Hayes Jr Unavailable REASON FOR VISIT FOOD BOLUS Encounters Encounter Location Date Provider Diagnosis [facility] [place] [address] [place] [phone] 11/27/2024 Luke Hayes Jr Esophageal stricture K22.2 Assessments Encounter Date Diagnosis (ICD Code) Assessment Notes Treatment Notes Treatment Clinical Notes Section Notes 11/27/2024 Esophageal stricture (ICD-10 - K22.2) Plan Of Treatment No Information Progress Notes * DUONG MYLESDOB:[birth year] (69 yo M)Acc No.[id number]:11/27/2024 EGD/MAC Patient: DUONG CARREON Provider: Artem Hayes MD :1955 A ge:68 Y S ex:Male Date:11/27/2024 Address: [address] [facility] Pcp:Josh Kelly MD Subjective: * Chief Complaints: * 1 . FOOD BOLUS. * Medical History: Objective: * Vitals: Assessment: * Assessment: 1. E sophageal stricture - K22.2 (Primary) Plan: * Treatment: * Procedure Codes: 4 3249 ESOPH ENDOSCOPY, DILATION, [address]5847 UPPER GI ENDOSCOPY, BIOPSY, Modifiers: 59 * * The named appointment provid er may or may not be the originator of this progress note, and it is not deemed complete until electronically signed by the appointment provider. Sign off status: Pending * Provider: Artem Hayes MD Date: 0 11/27/2024 Generated for Momo ingram/Omid/Julius on: 0 04/08/2025 11:09 AM EDT
--- NOTE | ~2025-04-07 | XR_ITS ---
EXAMINATION: XR KNEE, RIGHT CLINICAL INFORMATION: M25.561 - Pain in right knee COMPARISON: None available. TECHNIQUE: Three views of the right knee. FINDINGS: No fracture, dislocation, or suspicious bone lesion. There is normal alignment. There is very mild tricompartmental joint space narrowing, with early marginal osteophytic spurring most significant in the patellofemoral compartment. Mild spurring of the tibial spines. No evidence of joint effusion. No soft tissue abnormality. XR/XR knee RT 3V IMPRESSION: 1. No acute bony abnormalities. No joint effusion. 2. Mild tricompartmental osteoarthrosis, most significant patellofemoral compartment. Electronically signed by: David Painter MD 04/07/2025 08:49 AM EDT
--- OUTSIDE RECORDS SUMMARY | 2025-04-08 11:09 | XMS_ITS | Data Portability ---
Author Organization [place] - [facility], Allergy Address [address] [address] Assessment Encounter Date Assessment Date Assessment LastModified by Organization Details LastModified Time 02/05/2024 02/05/2024 Follow up in two to four weeks to discuss progress and address any concerns. The patient was also encouraged to utilize our drop-off servicing system in the unfortunate event that something happens to their device and/or to contact me through phone or email at their convenience. [email or web address] Not available 02/05/2024 09:13:39 Plan of Treatment [...] Sensorine ural hearing loss of bilateral ears 575954873 Active 2015 Sensorineu ral hearing loss, bilateral; Note: Date Diagnosed: 03/05/2016 11:40 AM (H90.3) Not Available [facility] 02:14:48 Problem Notes None recorded. Medical [...] [address] [address] [facility], [address] [place] [address] 02/05/2024 08:55:06 03/06/2024 08:41:17 Sensorineural hearing loss of bilateral ears 106815285 H90.3 [address] [place] [address] [facility], [address] [place] [address] 02/18/2024 14:31:41 03/06/2024 08:43:15 Sensorineural hearing loss of bilateral ears 486384049 H90.3 Health Concerns Section Related Observation LastModified by Organization Detai ls LastModified Time None Recorded Concern Status LastModified by Organization Details LastModified Time None Recorded Advance Directives Directive None Recorded Payers Insurance Date Sequence Insurance Name Policy Number Policy Airas Covered Member ID Arias Member ID Guarantor Name 02/19/2024 2 [place] [id number] Mick Vela [id number] Mick Vela 02/15/2024 1 [place] [facility] Mick Vela [id number] Mick Vela Notes Date Note Type [...] The devices were programmed wirelessly using the mine engineering supervisor software in [facility]. Real-ear verification was performed and the devices [...] without pain or discomfort. [address]rrael BROD[address] [facility] [address], [place], [address], [facility] - [facility] 02/17/2024 11:01:12 02/18/2024 text/html Patient returns [...] The devices were programmed wirelessly using the mine engineering supervisor software in [facility]. Real-ear verification was previously performed. Any remaining [...] or email at their convenience. MARGIE JUAREZ, [address] [address], [place], [address], [facility] - [facility] 02/18/2024 14:37:11
== END 2025-04-07 10:18 | disposition home or self-care (01) ==
LOC: HO.HOSX 10:17
PROVIDERS: Visit Provider Orthopaedic Surgery
DX: M17.11 Unilateral primary osteoarthritis, right knee (principal); M25.461 Effusion, right knee; M25.561 Pain in right knee; M25.861 Other specified joint disorders, right knee; Z79.01 Long term (current) use of anticoagulants; Z79.899 Other long term (current) drug therapy
CPT/HCPCS: 73562; 99202

== ENCOUNTER → 2025-04-19 08:53 | Outpatient (REF) | payer MEDICARE, SELFPAY ==
--- OUTSIDE RECORDS SUMMARY | 2024-11-27 06:00 | XMS_ITS ---
Author Organization [facility] Address [address] [place] [address] Care Team Providers Care Suction Dredge Dumping Supervisor Name Role Phone Josh Kelly MD Primary Care Provider Jules Kirk Unavailable [phone] Luke Hayes Jr Unavailable [phone] REASON FOR VISIT FOOD BOLUS Encounters Encounter Location Date Provider Diagnosis [facility] [place] [address] [place] [phone] 11/27/2024 Luke Hayes Jr Esophageal stricture K22.2 Assessments Encounter Date Diagnosis (ICD Code) Assessment Notes Treatment Notes Treatment Clinical Notes Section Notes 11/27/2024 Esophageal stricture (ICD-10 - K22.2) Plan Of Treatment No Information Progress Notes * DUONG MY[birth year]DOB:[birth year] (69 yo M)Acc No.[id number]:11/27/2024 EGD/MAC Patient: DUONG CARREON Provider: Artem Hayes MD :1955 A ge:68 Y S ex:Male Date:11/27/2024 Address: [address] [facility] Pcp:Josh Kelly MD Subjective: * Chief Complaints: * 1 . FOOD BOLUS. * Medical History: Objective: * Vitals: Assessment: * Assessment: 1. E sophageal stricture - K22.2 (Primary) Plan: * Treatment: * Procedure Codes: 4 3249 ESOPH ENDOSCOPY, DILATION, 43115 UPPER GI ENDOSCOPY, BIOPSY, Modifiers: 59 * * The named appointment provid er may or may not be the originator of this progress note, and it is not deemed complete until electronically signed by the appointment provider. Sign off status: Pending * Provider: Artem Hayes MD Date: 0 11/27/2024 Generated for Momo ingram/Omid/Julius on: 0 04/19/2025 09:13 AM EDT
--- NOTE | 2025-04-19 08:55 | HM_ITS ---
* Total monitoring time 3 days. * Underlying rhythm is sinus with an average rate of 56/Min. About 76% of the time, rate < 60/Min. * Rare supraventricular ectopy. * Rare ventricular ectopy. * No significant pauses or high-grade AV blocks. * No patient markers or diary events MTDD
== END ==
LOC: HO.CARD 08:53
PROVIDERS: Visit Provider Internal Medicine Cardiovascular Disease
DX: I48.0 Paroxysmal atrial fibrillation (principal)
CPT/HCPCS: 93242

== ENCOUNTER → 2025-04-19 08:55 | Outpatient (BNV) | payer MEDICARE, SELFPAY | PROVIDERS: Visit Provider Internal Medicine | DX: I47.10 Supraventricular tachycardia, unspecified (principal); I49.3 Ventricular premature depolarization | CPT/HCPCS: 93244 ==

== ENCOUNTER 2025-05-18 08:16 | Outpatient (AMB) | payer MEDICARE, SELFPAY ==
--- OUTSIDE RECORDS SUMMARY | 2024-11-27 06:00 | XMS_ITS ---
Author Organization [facility] Address [address] [place] [address] Care Team Providers Care Pie Maker Machine Name Role Phone Josh Kelly MD Primary Care Provider Jules Kirk Unavailable [phone] Luke Hayes Jr Unavailable [phone] REASON FOR VISIT FOOD BOLUS Encounters Encounter Location Date Provider Diagnosis [facility] [place] [address] [place] [phone] 11/27/2024 Luke Hayes Jr Esophageal stricture K22.2 Assessments Encounter Date Diagnosis (ICD Code) Assessment Notes Treatment Notes Treatment Clinical Notes Section Notes 11/27/2024 Esophageal stricture (ICD-10 - K22.2) Plan Of Treatment No Information Progress Notes * DUONG MYLESDOB:[birth year] (69 yo M)Acc No.[id number]:11/27/2024 EGD/MAC Patient: DUONG CARREON Provider: Artem Hayes MD :1955 A ge:68 Y S ex:Male Date:11/27/2024 Address: [address] [facility] Pcp:Josh Kelly MD Subjective: * Chief Complaints: * 1 . FOOD BOLUS. * Medical History: Objective: * Vitals: Assessment: * Assessment: 1. E sophageal stricture - K22.2 (Primary) Plan: * Treatment: * Procedure Codes: 4 3249 ESOPH ENDOSCOPY, DILATION, 55665 UPPER GI ENDOSCOPY, BIOPSY, Modifiers: 59 * * The named appointment provid er may or may not be the originator of this progress note, and it is not deemed complete until electronically signed by the appointment provider. Sign off status: Pending * Provider: Artem Hayes MD Date: 0 11/27/2024 Generated for Momo ingram/Omid/Julius on: 0 05/18/2025 08:53 AM EDT
[2025-05-18 08:33] VITALS: BP 128/68; PULSE 49; BMI 32.5
--- NOTE | 2025-05-18 08:33 | A.OFFVIS_ITS ---
Vital Signs 05/18/25 08:33 Height 6 ft 4 in Weight 266 lb 12.149 oz BMI 32.5 BP 128/68 Blood Pressure Location Lt brachial Position Sitting Pulse 49 L Pulse Source Monitor Intake Visit Reasons: 6M follow up Allergies amoxicillin Allergy (Intermediate, Verified 04/07/25 08:48) Gastrointestinal Upset Penicillins Allergy (Intermediate, Verified 04/07/25 08:48) Gastrointestinal Upset Medication List - Last Reconciled 05/18/25 by Timmy Crabtree MD albuterol sulfate 90 mcg/actuation 2 puffs inhalation Q4-6H PRN atorvastatin 40 mg PO DAILY dronedarone (Multaq) 400 mg PO BID famotidine (Pepcid) 20 mg PO BID fexofenadine (Ananya Allergy) 180 mg PO DAILY lisinopril 5 mg PO QPM omeprazole 40 mg PO DAILY rivaroxaban (Xarelto) 20 mg PO DAILY HPI Comments Details: Yandel comes for follow-up. He has been doing well overall. He has been doing well. He has no neurologic symptoms he has not noticed any difference in overall functional capacity. Remains in sinus rhythm. Denies any prolonged irregular heartbeat or fast heartbeat or palpitations. No lightheadedness, syncope. Takes all his medications. Being followed by Hematology for ITP. He has had no bleeding issues or neurologic event [facility] Medical History Osteoarthritis History of cardioversion (10/07/24) Malignant melanoma Thrombocytopenia Elevated cholesterol History of cardioversion (~06/12/23) Sleep apnea Atrial fibrillation Enlarged thoracic aorta Hypertensive heart disease HTN (hypertension) Surgical History History of esophagogastroduodenoscopy (EGD) (08/07/24) H/O colonoscopy History of melanoma excision (~11/12/22) Family History Father No problems noted. Mother CVD (cardiovascular disease) Social History Household Members: Spouse and Children Housing: House Are you a primary health care administrator to a significant other at home: No Do you presently have visiting nurse or other home services: No Patient Tobacco Use Status: Never used Tobacco e-Cigarette/Vaping Use: Never Used service: No Current occupational status: retired Cognitive needs: No Hearing needs: No Vision needs: Yes Review of Systems Const Reports no additional complaints and Denies weakness Eyes Reports no additional complaints ENT Denies dizziness Card Reports no additional complaints, Denies chest pain, Denies chest pain with activity, Denies syncope, Denies rapid heart rate, Denies pedal edema, Denies edema, Denies leg edema, Denies lightheadedness, Denies palpitations, Denies dyspnea, Denies dyspnea on exertion and Denies orthopnea Resp Denies cough, Denies dyspnea and Denies dyspnea on exertion GI Denies hematochezia and Denies change in stool character Musc Denies abnormal gait, Denies muscle cramps, Denies muscle weakness, Denies numbness, Denies radiating pain into limb and Denies tingling Neuro Denies abnormal gait, Denies dizziness, Denies syncope, Denies numbness, Denies tingling and Denies weakness Endo Denies palpitations Physical Exam Vital Signs: Last Vital Signs Pulse 49 L 05/18/25 08:33 BP 128/68 05/18/25 08:33 BMI result Body Mass Index 32.5 Const General: cooperative, healthy appearing, comfortable and no acute distress Orientation/consciousness: patient oriented x3 Neck Neck: Yes normal visual inspection and Yes no JVD Resp Effort & Inspection: normal respiratory effort Auscultation: clear to auscultation bilaterally, no crackles, no rales, no rhonchi and no wheezes Cardio Jugular venous distension: no JVD Rate: bradycardic Rhythm: regular rhythm Heart sounds: S1 normal heart sound present, S2 normal heart sound present, no gallops, no murmurs and no rubs Neuro General: patient oriented x3 Extrem General: Yes normal to inspection, No no pedal edema and No calf tenderness Psych Appearance: grossly normal Mental Status: mental status grossly normal Speech and movement: Normal speech and movement present Office Procedures EKG Details: EKG shows sinus bradycardia 49 beats per minute with T-wave changes in inferior leads 28580-Dhjukgobiggecshnx, Complete Assessment & Plan Assessment & Plan (1) Paroxysmal atrial fibrillation: Code(s): I48.0 - Paroxysmal atrial fibrillation Category: Medical Plan: Paroxysmal atrial fibrillation difficult to maintain requiring antiarrhythmic drug therapy. We discussed about rhythm control approach with long-term benefits and by recent published data. We discussed about this. Will continue Multaq for now. Follow up planned for ablation in the near future. We discussed about the process of ablation and the potential complications. Understands it. Continue full oral anticoagulation, currently on Xarelto. Long-term with Cabral to discuss about oral anticoagulation therapy although given his risk factors I would continue with Xarelto for now. (2) Enlarged thoracic aorta: Comment: 3.99 cm by echocardiogram, May 2020 Code(s): I77.89 - Other specified disorders of arteries and arterioles Category: Medical Plan: Mildly enlarged thoracic aorta which has remained stable. Continue aggressive blood pressure control. Advised to avoid sudden strenuous isometric exercise. (3) HTN (hypertension): Code(s): I10 - Essential (primary) hypertension Category: Medical Plan: Hypertension which is currently well optimized on current therapy. Doing well. No lightheaded spells orthostatic symptoms. Continue aggressive blood pressure control. Low-salt diet was discussed. Importance of good blood pressure control was discussed. Continue statin therapy with target goal LDL less than 70 mg/dL. Will follow up in the clinic in 3 months for EKG in 6 months with me. Thank you for allowing me to partake in his care Coding Level of Care Code Est Pt Level 4 (62491) Complex EM visit Add On G2211 Diagnoses Paroxysmal atrial fibrillation I48.0 Enlarged thoracic aorta I77.89 HTN (hypertension) I10 CPT Codes EKG - CPT: 60890-Kpuckkxbxkgcdeaco, Complete ([id number])
--- OUTSIDE RECORDS SUMMARY | 2025-05-18 08:53 | XMS_ITS | Patient Health Record ---
Author Organization [facility] Address [address] [place] [address] Care Team Providers Care Dining Room Attendant Name Role Phone Leticia OCHOA, Josh Primary Care Provider Jules Kirk Unavailable [phone] Luke Hayes Jr Unavailable Allergies Allergen (clinical drug ingredient) Drug/Non Drug Allergy documented on EMR Reaction Allergy Type Onset Date Status Penicillin Unknown Drug Allergy Active hay fever (uncoded) Unknown Allergy Active Results Component Value Reference Range Notes Pathology Reviewed date:12/01/2024 02:46:29 PM Interpretation: Performing Lab:[facility], [address] [place] [phone] Notes/Report: Reason For Referral No Information Medications Medication SIG (Take, Route, Frequency, Duration) Notes Start Date End Date Status ZyrTEC 10 MG 1 tablet Orally Once a day for 30 day(s) Unknown Atorvastatin Calcium 40 MG 1 tablet Oral ly Once a day for 30 day(s) Unknown Famotidine 20 MG 1 tablet at bedtime Orally Once a day for 30 days 04/27/2025 Active Lisinopril 5 MG 1 tablet Orally Once a day Unknown Allergy adam Unknown hydroCHLOROthiazide Unknown Omeprazole 40 MG TAKE ONE CAPSULE BY MOUTH EVERY DAY 1/2-1 HOUR BEFORE MORNING MEAL for 30 Active Metoprolol Succinate 50 MG as directed [...] Problem Status W/U Status Risk Notes Problem 573067018 Colon cancer screening (Z12.11) Active confirmed Problem 170416609 History of adenomatous polyp of colon (Z86.010) Active confirmed Problem 811329336 Weight loss (R63.4) Active confirmed Problem Diverticular disease of colon (814087315) Diverticulosis of large intestine without perforation or abscess without bleeding (K57.30) Active confirmed Problem 458406058 Anticoagulant long-term use (Z79.01) Active confirmed Problem 14025988 Liver cyst (K76.89) Active confirmed Problem 84021141 Diarrhea, unspecified type (R19.7) Active confirmed Problem 560115774 Renal cyst (N28.1) Active confirmed Problem 01081672 Diarrhea of presumed infectious origin (R19.7) Active confirmed Problem 048713393 Esophagism (K22.4) Active confirmed Encounters Encounter Location Date Provider Diagnosis [facility] [place] [address] [place] [id number] 11/27/2024 Luke Hayes Jr Esophageal stricture K22.2 [facility] [address] [place] [phone] 09/10/2024 Jules Fermin Esophagism K22.4 [facility] [address] [place] [phone] 09/23/2024 Jules Fermin [facility] [address] [place] [phone] 12/01/2024 Jules Fermin [facility] [address] [place] [phone] 03/04/2025 Jules Fermin [facility] [address] [place] [id number] 04/27/2025 Jules Fermin Assessments Encounter Date Diagnosis (ICD [...] [place] [address] [place] [address] [id number] DUONG MYLES Self - patient is the insured [employer] CLAIMS [address] [place] [address] [id number] SHAMEKA DUONG Self - patient is the insured Medical (General) History Medical History History ICD Code Irritable bowel syndrome----lactose into lerance Hyperlipidemia HTN Denies [place],DM,CVA,Lung disease,renal dise ase Colonoscopy in 03/2012--1 sma [...] Small aortic aneurysm Afib-seetanika Crabtree-Cardioverted 05/2023 Melanoma 11/[id number] by Dr. Yair sagastume Thrombocytopenia--ITP--erica Angela--treated with prednisone but will be going on a different med as of the 06/2023 OV Surgical History Surgery Date(Month/Year) Melanoma RUE-Dr. Queen--neg. lymph node s 11/2022
== END 2025-05-18 08:57 | disposition home or self-care (01) ==
LOC: HO.HCS 08:17
PROVIDERS: PCP Nurse Practitioner Family; Visit Provider Internal Medicine Cardiovascular Disease
DX: I48.0 Paroxysmal atrial fibrillation (principal); I77.89 Other specified disorders of arteries and arterioles; I10 Essential (primary) hypertension
CPT/HCPCS: 93010; 99214; G2211

== ENCOUNTER → 2025-05-18 08:16 | Outpatient (BNVA) | payer MEDICARE, SELFPAY | PROVIDERS: PCP Nurse Practitioner Family; Visit Provider Internal Medicine Cardiovascular Disease | DX: I48.0 Paroxysmal atrial fibrillation (principal); I77.89 Other specified disorders of arteries and arterioles; I10 Essential (primary) hypertension | CPT/HCPCS: 93005; 99212 ==

== ENCOUNTER 2025-06-09 07:41 | Outpatient (AMB) | payer MEDICARE, SELFPAY ==
--- OUTSIDE RECORDS SUMMARY | 2024-11-27 06:00 | XMS_ITS ---
Author Organization [facility] Address [address] [place] [address] Care Team Providers Care Mechanic Senior Name Role Phone Josh Kelly MD Primary Care Provider Jules Kirk Unavailable [phone] Luke Hayes Jr Unavailable REASON FOR VISIT FOOD BOLUS Encounters Encounter Location Date Provider Diagnosis [facility] [place] [address] [place] [phone] 11/27/2024 Luke Hayes Jr Esophageal stricture K22.2 Assessments Encounter Date Diagnosis (ICD Code) Assessment Notes Treatment Notes Treatment Clinical Notes Section Notes 11/27/2024 Esophageal stricture (ICD-10 - K22.2) Plan Of Treatment No Information Progress Notes * DUONG MYLESDOB:[birth year] (69 yo M)Acc No.[id number]:11/27/2024 EGD/MAC Patient: DUONG CARREON Provider: Artem Hayes MD :1955 A ge:68 Y S ex:Male Date:11/27/2024 Address: [address] [facility] Pcp:Josh Kelly MD Subjective: * Chief Complaints: * 1 . FOOD BOLUS. * Medical History: Objective: * Vitals: Assessment: * Assessment: 1. E sophageal stricture - K22.2 (Primary) Plan: * Treatment: * Procedure Codes: 4 3249 ESOPH ENDOSCOPY, DILATION, 18643 UPPER GI ENDOSCOPY, BIOPSY, Modifiers: 59 * * The named appointment provid er may or may not be the originator of this progress note, and it is not deemed complete until electronically signed by the appointment provider. Sign off status: Pending * Provider: Artem Hayes MD Date: 0 11/27/2024 Generated for Momo ingram/Omid/Julius on: 0 06/09/2025 07:46 AM EDT
--- OUTSIDE RECORDS SUMMARY | 2025-06-09 07:46 | XMS_ITS | Patient Health Record ---
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 Name Role Phone Leticia OCHOA, Josh Primary Care Provider Jules Kirk Unavailable [phone] Luke Hayes Jr Unavailable Allergies Allergen (clinical drug ingredient) Drug/Non Drug Allergy documented on EMR Reaction Allergy Type Onset Date Status Penicillin Unknown Drug Allergy Active hay fever (uncoded) Unknown Allergy Active Results Component Value Reference Range Notes Pathology Reviewed date:12/01/2024 02:46:29 PM Interpretation: Performing Lab:[facility], [address] [place] [phone] Notes/Report: Reason For Referral No Information Medications [...] Problem Status W/U Status Risk Notes Problem 436626746 Colon cancer screening (Z12.11) Active confirmed Problem 518467074 History of adenomatous polyp of colon (Z86.010) Active confirmed Problem 663478548 Weight loss (R63.4) Active confirmed Problem Diverticular disease of colon (389885292) Diverticulosis of large intestine without perforation or abscess without bleeding (K57.30) Active confirmed Problem 360391075 Anticoagulant long-term use (Z79.01) Active confirmed Problem 36280104 Liver cyst (K76.89) Active confirmed Problem 45838853 Diarrhea, unspecified type (R19.7) Active confirmed Problem 164784392 Renal cyst (N28.1) Active confirmed Problem 66961463 Diarrhea of presumed infectious origin (R19.7) Active confirmed Problem 264456942 Esophagism (K22.4) Active confirmed Encounters Encounter Location Date Provider Diagnosis [facility] [place] [address] [place] [id number] 11/27/2024 Luke Hayes Jr Esophageal stricture K22.2 [facility] [address] [place] [phone] 09/10/2024 Jules Fermin Esophagism K22.4 [facility] [address] [place] [phone] 09/23/2024 Jules Fermin [facility] [address] [place] [phone] 12/01/2024 Jules Fermin [facility] [address] [place] [phone] 03/04/2025 Jules Fermin [facility] [address] [place] [phone] 04/27/2025 Jules Fermin Assessments Encounter Date Diagnosis [...] [place] [address] [place] [address] [id number] DUONG MYLES Self - patient is the insured [employer] ATT[employer] CLAIMS [address] [place] [address] [id number] SHAMEKA DUONG Self - patient is the insured Medical (General) History Medical History History ICD Code Irritable bowel syndrome----lactose into lerance Hyperlipidemia HTN Denies [place],DM,CVA,Lung disease,renal dise ase Colonoscopy in 03/2012--1 sma [...] Small aortic aneurysm Afib-seetanika Crabtree-Cardioverted 05/2023 Melanoma 11/[id number] by Dr. Yair sagastume Thrombocytopenia--ITP--erica Angela--treated with prednisone but will be going on a different med as of the 06/2023 OV Surgical History Surgery Date(Month/Year) Melanoma RUE-Dr. Queen--neg. lymph node s 11/2022
--- NOTE | 2025-06-09 07:55 | A.OFFVIS_ITS ---
Vital Signs 06/09/25 08:01 Height 6 ft 4 in Weight 266 lb BMI 32.4 Intake Visit Reasons: O f/u RT knee pain Intake Note: Mick is a 69 year old male who presents with complaints of right knee pain. He describes his pain as sharp in nature. He did have a cortisone injection given into his right knee by another provider in February. He got fairly good relief from that injection. He has tried Tylenol which gives him mild relief. He is not able to take anti-inflammatory medicines. He wishes to hold off on surgery if at all possible. Allergies amoxicillin Allergy (Intermediate, Verified 06/09/25 08:01) Gastrointestinal Upset Penicillins Allergy (Intermediate, Verified 06/09/25 08:01) Gastrointestinal Upset Medication List - Last Reconciled 06/09/25 by Wai Hand MD albuterol sulfate 90 mcg/actuation 2 puffs inhalation Q4-6H PRN atorvastatin 40 mg PO DAILY dronedarone (Multaq) 400 mg PO BID famotidine (Pepcid) 20 mg PO BID fexofenadine (Ananya Allergy) 180 mg PO DAILY lisinopril 5 mg PO QPM omeprazole 40 mg PO DAILY rivaroxaban (Xarelto) 20 mg PO DAILY PFS Medical History Osteoarthritis History of cardioversion (10/07/24) Malignant melanoma Thrombocytopenia Elevated cholesterol History of cardioversion (~06/12/23) Sleep apnea Atrial fibrillation Enlarged thoracic aorta Hypertensive heart disease HTN (hypertension) Surgical History History of esophagogastroduodenoscopy (EGD) (08/07/24) H/O colonoscopy History of melanoma excision (~11/12/22) Family History Father No problems noted. Mother CVD (cardiovascular disease) Social History Household Members: Spouse and Children Housing: House Are you a primary rn care manager to a significant other at home: No Do you presently have visiting nurse or other home services: No Patient Tobacco Use Status: Never used Tobacco e-Cigarette/Vaping Use: Never Used service: No Current occupational status: retired Cognitive needs: No Hearing needs: No Vision needs: Yes Physical Exam Vital Signs: BMI result Body Mass Index 32.4 Const Other: Well-nourished well-developed very friendly male awake alert and oriented x3 in no acute distress Extrem Other: Right knee examination shows a minimal effusion, palpable crepitus with range of motion, pain with range of motion, no instability Office Procedures AMB Joint Injection/Aspiration Joint Injection/Aspiration Primary Site: right knee Prep: site was prepped using aseptic technique Injected: 40 mg of, DepoMedrol and 1% plain lidocaine Procedure: The patient tolerated the procedure well Coding - Large joint Procedure code (CPT) selection complete Results Reviewed Results Reviewed: X-rays of the patient's right knee taken previously show joint space narrowing, subchondral sclerosis, no acute bony abnormalities Assessment & Plan Assessment & Plan (1) Arthritis of right knee: Code(s): M17.11 - Unilateral primary osteoarthritis, right knee Category: Medical Plan Mr. Vela presents with right knee pain due to degenerative joint disease. The risks and benefits of a right knee cortisone injection were discussed at length with the patient. The patient wished to proceed. He tolerated the injection well. He will continue with his home exercise program. He will contact me prior to his follow-up appointment in 3 months should any questions or concerns arise. I spent 22 minutes in reviewing the patient's records and imaging studies, seeing the patient and documenting in the medical record. Orders: Orders AMB Joint Injection/Aspiration Today M17.11 - Unilateral primary osteoarthritis, right knee Coding Level of Care Code Est Pt Level 3 (80586) Complex EM visit Add On G2211 Diagnoses Arthritis of right knee M17.11 CPT Codes Coding - Large joint: 19323 - Large joint ([id number])
[2025-06-09 08:01] VITALS: BMI 32.4
== END 2025-06-09 08:12 | disposition home or self-care (01) ==
LOC: HO.HOS 07:42
PROVIDERS: Visit Provider Orthopaedic Surgery
DX: M17.11 Unilateral primary osteoarthritis, right knee (principal)
CPT/HCPCS: 20610; 99213

== ENCOUNTER → 2025-06-09 07:41 | Outpatient (BNVA) | payer MEDICARE, SELFPAY | PROVIDERS: Visit Provider Orthopaedic Surgery | DX: M17.11 Unilateral primary osteoarthritis, right knee (principal) | CPT/HCPCS: 20610; 99212; J1010; J2003 ==

== ENCOUNTER 2025-08-16 06:20 | Outpatient (REF) | payer MEDICARE, SELFPAY ==
--- OUTSIDE RECORDS SUMMARY | 2024-11-27 05:00 | XMS_ITS ---
Author Organization [facility] Address [address] [place] [address] Care Team Providers Care Unix Systems Administrator Name Role Phone Josh Kelly MD Primary Care Provider Jules Kirk Unavailable [phone] Luke Hayes Jr Unavailable [phone] REASON FOR VISIT FOOD BOLUS Encounters Encounter Location Date Provider Diagnosis [facility] Out[facility] [address] [place] [phone] 11/27/2024 Luke Hayes Jr Esophageal stricture K22.2 Assessments Encounter Date Diagnosis (ICD Code) Assessment Notes Treatment Notes Treatment Clinical Notes Section Notes 11/27/2024 Esophageal stricture (ICD-10 - K22.2) Plan Of Treatment No Information Progress Notes * DUONG MYLESDOB:[birth year] (69 yo M)Acc No.[id number]:11/27/2024 EGD/MAC Patient: DUONG CARREON Provider: Artem Hayes MD :1955 A ge:68 Y S ex:Male Date:11/27/2024 Address: [address] [facility] Pcp:Josh Kelly MD Subjective: * Chief Complaints: * F OOD BOLUS Assessment: * Assessment: 1. E sophageal stricture - K22.2 (Primary) Plan: * Procedure Codes: 4 3249 ESOPH ENDOSCOPY, [id number] UPPER GI ENDOSCOPY, BIOPSY, Modifiers: 59 Billing Information: * Procedure Codes: 23104 ESOPH ENDOSCOPY, DILATION. 66325 UPPER GI ENDOSCOPY, BIOPSY. Modifiers: 59 * The named appointment provid er may or may not be the originator of this progress note, and it is not deemed complete until electronically signed by the appointment provider. Sign off status: Pending * Provider: Artem Hayes MD Date: 0 11/27/2024 Generated for Momo ingram/Omid/Julius on: 1 10/17/2024 06:22 AM EST
--- OUTSIDE RECORDS SUMMARY | 2025-08-16 06:22 | XMS_ITS | Patient Health Record ---
Author Organization [facility] Address [address] [place] [address] Care Team Providers Care Audiometrist Name Role Phone Leticia OCHOA, Josh Primary Care Provider Jules Kirk Unavailable [phone] Luke Hayes Jr Unavailable Allergies Allergen (clinical drug ingredient) Drug/Non Drug Allergy documented on EMR Reaction Allergy Type Onset Date Status hay fever (uncoded) Unknown Allergy Active Penicillin Unknown Drug Allergy Active Results Component Value Reference Range Notes Pathology Reviewed date:12/01/2024 02:46:29 PM Interpretation: Performing Lab:[facility], [address] [place] [phone] Notes/Report: Reason For Referral No Information Medications Medication SIG (Take, Route, Frequency, Duration) Notes Start Date End Date Status ZyrTEC 10 MG Tablet 1 tablet Orally Once a day; Duration: 30 day(s) Unknown Atorvastatin Calcium 40 MG Tablet 1 tablet Orally Once a day; Duration: 30 day(s) Unknown Famotidine 20 MG Tablet 1 tablet at bedt aquiles Orally Once a day; Duration: 30 days 04/27/2025 Active Lisinopril 5 MG Tablet 1 tablet Orally O nce a day Unknown Allergy adam Unknown hydroCHLOROthiazide Unknown Omeprazole 40 MG Capsule Delayed Release TAKE ONE CAPSULE BY MOUTH EVERY DAY 1/2-1 HOUR BEFORE MORNING MEAL; Duration: 30 Active Metoprolol Succinate 50 MG Tablet Extended Release as directed Orally Unknown Xarelto 20 MG Tablet 1 tablet with food Orally Once a day; Duration: 30 day(s) Unknown Immunizations Vaccine Route Administration Date Status Comme nts Influenza Unknown 07/17/2023 Refused Social History Social History Drugs/Alcohol: Social Info Question Answer Notes Alcohol Screen Did you have a drink containing alcohol in the past year? 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 alcohol Nonsmoker; occ. alcohol Nonsmoker; occ. alcohol Nonsmoker; occ. alcohol Problems Problem Type SNOMED Code ICD Code Onset Dates Problem Status W/U Status Risk Notes Problem Colon cancer screening (759988447) Colon cancer screening (Z12.11) Active confirmed Problem History of adenomatous polyp of colon (052448565) History of adenomatous polyp of colon (Z86.010) Active confirmed Problem Weight loss (444129673) Weight loss (R63.4) Active confirmed Problem Diverticular disease of colon (015935878) Diverticulosis of large intestine without perforation or abscess without bleeding (K57.30) Active confirmed Problem Long-term current use of anticoagulant (314582910) Anticoagulant long-term use (Z79.01) Active confirmed Problem Liver cyst (14080179) Liver cyst (K76.89) Active confirmed Problem Diarrhea (36213321) Diarrhea, unspecified type (R19.7) Active confirmed Problem Renal cyst (451208967) Renal cyst (N28.1) Active confirmed Problem Diarrhea of presumed infectious origin (90187014) Diarrhea of presumed infectious origin (R19.7) Active confirmed Problem Esophagism (48895470) Esophagism (K22.4) Active confirmed Encounters Encounter Location Date Provider Diagnosis [facility] [place] [address] [place] [id number] 11/27/2024 Luke Hayes Jr Esophageal stricture K22.2 [facility] [address] [place] [phone] 09/10/2024 Jules Fermin Esophagism K22.4 [facility] [address] [place] [phone] 09/23/2024 Jules Fermin [facility] [address] [place] [phone] 12/01/2024 Jules Fermin [facility] [address] [place] [phone] 03/04/2025 Jules Fermin [facility] [address] [place] [address] 04/27/2025 Jules Jeny Assessments Encounter Date Diagnosis (ICD Code) Assessment [...] Date MEDICARE OF [place] [address] [place] [phone] [id number] DUONG MYLES Self - patient is the insured [employer] ATT[employer] CLAIMS [address] [place] [address] [id number] DUONG MYLES Self - patient is the insured Medical (General) History Medical History History ICD Code Irritable bowel syndrome----lactose into lerance Hyperlipidemia HTN Denies [place],DM,CVA,Lung disease,renal dise ase Colonoscopy in 03/2012--1 sma [...] Small aortic aneurysm Afib-seetanika Crabtree-Cardioverted 05/2023 Melanoma 11/[id number] by Dr. Yair sagastume Thrombocytopenia--ITP--erica Angela--treated with prednisone but will be going on a different med as of the 06/2023 OV Surgical History Surgery Date(Month/Year) Melanoma RUE-Dr. Queen--neg. lymph node s 11/2022
--- OUTSIDE RECORDS SUMMARY | 2025-08-16 06:22 | XMS_ITS | Data Portability ---
Author Organization [place] - [facility], Allergy Address [address] [address] Assessment Encounter Date Assessment Date Assessment LastModified [...] Sensorine ural hearing loss of bilateral ears [id number] Active 2015 Sensorineu ral hearing loss, bilateral; Note: Date Diagnosed: 03/05/2016 11:40 AM (H90.3) Not Available [facility] 02:14:48 Problem Notes None recorded. Medical Equipment [...] Diagnosis SNOMED-CT Code Diagnosis ICD10 Code Diagnosis IMO Codes Diagnosis Note [address] [facility] [place] 100 [facility],[place] 100 [facility] [place] [phone] 02/05/2024 08:55:06 03/06/2024 08:41:17 Sensorineural hearing loss of bilateral ears [id number] H90.3 2724 [address] [facility] [place] 100 [facility], [place] 100 [place] [address] 02/18/2024 14:31:41 03/06/2024 08:43:15 Sensorineural hearing loss of bilateral ears [id number] H90.3 Health Concerns Section Related Observation LastModified by Organization Detai ls LastModified Time None Recorded Concern Status LastModified by Organization Details LastModified Time None Recorded Advance Directives Directive None Recorded Payers Insurance Date Sequence Insurance Name Policy Number Policy Arias Covered Member ID Arias Member ID Guarantor Name 02/19/2024 2 [place] [id number] Mick Vela [id number] Mick Vela 02/15/2024 1 [place] [employer] Mick Vela [id number] Mick Vela Notes Date Note Type [...] The devices were programmed wirelessly using the greens planter software in [facility]. Real-ear verification was performed and the [...] without pain or discomfort. Isrrael BRODERICK 100 [facility] [address], [place], [address], [facility] - [facility] 02/17/2024 11:01:12 02/18/2024 text/html Patient returns [...] The devices were programmed wirelessly using the greens planter software in [facility]. Real-ear verification was previously performed. Any [...] or email at their convenience. MARGIE JUAREZ, [facility] [address] [address], [place], [address], [facility] - [facility] 02/18/2024 14:37:11
[2025-08-16 06:51] LABS: MANUAL DIFF FLAG NO
[2025-08-16 07:20] LABS: Hematocrit 45.2 % (42.0-52.0); Hemoglobin 14.9 g/dl (14.0-18.0); Imm Gran Abs Auto 0.01 X10*3/uL (0.00-0.03); Imm Gran Pct Auto 0.2 % (0.0-0.4); Lymphocytes Absolute Auto 1.8 X10*3/uL (1.2-4.9); Mean Corpuscular HGB Conc 33.0 g/dl (31.0-36.0); Mean Corpuscular Hemoglobin 29.7 pg (27.0-33.0); Mean Corpuscular Volume 90.0 fL (80.0-98.0); NRBC Abs Auto 0.000 X10*3/uL (0.0-0.012); NRBC Pct Auto 0.0 /100WBC (0.0-0.2); Platelet Count 140 X10*3/uL (160-400); Red Blood Count 5.02 X10*6/uL (4.60-5.80); White Blood Count 5.1 X10*3/uL (4.8-10.8)
[2025-08-16 07:42] LABS: Appearance Urine Clear; Glucose Urine UA Negative (Negative); PH 6.0 (5.0-9.0); Specific Gravity - Urine 1.020 (1.005-1.025); UMIC TRIGGER UACC YES
[2025-08-16 08:00] LABS: Alanine Aminotransferase 36 U/L (0-40); Albumin Level 3.8 g/dL (3.5-5.0); Alkaline Phosphatase 99 U/L (39-117); Anion Gap 11 (12-20); Aspartate Amino Transferase 29 U/L (5-37); Blood Urea Nitrogen 16 mg/dL (9-16); Calcium 9.4 mg/dL (8.4-10.2); Carbon Dioxide 25 mmol/L (22-29); Chloride 109 mmol/L (96-108); Cholesterol 131 mg/dL (<200); Estimated Glomerular Filt Rate > 60; HDL Cholesterol 39 mg/dL (>40); Potassium 4.0 mmol/L (3.3-5.1); Sodium 141 mmol/L (135-145); Total Protein 6.8 g/dL (6.5-8.0); Triglycerides 140 mg/dL (<150)
[2025-08-16 08:50] LABS: Free T4 (Free Thyroxine) 0.97 ng/dL (0.71-1.85)
== END 2025-08-16 06:21 | disposition home or self-care (01) ==
LOC: HO.LAB 06:20
PROVIDERS: PCP Nurse Practitioner Family; Visit Provider Nurse Practitioner Family
DX: Z12.5 Encounter for screening for malignant neoplasm of prostate (principal); I10 Essential (primary) hypertension
CPT/HCPCS: 36415; 80053; 80061; 81001; 84153; 84439; 84443; 85025

== ENCOUNTER 2025-08-26 10:05 | Outpatient (AMB) | payer MEDICARE, SELFPAY ==
[2025-08-26 10:13] VITALS: BP 124/72; PULSE 73; O2SAT 95; BMI 33.3
--- NOTE | 2025-08-26 10:13 | A.OFFPC_ITS ---
Vital Signs 08/26/25 10:13 Height 6 ft 4 in Weight 274 lb BMI 33.3 BP 124/72 Blood Pressure Location Lt brachial Position Sitting Pulse 73 Pulse Oximetry (%) 95 Oxygen Delivery Method Room Air Intake Visit Reasons: 6 m f/u - see comments Parts Representative Required: No Accompanied by: Self / Same As Patient Allergies amoxicillin Allergy (Intermediate, Verified 08/26/25 10:18) Gastrointestinal Upset Penicillins Allergy (Intermediate, Verified 08/26/25 10:18) Gastrointestinal Upset Tobacco use date assessed: 08/26/25 Fall risk assessment: No Falls in past year Last assessed Fall Risk: 08/26/25 Dental Screening Dental Screen Date: 08/26/25 Did you have a dental visit in the last 12 months?: Yes Did you have a dental problem in the last 6 months where you did not have access to dental care?: No Was dental information given to patient?: Patient has dentist HPI 6 m f/u - see comments HPI Details Chief Complaint The patient presents for a follow-up visit to review recent lab work. History of Present Illness The patient is a 69 year old male presenting for a follow-up on recent lab work. Recent labs showed an elevated TSH, and he reports some increased fatigue lately but denies increased constipation or dry skin. The labs also revealed microscopic hematuria. He underwent a cardiac ablation on July 23 and reports feeling fine since the procedure. He denies chest pain or shortness of breath. The patient had a recent episode of dizziness, which he attributes to low blood sugar or hunger, as it resolved after eating. His medical history is significant for a kidney stone in his 20s. He sees a topstitcher lockstitch regularly. He notes that his left pupil is bigger than his right but denies any headaches. Social History - Tobacco Use: He has never smoked. - Occupational History: He has never wor ked in a factory and denies being surrounded by multiple chemicals. Health Maintenance Review of Systems - General: Reports increased fatigue. - Eyes: Reports his left pupil is larger than his right. - Integumentary: Denies dry skin. - Cardiovascular: Denies chest pain. - Respiratory: Denies shortness of breat h. - Gastrointestinal: Denies increased con stipation. - Neurological: Denies headaches. Report s a recent episode of dizziness that resolved after eating. Physical Exam General: Cooperative, healthy appearing, comfortable, no acute distress and well developed Orientation: Patient oriented x3 Limitations: No limitations Head: Normal to inspection Ears: Hearing grossly normal bilaterally Nose: Normal external nose present Face and sinus: Normal facial exam Eyes: Left pupil is bigger than the right, some anisocoria noted, almost like an abnormal pupil shape on the left side Neck: Normal visual inspection and Yes full ROM Respiratory: Normal respiratory effort and able to speak in complete sentences. Clear to auscultation bilaterally Cardiovascular: Regular rate and rhythm. Normal S1 and S2 GI: Normal to inspection. Soft to palpation and nontender Skin: No rashes or lesions noted Neuro: Patient oriented x3 Extremities: Normal to inspection Results - Labs: Recent labs showed an elevated T SH and microscopic hematuria. Plan 1. Microscopic Hematuria The patient was found to have microscopic hematuria on recent lab work. He has a remote history of a kidney stone in his 20s. To further evaluate this finding, a repeat urinalysis with urine culture and urine cytology will be ordered, along with a CT urogram. A referral will be made based on the results of these investigations. 2. Elevated TSH The patient has a recent finding of an elevated TSH and reports experiencing some increased fatigue. He denies other symptoms of hypothyroidism such as increased constipation or dry skin. The plan is to recheck his thyroid function in the near future. Discussion Notes I discussed with the patient the findings of an elevated TSH and microscopic hematuria from his recent lab work. I explained that we will repeat his thyroid function tests to confirm the initial result. For the hematuria, I advised that we would order a repeat urinalysis, a urine culture, urine cytology, and a CT urogram to investigate further. I informed him that once all lab and imaging results are back, we will determine the next steps, including any necessary referrals. Patient Instructions - You will need to have your thyroid fun ction rechecked with another blood test soon. - To investigate the finding of blood in your urine, we will be ordering several tests: a repeat urine sample for culture and cytology, and a CT scan of your urinary system (CT urogram). - We will wait for all the lab and imagi ng results to come back before deciding on the next steps. [facility] Medical History Osteoarthritis History of cardioversion (10/07/24) Malignant melanoma Thrombocytopenia Elevated cholesterol History of cardioversion (~06/12/23) Sleep apnea Atrial fibrillation Enlarged thoracic aorta Hypertensive heart disease HTN (hypertension) Surgical History History of esophagogastroduodenoscopy (EGD) (08/07/24) H/O colonoscopy History of melanoma excision (~11/12/22) Family History Father No problems noted. Mother CVD (cardiovascular disease) Social History Household Members: Spouse and Children Housing: House Are you a primary manager progressive care to a significant other at home: No Do you presently have visiting nurse or other home services: No Patient Tobacco Use Status: Never used Tobacco e-Cigarette/Vaping Use: Never Used service: No Current occupational status: retired Cognitive needs: No Hearing needs: No Vision needs: Yes Questionnaire Thrive Questionnaire Date Thrive assessed: 11/23/24 I am a: Patient What is your living situation today?: I have a steady place to live Within the past 12 months, did the food you bought not last and you didn't have the money to get more?: Never true Within the past 12 months, did you worry whether your food would run out before you got money to buy more?: I choose not to answer this question Do you have trouble paying for medicines?: I choose not to answer this question Do you have trouble getting transportation to medical appointments?: I choose not to answer this question Do you have trouble paying your heating and electricity bill?: I choose not to answer this question Do you have trouble taking care of your child, family member or friend?: I choose not to answer this question Do you have trouble with day-to-day activities such as bathing, preparing meals, shopping, managing finances, etc.?: I choose not to answer this question Are you currently unemployed and looking for a job?: I choose not to answer this question Are you interested in more education?: I choose not to answer this question Please select the resources that you would like help with: None Currently or been in a relationship where the following occur: I choose not to answer THRIVE Score: 0 LIZY-7 AMB Questionnaire LIZY-7 Date LIZY - 7 assessed: 11/30/24 Source: Developed by DrsJavon Schulte, Jamaica Howe, Santiago Orellana and colleagues, with an educational tabitha from [employer]. Physical exam (Primary Care) Vital Signs: Last Vital Signs Pulse 73 08/26/25 10:13 BP 124/72 08/26/25 10:13 Pulse Ox 95 08/26/25 10:13 Oxygen Delivery Method Room Air 08/26/25 10:13 BMI result Body Mass Index 33.3 Tobacco/Smoking Status: Tobacco use Status Tobacco use date assessed 08/26/25 08/26/25 10:19 Patient Tobacco Use Status Never used Tobacco 08/26/25 10:13 e-Cigarette/Vaping Use Never Used 08/26/25 10:13 Thrive Assessment: Date of Thrive Assessment Date Thrive assessed 11/23/24 08/26/25 10:13 Currently or been in a relationship where the following occur: I choose not to answer Coding Level of Care Code Est Pt Level 3 (37627) Diagnoses Microscopic hematuria R31. Elevated TSH R79.89 Assessment & Plan Assessment & Plan (1) Microscopic hematuria: Code(s): R31.29 - Other microscopic hematuria Category: Medical (2) Elevated TSH: Code(s): R79.89 - Other specified abnormal findings of blood chemistry Category: Medical Plan . Orders: Orders TSH reflex Free T4 Today R79.89 - Other specified abnormal findings of blood chemistry Thyroid Peroxidase Antibodies Today R79.89 - Other specified abnormal findings of blood chemistry CT urogram Today R31.29 - Other microscopic hematuria UA CC w/rflx Micro + Cult Today R3. - Other microscopic hematuria Urine Culture Today R3. - Other microscopic hematuria Urine Cytology Today R3. - Other microscopic hematuria
== END 2025-08-26 12:20 | disposition home or self-care (01) ==
LOC: HO.HMCC 10:06
PROVIDERS: Visit Provider Nurse Practitioner Family
DX: R31.29 Other microscopic hematuria (principal); R79.89 Other specified abnormal findings of blood chemistry

== ENCOUNTER → 2025-08-26 10:05 | Outpatient (BNVA) | payer MEDICARE, SELFPAY | PROVIDERS: Visit Provider Nurse Practitioner Family | DX: R31.29 Other microscopic hematuria (principal); R79.89 Other specified abnormal findings of blood chemistry | CPT/HCPCS: 99212 ==

== ENCOUNTER 2025-09-14 07:44 | Outpatient (AMB) | payer MEDICARE, SELFPAY ==
--- OUTSIDE RECORDS SUMMARY | 2024-11-27 05:00 | XMS_ITS ---
Author Organization [facility] Address [address] [place] [address] Care Team Providers Care Security System Analyst Name Role Phone Josh Kelly MD Primary Care Provider Jules Kirk Unavailable [phone] Luke Hayes Jr Unavailable [phone] REASON FOR VISIT FOOD BOLUS Encounters Encounter Location Date Provider Diagnosis [facility] Outpatient [address] [place] [phone] 11/27/2024 Luke Hayes Jr Esophageal stricture K22.2 Assessments Encounter Date Diagnosis (ICD Code) Assessment Notes Treatment Notes Treatment Clinical Notes Section Notes 11/27/2024 Esophageal stricture (ICD-10 - K22.2) Plan Of Treatment No Information Progress Notes * DUONG MYLESDOB:[birth year] (69 yo M)Acc No.[id number]:11/27/2024 EGD/MAC Patient: DUONG CARREON Provider: Artem Hayes MD :1955 A ge:68 Y S ex:Male Date:11/27/2024 Address: [place] [facility] [facility] Pcp:Josh Kelly MD Subjective: * Chief Complaints: * F OOD BOLUS Assessment: * Assessment: 1. E sophageal stricture - K22.2 (Primary) Plan: * Procedure Codes: 4 3249 ESOPH ENDOSCOPY, [id number] UPPER GI ENDOSCOPY, BIOPSY, Modifiers: 59 Billing Information: * Procedure Codes: 45874 ESOPH ENDOSCOPY, DILATION. 99006 UPPER GI ENDOSCOPY, BIOPSY. Modifiers: 59 * The named appointment provid er may or may not be the originator of this progress note, and it is not deemed complete until electronically signed by the appointment provider. Sign off status: Pending * Provider: Artem Hayes MD Date: 0 11/27/2024 Generated for Momo ingram/Omid/Julius on: 1 09:07 AM EST
--- NOTE | 2025-09-14 07:45 | MHC.OFFVIS ---
Vital Signs 09/14/25 07:51 Height 6 ft 4 in Weight 274 lb BMI 33.3 Intake Visit Reasons: Right knee pain Intake Note: Mick is a 69 year old male who presents with complaints of progressively worsening right knee pain. He describes his pain as sharp in nature. He has failed the last 3 months of conservative treatment which has included Tylenol, a home exercise program and physical therapy exercises. He is not able to tolerate anti-inflammatory medicines because he is on Xarelto. The patient has had multiple cortisone injections in the past. The most recent cortisone injection gave him minimal relief. At this point the patient's right knee pain is interfering with his activities of daily living and his ability to sleep well through the night. The patient has been using a cane because of his pain. He wishes to hold off on surgery if at all possible. Allergies amoxicillin Allergy (Intermediate, Verified 09/14/25 07:52) Gastrointestinal Upset Penicillins Allergy (Intermediate, Verified 09/14/25 07:52) Gastrointestinal Upset Medication List - Last Reconciled 09/14/25 by Wai Hand MD albuterol sulfate 90 mcg/actuation 2 puffs inhalation Q4-6H PRN atorvastatin 40 mg PO DAILY famotidine (Pepcid) 20 mg PO BID fexofenadine (Ananya Allergy) 180 mg PO DAILY lisinopril 5 mg PO QPM omeprazole 40 mg PO DAILY rivaroxaban (Xarelto) 20 mg PO DAILY [facility] Medical History Osteoarthritis History of cardioversion (10/07/24) Malignant melanoma Thrombocytopenia Elevated cholesterol History of cardioversion (~06/12/23) Sleep apnea Atrial fibrillation Enlarged thoracic aorta Hypertensive heart disease HTN (hypertension) Surgical History History of esophagogastroduodenoscopy (EGD) (08/07/24) H/O colonoscopy History of melanoma excision (~11/12/22) Family History Father No problems noted. Mother CVD (cardiovascular disease) Social History Household Members: Spouse and Children Housing: House Are you a primary care management specialist to a significant other at home: No Do you presently have visiting nurse or other home services: No Patient Tobacco Use Status: Never used Tobacco e-Cigarette/Vaping Use: Never Used service: No Current occupational status: retired Cognitive needs: No Hearing needs: No Vision needs: Yes Physical Exam Extrem Other: Right knee examination shows a minimal effusion, palpable crepitus with range of motion, pain with range of motion, no instability Results Reviewed Results Reviewed: X-rays of the patient's right knee taken previously show joint space narrowing, subchondral sclerosis, no acute bony abnormalities Assessment & Plan Assessment & Plan (1) Right knee pain: Code(s): M25.561 - Pain in right knee Category: Medical (2) Osteoarthritis of right knee: Code(s): M17.11 - Unilateral primary osteoarthritis, right knee Category: Medical Plan Mr. Vela presents with right knee pain due to osteoarthritis. I had a lengthy discussion with the patient regarding the treatment options. He wishes to hold off on surgery if at all possible. I agree with this plan. I will see if the patient's insurance company will cover a viscosupplementation injection, such as Durolane, for his right knee. I will see him back once the injection is approved. Feel free to call me at any time should questions regarding his orthopedic management arise. I spent 20 minutes in reviewing the patient's records and imaging studies, seeing the patient and documenting in the medical record. Coding Level of Care Code Est Pt Level 3 (99513) Add On Problem Visit Only Diagnoses Right knee pain M25.561 Osteoarthritis of right knee M17.11
[2025-09-14 07:51] VITALS: BMI 33.3
--- OUTSIDE RECORDS SUMMARY | 2025-09-14 09:08 | XMS_ITS | Patient Health Record ---
Author Organization [facility] Address [address] [place] [address] Care Team Providers Care Pleat Patternmaker Name Role Phone Leticia OCHOA, Johs Primary Care Provider Jules Kirk Unavailable [phone] Luke Hayes Jr Unavailable Allergies Allergen (clinical drug ingredient) Drug/Non Drug Allergy documented on EMR Reaction Allergy Type Onset Date Status hay fever (uncoded) Unknown Allergy Active Penicillin Unknown Drug Allergy Active Results Component Value Reference Range Notes Pathology Reviewed date:12/01/2024 02:46:29 PM Interpretation: Performing Lab:[facility], [address] [place] [phone] Notes/Report: Reason For Referral No Information Medications [...] Miscellaneous: Marital status: 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 alcohol Nonsmoker; occ. alcohol Nonsmoker; occ. alcohol Nonsmoker; occ. alcohol Problems Problem Type SNOMED Code ICD Code Onset Dates Problem Status W/U Status Risk Notes Problem Colon cancer screening (592182749) Colon cancer screening (Z12.11) Active confirmed Problem History of adenomatous polyp of colon (424614906) History of adenomatous polyp of colon (Z86.010) Active confirmed Problem Weight loss (694710706) Weight loss (R63.4) Active confirmed Problem Diverticular disease of colon (603686986) Diverticulosis of large intestine without perforation or abscess without bleeding (K57.30) Active confirmed Problem Long-term current use of anticoagulant (877028180) Anticoagulant long-term use (Z79.01) Active confirmed Problem Liver cyst (33033832) Liver cyst (K76.89) Active confirmed Problem Diarrhea (18979023) Diarrhea, unspecified type (R19.7) Active confirmed Problem Renal cyst (033848741) Renal cyst (N28.1) Active confirmed Problem Diarrhea of presumed infectious origin (03860598) Diarrhea of presumed infectious origin (R19.7) Active confirmed Problem Esophagism (67980431) Esophagism (K22.4) Active confirmed Encounters Encounter Location Date Provider [place] [facility] [place] [address] [place] [id number] 11/27/2024 Luke Hayes Jr Esophageal stricture K22.2 [facility] [address] [place] [phone] 09/23/2024 Jules Fermin [facility] [address] [place] [phone] 12/01/2024 Jules Fermin [facility] [address] [place] [phone] 03/04/2025 Jules Fermin [facility] [address] [place] [phone] 04/27/2025 Jules Fermin Assessments Encounter Date Diagnosis (ICD Code) Assessment Notes Treatment Notes Treatment Clinical Notes Section Notes 11/27/2024 Esophageal stricture (ICD-10 - K22.2) Plan Of Treatment Pending Test Test Name [...] MEDICARE OF [place] [address] [place] [address] [id number] DUONG MYLES Self - patient is the insured [employer] ATT[employer] CLAIMS [address] [place] [address] [phone] [id number] DUONG MYLES Self - patient is the [...] aortic aneurysm Afib-sees Dr. Crabtree-Cardioverted 05/2023 Melanoma [id number] by Dr. Yair sagastume Thrombocytopenia--ITP--erica Angela--treated with prednisone but will be going on a different med as of the 06/2023 OV Surgical History Surgery Date(Month/Year) Melanoma RUE-Dr. Queen--neg. lymph node s 11/2022
== END 2025-09-14 07:57 | disposition home or self-care (01) ==
LOC: HO.HOS 07:44
PROVIDERS: PCP Nurse Practitioner Family; Visit Provider Orthopaedic Surgery
DX: M25.561 Pain in right knee (principal); M17.11 Unilateral primary osteoarthritis, right knee
CPT/HCPCS: 99213; G2211

== ENCOUNTER → 2025-09-14 07:44 | Outpatient (BNVA) | payer MEDICARE, SELFPAY | PROVIDERS: PCP Nurse Practitioner Family; Visit Provider Orthopaedic Surgery | DX: M25.561 Pain in right knee (principal); M17.11 Unilateral primary osteoarthritis, right knee | CPT/HCPCS: 99212 ==